=== PATIENT | female | born 1935 | race Caucasian/White ===

== ENCOUNTER 2018-05-08 16:12 | Inpatient (IN) | payer MEDICARE, MEDICAID ==
[2018-05-08 20:18] LABS: ABS Basophils 0 10^3/ul (0-0.2); ABS Eosinophils 0 10^3/ul (0-0.6); ABS Monocytes 0.4 10^3/ul (0-0.8); ABS Neutrophils 7.3 10^3/ul (1.5-7.7); ABS Nucleated RBC 0 10^3/ul; Eosinophil % 0 % (0-6); Hematocrit 38 % (35-47); Hemoglobin 12.6 g/dl (12.0-16.0); Lymphocyte % 11.4 % (25-47); Mean Corpuscular HGB Conc 33 g/dl (31-36); Mean Corpuscular Hemoglobin 28 pg (27-31); Mean Corpuscular Volume 84 fL (80-97); Mean Platelet Volume 10.8 um3 (7.4-10.4); Nucleated Red Blood Cells % 0.1; Platelet Count 207 10^3/ul (150-450); Red Blood Count 4.54 10^6/ul (4.00-5.40); Red Cell Distribution Width 16 % (10.5-15); White Blood Count 8.8 10^3/ul (3.5-10.8)
[2018-05-08 20:31] LABS: INR 0.99 (0.77-1.02)
[2018-05-08 20:34] LABS: EGFR Non-African American 27.6 (>60)
[2018-05-08] MEDS ORDERED: Dexamethasone IV* 4 MG/ML 5 ML VIAL (20 MG) IVPB ONE (20:35)
[2018-05-08] MEDS ORDERED: levETIRAcetam IV* 500 MG in NS 0.9% 100 ML* 100 ML IVPB ONE (20:35)
[2018-05-08] MEDS ORDERED: NS 0.9% 1000 ML* 1,000 ML IV ONE (21:32)
[2018-05-08] MEDS ORDERED: levETIRAcetam 500 MG IVPREMIX* 500 MG/100 ML BAG IV ONE (23:00)
[2018-05-08] MEDS ORDERED: Dexamethasone IV* 4 MG/ML 1 ML (4 MG) IV SLOW PU ONE (23:00)
[2018-05-08] MEDS ORDERED: Melatonin 3 MG TAB PO PRN (23:26)
[2018-05-08] MEDS ORDERED: Acetaminophen TAB* 325 MG PO PRN (23:26)
--- NOTE | 2018-05-08 23:30 | HP ---
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 She saw Dr Maynard, neurosurgery & her PCP yesterday and reports her PCP advised her to come to the ED for evaluation. Per her brother's report to the ED physician, they are dissatisfied with the progress of her evaluation and he would like her work up performed in the hospital setting. She denies any change in her status compared to a week ago, specifically no chest pain, SOB, N/V, focal W/N/T, change in bowel/bladder, or other issues. Her and her family were informed that as she has no acute complaints, her insurance may not cover an inpatient admission to expedite evaluation. She opted to sign the pre-authorization denial and be admitted custodially. PMedHx DM2 HTN HLD CKD anemia RLS SBO diverticulitis Ambulatory Orders Simvastatin (NF) [Zocor (NF)] 40 mg PO DAILY 11/29/15 Acetaminophen [Acetaminophen Extra Strength] 500 mg PO DAILY PRN 05/08/18 Hydrochlorothiazide TAB* [Hydrodiuril TAB*] 25 mg PO DAILY 05/08/18 Losartan TAB* [Cozaar TAB*] 100 mg PO QPM 05/08/18 levETIRAcetam [Levetiracetam ER] 500 mg PO DAILY 05/08/18 predniSONE TAB* [Deltasone 10 MG TAB*] 10 mg PO DAILY 05/08/18 Allergies No Known Allergies Allergy (Verified 05/08/18 16:22) PSurgHx colon resection w/ colostomy s/p reversal hernia repair B TKA SocHx: no tobacco, alcohol, or recreational drug HX; lives alone in senior apartments in [place]; full codes status FamHx: Mother: kidney disease; Father: CAD/OH ROS: as above, otherwise reviewed and all were negative vitals: Vital Signs Temp 36.2 C 05/08/18 16:14 Pulse 68 05/08/18 16:14 Resp 16 05/08/18 16:14 BP 162/76 05/08/18 16:14 Pulse Ox 96 05/08/18 16:14 Intake & Output 05/07/18 05/08/18 05/08/18 23:59 11:59 23:59 Weight 90.718 kg Constitutional: NAD, normally developed, obese elderly white female HEENM: atraumatic; sclera/conjunctiva: anicteric/clear; hearing: clinically intact; oropharynx: clear, mucosa moist Neck: soft tissue: no nuchal rigidity; thyroid: normal Pulmonary: clear to auscultation bilaterally, good aeration, no accessory muscle use CV: RR/RR, normal S1S2, no carotid bruit, no jugular venous distention, 2+ B DP/ PT, 1+BLE edema Abdominal: soft, non-distended, non-tender, no rebound/guarding/rigidity, normoactive bowel sounds, no hepatosplenomegaly or masses, no costovertebral angle tenderness Musculoskeletal: general: grossly intact, moves all extremities x4 Integumental: normal appearance and texture of skin, cephal-allopecia Psychiatric orientation: AA&O to PP, loosely to situation affect: calm mood: cooperative eye contact: fair content: seemingly reliable responses: timely insight: fair Testing: Lab Results 05/08/18 05/08/18 05/08/18 Range/Units 20:10 20:10 20:10 WBC 8.8 (3.5-10.8) 10^3/ul RBC 4.54 (4.00-5.40) 10^6/ul Hgb 12.6 (12.0-16.0) g/dl Hct 38 (35-47) % MCV 84 (80-97) fL MCH 28 (27-31) pg MCHC 33 (31-36) g/dl RDW 16 H (10.5-15) % Plt Count 207 (150-450) 10^3/ul MPV 10.8 H (7.4-10.4) um3 Neut % (Auto) 83.6 H (38-83) % Lymph % (Auto) 11.4 L (25-47) % [place] % (Auto) 4.8 (0-7) % Eos % (Auto) 0 (0-6) % Baso % (Auto) 0.2 (0-2) % Absolute Neuts (auto) 7.3 (1.5-7.7) 10^3/ul Absolute Lymphs (auto) 1.0 (1.0-4.8) 10^3/ul Absolute Monos (auto) 0.4 (0-0.8) 10^3/ul Absolute Eos (auto) 0 (0-0.6) 10^3/ul Absolute Basos (auto) 0 (0-0.2) 10^3/ul Absolute Nucleated RBC 0 10^3/ul Nucleated RBC % 0.1 INR (Anticoag Therapy) 0.99 (0.77-1.02) APTT 26.7 (26.0-36.3) seconds Sodium 140 (135-145) mmol/L Potassium 4.5 (3.5-5.0) mmol/L Chloride 104 (101-111) mmol/L Carbon Dioxide 28 (22-32) mmol/L Anion Gap 8 (2-11) mmol/L BUN 50 H (6-24) mg/dL Creatinine 1.76 H (0.51-0.95) mg/dL Est GFR ( Amer) 35.5 (>60) Est GFR (Non-Af Amer) 27.6 (>60) BUN/Creatinine Ratio 28.4 H (8-20) Glucose 139 H (70-100) mg/dL Calcium 10.2 (8.6-10.3) mg/dL Total Bilirubin 0.40 (0.2-1.0) mg/dL AST 16 (13-39) U/L ALT 14 (7-52) U/L Alkaline Phosphatase 42 (34-104) U/L Total Protein 7.5 (6.4-8.9) g/dL Albumin 4.1 (3.2-5.2) g/dL Globulin 3.4 (2-4) g/dL Albumin/Globulin Ratio 1.2 (1-3) CT brain WO (05/02/2018): IMPRESSION: 1. 4.2 CM MASS OF THE RIGHT TEMPORAL LOBE WITH ASSOCIATED VASOGENIC EDEMA AND 0.7 CM OF SUBFALCINE SHIFT TO THE LEFT. THERE IS PARTIAL EFFACEMENT OF THE RIGHT AMBIENT CISTERN. 2. PRELIMINARY FINDINGS WERE DISCUSSED WITH THE REFERRING PHYSICIAN'S OFFICE AT APPROXIMATELY 10:30 AM ON MAY 02, 2013. 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
[2018-05-09] MEDS: Heparin VIAL(*) 5000 UNITS/ML VIAL (FIVE THOUSAND) SUBCUT SCH ×3 (05:12→22:25)
[2018-05-09] MEDS: Omeprazole CAP* 20 MG PO SCH (05:12)
--- NOTE | 2018-05-09 06:27 | ED ---
Fransico Thorpe Elizabeth, scribed for Garrett Harley MD on 05/08/18 at 1939 . Complex/Multi-Sys Presentation - HPI Summary HPI Summary: This patient is an 82 year old F presenting to [facility] with a chief complaint of increased weakness since a few days ago. Symptoms aggravated by nothing. Symptoms alleviated by nothing. Patient reports increased confusion, change in vision, and unsteadiness on her feet over the last several days. Patient denies N/V. The patient notes that she was diagnosed with a 4 cm intracranial tumor on 05/02/18.. The patient notes that she was seen by a neurosurgeon today and was advised to come to the ED for further evaluation and treatment. - History Of Current Complaint Chief Complaint: EDWeakness Time Seen by Provider: 05/08/18 19:06 Hx Obtained From: Patient, Family/Shot Tube Machine Tender Onset/Duration: Gradual Onset, Lasting Days, Still Present Timing: Constant, Days Severity Currently: Mild Severity Initially: Mild Aggravating Factor(s): nothing Alleviating Factor(s): nothing Associated Signs And Symptoms: Positive: Confusion, Weakness, Other - unsteady gait. Negative: Nausea, Vomiting - Allergies/Home Medications Allergies/Adverse Reactions: Allergies Allergy/AdvReac Type Severity Reaction Status Date / Time No Known Allergies Allergy Verified 05/08/18 16:22 Home Medications: Home Medications Acetaminophen [Acetaminophen Extra Strength] 500 mg PO DAILY PRN 05/08/18 [ History Confirmed 05/08/18] Hydrochlorothiazide TAB* [Hydrodiuril TAB*] 25 mg PO DAILY 05/08/18 [History Confirmed 05/08/18] Losartan TAB* [Cozaar TAB*] 100 mg PO QPM 05/08/18 [History Confirmed 05/08/18] levETIRAcetam [Levetiracetam ER] 500 mg PO DAILY 05/08/18 [History Confirmed ] predniSONE TAB* [Deltasone 10 MG TAB*] 10 mg PO DAILY 05/08/18 [History Confirmed 05/08/18] PMH/Surg Hx/FS Hx/Imm Hx Endocrine/Hematology History: Reports: Hx Anticoagulant Therapy, Hx Anemia Denies: Hx Diabetes, Hx Thyroid Disease, Hx Unexplained Bleeding Cardiovascular History: Reports: Hx Angina, Hx Hypercholesterolemia, Hx Hypertension Denies: Hx Aneurysm, Hx Angioplasty, Hx Auto Implanted Cardiovert Defib, Hx Cardiac Arrest, Hx Cardiomegaly, Hx Congenital Heart Disease, Hx Congestive Heart Failure, Hx Coronary Artery Disease, Hx Deep Vein Thrombosis, Hx Hypotension, Hx Pacemaker/ICD, Hx Peripheral Vascular Disease, Hx Rheumatic Fever, Hx Syncope, Hx Valvular Heart Disease, Other Cardiovascular Problems/ Disorders Respiratory History: Denies: Hx Asthma, Hx Chronic Bronchitis, Hx Chronic Obstructive Pulmonary Disease (COPD), Hx Cystic Fibrosis GI History: Reports: Hx Diverticulosis, Other GI Disorders - ventral hernia, bowel ostruction History: Reports: Hx Kidney Stones - LEFT Denies: Hx Renal Disease Musculoskeletal History: Reports: Hx Arthritis - L hand, Other Musculoskeletal History - right knee replacement Sensory History: Reports: Hx Contacts or Glasses, Hx Hearing Aid Denies: Hx Cataracts, Hx Eye Injury, Hx Eye Prosthesis, Hx Glaucoma, Hx Macular Degeneration, Hx Vision Problem, Hx Deafness, Hx Hearing Problem, Other Sensory Impairments Opthamlomology History: Reports: Hx Contacts or Glasses Denies: Hx Cataracts, Hx Eye Injury, Hx Eye Prosthesis, Hx Glaucoma, Hx Macular Degeneration, Hx Vision Problem, Other Sensory Impairments Neurological History: Reports: Hx Developmental Delay, Hx Headaches, Other Neuro Impairments/Disorders - brain tumor 2018 Denies: Hx Dementia, Hx Migraine, Hx Seizures, Hx Spinal Cord Injury, Hx Transient Ischemic Attacks (TIA) Psychiatric History: Denies: Hx Anxiety, Hx Attention Deficit Hyperactivity Disorder, Hx Panic Disorder, Hx Bipolar Disorder, Hx Substance Abuse - Cancer History Cancer Type, Location and Year: brain tumor, 2018 Hx Chemotherapy: No Hx Radiation Therapy: No - Surgical History Surgery Procedure, Year, and Place: ABD HERNIA REPAIR. right knee replacement, 2013, [facility] Hx Anesthesia Reactions: No - Immunization History Date of Tetanus Vaccine: unknown Infectious Disease History: No Infectious Disease History: Denies: Hx Clostridium Difficile, Hx Hepatitis, Hx Human Immunodeficiency Virus (HIV), Hx Shingles, Hx Tuberculosis, Traveled Outside the [place] in Last 30 Days - Family History Known Family History: Positive: Cardiac Disease - father Hx MT, Renal Disease - mother - Social History Lives: Alone Alcohol Use: None Substance Use Type: Reports: None Hx Tobacco Use: No Smoking Status (MU): Never Smoked Tobacco Review of Systems Negative: Fever Negative: Epistaxis Negative: Vomiting, Nausea Neurological: Other - POSITIVE CONFUSION, POSITIVE UNSTEADY GAIT Positive: Weakness All Other Systems Reviewed And Are Negative: Yes Physical Exam - Summary Physical Exam Summary: Appearance: Well-appearing, no distress, Well-nourished Skin: Warm, color reflects adequate perfusion Head: Normal Head/Face inspection Eyes: Conjunctiva clear; PERRLA, EOMI ENT: Normal inspection Neck: Supple, no nodes, no JVD. Respiratory: Lungs clear, Normal breath sounds, no respiratory distress Cardio: RRR, No murmur, pulses normal, brisk capillary refill Abdomen: soft, nontender, no guarding, no rebound Bowel sounds: present Musculoskeletal: Strength Intact/ ROM intact. No calf tenderness. No edema. Neuro: Alert, muscle tone normal, facial symmetry, speech normal, sensory/motor intact, CN intact II-XII Psychological: Normal Triage Information Reviewed: Yes Vital Signs On Initial Exam: Initial Vitals Temp Pulse Resp BP Pulse Ox 97.1 F 68 16 162/76 96 05/08/18 16:14 05/08/18 16:14 05/08/18 16:14 05/08/18 16:14 05/08/18 16:14 Vital Signs Reviewed: Yes Diagnostics - Vital Signs Vital Signs Temp Pulse Resp BP Pulse Ox 05/08/18 16:14 97.1 F 68 16 162/76 96 - Laboratory Lab Results: Lab Results 05/08/18 05/08/18 05/08/18 Range/Units 20:10 20:10 20:10 WBC 8.8 (3.5-10.8) 10^3/ul RBC 4.54 (4.00-5.40) 10^6/ul Hgb 12.6 (12.0-16.0) g/dl Hct 38 (35-47) % MCV 84 (80-97) fL MCH 28 (27-31) pg MCHC 33 (31-36) g/dl RDW 16 H (10.5-15) % Plt Count 207 (150-450) 10^3/ul MPV 10.8 H (7.4-10.4) um3 Neut % (Auto) 83.6 H (38-83) % Lymph % (Auto) 11.4 L (25-47) % [place] % (Auto) 4.8 (0-7) % Eos % (Auto) 0 (0-6) % Baso % (Auto) 0.2 (0-2) % Absolute Neuts (auto) 7.3 (1.5-7.7) 10^3/ul Absolute Lymphs (auto) 1.0 (1.0-4.8) 10^3/ul Absolute Monos (auto) 0.4 (0-0.8) 10^3/ul Absolute Eos (auto) 0 (0-0.6) 10^3/ul Absolute Basos (auto) 0 (0-0.2) 10^3/ul Absolute Nucleated RBC 0 10^3/ul Nucleated RBC % 0.1 INR (Anticoag Therapy) 0.99 (0.77-1.02) APTT 26.7 (26.0-36.3) seconds Sodium 140 (135-145) mmol/L Potassium 4.5 (3.5-5.0) mmol/L Chloride 104 (101-111) mmol/L Carbon Dioxide 28 (22-32) mmol/L Anion Gap 8 (2-11) mmol/L BUN 50 H (6-24) mg/dL Creatinine 1.76 H (0.51-0.95) mg/dL Est GFR ( Amer) 35.5 (>60) Est GFR (Non-Af Amer) 27.6 (>60) BUN/Creatinine Ratio 28.4 H (8-20) Glucose 139 H (70-100) mg/dL Calcium 10.2 (8.6-10.3) mg/dL Total Bilirubin 0.40 (0.2-1.0) mg/dL AST 16 (13-39) U/L ALT 14 (7-52) U/L Alkaline Phosphatase 42 (34-104) U/L Total Protein 7.5 (6.4-8.9) g/dL Albumin 4.1 (3.2-5.2) g/dL Globulin 3.4 (2-4) g/dL Albumin/Globulin Ratio 1.2 (1-3) Result Diagrams: 05/08/18 20:10 05/08/18 20:10 Lab Statement: Any lab studies that have been ordered have been reviewed, and results considered in the medical decision making process. Complex Multi-Symp Course/Dx Course Of Treatment: Spoke with Radiology regarding CT with contrast. Given pt' s GFR, plan for hydration with study in the am. Spoke with Dr. Lopez ( Neurosurgery) who evaluated ot in the clinic today and advised for ED visit. Given pt's recent diagnosis and some evidence of worsening left sided wekaness and gait abnormalities, plan for initiation of IV steroids, IV Keppra and admission for MRI and plan for surgical intervention. - Diagnoses Differential Diagnoses/HQI/PQRI: Closed Cranial Trauma, CVA, Metabolic Abnormality, Urinary Tract Infection Provider Diagnoses: Intracranial mass - Physician Notifications Discussed Care Of Patient With: Nadine Maynard Time Discussed With Above Provider: 20:00 Instructed by Provider To: Other - Dr. Maynard, neurosurgeon, requests patient be admitted for imaging, IV steroids, and anti-seizure medication. At 20 :30 Dr. Thapa, hospitalist, agrees to admit the patient to [facility]. Discharge - Sign-Out/Discharge Documenting (check all that apply): Discharge/Admit/Transfer - Discharge Plan Condition: Stable Disposition: ADMITTED TO [facility] Discharge Disposition Comment: admit to [facility] - Billing Disposition and Condition Condition: STABLE Disposition: Admitted to [facility] The documentation as recorded by the Fransico corona Elizabeth accurately reflects the service I personally performed and the decisions made by , Garrett Harley MD.
[2018-05-09 08:27] LABS: Urine Appearance Clear; Urine Blood Negative (Negative); Urine Color Straw; Urine Ketones Negative (Negative); Urine Protein 1+(30 mg/dL) (Negative); Urine Specific Gravity 1.012 (1.010-1.030); Urine Urobilinogen Negative (Negative)
[2018-05-09] MEDS ORDERED: predniSONE TAB* 10 MG PO SCH (09:00)
--- NOTE | 2018-05-09 10:08 | PN ---
Subjective Date of Service: 05/09/18 Interval History: Ms. Mayer denies any particular complaint other than being frustrated because of being bothered by needing further testing. She denies chest pain, SOB, nausea, or abdominal pain. Objective Active Medications: Acetaminophen (Tylenol Tab*) 650 mg PO Q6H PRN Atorvastatin Calcium (Lipitor*) 20 mg PO DAILY LING Docusate Sodium (Colace Cap*) 200 mg PO BID LING Heparin Sodium (Porcine) (Heparin Vial(*)) 5,000 units SUBCUT Q8HR LING Dexamethasone Sodium Phosphate (4 mg/ Sodium Chloride) 51 mls @ 204 mls/hr IVPB Q6H LING Insulin Human Lispro (Humalog*) 0 units SUBCUT ACHS LING Levetiracetam (Keppra Xr Tab(Nf)) 500 mg PO DAILY LING Losartan Potassium (Cozaar Tab*) 100 mg PO QPM LING Melatonin (Melatonin) 3 mg PO BEDTIME PRN; Protocol Omeprazole (Prilosec Cap*) 20 mg PO DAILY@0600 LING Ondansetron HCl (Zofran Odt Tab*) 4 mg PO Q6H PRN Vital Signs: Temp Pulse Resp BP Pulse Ox 98.1 F 59 18 165/44 95 05/09/18 07:34 05/09/18 07:34 05/09/18 07:34 05/09/18 07:34 05/09/18 07:34 Oxygen Devices in Use Now: None Appearance: Female lying in bed in NAD Eyes: No Scleral Icterus Ears/Nose/Mouth/Throat: Mucous Membranes Moist Neck: Trachea Midline Respiratory: Symmetrical Chest Expansion and Respiratory Effort, Clear to Auscultation Cardiovascular: NL Sounds; No Murmurs; No JVD, No Edema Abdominal: NL Sounds; No Tenderness; No Distention Extremities: No Edema Skin: No Rash or Ulcers Neurological: Alert and Oriented x 3, - - +4 strength to left deadener, slightly decreased strength in L LE, no pronator drift. Speech clear. No facial asymmetry. Result Diagrams: 05/08/18 20:10 05/08/18 20:10 Additional Lab and Data: . Assess/Plan/Problems-Billing Assessment: Ms. 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 - Patient Problems (1) Brain mass Comment: - Some minimal left sided weakness as well as confusion. - Appreciate consultation from Dr. Lopez. - Continue decadron and keppra. - MRI brain and CT C/A/P to eval for tumor burden - Surgery not arranged yet. In terms of pre-operative cardiac assessment, patient has no known cardiac history but does have risk factors of DM, HTN, and HLD. She does not regularly achieve 4 METS activity and describes HORNER. Echo ordered. (2) CKD (chronic kidney disease) Comment: - Stage 3-4, slightly up from baseline. - Plan for hydration, FeNa 1.6% suggesting primarily intrinsic disease. Hold Hctz and recheck labs in AM. (3) Diabetes Comment: - Not on any home meds. HgbA1c 6.9 - Continue lispro SSI coverage for meals prn. (4) HTN (hypertension) Comment: - SBP 160-170s. - Continue losartan and add amlodipine. - Hold hctz in setting of slight elevation in creatinine. (5) Hyperlipidemia Comment: - Continue atorvastatin. (6) DVT prophylaxis Comment: - Heparin SQ. (7) Full code status Comment: Status and Disposition: Inpatient. May have rehab needs at time of discharge. Previously lived alone independently.
[2018-05-09] MEDS: CMCS:Levetiracetam XR TAB(NF) 500 MG TAB.XR PO SCH (10:15)
[2018-05-09] MEDS: Atorvastatin* 20 MG TAB PO SCH (10:16)
[2018-05-09] MEDS: Docusate CAP* 100 MG PO SCH ×2 (10:16→22:24)
[2018-05-09] MEDS: Insulin LISPRO* 1 UNITS UNIT SUBCUT SCH ×5 (10:16→22:24)
--- NOTE | 2018-05-09 11:47 | RAD ---
HISTORY: brain mass COMPARISONS: Head CT dated May 02, 2018 TECHNIQUE: The following sequences were obtained of the head: Sagittal T1-weighted images, axial T2-weighted images, axial FLAIR images, axial gradient echo images, axial T1-weighted images. Additionally, axial diffusion-weighted images were obtained with calculated apparent diffusion coefficients. FINDINGS: Evaluation limited by positioning. HEMORRHAGE/INFARCT: There is no hemorrhage or acute infarct. MASSES/SHIFT: There is an approximately 5.9 x 4.3 x 3.4 cm cystic mass, centered within the right temporal lobe. There is approximately 0.4 cm of subfalcine shift to the left. There is partial effacement of the basal cisterns on the right. EXTRA-AXIAL SPACES/MENINGES: There is left anterior temporal pole arachnoid cyst. This measures 2 x 1.3 cm transversely. SULCI AND VENTRICLES: There is mass effect upon the lateral ventricle. CEREBRUM: As noted above, there is a 5.9 cm cystic mass centered within the right temporal lobe. There is vasogenic edema extending to the parietal, frontal, and occipital lobes. BRAINSTEM: There are no focal parenchymal abnormalities. CEREBELLUM: There are no focal parenchymal abnormalities. The cerebellar tonsils are normal in size and position. SELLA: The sella is normal. PINEAL: The pineal region is clear. CP ANGLE/TEMPORAL BONES: The labyrinthine structures are grossly normal. VESSELS: Normal flow-voids are noted within the visualized vertebral vasculature. DIFFUSION ABNORMALITIES: There are no diffusion abnormalities. PARANASAL SINUSES/MASTOIDS: The paranasal sinuses are clear. ORBITS: The orbits are unremarkable. BONES AND SOFT TISSUE: No bone or soft tissue abnormalities are noted. OTHER: None IMPRESSION: 5.9 CM CYSTIC MASS OF THE RIGHT TEMPORAL LOBE WITH ASSOCIATED VASOGENIC EDEMA AND 0.4 SUBFALCINE SHIFT TO THE LEFT. THERE IS PARTIAL EFFACEMENT OF THE BASAL CISTERNS. THIS CORRESPONDS TO THE MASS NOTED ON PREVIOUS CT.
[2018-05-09] MEDS: Dexamethasone IV* 4 MG in NS 0.9% 50 ML* 50 ML IVPB SCH ×2 (12:04→16:27)
[2018-05-09] MEDS: amLODIPine TAB* 5 MG PO SCH (12:09)
--- NOTE | 2018-05-09 12:34 | RAD ---
HISTORY: Brain tumor, rule out other tumors, metastasis COMPARISONS: July 01, 2016 TECHNIQUE: Multiple contiguous axial CT scans were obtained of the chest, abdomen, and pelvis, without intravenous contrast enhancement. Coronal and sagittal multiplanar reformations are submitted for review.. Oral contrast was not administered. FINDINGS: The study is limited by the lack of intravenous contrast. This limits evaluation of the solid organs and vasculature. CHEST NECK AND THYROID: There is a 1.6 cm right thyroid nodule. CHEST WALL: There is no lower cervical, axillary, or supraclavicular lymphadenopathy by size criteria. HEART AND PERICARDIUM: Coronary and valvular cardiac calcifications are noted. AORTA AND PULMONARY VASCULATURE: There is calcification of the thoracic aorta. The pulmonary vasculature is unremarkable. MEDIASTINUM: There is no mediastinal lymphadenopathy by size criteria. RAFFY: There is no hilar lymphadenopathy by size criteria. AIRWAY AND ESOPHAGUS: The airway is unremarkable, without endobronchial filling defect. The esophagus is grossly normal. LUNG PARENCHYMA: The lungs are clear. PLEURA: No pleural abnormalities are noted. BONES AND SOFT TISSUES: No bone or soft tissue abnormalities are noted. ABDOMEN/PELVIS: LIVER: There is a 1.6 cm partially calcific cystic lesion of the right lobe of liver. This is stable compared to July 01, 2016. BILE DUCTS: There is no intrahepatic or extrahepatic biliary dilatation. GALLBLADDER: The gallbladder is normal, without pericholecystic inflammatory change. PANCREAS: The pancreas is normal, without mass or ductal dilatation. SPLEEN: Normal in size and appearance. UPPER GI TRACT: Evaluation of the gastrointestinal tract is limited by incomplete gastric distention. The upper GI tract is unremarkable. SMALL BOWEL & MESENTERY: The small bowel is normal in contour, course, and caliber. There is no obstruction or dilatation. COLON: There are multiple diverticula of the distal colon. There is no pericolonic inflammatory change.. There is postsurgical change to the rectum ADRENALS: Normal bilaterally. KIDNEYS: There is stable simple cyst of the left kidney. BLADDER: The bladder is smooth in contour. PELVIC ORGANS: The uterus and adnexa are grossly normal for technique. AORTA: There is calcific atherosclerotic disease of the abdominal aorta and its branches, without aneurysmal dilatation IVC: Unremarkable LYMPH NODES: There are multiple large ventral hernias containing portions of the stomach, small bowel, and large bowel without obstruction. ABDOMINAL WALL: There is no evidence for abdominal wall hernia. BONES AND SOFT TISSUES: Degenerative changes are noted OTHER: None IMPRESSION: 1. ATHEROSCLEROSIS. 2. STABLE CYSTIC LESION OF THE RIGHT LOBE OF THE LIVER. 3. POST SURGICAL CHANGE TO THE RECTUM. 4. DIVERTICULOSIS. 5. MULTIPLE VENTRAL HERNIAS CONTAINING SMALL BOWEL, LARGE BOWEL, AND STOMACH WITHOUT OBSTRUCTION. 6. 1.6 CM RIGHT THYROID NODULE.
--- NOTE | 2018-05-09 14:09 | RAD ---
CLINICAL HISTORY: rule out malignancy brain mass COMPARISON: May 09, 2018 11:17 AM. TECHNIQUE: Multiple contiguous axial CT scans were obtained of the abdomen and pelvis, without intravenous contrast enhancement. Coronal and sagittal multiplanar reformations are submitted for review. Oral contrast was administered. FINDINGS: The study is limited by the lack of intravenous contrast. This limits evaluation of the solid organs and vasculature. This study is read in conjunction with the CT scan of May 09, 2018 at 11:17 AM. The addition of oral contrast is noncontributory to the current examination. IMPRESSION: NO SIGNIFICANT CHANGE FROM THE CT PERFORMED ON THE SAME DATE AT 11:17 AM, AFTER THE ADMINISTRATION OF ORAL CONTRAST.
[2018-05-09] MEDS: NS 0.9% 1000 ML* 1,000 ML IV SCH (14:37)
[2018-05-09] MEDS ORDERED: Dexamethasone IV* 4 MG/ML 1 ML (4 MG) ONE (16:19)
[2018-05-09] MEDS: Losartan TAB* 25 MG PO SCH (16:27)
--- NOTE | 2018-05-09 17:55 | ECHO ---
Patient: CANDIDO OCHOA [facility] Rec#: [id number] : 1935 Date: 05/09/2018 Age: 82y Height: 162.56 cm / 64.0 in Weight: 91.17 kg / 200.9 lbs Sex: F BSA: 1.96 Room#: 417 Admit Date#: 05/08/2018 Type: Inpatient Referring: Laverne Santana NP Reading: Ba Yanez MD Craft Recruiter: Diana Ordonez RDCS CC: Landon Shin MD Transthoracic Echocardiogram Indication: HORNER BP: 138/66 HR: 78 Rhythm: NSR Findings History: DM,HTN,HLD,CKD,anemia,ventral hernia,right tempopral lobe mass. Technical Comments: The study quality is good. Completed at 1700. Left Ventricle: The left ventricular chamber size is normal. Mild concentric left ventricular hypertrophy is observed. Global left ventricular wall motion and contractility are within normal limits. The estimated ejection fraction is 60-65%. Abnormal left ventricular diastolic function is observed. Abnormal left ventricular diastolic filling is observed, consistent with impaired relaxation. Left Atrium: The left atrial chamber size is normal. Right Ventricle: The right ventricular cavity size is normal. The right ventricular global systolic function is normal. Right Atrium: The right atrial cavity size is normal. Aortic Valve: The aortic valve is trileaflet. There is no evidence of aortic valve thickening. There is mild aortic regurgitation. There is no evidence of aortic stenosis. Mitral Valve: The mitral valve leaflets are mildly thickened. There is mild to moderate mitral regurgitation. There is no evidence of mitral stenosis. Tricuspid Valve: The tricuspid valve leaflets are normal. Unable to estimate the right ventricular systolic pressure. There is no tricuspid stenosis. Pulmonic Valve: The pulmonic valve appears normal. There is no evidence of pulmonic regurgitation. There is no pulmonic stenosis. Pericardium: A pericardial fat pad is visualized. Aorta: There is no dilatation of the ascending aorta. The aortic arch is not well visualized. There is no dilation of the aortic root. Pulmonary Artery: The main pulmonary artery appears normal. Venous: The venous system is not well visualized. Conclusions The estimated ejection fraction is 60-65%. Abnormal left ventricular diastolic function is observed. Mild concentric left ventricular hypertrophy is observed. There is mild aortic regurgitation. There is mild to moderate mitral regurgitation. Compared to , the MR has increased from trace to mild/moderate. Measurements Name Value Normal Range RVIDd (AP) 2D 2.8 cm (0.9 - 2.6) RVDdMajor (2D) 3.5 cm (2.2 - 4.4) RAd ISD 4CH 4.5 cm (3.4 - 4.9) RA (A4C)W 3.5 cm (2.9 - 4.6) IVSd (2D) 1.2 cm (0.6 - 1) LVPWd (2D) 1.1 cm (0.6 - 1) LVIDd (2D) 5 cm (3.6 - 5.4) LVIDs (2D) 3.8 cm - LV FS (2D) 24 % (25 - 45) Aortic Annulus 1.8 cm (1.4 - 2.6) Ao root diameter (2D) 2.7 cm (2.1 - 3.5) Ascending Ao 3.3 cm (2.1 - 3.4) LA dimension (AP) 2D 3.2 cm (2.3 - 3.8) LAd ISD 4CH 4.8 cm (2.9 - 5.3) LA ISD 4CH W 4 cm (2.5 - 4.5) Name Value Normal Range LA ESV SP 4CH (A/L) 60 ml - LA ESV SP 2CH (A/L) 46 ml - LA ESV BP (A/L) 58 ml - LA ESV BP (A/L) index 29.47 ml/m2 - LA ESV SP 4CH (MOD) 53 ml - LA ESV SP 2CH (MOD) 41 ml - Name Value Normal Range MV E-wave Vmax 0.8 m/sec - MV deceleration time 227 msec - MV A-wave Vmax 0.9 m/sec - MV E:A ratio 0.87 ratio - LV septal e' Vmax 0.06 m/sec - LV lateral e' Vmax 0.05 m/sec - LV E:e' septal ratio 13.33 ratio - LV E:e' lateral ratio 16 ratio - Name Value Normal Range AV Vmax 1.3 m/sec - AV VTI 29.8 cm - AV peak gradient 6.68 mmHg - AV mean gradient 3.73 mmHg - LVOT Vmax 0.8 m/sec - LVOT VTI 19.6 cm - LVOT peak gradient 2.82 mmHg - LVOT mean gradient 1.27 mmHg - AR PHT 589 msec - AR peak gradient 60.07 mmHg - Name Value Normal Range MR Vmax 5 m/sec - MR VTI 192.5 cm - Name Value Normal Range PV Vmax 0.9 m/sec - PV peak gradient 3.47 mmHg -
[2018-05-09] MEDS: Dexamethasone IV* 4 MG/ML 1 ML (4 MG) IV SLOW PU SCH (22:25)
--- NOTE | 2018-05-10 00:41 | CONS ---
AMENDED REPORT NOW INCLUDES DATE OF CONSULT - ESIGNED BEFORE ADJUSTMENT CONSULTATION NOTE: DATE OF CONSULT: 05/09/18 - ROOM #417 HISTORY OF PRESENT ILLNESS: Ms. Mayer is a very pleasant 82-year-old female with a history of diabetes, hypertension, hyperlipidemia, anemia, diverticulitis, small bowel obstruction, renal disease, who was seen yesterday in our office. The patient was noted to have altered mental status by her family and she was seen by Dr. Shin who apparently ordered CT scan of her brain which revealed right temporal lesion with surrounding edema and midline shift. The patient was scheduled for an MRI of the brain with and without contrast as well as x-ray of abdomen and pelvis, was placed on steroids and seizure prophylaxis because of the presence of the midline shift and the patient 's mental status and lack of support from her family. The patient was advised to come to the hospital for further management. The patient is confused but has no complaints of headaches. She reports that she had no nausea or vomiting. Denies any seizures. Denies any weakness, numbness,or tingling in her extremities. She denies any urinary or GI continence. The same was also witnessed by the patient's brother in the office. The patient is single, lives alone and her main caregivers are her 2 brothers. PAST MEDICAL HISTORY: Diabetes, hypertension, hyperlipidemia, kidney disease, anemia, small bowel obstruction, diverticulitis. PAST SURGICAL HISTORY: Colon resection with colostomy and reversal, hernia repair. ALLERGIES: No known drug allergies. MEDICATIONS: The patient is on simvastatin, Tylenol, hydrochlorothiazide, losartan, Keppra, and prednisone at home. FAMILY HISTORY: Kidney disease, coronary artery disease, and [place]. SOCIAL HISTORY: Tobacco: Negative. Alcohol: Negative. Recreational drug use : Negative. PHYSICAL EXAM: The patient is not in acute distress. She is pleasantly confused. She is oriented x1 to 2. Her pupils are equal and reactive. Cranial nerves II through XII are grossly intact. Motor 4-5/5 in her right side, 4/5 in the left side. The patient has mild pronator drift on the left side. Sensory is grossly intact to light touch, although exam is somewhat limited. Position intact. Deep tendon reflexes +1 bilaterally. No clonus, no Babinski. Victoria's negative. Straight leg raise test is negative in sitting position. Pedal pulses present bilaterally. DIAGNOSTIC STUDIES/LAB DATA: The patient had a CT scan of the brain revealing right temporal lesion, hypodense with surrounding edema, there is midline shift with compression of right ventricular system as well as evidence of mild compression of the basilar systems. The patient had MRI of the brain on admission that revealed 5.9 cm cystic lesion in the right temporal lobe with associated edema and right to left midline shift with possible compression of the basal system. Unfortunately, the patient had no contrast due to her renal disease. The patient had a CT scan of the chest, abdomen, and pelvis with an without oral contrast that did not reveal evidence of metastatic disease, did reveal though right thyroid nodule, atherosclerosis, cystic lesion in the right lobe of the liver, diverticulosis and ventral hernia. ASSESSMENT: The patient is a very pleasant 82-year-old female with multiple medical comorbidities with altered mental status and imaging finding suggestive of a right temporal lesion. PLAN: The patient is currently being admitted for observation. She will be placed some IV Decadron and placed on Keppra. We will review films with radiology and reevaluate the possibility of using contrast. Available imaging characteristics favor GBM. Prognosis may be extremely poor. The patient will be a candidate for biopsy or an open resection. We will discuss treatment options with the patient's family and finalize the plan. Appreciate Internal Medicine care. Thank you very much for allowing us to participate in the care of this patient. Please do not hesitate to contact our office in case you have any further questions or concerns regarding the care of this patient. Lory Maynard MD [id number]/[facility] #: [id number] [facility] HILLSIDE HOSPITALRadha
[2018-05-10] MEDS: NS 0.9% 1000 ML* 1,000 ML IV SCH ×2 (02:13→13:46)
[2018-05-10] MEDS: Dexamethasone IV* 4 MG/ML 1 ML (4 MG) IV SLOW PU SCH ×4 (05:33→20:40)
[2018-05-10] MEDS: Heparin VIAL(*) 5000 UNITS/ML VIAL (FIVE THOUSAND) SUBCUT SCH ×3 (05:33→21:44)
[2018-05-10] MEDS: Omeprazole CAP* 20 MG PO SCH (05:34)
[2018-05-10 07:25] LABS: EGFR Non-African American 37.1 (>60)
[2018-05-10] MEDS: Atorvastatin* 20 MG TAB PO SCH (08:59)
[2018-05-10] MEDS: amLODIPine TAB* 5 MG PO SCH (08:59)
[2018-05-10] MEDS: CMCS:Levetiracetam XR TAB(NF) 500 MG TAB.XR PO SCH (09:00)
[2018-05-10] MEDS: Insulin LISPRO* 1 UNITS UNIT SUBCUT SCH ×4 (09:00→20:38)
[2018-05-10] MEDS: Docusate CAP* 100 MG PO SCH ×2 (09:01→20:25)
--- NOTE | 2018-05-10 12:18 | PN ---
Subjective Date of Service: 05/10/18 Interval History: Patient reports her headache is still "mildly present but overall much improved ". She reports dizziness when she lays flat on her back and it resolves when she lays on her side. She denies vision changes. Pt reports she would like to move forward with surgery, chemo and radiation treatment - whatever the recommended course of treatment is. Objective Active Medications: Acetaminophen (Tylenol Tab*) 650 mg PO Q6H PRN PRN Reason: FEVER/PAIN Amlodipine Besylate (Norvasc Tab*) 5 mg PO DAILY [facility] Last Admin: 05/10/18 08:59 Dose: 5 mg Atorvastatin Calcium (Lipitor*) 20 mg PO DAILY [facility] Last Admin: 05/10/18 08:59 Dose: 20 mg Dexamethasone Sodium Phosphate (Decadron Iv*) 4 mg IV SLOW PU Q6H [facility] Last Admin: 05/10/18 09:09 Dose: 4 mg Docusate Sodium (Colace Cap*) 200 mg PO BID [facility] Last Admin: 05/10/18 09:01 Dose: Not Given Heparin Sodium (Porcine) (Heparin Vial(*)) 5,000 units SUBCUT Q8HR [facility] Last Admin: 05/10/18 05:33 Dose: 5,000 units Sodium Chloride (Ns 0.9% 1000 Ml*) 1,000 mls @ 100 mls/hr IV PER RATE [facility] Last Admin: 05/10/18 02:13 Dose: 100 mls/hr Insulin Human Lispro (Humalog*) 0 units SUBCUT ACHS [facility] PRN Reason: Protocol Last Admin: 05/10/18 09:00 Dose: 2 units Levetiracetam (Keppra Xr Tab(Nf)) 500 mg PO DAILY [facility] PRN Reason: Protocol Last Admin: 05/10/18 09:00 Dose: 500 mg Losartan Potassium (Cozaar Tab*) 100 mg PO QPM [facility] Last Admin: 05/09/18 16:27 Dose: 100 mg Melatonin (Melatonin) 3 mg PO BEDTIME PRN; Protocol PRN Reason: Sleep Omeprazole (Prilosec Cap*) 20 mg PO DAILY@0600 [facility] Last Admin: 05/10/18 05:34 Dose: 20 mg Ondansetron HCl (Zofran Odt Tab*) 4 mg PO Q6H PRN PRN Reason: n/v Vital Signs - 8 hr 05/10/18 05/10/18 07:55 07:56 Temperature 98.4 F Pulse Rate 62 Respiratory 22 16 Rate Blood Pressure 172/56 (mmHg) O2 Sat by Pulse 95 Oximetry Oxygen Devices in Use Now: None Appearance: 82 yo female A+Ox3 in NAD. Eyes: No Scleral Icterus, PERRLA Neck: NL Appearance and Movements; NL JVP Respiratory: Symmetrical Chest Expansion and Respiratory Effort, Clear to Auscultation Cardiovascular: NL Sounds; No Murmurs; No JVD, RRR, No Edema Abdominal: NL Sounds; No Tenderness; No Distention, - Extremities: No Edema, No Clubbing, Cyanosis Skin: No Rash or Ulcers, No Nodules or Sclerosis Neurological: Alert and Oriented x 3, NL Sensation, NL Gait, NL Muscle Strength and Tone Lines/Tubes/Other Access: Clean, Dry and Intact Peripheral IV Nutrition: Taking PO's Result Diagrams: 05/08/18 20:10 05/10/18 06:38 Additional Lab and Data: . Assess/Plan/Problems-Billing Assessment: Ms. 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 - Patient Problems (1) Brain mass Comment: - Some minimal left sided weakness as well as confusion, but both appear to be improving on steroids. - Appreciate consultation from Dr. Lopez. Suspects GBM. Recommends surgery with resection for debulking and biopsy. - Continue decadron and keppra. Plan to titrate Decadron starting tomorrow to 4 mg Q8hr. - Cant obtain MRI brain with contrast d/t renal function - Surgery not arranged yet. In terms of pre-operative cardiac assessment, patient has no known cardiac history but does have risk factors of DM, HTN, and HLD. She does not regularly achieve 4 METS activity and describes HORNER. Echo ordered. - Will consult Oncology to see the patient saturday. (2) CKD (chronic kidney disease) Comment: - Stage 3-4, appears to be aorund baseline. (3) Diabetes Comment: - Not on any home meds. HgbA1c 6.9 - Continue lispro SSI coverage for meals prn. (4) Hyperlipidemia Comment: - Continue atorvastatin. (5) DVT prophylaxis Comment: - Heparin SQ. (6) HTN (hypertension) Comment: - SBP improving - Continue losartan and continue added amlodipine. - Hold hctz (7) Full code status Comment: Status and Disposition: Inpatient. May have rehab needs at time of discharge. Previously lived alone independently.
[2018-05-10] MEDS: Losartan TAB* 25 MG PO SCH (17:01)
--- NOTE | 2018-05-10 23:49 | PN ---
Progress Note - Progress Note Date of Service: 05/10/18 SOAP: Subjective: []Patient seen earlier. No events ON. Tolerates PO. Objective: []VVS AAOx2, JAVI, CN III -XII grossly intact. Visual beck difficult to assess because of mental status, poor cooperation. Motor 4-5/5 right side, 4/5 left side. Left pronator drift. Sensory grossly intact to light touch. Assessment: []82 yof AMS Rt temporal lesion Plan: []Monitor VS, Neurochecks Continue steroids, Keppra Discussed with patient's brother Ed on the phone regarding patient's condition, imaging findings, possible very poor prognosis. Discussed different treatment options. Offered the option of surgical resection. Family would like to think all options. Will discuss with family again in am and finalize plan. Oncology consult on Saturday. Appreciate IM care. Lory Maynard MD
[2018-05-11] MEDS ORDERED: hydrALAZINE IV* 20 MG/ML VIAL ONE (04:01)
[2018-05-11] MEDS: Dexamethasone IV* 4 MG/ML 1 ML (4 MG) IV SLOW PU SCH ×3 (04:06→20:06)
[2018-05-11] MEDS: hydrALAZINE IV* 20 MG/ML VIAL IV PRN (04:06)
[2018-05-11] MEDS: Heparin VIAL(*) 5000 UNITS/ML VIAL (FIVE THOUSAND) SUBCUT SCH ×3 (05:53→22:09)
[2018-05-11] MEDS: Omeprazole CAP* 20 MG PO SCH (05:53)
[2018-05-11 06:09] LABS: ABS Basophils 0 10^3/ul (0-0.2); ABS Eosinophils 0 10^3/ul (0-0.6); ABS Lymphocytes 0.8 10^3/ul (1.0-4.8); ABS Monocytes 0.6 10^3/ul (0-0.8); ABS Neutrophils 7.7 10^3/ul (1.5-7.7); ABS Nucleated RBC 0 10^3/ul; Eosinophil % 0 % (0-6); Hematocrit 36 % (35-47); Hemoglobin 11.8 g/dl (12.0-16.0); Lymphocyte % 8.3 % (25-47); Mean Corpuscular HGB Conc 33 g/dl (31-36); Mean Corpuscular Hemoglobin 27 pg (27-31); Mean Corpuscular Volume 84 fL (80-97); Mean Platelet Volume 11.4 um3 (7.4-10.4); Nucleated Red Blood Cells % 0; Platelet Count 188 10^3/ul (150-450); Red Blood Count 4.33 10^6/ul (4.00-5.40); Red Cell Distribution Width 16 % (10.5-15); White Blood Count 9.1 10^3/ul (3.5-10.8)
[2018-05-11 06:28] LABS: EGFR Non-African American 32.7 (>60)
--- NOTE | 2018-05-11 08:19 | PN ---
Subjective Date of Service: 05/11/18 Interval History: Patient noted to have some intermittent confusion. She states "I am going to have the surgery for sure, thats what I want". She denies GRAY, vision changes. Reports dizziness when she lays on her back. She reports good appetite. No N/V. Reports she is steady on her feet. Objective Active Medications: Acetaminophen (Tylenol Tab*) 650 mg PO Q6H PRN PRN Reason: FEVER/PAIN Amlodipine Besylate (Norvasc Tab*) 5 mg PO DAILY [facility] Last Admin: 05/10/18 08:59 Dose: 5 mg Atorvastatin Calcium (Lipitor*) 20 mg PO DAILY [facility] Last Admin: 05/10/18 08:59 Dose: 20 mg Dexamethasone Sodium Phosphate (Decadron Iv*) 4 mg IV SLOW PU Q8H [facility] Docusate Sodium (Colace Cap*) 200 mg PO BID [facility] Last Admin: 05/10/18 20:25 Dose: Not Given Heparin Sodium (Porcine) (Heparin Vial(*)) 5,000 units SUBCUT Q8HR [facility] Last Admin: 05/11/18 05:53 Dose: 5,000 units Hydralazine HCl (Apresoline Iv*) 10 mg IV Q4H PRN PRN Reason: Systolic >170 Last Admin: 05/11/18 04:06 Dose: 10 mg Insulin Human Lispro (Humalog*) 0 units SUBCUT ACHS [facility] PRN Reason: Protocol Last Admin: 05/10/18 20:38 Dose: 6 units Levetiracetam (Keppra Xr Tab(Nf)) 500 mg PO DAILY [facility] PRN Reason: Protocol Last Admin: 05/10/18 09:00 Dose: 500 mg Losartan Potassium (Cozaar Tab*) 100 mg PO QPM [facility] Last Admin: 05/10/18 17:01 Dose: 100 mg Melatonin (Melatonin) 3 mg PO BEDTIME PRN; Protocol PRN Reason: Sleep Omeprazole (Prilosec Cap*) 20 mg PO DAILY@0600 [facility] Last Admin: 05/11/18 05:53 Dose: 20 mg Ondansetron HCl (Zofran Odt Tab*) 4 mg PO Q6H PRN PRN Reason: n/v Vital Signs - 8 hr 05/11/18 05/11/18 03:48 03:54 Temperature 98.1 F Pulse Rate 65 Respiratory 20 Rate Blood Pressure 180/80 (mmHg) O2 Sat by Pulse 97 Oximetry Oxygen Devices in Use Now: None Appearance: A+O in NAD, slightly anxious Eyes: No Scleral Icterus, PERRLA Ears/Nose/Mouth/Throat: Mucous Membranes Moist Respiratory: Symmetrical Chest Expansion and Respiratory Effort, Clear to Auscultation Cardiovascular: NL Sounds; No Murmurs; No JVD, RRR, No Edema Abdominal: NL Sounds; No Tenderness; No Distention Extremities: No Edema, No Clubbing, Cyanosis Skin: No Rash or Ulcers, No Nodules or Sclerosis Neurological: Alert and Oriented x 3, NL Sensation, NL Gait - mild confusion, NL Muscle Strength and Tone Lines/Tubes/Other Access: Clean, Dry and Intact Peripheral IV Nutrition: Taking PO's Result Diagrams: 05/11/18 05:47 05/11/18 05:47 Additional Lab and Data: . Assess/Plan/Problems-Billing Assessment: Ms. 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 - Patient Problems (1) Brain mass Comment: - Improving on steroids, continues to have intermittent confusion. - Appreciate consultation from Dr. Lopez. Suspects GBM. Recommends surgery with resection for debulking and biopsy. Most likely surgery planned ofr - Continue decadron and keppra. per NS Titrate Decadron starting today to 4 mg Q8hr. - Cant obtain MRI brain with contrast d/t renal function - In terms of pre-operative cardiac assessment, patient has no known cardiac history but does have risk factors of DM, HTN, and HLD. She does not regularly achieve 4 METS activity and describes HORNER. Echo showing E 60-^%%, with abnormal left ventricular diastolic dysfunction, mild LVH, mild aortic regurg, mild to moderate mitral regurg. No evidence of aortic stenosis. Obtain EKG. - Oncology to consult Saturday (2) CKD (chronic kidney disease) Comment: - Stage 3-4, appears to be aorund baseline. (3) Diabetes Comment: - Not on any home meds. HgbA1c 6.9 - Continue lispro SSI coverage for meals prn. (4) Hyperlipidemia Comment: - Continue atorvastatin. (5) DVT prophylaxis Comment: - Heparin SQ. (6) HTN (hypertension) Comment: - SBP improving - Continue losartan and continue added amlodipine. - Hold hctz (7) Full code status Comment: Status and Disposition: Inpatient. Possible surgery with Dr. Lopez. May have rehab needs at time of discharge. Previously lived alone independently.
[2018-05-11] MEDS: Atorvastatin* 20 MG TAB PO SCH (09:13)
[2018-05-11] MEDS: Docusate CAP* 100 MG PO SCH ×2 (09:13→20:02)
[2018-05-11] MEDS: CMCS:Levetiracetam XR TAB(NF) 500 MG TAB.XR PO SCH (09:13)
[2018-05-11] MEDS: amLODIPine TAB* 5 MG PO SCH (09:13)
[2018-05-11] MEDS: Insulin LISPRO* 1 UNITS UNIT SUBCUT SCH ×4 (09:14→20:27)
--- NOTE | 2018-05-11 13:24 | PN ---
Progress Note - Progress Note Date of Service: 05/11/18 SOAP: Subjective: []No events ON. Tolerates PO. On Decadron. Reported episodes of confusion/ delirium. Objective: []]VVS AAOx2, JAVI, CN III -XII grossly intact. Visual beck difficult to assess because of mental status, poor cooperation. Motor 4-5/5 right side, 4/5 left side. Left pronator drift. Sensory grossly intact to light touch. Assessment: []82 yof AMS Rt temporal lesion, RF Plan: []Monitor VS, Neurochecks Continue steroids, Keppra Discussed with patient's brother Timmy and Arsenio regarding patient's condition, imaging findings,different treatment options, possible very poor prognosis. Patient may benefit from surgical intervention for tumor debulking, biopsy and may need additional radiation/ chemotherapy. Discussed in extend [place] [facility] [place] other facility and possible need for intraoperative MRI. Have discussed case with Dr Kc in [facility] already who has accepted the patient. Family would prefer to have surgery here, understanding the possible need for additional resection in the future and additional treatment. Risks and benefits of procedure have been discussed in extend with patent's brothers as well as possible complications, including but not limited to bleeding, infection, risk of injury to adjacent structures, coma, paralysis, ,stroke, blindness, anesthesia risks, need for additional procedures. They understand that patient may need prolonged ICU stay, tracheostomy, gastrostomy. Additional resection may be necessary and that prognosis may be extremely poor. Also understand that operative plan may be modified according intraoperatie findings and conditions and that surgery may be done in more than one stages. Will plan for surgical intervention with stereotactic navigation if patient is going to be able to be medically cleared. Oncology consult on Saturday. Appreciate IM care. Lory Maynard MD
[2018-05-11] MEDS: Losartan TAB* 25 MG PO SCH (17:43)
[2018-05-12] MEDS: Dexamethasone IV* 4 MG/ML 1 ML (4 MG) IV SLOW PU SCH ×3 (03:20→21:37)
[2018-05-12] MEDS: Heparin VIAL(*) 5000 UNITS/ML VIAL (FIVE THOUSAND) SUBCUT SCH ×3 (05:30→21:21)
[2018-05-12] MEDS: Omeprazole CAP* 20 MG PO SCH (05:30)
[2018-05-12 05:59] LABS: ABS Basophils 0 10^3/ul (0-0.2); ABS Eosinophils 0 10^3/ul (0-0.6); ABS Lymphocytes 0.8 10^3/ul (1.0-4.8); ABS Monocytes 0.5 10^3/ul (0-0.8); ABS Neutrophils 7.1 10^3/ul (1.5-7.7); ABS Nucleated RBC 0 10^3/ul; Eosinophil % 0 % (0-6); Hematocrit 35 % (35-47); Hemoglobin 11.9 g/dl (12.0-16.0); Lymphocyte % 9.1 % (25-47); Mean Corpuscular HGB Conc 34 g/dl (31-36); Mean Corpuscular Hemoglobin 29 pg (27-31); Mean Corpuscular Volume 84 fL (80-97); Mean Platelet Volume 12.3 um3 (7.4-10.4); Nucleated Red Blood Cells % 0; Platelet Count 172 10^3/ul (150-450); Red Blood Count 4.17 10^6/ul (4.00-5.40); Red Cell Distribution Width 16 % (10.5-15); White Blood Count 8.5 10^3/ul (3.5-10.8)
[2018-05-12 06:15] LABS: EGFR Non-African American 32.9 (>60)
[2018-05-12] MEDS: Atorvastatin* 20 MG TAB PO SCH (08:45)
[2018-05-12] MEDS: amLODIPine TAB* 5 MG PO SCH (08:45)
[2018-05-12] MEDS: CMCS:Levetiracetam XR TAB(NF) 500 MG TAB.XR PO SCH (08:45)
[2018-05-12] MEDS: Insulin LISPRO* 1 UNITS UNIT SUBCUT SCH ×4 (08:46→21:19)
[2018-05-12] MEDS: Docusate CAP* 100 MG PO SCH ×2 (08:47→21:35)
--- NOTE | 2018-05-12 16:07 | PN ---
Progress Note - Progress Note Date of Service: 05/12/18 SOAP: Subjective: [] No events ON. Tolerates PO. On Decadron. Objective: []VVS AAOx2, JAVI, CN III -XII grossly intact. Visual beck difficult to assess because of mental status, poor cooperation. Motor 4-5/5 right side, 4/5 left side. Left pronator drift. Sensory grossly intact to light touch. Assessment: []82 yof AMS Rt temporal lesion, RF Plan: []Monitor VS, Neurochecks Continue steroids, Keppra Oncology consult today. Plan for OR on Saturday if medically cleared. Appreciate IM care. Lory Maynard MD
--- NOTE | 2018-05-12 16:13 | PN ---
Subjective Date of Service: 05/12/18 Interval History: no complaints, states that she is feeling better. reports that she is going to have surgery on Saturday or , denies headache or dizziness, denies chest pain or shortness of breath. denies abd pain n/v/d Family History: Unchanged from Admission Social History: Unchanged from Admission Past Medical History: Unchanged from Admission Objective Active Medications: Acetaminophen (Tylenol Tab*) 650 mg PO Q6H PRN PRN Reason: FEVER/PAIN Last Admin: 05/11/18 23:19 Dose: 650 mg Amlodipine Besylate (Norvasc Tab*) 5 mg PO DAILY [facility] Last Admin: 05/12/18 08:45 Dose: 5 mg Atorvastatin Calcium (Lipitor*) 20 mg PO DAILY [facility] Last Admin: 05/12/18 08:45 Dose: 20 mg Dexamethasone Sodium Phosphate (Decadron Iv*) 4 mg IV SLOW PU Q8H [facility] Last Admin: 05/12/18 12:47 Dose: 4 mg Docusate Sodium (Colace Cap*) 200 mg PO BID [facility] Last Admin: 05/12/18 08:47 Dose: Not Given Heparin Sodium (Porcine) (Heparin Vial(*)) 5,000 units SUBCUT Q8HR [facility] Last Admin: 05/12/18 12:44 Dose: 5,000 units Hydralazine HCl (Apresoline Iv*) 10 mg IV Q4H PRN PRN Reason: Systolic >170 Last Admin: 05/11/18 04:06 Dose: 10 mg Insulin Human Lispro (Humalog*) 0 units SUBCUT ACHS [facility] PRN Reason: Protocol Last Admin: 05/12/18 12:45 Dose: 6 units Levetiracetam (Keppra Xr Tab(Nf)) 500 mg PO DAILY [facility] PRN Reason: Protocol Last Admin: 05/12/18 08:45 Dose: 500 mg Losartan Potassium (Cozaar Tab*) 100 mg PO QPM [facility] Last Admin: 05/11/18 17:43 Dose: 100 mg Melatonin (Melatonin) 3 mg PO BEDTIME PRN; Protocol PRN Reason: Sleep Omeprazole (Prilosec Cap*) 20 mg PO DAILY@0600 [facility] Last Admin: 05/12/18 05:30 Dose: 20 mg Ondansetron HCl (Zofran Odt Tab*) 4 mg PO Q6H PRN PRN Reason: n/v Vital Signs - 8 hr 05/12/18 05/12/18 05/12/18 08:32 08:58 11:37 Temperature 98.1 F Pulse Rate 59 Respiratory 18 24 Rate Blood Pressure 166/58 150/84 (mmHg) O2 Sat by Pulse 96 Oximetry Oxygen Devices in Use Now: None Appearance: appears comfortable resting in bed, no acute distress Eyes: No Scleral Icterus Ears/Nose/Mouth/Throat: Mucous Membranes Moist Neck: NL Appearance and Movements; NL JVP, Trachea Midline Respiratory: Symmetrical Chest Expansion and Respiratory Effort, Clear to Auscultation Cardiovascular: NL Sounds; No Murmurs; No JVD, No Edema Abdominal: NL Sounds; No Tenderness; No Distention Extremities: No Edema, No Clubbing, Cyanosis Skin: No Rash or Ulcers Neurological: Alert and Oriented x 3 Nutrition: Taking PO's Result Diagrams: 05/12/18 05:22 05/12/18 05:22 Additional Lab and Data: . Assess/Plan/Problems-Billing Assessment: Ms. 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 - Patient Problems (1) Brain mass Current Visit: Yes Status: Acute Code(s): G93.9 - DISORDER OF BRAIN, UNSPECIFIED SNOMED Code(s): 957922851 Comment: - Improving on steroids, continues to have intermittent confusion. - Appreciate consultation from Dr. Lopez. Suspects GBM. Recommends surgery with resection for debulking and biopsy. Most likely surgery planned for saturday or - Continue decadron and keppra. per NS Titrate Decadron starting today to 4 mg Q8hr. - Cant obtain MRI brain with contrast d/t renal function - In terms of pre-operative cardiac assessment, patient has no known cardiac history but does have risk factors of DM, HTN, and HLD. She does not regularly achieve 4 METS activity and describes HORNER. Echo showing E 60-^%%, with abnormal left ventricular diastolic dysfunction, mild LVH, mild aortic regurg, mild to moderate mitral regurg. No evidence of aortic stenosis. Obtain EKG. - Oncology to consult Saturday- pending (2) Hyperlipidemia Current Visit: Yes Status: Acute Code(s): E78.5 - HYPERLIPIDEMIA, UNSPECIFIED SNOMED Code(s): 41481988 Comment: - Continue atorvastatin. (3) CKD (chronic kidney disease) Current Visit: Yes Status: Chronic Code(s): N18.9 - CHRONIC KIDNEY DISEASE, UNSPECIFIED SNOMED Code(s): 059509512 Comment: - Stage 3-4, appears to be around baseline. - will continue to monitor (4) Diabetes Current Visit: Yes Status: Chronic Code(s): E11.9 - TYPE 2 DIABETES MELLITUS WITHOUT COMPLICATIONS SNOMED Code(s): 05027445 Comment: - Not on any home meds. HgbA1c 6.9 - Continue lispro SSI coverage for meals prn. (5) HTN (hypertension) Current Visit: Yes Status: Chronic Code(s): I10 - ESSENTIAL (PRIMARY) HYPERTENSION SNOMED Code(s): 77111930 Comment: - SBP improving - Continue losartan and continue added amlodipine. - Hold hctz (6) DVT prophylaxis Current Visit: Yes Status: Acute Code(s): JAB2855 - SNOMED Code(s): 696615516 Comment: - Heparin SQ. (7) Full code status Current Visit: Yes Status: Acute Code(s): Z78.9 - OTHER SPECIFIED HEALTH STATUS SNOMED Code(s): 633842148 Comment: Status and Disposition: Inpatient. Possible surgery saturday or with Dr. Lopez. May have rehab needs at time of discharge. Previously lived alone independently.
[2018-05-12] MEDS: Losartan TAB* 25 MG PO SCH (17:49)
[2018-05-13] MEDS: Dexamethasone IV* 4 MG/ML 1 ML (4 MG) IV SLOW PU SCH ×3 (05:09→21:19)
[2018-05-13] MEDS: Omeprazole CAP* 20 MG PO SCH (05:09)
[2018-05-13] MEDS: Heparin VIAL(*) 5000 UNITS/ML VIAL (FIVE THOUSAND) SUBCUT SCH ×3 (05:10→21:22)
[2018-05-13 06:17] LABS: EGFR Non-African American 38.4 (>60)
[2018-05-13] MEDS: Insulin LISPRO* 1 UNITS UNIT SUBCUT SCH ×4 (08:03→21:22)
[2018-05-13] MEDS: CMCS:Levetiracetam XR TAB(NF) 500 MG TAB.XR PO SCH (08:04)
[2018-05-13] MEDS: Atorvastatin* 20 MG TAB PO SCH (08:04)
[2018-05-13] MEDS: amLODIPine TAB* 5 MG PO SCH (08:04)
[2018-05-13] MEDS: Docusate CAP* 100 MG PO SCH ×2 (08:04→21:36)
[2018-05-13] MEDS: Losartan TAB* 25 MG PO SCH (17:26)
--- NOTE | 2018-05-13 18:56 | PN ---
Subjective Date of Service: 05/13/18 Interval History: no complaints today, surgery scheduled for tomorrow. Denies chest pain or shortness of breath. denies abd pain n/v/d. denies dizziness or headache. denies vision changes Family History: Unchanged from Admission Social History: Unchanged from Admission Past Medical History: Unchanged from Admission Objective Active Medications: Acetaminophen (Tylenol Tab*) 650 mg PO Q6H PRN PRN Reason: FEVER/PAIN Last Admin: 05/11/18 23:19 Dose: 650 mg Amlodipine Besylate (Norvasc Tab*) 5 mg PO DAILY [facility] Last Admin: 05/13/18 08:04 Dose: 5 mg Atorvastatin Calcium (Lipitor*) 20 mg PO DAILY [facility] Last Admin: 05/13/18 08:04 Dose: 20 mg Dexamethasone Sodium Phosphate (Decadron Iv*) 4 mg IV SLOW PU Q8H [facility] Last Admin: 05/13/18 12:12 Dose: 4 mg Docusate Sodium (Colace Cap*) 200 mg PO BID [facility] Last Admin: 05/13/18 08:04 Dose: Not Given Heparin Sodium (Porcine) (Heparin Vial(*)) 5,000 units SUBCUT Q8HR [facility] Last Admin: 05/13/18 15:47 Dose: 5,000 units Hydralazine HCl (Apresoline Iv*) 10 mg IV Q4H PRN PRN Reason: Systolic >170 Last Admin: 05/11/18 04:06 Dose: 10 mg Insulin Human Lispro (Humalog*) 0 units SUBCUT ACHS [facility] PRN Reason: Protocol Last Admin: 05/13/18 17:26 Dose: 2 units Levetiracetam (Keppra Xr Tab(Nf)) 500 mg PO DAILY [facility] PRN Reason: Protocol Last Admin: 05/13/18 08:04 Dose: 500 mg Lorazepam (Ativan Inj*) 0.5 mg IV PUSH UC ONCE ONE Stop: 05/14/18 05:01 Losartan Potassium (Cozaar Tab*) 100 mg PO QPM [facility] Last Admin: 05/13/18 17:26 Dose: 100 mg Melatonin (Melatonin) 3 mg PO BEDTIME PRN; Protocol PRN Reason: Sleep Omeprazole (Prilosec Cap*) 20 mg PO DAILY@0600 [facility] Last Admin: 05/13/18 05:09 Dose: 20 mg Ondansetron HCl (Zofran Odt Tab*) 4 mg PO Q6H PRN PRN Reason: n/v Vital Signs - 8 hr 05/13/18 05/13/18 11:16 15:31 Temperature 98.0 F 98.2 F Pulse Rate 72 52 Respiratory 18 20 Rate Blood Pressure 173/62 146/47 (mmHg) O2 Sat by Pulse 98 98 Oximetry Oxygen Devices in Use Now: None Appearance: appears comfortable resting in bed. no acute distress Eyes: No Scleral Icterus Ears/Nose/Mouth/Throat: Clear Oropharnyx, Mucous Membranes Moist Neck: NL Appearance and Movements; NL JVP Respiratory: Symmetrical Chest Expansion and Respiratory Effort, Clear to Auscultation Cardiovascular: NL Sounds; No Murmurs; No JVD, RRR, No Edema Abdominal: NL Sounds; No Tenderness; No Distention Extremities: No Edema, No Clubbing, Cyanosis Skin: No Rash or Ulcers, No Nodules or Sclerosis Neurological: Alert and Oriented x 3 Nutrition: Taking PO's Result Diagrams: 05/12/18 05:22 05/13/18 05:32 Additional Lab and Data: . Assess/Plan/Problems-Billing Assessment: Ms. 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 - Patient Problems (1) Brain mass Current Visit: Yes Status: Acute Code(s): G93.9 - DISORDER OF BRAIN, UNSPECIFIED SNOMED Code(s): 970213383 Comment: - Improving on steroids, continues to have intermittent confusion. - Appreciate consultation from Dr. Lopez. Suspects GBM. Recommends surgery with resection for debulking and biopsy. surgery planned for saturday - will have MRI prior - Continue decadron and keppra. per NS Titrate Decadron starting today to 4 mg Q8hr. - Cant obtain MRI brain with contrast d/t renal function - In terms of pre-operative cardiac assessment, patient has no known cardiac history but does have risk factors of DM, HTN, and HLD. She does not regularly achieve 4 METS activity and describes HORNER. Echo showing E 60-^%%, with abnormal left ventricular diastolic dysfunction, mild LVH, mild aortic regurg, mild to moderate mitral regurg. No evidence of aortic stenosis. EKG- bradycardia HR 59 with PVC - Oncology to consult Saturday- pending (2) Hyperlipidemia Current Visit: Yes Status: Acute Code(s): E78.5 - HYPERLIPIDEMIA, UNSPECIFIED SNOMED Code(s): 92661585 Comment: - Continue atorvastatin. (3) CKD (chronic kidney disease) Current Visit: Yes Status: Chronic Code(s): N18.9 - CHRONIC KIDNEY DISEASE, UNSPECIFIED SNOMED Code(s): 087503571 Comment: - Stage 3-4, appears to be around baseline. - will continue to monitor (4) Diabetes Current Visit: Yes Status: Chronic Code(s): E11.9 - TYPE 2 DIABETES MELLITUS WITHOUT COMPLICATIONS SNOMED Code(s): 15256036 Comment: - Not on any home meds. HgbA1c 6.9 - Continue lispro SSI coverage for meals prn. (5) HTN (hypertension) Current Visit: Yes Status: Chronic Code(s): I10 - ESSENTIAL (PRIMARY) HYPERTENSION SNOMED Code(s): 36770267 Comment: - SBP improving - Continue losartan and continue added amlodipine. - Hold hctz (6) DVT prophylaxis Current Visit: Yes Status: Acute Code(s): JON0339 - SNOMED Code(s): 031431762 Comment: - Heparin SQ. (7) Full code status Current Visit: Yes Status: Acute Code(s): Z78.9 - OTHER SPECIFIED HEALTH STATUS SNOMED Code(s): 274323899 Comment: Status and Disposition: Inpatient. Possible surgery saturday or with Dr. Lopez. May have rehab needs at time of discharge. Previously lived alone independently.
[2018-05-14] MEDS ORDERED: NS 0.9% 1000 ML* 1,000 ML IV SCH (04:00)
[2018-05-14] MEDS: Heparin VIAL(*) 5000 UNITS/ML VIAL (FIVE THOUSAND) SUBCUT SCH ×3 (04:21→20:50)
[2018-05-14] MEDS ORDERED: LORazepam INJ* 2 MG/ML 1 ML VIAL IV PUSH ONE (05:00)
[2018-05-14] MEDS: Omeprazole CAP* 20 MG PO SCH (05:15)
[2018-05-14] MEDS: Dexamethasone IV* 4 MG/ML 1 ML (4 MG) IV SLOW PU SCH ×3 (05:17→20:50)
[2018-05-14 06:20] LABS: ABS Basophils 0 10^3/ul (0-0.2); ABS Eosinophils 0 10^3/ul (0-0.6); ABS Lymphocytes 1.2 10^3/ul (1.0-4.8); ABS Monocytes 0.8 10^3/ul (0-0.8); ABS Neutrophils 8.3 10^3/ul (1.5-7.7); ABS Nucleated RBC 0 10^3/ul; Eosinophil % 0 % (0-6); Hematocrit 37 % (35-47); Hemoglobin 12.2 g/dl (12.0-16.0); Lymphocyte % 11.1 % (25-47); Mean Corpuscular HGB Conc 33 g/dl (31-36); Mean Corpuscular Hemoglobin 28 pg (27-31); Mean Corpuscular Volume 84 fL (80-97); Mean Platelet Volume 12.5 um3 (7.4-10.4); Nucleated Red Blood Cells % 0; Platelet Count 169 10^3/ul (150-450); Red Blood Count 4.37 10^6/ul (4.00-5.40); Red Cell Distribution Width 16 % (10.5-15); White Blood Count 10.4 10^3/ul (3.5-10.8)
[2018-05-14 06:39] LABS: EGFR Non-African American 35.9 (>60)
[2018-05-14] MEDS ORDERED: Gadobenate* (CONTRAST) 529 MG/ML 10 ML SDV IV SCH (07:57)
[2018-05-14] MEDS ORDERED: Famotidine IV* 10 MG/ML 2 ML (20 mg) IV ONE (08:00)
[2018-05-14] MEDS: Docusate CAP* 100 MG PO SCH ×2 (08:03→22:06)
--- NOTE | 2018-05-14 08:41 | RAD ---
Indication: Brain tumor. Brain stealth neuronavigational protocol. Comparison: May 09, 2018 MRI Technique: Brain stealth axial series neuronavigational protocol MRI with 10 mL MultiHance IV contrast. Report: Solitary intra-axial mass centered at the RIGHT temporal lobe measures up to 5.7 cm AP by 3.8 cm transverse by 4 cm cephalocaudal. Irregular marginal enhancement with nodularity along the peripheral margin. No additional intra or extra-axial lesions evident. Partial effacement of the adjacent RIGHT cerebral sulci and compression of the RIGHT lateral ventricle and up to 0.7 cm RIGHT to LEFT midline shift at the level of the septum pellucidum. The basal cisterns remain patent without evidence for downward herniation. IMPRESSION: Neural navigation protocol MRI as described with unchanged large peripherally enhancing mass centered at the RIGHT temporal lobe. No significant change in magnitude of mass effect with subfalcine herniation.
[2018-05-14] MEDS: Insulin LISPRO* 1 UNITS UNIT SUBCUT SCH ×4 (09:11→22:16)
[2018-05-14] MEDS: Atorvastatin* 20 MG TAB PO SCH (09:12)
[2018-05-14] MEDS: amLODIPine TAB* 5 MG PO SCH (09:20)
[2018-05-14] MEDS: CMCS:Levetiracetam XR TAB(NF) 500 MG TAB.XR PO SCH (09:20)
[2018-05-14] MEDS ORDERED: Lidocain 1% EPI 1:100,000 * 30 ML MDV ONE (10:46)
[2018-05-14] MEDS ORDERED: Bacitracin IV* 50,000 UNITS INJ ONE ×2 (10:46→15:08)
[2018-05-14] MEDS ORDERED: Thrombin 5,000 UNITS* 1 APPLIC KIT - topical use - TOPICAL ONE ×2 (10:46→15:36)
[2018-05-14] MEDS ORDERED: Magnesium Sulfate 2 GM IV* 2 GM/50 ML BAG IVPB ONE ×2 (12:12→21:00)
[2018-05-14] MEDS ORDERED: fentaNYL* 50 MCG/ML 5 ML VIAL (250 MCG VIAL) ONE (12:14)
[2018-05-14] MEDS ORDERED: Atracurium* 10 MG/ML 10 ML VIAL ONE ×2 (12:14→15:19)
[2018-05-14] MEDS ORDERED: Midazolam* 1 MG/ML 5 ML VIAL (5 MG) ONE (12:14)
[2018-05-14] MEDS ORDERED: Bacitracin OINTMENT* 0.5% 0.5 oz TUBE ONE (13:51)
[2018-05-14] MEDS ORDERED: Mannitol 25% (12.5 GM) 50 ML* 12.5 GM/50 ML VIAL ONE (14:03)
[2018-05-14] MEDS ORDERED: Glycopyrrolate IV* 0.2 MG/ML 1 ML VIAL ONE ×2 (14:35→16:49)
[2018-05-14] MEDS ORDERED: Propofol* 10 MG/ML 20 ML BTL IV PUSH ONE ×3 (14:35→18:08)
[2018-05-14] MEDS ORDERED: Lidocaine 2% PF * 5 ML VIAL ONE (14:35)
[2018-05-14] MEDS ORDERED: EPHEDrine (Pressors)* 50 MG/ML VIAL ONE (14:35)
[2018-05-14] MEDS ORDERED: Phenylephrine INJ* 10 MG/ML 1 ML VIAL (10 MG) ONE (14:35)
[2018-05-14] MEDS ORDERED: ceFAZolin 1 GM VIAL(*) ONE (14:35)
[2018-05-14] MEDS ORDERED: Propofol* 1,000 MG/100 ML BTL ONE (14:35)
[2018-05-14] MEDS ORDERED: fentaNYL* 50 MCG/ML 2 ML VIAL (100 MCG VIAL) ONE ×2 (16:05→18:51)
[2018-05-14] MEDS ORDERED: Scopolamine 1.5 mg* PATCH TRANSDERM PRN (16:47)
[2018-05-14] MEDS ORDERED: Naloxone* 0.4 MG/ML 1 ML VIAL IV PRN (16:47)
[2018-05-14] MEDS ORDERED: PROCHLORPERAZINE INJ 5 MG/ML 2 ML VIAL IV PRN (16:47)
[2018-05-14] MEDS ORDERED: fentaNYL* 50 MCG/ML 2 ML VIAL (100 MCG VIAL) IV PRN (16:47)
[2018-05-14] MEDS ORDERED: Morphine INJ* 2 MG/ML 1 ML CARPUJECT IV PRN (16:47)
[2018-05-14] MEDS ORDERED: DiMENhydriNATE IV* 50 MG/ML VIAL IV PUSH PRN (16:47)
[2018-05-14] MEDS ORDERED: Neostigmine Methylsulfate* 1 MG/ML 10 ML VIAL (1 mg/ml) ONE (16:49)
[2018-05-14] MEDS ORDERED: hydrALAZINE IV* 20 MG/ML VIAL ONE (16:49)
[2018-05-14] MEDS ORDERED: Insulin REGULAR(*) 1 UNITS UNIT ONE (17:19)
[2018-05-14] MEDS ORDERED: PROCHLORPERAZINE INJ 5 MG/ML 2 ML VIAL ONE (17:52)
[2018-05-14] MEDS ORDERED: HYDROcodone/ACETAMIN 5-325 MG* 1 TAB PO PRN (19:01)
--- NOTE | 2018-05-14 19:32 | PN ---
Subjective Date of Service: 05/14/18 Interval History: C/o mild dizziness when lying on her right side. Denies Headache. Denies chest pain or shortness. Denies abd n/v/d. Family History: Unchanged from Admission Social History: Unchanged from Admission Past Medical History: Unchanged from Admission Objective Active Medications: Acetaminophen (Tylenol Tab*) 650 mg PO Q6H PRN PRN Reason: FEVER/PAIN Last Admin: 05/11/18 23:19 Dose: 650 mg Hydrocodone Bitart/Acetaminophen ([place] 5-325 Tab*) 1 tab PO Q4H PRN PRN Reason: moderate pain Amlodipine Besylate (Norvasc Tab*) 5 mg PO DAILY [facility] Last Admin: 05/14/18 09:20 Dose: 5 mg Atorvastatin Calcium (Lipitor*) 20 mg PO DAILY [facility] Last Admin: 05/14/18 09:12 Dose: Not Given Dexamethasone Sodium Phosphate (Decadron Iv*) 4 mg IV SLOW PU Q8H [facility] Last Admin: 05/14/18 14:13 Dose: Not Given Dimenhydrinate (Dramamine Iv*) 12.5 mg IV PUSH ONCE PRN PRN Reason: NAUSEA/VOMITING Stop: 05/14/18 20:30 Docusate Sodium (Colace Cap*) 200 mg PO BID [facility] Last Admin: 05/14/18 08:03 Dose: Not Given Fentanyl Citrate (Fentanyl*) 25 mcg IV Q5M PRN PRN Reason: PAIN - MODERATE Stop: 05/14/18 20:30 Last Admin: 05/14/18 18:51 Dose: 25 mcg Gadobenate Dimeglumine (Multihance* (Contrast)) 10 ml IV ONCE [facility] Stop: 05/16/18 07:56 Heparin Sodium (Porcine) (Heparin Vial(*)) 5,000 units SUBCUT Q8HR [facility] Last Admin: 05/14/18 14:12 Dose: Not Given Hydralazine HCl (Apresoline Iv*) 10 mg IV Q4H PRN PRN Reason: Systolic >170 Last Admin: 05/11/18 04:06 Dose: 10 mg Sodium Chloride (Ns 0.9% 1000 Ml*) 1,000 mls @ 100 mls/hr IV PER RATE [facility] Insulin Human Lispro (Humalog*) 0 units SUBCUT ACHS [facility] PRN Reason: Protocol Last Admin: 05/14/18 14:12 Dose: Not Given Levetiracetam (Keppra Xr Tab(Nf)) 500 mg PO DAILY [facility] PRN Reason: Protocol Last Admin: 05/14/18 09:20 Dose: 500 mg Losartan Potassium (Cozaar Tab*) 100 mg PO QPM [facility] Last Admin: 05/13/18 17:26 Dose: 100 mg Melatonin (Melatonin) 3 mg PO BEDTIME PRN; Protocol PRN Reason: Sleep Morphine Sulfate (Morphine Inj (Syringe)*) 1 mg IV Q5M PRN PRN Reason: PAIN - SEVERE Stop: 05/14/18 20:30 Morphine Sulfate (Morphine Vial*) 1 mg IV Q4H PRN PRN Reason: PAIN - MILD Naloxone HCl (Narcan*) 0.08 mg IV Q2M PRN PRN Reason: severe induced resp depression Stop: 05/15/18 16:46 Omeprazole (Prilosec Cap*) 20 mg PO DAILY@0600 [facility] Last Admin: 05/14/18 05:15 Dose: Not Given Ondansetron HCl (Zofran Odt Tab*) 4 mg PO Q6H PRN PRN Reason: n/v Ondansetron HCl (Zofran Inj*) 4 mg IV Q6H PRN PRN Reason: NAUSEA/VOMITING Pharmacy Profile Note (Scopolamine Patch Remove*) 1 note PATCH OFF Q72H ONE Stop: 05/17/18 16:49 Prochlorperazine Edisylate (Compazine Inj*) 2.5 mg IV ONCE PRN PRN Reason: NAUSEA/VOMITING Stop: 05/14/18 20:30 Scopolamine (Transderm-Scop 1.5 Mg Patch*) 1 patch TRANSDERM Q72H PRN PRN Reason: Nausea/Vomiting Vital Signs - 8 hr 05/14/18 05/14/18 05/14/18 11:57 18:37 18:39 Temperature 97.8 F Pulse Rate 58 64 65 Respiratory 18 23 Rate Blood Pressure 162/54 179/83 (mmHg) O2 Sat by Pulse 96 98 99 Oximetry 05/14/18 05/14/18 05/14/18 18:40 18:41 18:42 Temperature Pulse Rate 66 66 65 Respiratory 22 23 22 Rate Blood Pressure 186/86 185/89 (mmHg) O2 Sat by Pulse 99 98 97 Oximetry 05/14/18 05/14/18 05/14/18 18:45 18:50 18:51 Temperature Pulse Rate 66 59 Respiratory 22 23 20 Rate Blood Pressure (mmHg) O2 Sat by Pulse 99 97 Oximetry 05/14/18 05/14/18 05/14/18 18:57 19:01 19:05 Temperature Pulse Rate 49 55 55 Respiratory 17 20 19 Rate Blood Pressure 162/69 161/82 164/70 (mmHg) O2 Sat by Pulse 96 96 95 Oximetry 05/14/18 05/14/18 05/14/18 19:08 19:10 19:20 Temperature 97.0 F Pulse Rate 54 56 Respiratory 19 19 Rate Blood Pressure 177/75 (mmHg) O2 Sat by Pulse 96 96 Oximetry Oxygen Devices in Use Now: Nasal Cannula Appearance: appears comfortable resting in bed. Eyes: No Scleral Icterus Ears/Nose/Mouth/Throat: Clear Oropharnyx, Mucous Membranes Moist Neck: NL Appearance and Movements; NL JVP, Trachea Midline Respiratory: Symmetrical Chest Expansion and Respiratory Effort, Clear to Auscultation Cardiovascular: NL Sounds; No Murmurs; No JVD, No Edema Abdominal: NL Sounds; No Tenderness; No Distention Extremities: No Edema, No Clubbing, Cyanosis Skin: No Rash or Ulcers Neurological: Alert and Oriented x 3 Nutrition: Taking PO's Result Diagrams: 05/14/18 05:56 05/14/18 05:56 Additional Lab and Data: . Assess/Plan/Problems-Billing Assessment: Ms. 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 - Patient Problems (1) Brain mass Current Visit: Yes Status: Acute Code(s): G93.9 - DISORDER OF BRAIN, UNSPECIFIED SNOMED Code(s): 528925477 Comment: - Improving on steroids, continues to have intermittent confusion. - Appreciate consultation from Dr. Lopez. Suspects GBM. Recommends surgery with resection for debulking and biopsy. surgery at 1 pm today - Continue decadron and keppra. per NS Titrate Decadron starting today to 4 mg Q8hr. (2) Hyperlipidemia Current Visit: Yes Status: Acute Code(s): E78.5 - HYPERLIPIDEMIA, UNSPECIFIED SNOMED Code(s): 10146541 Comment: - Continue atorvastatin. (3) CKD (chronic kidney disease) Current Visit: Yes Status: Chronic Code(s): N18.9 - CHRONIC KIDNEY DISEASE, UNSPECIFIED SNOMED Code(s): 207179381 Comment: - Stage 3-4, appears to be around baseline. - will continue to monitor (4) Diabetes Current Visit: Yes Status: Chronic Code(s): E11.9 - TYPE 2 DIABETES MELLITUS WITHOUT COMPLICATIONS SNOMED Code(s): 49692611 Comment: - Not on any home meds. HgbA1c 6.9 - Continue lispro SSI coverage for meals prn. (5) HTN (hypertension) Current Visit: Yes Status: Chronic Code(s): I10 - ESSENTIAL (PRIMARY) HYPERTENSION SNOMED Code(s): 87891506 Comment: - SBP improving - Continue losartan and continue added amlodipine- will give prior to surgery - Hold hctz (6) DVT prophylaxis Current Visit: Yes Status: Acute Code(s): NVL2393 - SNOMED Code(s): 674291561 Comment: - Heparin SQ.- held for surgery today (7) Full code status Current Visit: Yes Status: Acute Code(s): Z78.9 - OTHER SPECIFIED HEALTH STATUS SNOMED Code(s): 439356786 Comment: Status and Disposition: Inpatient. surgery today with Dr. Lopez. ICU post op May have rehab needs at time of discharge. Previously lived alone independently.
[2018-05-14] MEDS: NS 0.9% 1000 ML* 1,000 ML IV SCH (20:06)
[2018-05-14] MEDS: Ondansetron INJ* 2 MG/ML VIAL IV PRN (20:50)
[2018-05-14] MEDS: hydrALAZINE IV* 20 MG/ML VIAL IV PRN (21:03)
[2018-05-14] MEDS: Morphine VIAL* 4 MG/ML VIAL (1 ml vial) IV PRN (21:10)
[2018-05-14] MEDS: Losartan TAB* 25 MG PO SCH (22:05)
--- NOTE | 2018-05-14 22:58 | RAD ---
INDICATION: Follow-up status post right hemisphere brain mass excision. COMPARISON: Preoperative CT the brain dated May 02, 2018 TECHNIQUE: Contiguous axial sections of the brain were obtained from the skull base to the vertex without contrast. FINDINGS: There is a slight degree of right to left midline shift measuring 3 mm. There is mild compression on the right lateral ventricles. There is there is heterogeneous attenuation at the right temporal lobe at the presumed site of mass resection. There is intracranial gas compatible with the patient's recent surgical history. There is gas adjacent to the inner table of the right frontal and temporal lobes. There is a small amount of hyperattenuating extra-axial fluid measuring approximately 4 mm in thickness. The patient is status post craniectomy involving the right temporal and frontal bones. Overlying surgical skin daljit are noted. IMPRESSION: Postsurgical changes as described above status post resection of right temporal lobe tumor. There is a small amount of hyperattenuating extra-axial fluid not measuring more than 4 mm in thickness and a small degree of right to left midline shift as well as compression on the right lateral ventricle.
--- NOTE | 2018-05-14 23:23 | CONS ---
MEDICAL ONCOLOGY CONSULTATION: DATE OF CONSULT: 05/13/18 REASON FOR CONSULT: Brain tumor, suspected GBM. HISTORY OF PRESENT ILLNESS: Lizbeth Mayer is an 82-year-old female who was seen at the request of the hospitalist and neurosurgical services. At the time of my consultation, she is in the room with her brother. She is a poor historian herself and he was able to provide significant amounts of information. They report that she has fallen 3 times over the past several weeks and she was unable to get herself back up on her own, needed to call for help or to crawl over an area to get further assistance. She has been more confused and also had decreased memory. She has also developed some visual changes especially on the left side. She has been using her walker for few months as she has felt that her balance is further off. She had a CT scan of the brain on 05/02/18, which revealed a 4.2 cm right temporal lobe mass. This has been ordered by Dr. Shin from [facility]. She was seen by Dr. Maynard from Neurosurgery. They were concerned about her progressive symptoms and the pace of the workup and decided to bring her to the emergency room on 05/08/18. Since that period of time, further workup has ensued, has included a CT scan of the chest, abdomen and pelvis. This was initially done without oral contrast and then a repeat was done with oral contrast of the abdomen and pelvis. All of her scans have been done without IV contrast due to her renal function. CT scan did not reveal any significant evidence for carcinoma or for metastatic disease. MRI scan of the brain on 05/09/18 revealed 5.9 cm cystic mass in the right temporal lobe with associated vasogenic edema and 0.4 cm of subfalcine shift to the left. There was partial effacement of the basal cisterns. Decision was made for her to proceed to Neurosurgery to have this at least biopsy to help with somewhat resected. She is scheduled to go to the OR with Dr. Maynard on 05/14/18. Workup otherwise in the hospital include transthoracic echocardiogram which revealed an ejection fraction of 60 to 65% with abnormal left ventricular diastolic function. No other significant abnormalities were known. There was slightly increased mitral regurgitation versus 6 years ago. PAST MEDICAL HISTORY: Otherwise significant for diabetes mellitus type 2, hypertension, hyperlipidemia, chronic kidney disease, history of small bowel obstruction, history of diverticulitis. MEDICATIONS: At the time of admission included, 1. Zocor 40 mg daily. 2. Hydrochlorothiazide 25 mg daily. 3. Losartan 100 mg daily. 4. Levocetirizine ER 500 mg daily. 5. Prednisone 10 mg daily. PAST SURGICAL HISTORY: Includes bilateral total knee replacements, status post herniorrhaphy, status post prior colon resection with colostomy, and then reversal with small bowel obstruction. ALLERGIES: None. FAMILY HISTORY: No known malignancies. SOCIAL HISTORY: The patient lives alone in the senior apartment in [place]. She has family in the area including her brother. She has never been . Her brother reports she only had a third grade education and spent much of her life helping to care for her parents. She has never worked outside of her home. No alcohol, tobacco, or illicit drugs. REVIEW OF SYSTEMS: Energy level has been decreased recently. Appetite has been good and weight stable. No shortness of breath, chest pain or palpitations. No significant nausea, vomiting, other GI complaints. No changes in her bowel or bladder habits. Emotionally doing okay. She is extremely anxious to have this surgery performed as quickly as possible. PHYSICAL EXAM: Vital Signs: Blood pressure 149/47, pulse 50s to 70s, afebrile. HEENT: PERRL. EOMI, but has reluctance to look up to the left and it is extremely difficult to get her to do so. No erythema or exudates. Lungs : Clear. Heart: Regular rate and rhythm with 1/6 systolic ejection murmur. No jugular venous distention. Abdomen: Soft, nontender without masses or organomegaly. Extremities: No clubbing, cyanosis, or edema. Back: No CVA or spinal tenderness. Neurologic Exam: The patient is alert and oriented to person and to place. Cranial nerves III to XII are intact. Strength is 4/5 on the left side in the arm and in the leg and 4+ to 5-/5 on the right side. There is mild pronator drift on the left. Sensation is intact to light touch. Further neurologic exam was performed by Dr. Maynard at the time of his consultation from Neurosurgery. DIAGNOSTIC STUDIES/LAB DATA: Laboratory studies have included CBC without significant abnormalities, normal hepatic function and electrolytes. BUN and creatinine have been normal throughout the hospitalization and terribly different than where she has been running in the past. On admission, BUN of 50 versus typical levels in the 40s and creatinine of 1.76 similar to previous values over the past several years. IMPRESSION: An 82-year-old female, who has somewhat of a limited mental capacity with multiple medical comorbidities. She has had recent change in mental status with increased confusion, decreased memory, left-sided visual changes, and episode of problems with balance. She also has some mild weakness especially on the left side. It appears that this most likely is a primary brain tumor given normal scan of the chest, abdomen and pelvis. 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 She has been placed on IV Decadron and also on Keppra for control of edema and control/prevention of seizures. PLAN/RECOMMENDATIONS: To go to the operating room on 05/14/18. It was discussed with the patient and with her brother that depending on her neurologic recovery from surgery and depending on the completeness of resection that further therapy may be in order. In a patient who is over the age of 70, there are certainly multiple different options as to how to follow surgery if this were to be a glioblastoma. This could range from observation and palliative care alone, all the way up to combination chemotherapy and radiation therapy with Temodar and full course of radiation therapy. Further recommendations will be made to the patient once we see if this is truly a glioblastoma and we have the results of the extent of resection and see what her neurologic status is. She and her brother are both very much willing and wanting to proceed with surgery as soon as possible. [id number]/[facility] #: [id number] MTDD
[2018-05-14] MEDS ORDERED: hydrALAZINE IV* 20 MG/ML VIAL IV SLOW PU ONE (23:36)
[2018-05-15] MEDS: hydrALAZINE IV* 20 MG/ML VIAL IV PRN ×3 (03:41→19:37)
[2018-05-15] MEDS: Morphine VIAL* 4 MG/ML VIAL (1 ml vial) IV PRN ×3 (03:41→22:00)
[2018-05-15] MEDS: Dexamethasone IV* 4 MG/ML 1 ML (4 MG) IV SLOW PU SCH ×3 (03:41→19:37)
[2018-05-15] MEDS: Heparin VIAL(*) 5000 UNITS/ML VIAL (FIVE THOUSAND) SUBCUT SCH ×3 (05:26→22:07)
[2018-05-15] MEDS: Omeprazole CAP* 20 MG PO SCH (05:27)
[2018-05-15] MEDS ORDERED: hydrALAZINE IV* 20 MG/ML VIAL IV SLOW PU ONE (05:53)
[2018-05-15 06:08] LABS: ABS Basophils 0 10^3/ul (0-0.2); ABS Eosinophils 0 10^3/ul (0-0.6); ABS Lymphocytes 0.6 10^3/ul (1.0-4.8); ABS Monocytes 1.4 10^3/ul (0-0.8); ABS Neutrophils 17.2 10^3/ul (1.5-7.7); ABS Nucleated RBC 0 10^3/ul; Eosinophil % 0 % (0-6); Hematocrit 37 % (35-47); Hemoglobin 11.9 g/dl (12.0-16.0); Mean Corpuscular HGB Conc 32 g/dl (31-36); Mean Corpuscular Hemoglobin 27 pg (27-31); Mean Corpuscular Volume 84 fL (80-97); Nucleated Red Blood Cells % 0; Platelet Count 191 10^3/ul (150-450); Red Blood Count 4.39 10^6/ul (4.00-5.40); Red Cell Distribution Width 16 % (10.5-15); White Blood Count 19.3 10^3/ul (3.5-10.8)
[2018-05-15 06:26] LABS: EGFR Non-African American 38.4 (>60)
[2018-05-15] MEDS: amLODIPine TAB* 5 MG PO SCH (08:27)
[2018-05-15] MEDS: Atorvastatin* 20 MG TAB PO SCH (08:28)
[2018-05-15] MEDS: Insulin LISPRO* 1 UNITS UNIT SUBCUT SCH ×4 (08:28→22:34)
[2018-05-15] MEDS: Docusate CAP* 100 MG PO SCH ×2 (08:28→22:34)
[2018-05-15] MEDS ORDERED: LORazepam INJ* 2 MG/ML 1 ML VIAL IV PUSH ONE (10:30)
[2018-05-15] MEDS: CMCS:Levetiracetam XR TAB(NF) 500 MG TAB.XR PO SCH (10:37)
[2018-05-15] MEDS: NS 0.9% 1000 ML* 1,000 ML IV SCH (11:57)
--- NOTE | 2018-05-15 12:10 | RAD ---
HISTORY: postop eval COMPARISONS: CT dated May 14, 2018, MRI dated May 14, 2015, MRI dated 2017 TECHNIQUE: The following sequences were obtained of the head: Sagittal T1-weighted images, axial T2-weighted images, axial FLAIR images, axial susceptibility weighted images, axial T1-weighted images. Additionally, axial diffusion-weighted images were obtained with calculated apparent diffusion coefficients. Additionally, sagittal, coronal, and axial T1-weighted images were obtained after contrast enhancement with a gadolinium-based intravenous contrast agent. FINDINGS: HEMORRHAGE/INFARCT: There is blood product within a surgical resection cavity of the right temporal lobe. Elsewhere, there is no hemorrhage or acute infarct. MASSES/SHIFT: There is no mass or shift. EXTRA-AXIAL SPACES/MENINGES: There is pneumocephalus. There is incomplete inversion of the CSF including of an arachnoid cyst of the left anterior temporal lobe. SULCI AND VENTRICLES: The sulci and ventricles are normal in size and position for the patient's stated age. CEREBRUM: There is vasogenic edema of the right cerebral hemisphere. There is enhancement along the margins of the surgical resection cavity of the right temporal lobe. As noted above, there is blood product within the surgical resection cavity. BRAINSTEM: There are no focal parenchymal abnormalities. CEREBELLUM: There are no focal parenchymal abnormalities. The cerebellar tonsils are normal in size and position. SELLA: The sella is normal. PINEAL: The pineal region is clear. CP ANGLE/TEMPORAL BONES: The labyrinthine structures are grossly normal. VESSELS: Normal flow-voids are noted within the visualized vertebral vasculature. DIFFUSION ABNORMALITIES: There is minimal restricted diffusion along the margins of the surgical resection cavity, likely treatment related. PARANASAL SINUSES/MASTOIDS: The paranasal sinuses are clear. ORBITS: There is prominence of the optic nerve sheaths bilaterally. BONES AND SOFT TISSUE: There is postsurgical change to the skull. OTHER: None IMPRESSION: 1. THERE IS BEEN INTERVAL RESECTION OF RIGHT TEMPORAL LOBE MASS. THERE IS ENHANCEMENT ALONG THE MARGINS OF THE SURGICAL RESECTION CAVITY, WITH BLOOD PRODUCT WITHIN THE SURGICAL RESECTION CAVITY. ENHANCEMENT MAY BE REACTIVE POSTSURGICAL OR MAY REPRESENT RESIDUAL TUMOR. RECOMMEND CONTINUED ATTENTION ON FOLLOW-UP IMAGING. 2. THERE IS PNEUMOCEPHALUS WITH INCOMPLETE INVERSION OF CSF ON FLAIR IMAGING, INCLUDING WITHIN AN ARACHNOID CYST OF THE LEFT MIDDLE CRANIAL FOSSA, WHICH SUGGESTS COMPLEX FLUID WITHIN THE SUBARACHNOID SPACE, INCLUDING BLOOD OR PROTEINACEOUS MATERIAL. 3. THERE IS ENLARGEMENT OF THE SUBARACHNOID SPACE ALONG THE OPTIC MEDIAL MAMMOGRAMS BILATERALLY WHICH CAN BE SEEN WITH INCREASED INTRACRANIAL PRESSURE. THIS CAN BE IDENTIFIED IN RETROSPECT ON THE PREOPERATIVE MRI IMAGING AND IS STABLE.
--- NOTE | 2018-05-15 15:23 | PN ---
Date of Service: 05/15/18 Critical Care Services: Has been comfortable today. No specific complaints. No seizures. Vital Signs: Temp Pulse Resp BP SpO2 FiO2 96.9 F 71 21 142/57 97 Physical Exam: Gen:Somnolent but arousable. Oriented to person and place, but not to time. HEENT:Surgical dressing in place. Surgical drain with minimal drainage. Lungs:Clear Extremities: Warm. No cyanosis or edema. Neuro:Moves all extremities equally Fluid Balance (Past 24 Hours): 05/15/18 06:59 Intake Total 3002 Output Total 1829 Balance +1173 Weight 204 lb Intake: IV Fluids 3002 LR 1900 Mag Sulfate 50 NS (0.9%) 692 NS 50ML, Cefazolin 2G 100 all fluids 260 Oral 0 Output: MATTHIEU #1 112 Urine 862 Patel 525 Residual 30 Patel 16 Fr 30 Estimated Blood Loss 300 Labs: 05/14/18 05/14/18 05/15/18 17:15 22:10 05:40 Sodium 141 Potassium 4.5 Chloride 112 H Carbon Dioxide 22 Anion Gap 7 BUN 49 Creatinine 1.32 Glucose 142 H POC Glucose (mg/dL) 192 H 196 H Calcium 8.7 Magnesium 2.4 05/15/18 05/15/18 05/15/18 05:40 08:00 12:02 WBC 19.3 Hgb 11.9 L Hct 37 Plt Count 191 POC Glucose (mg/dL) 161 H 115 H Studies: None today Nutrition: None today Impression: Satisfactory postop course. No signs of infection. Plan: 1. General supportive care. 2. Will start feeding tomorrow.
[2018-05-15] MEDS: Losartan TAB* 25 MG PO SCH (17:29)
--- NOTE | 2018-05-15 18:57 | PN ---
Progress Note - Progress Note Date of Service: 05/15/18 SOAP: Subjective: []Patient was seen earlier in ICU. No events ON. NPO. On Decadron. More awake this am Objective: []VVS MATTHIEU drain in place. Output noted. Wound soft,clean, dry. AAOx2, JAVI, CN III -XII grossly intact. Visual beck difficult to assess because of mental status, poor cooperation. Motor 4-5/5 . No pronator drift. Sensory grossly intact to light touch. Assessment: []82 yof AMS Rt temporal lesion, RF, POD#1 right temporal tumor resection. Plan: []Monitor VS, Neurochecks Taper steroids. Continue Keppra PO. Maintain SBP between [address] revealed no hematoma, good resection of tumor, no significant midline shift. MRI similar findings. Minimal enhancing in the periphery of tumor cavity, uncertain if residual tumor vs surgicel. Advance diet slowly as tolerated. OOB in a chair in am as tolerated Monitor drain output. Discussed with pathology, Preliminary results c/w GBM. Oncology consult for need for further treatment. Discussed with patient's brother regarding patient;s condition in am. Appreciate ICU, IM care. Lory Maynard MD
[2018-05-16] MEDS: NS 0.9% 1000 ML* 1,000 ML IV SCH (00:16)
[2018-05-16] MEDS: hydrALAZINE IV* 20 MG/ML VIAL IV PRN ×2 (01:06→05:23)
[2018-05-16] MEDS: Morphine VIAL* 4 MG/ML VIAL (1 ml vial) IV PRN (02:55)
[2018-05-16] MEDS ORDERED: amLODIPine TAB* 5 MG PO ONE (03:25)
[2018-05-16] MEDS: Dexamethasone IV* 4 MG/ML 1 ML (4 MG) IV SLOW PU SCH ×3 (03:50→20:21)
[2018-05-16] MEDS: Heparin VIAL(*) 5000 UNITS/ML VIAL (FIVE THOUSAND) SUBCUT SCH ×3 (05:24→22:15)
[2018-05-16] MEDS: Omeprazole CAP* 20 MG PO SCH (05:33)
[2018-05-16 05:56] LABS: Hematocrit 33 % (35-47); Mean Corpuscular HGB Conc 33 g/dl (31-36); Mean Corpuscular Hemoglobin 28 pg (27-31); Mean Corpuscular Volume 84 fL (80-97); Platelet Count 125 10^3/ul (150-450); Red Blood Count 3.93 10^6/ul (4.00-5.40); Red Cell Distribution Width 17 % (10.5-15); White Blood Count 16.5 10^3/ul (3.5-10.8)
[2018-05-16 06:10] LABS: EGFR Non-African American 42.5 (>60)
[2018-05-16] MEDS ORDERED: Enalaprilat IV* 1.25 MG/ML 1 ML VIAL (1.25 MG) ONE (09:02)
[2018-05-16] MEDS: Insulin LISPRO* 1 UNITS UNIT SUBCUT SCH ×4 (09:07→20:36)
[2018-05-16] MEDS: Docusate CAP* 100 MG PO SCH ×2 (10:04→20:21)
[2018-05-16] MEDS: CMCS:Levetiracetam XR TAB(NF) 500 MG TAB.XR PO SCH (10:04)
[2018-05-16] MEDS: Atorvastatin* 20 MG TAB PO SCH (10:05)
[2018-05-16] MEDS: amLODIPine TAB* 5 MG PO SCH (10:05)
[2018-05-16] MEDS ORDERED: NS 0.9% 1000 ML* 1,000 ML IV SCH (11:37)
--- NOTE | 2018-05-16 12:50 | PN ---
Date of Service: 05/16/18 Critical Care Services: Patient had an uneventful evening, and has no specific complaints this AM Vital Signs: Temp Pulse Resp BP SpO2 FiO2 97.1 F 87 9 172/64 95 Physical Exam: Gen:Somnolent but arousable HEENT: Surgical dressing in place. No facial asymmetry Lungs: Crackles on left side (lying on the left) Cardiac: No murmurs Extremities: No cyanosis or edema Neuro:Moves all extremities equally Fluid Balance (Past 24 Hours): 05/16/18 06:59 Intake Total 1658 Output Total 1527 Balance 131 Weight 206 lb Intake: IV Fluids 1047 LR Mag Sulfate NS (0.9%) 1047 NS 50ML, Cefazolin 2G all fluids IVPB 611 NS (0.9%) 611 Oral Output: MATTHIEU #1 175 Urine Patel 1352 Residual Patel 16 Fr Estimated Blood Loss Other: Estimated Void # Bowel Movements Estimated Stool Amount # Voids Labs: Laboratory Results - last 24 hr 05/16/18 05/16/18 05/16/18 05:15 05:15 06:18 WBC 16.5 H RBC 3.93 L Hgb 11.0 L Hct 33 L MCV 84 MCH 28 MCHC 33 RDW 17 H Plt Count 125 L MPV 12.0 H Sodium 141 Potassium TNP 4.5 Chloride 115 H Carbon Dioxide 21 L Anion Gap 5 BUN 47 Creatinine 1.21 Glucose 149 H POC Glucose (mg/dL) Calcium 8.8 Studies: Pathology on intracerebral mass: Glioblastoma multiforme Nutrition: Has been NPO since the surgery Impression: Satisfactory postop course. No signs of infection or bleeding. Crackles in the left hemithorax most likely from atelectasis Plan: 1. Start oral feeding today (consistent carb diet) 2. Up in a chair 3. Restart antihypertensive meds 4. Portable CXR 5. Consult oncology regarding future management.
--- NOTE | 2018-05-16 14:18 | OP ---
OPERATIVE REPORT: DATE OF OPERATION: 05/14/18 DATE OF : 33 SURGEON: Dr. Nadine Maynard. CO-SURGEON: Dr. Ramos Fuchs. ANESTHESIA: General. PRE-OP DIAGNOSIS: Right temporal lobe tumor. POST-OP DIAGNOSIS: Right temporal lobe tumor. OPERATIVE PROCEDURE: The patient underwent right temporal craniotomy for resection of temporal lobe tumor and partial anterior lobectomy with stereotactic navigation. ESTIMATED BLOOD LOSS: 300 cc. COMPLICATIONS: None. SUMMARY: The patient is a very pleasant 82-year-old female who has a history of renal disease, was found to have altered mental status. CT scan and MRI of the brain revealed a large solid and cystic right temporal lesion with significant mass effect and surrounding edema. The patient had a negative CT of the chest, abdomen, and pelvis and was offered the option of right temporal craniotomy for resection of tumor and biopsy. The possibility of transfer was offered to the patient and her brothers, and they elected to have her surgery locally . After explaining expectations, limitations, possible complications of the procedure to the patient and her brothers who have been her power of tax attorney with complications including but not limited to bleeding, infection, risk of injury to adjacent structures, coma, paralysis, , need for additional procedure, anesthesia risk, stroke, blindness, cancer, inability to obtain a diagnosis, inability to resect the whole tumor, recurrence of the tumor , and anesthesia risks. The patient and her family were agreeable to proceed with surgery and informed consent was obtained. The patient's family understood that her condition may not improve, in fact may get worse after the surgery and that she may need to have additional procedure in the further as well as additional therapy in the form of radiation and chemotherapy. Also understood that her condition may be modified or be done in stages according to the intraoperative findings and conditions and also she may require placement of ventricular drain. DESCRIPTION OF PROCEDURE: The patient was brought to the operating room, was placed under general anesthesia by the anesthesia team. She was carefully positioned supine with the right shoulder elevated with a shoulder roll. Her head was fixated in a 3-point Eaton fixation system and intraoperative registration with a stereotactic navigation system was performed with the use of preoperatively obtained MRI and fiducials. A reverse question blane incision was marked in the skin over the projection of the temporal lobe and the temporal lobe lesion. The skin was prepped and draped in a standard fashion. After appropriate surgical pause and patient identification, the skin incision site was infiltrated with local anesthetic and a #10 surgical blade was used to incise the skin. The incision was carried down to the periosteum with the use of Bovie cautery incising the temporalis fascia and muscles. The musculocutaneous flap was elevated with use of a Bovie cautery and periosteal elevator and it was gently retracted anteriorly over a folded sponge and was secured in place with [place] hooks. High-speed drill was used to fashion several saturnino holes and these were connected with high-speed craniotome in order to fashion a craniotomy over the right temporal lobe. The temporal bone was gently elevated and from the dura with [place] #3 instruments. The dura was found to be firmly attached to the bone flap as expected from the patient's age. Extension of the craniotomy to the floor of temporal fossa was performed with Leksell rongeurs and Kerrison punches. After placing holes for tenting sutures, 4-0 Nurolon was used to tent the dura in the periphery of the craniotomy and a #15 surgical blade and Metzenbaum scissors were used to perform a dura opening in a curvilinear fashion reflecting the dura flap anteriorly. Discoloration of the brain sulcus was apparent at the area of the tumor projection and a small corticectomy was performed in order to enter the tumor. The tumor was found to be quite necrotic with a cystic center with the presence of necrotic vessels. Specimen was sent for frozen biopsy as well as for permanent biopsy and pathology examination. The preliminary report favored a high-grade tumor, lymphoma versus GBM. It was elected to complete the resection of the tumor with a combination of Sonopet and suction and bipolar cautery and also the resection was carried anteriorly to the pole of the temporal lobe in order to adequately decompress the temporal fossa. After resection of the tumor to a visible normal brain margins, meticulous hemostasis was confirmed. After copious irrigation, the resected cavity was lined with Surgicel. The wound was then closed by layers after approximating the dura with 4-0 Nurolon sutures. A large piece of DuraGen was placed to cover the craniotomy site and both the dura and the DuraGen were tented with a simple suture to central holes performed on the bone flap. The bone flap was replaced and secured in place with several titanium saturnino holes and plates and screws. A subgaleal drain was done through a separate stab wound incision. The musculocutaneous flap was then repositioned and closed by layers with 2-0 interrupted Vicryl suture to approximate the temporalis fascia and the temporalis muscle, while the subcutaneous tissue was approximated with 2-0 interrupted Vicryl sutures and the skin was approximated with daljit. At the end of the procedure, all counts were reported to be correct. The patient remained hemodynamically stable throughout the case. The patient was then extubated and was transferred to Recovery and then to Intensive Care Unit for observation in excellent condition. The case was done with 2 attending physicians because of the complexity of the case. [id number]/[facility] #: [id number] NALINI
[2018-05-16] MEDS: Nystatin TOP POWDER* 15 GM BTL TOPICAL SCH ×2 (14:23→20:22)
[2018-05-16] MEDS: Losartan TAB* 25 MG PO SCH (16:40)
[2018-05-16] MEDS ORDERED: Enalaprilat IV* 1.25 MG/ML 2 ML VIAL (2.5 MG) IV ONE (17:00)
[2018-05-16] MEDS: Labetalol IV* 5 MG/ML 20 ML VIAL IV PUSH PRN (20:21)
--- NOTE | 2018-05-17 00:12 | PN ---
Progress Note - Progress Note Date of Service: 05/17/18 SOAP: Subjective: [] Patient was seen earlier in ICU. No events ON. On Decadron. Back to baseline Objective: []VVS MATTHIEU drain in place. Output noted. Wound soft,clean, dry. AAOx2, JAVI, CN III -XII grossly intact. Visual beck difficult to assess because of mental status, poor cooperation. Motor 4-5/5 . No pronator drift. Sensory grossly intact to light touch. Assessment: []82 yof AMS Rt temporal lesion, RF, POD#2 right temporal tumor resection. Plan: []Monitor VS, Neurochecks Taper steroids. Continue Keppra PO. Maintain SBP between 90 and 140. Advance diet slowly as tolerated. OOB in a chair in am as tolerated Monitor drain output. Pathology preliminary results c/w GBM. Oncology consult for need for further treatment. Discussed with patient's brothers regarding patient's condition in am. discussed pathology report, possible prognosis and need for oncology consuly for possible radiation/chemotherapy. Discussed possibility of residual tumor and option of reoperation, but at this point patient's brothers would prefer to continue with medical management. DC planning for placement. Appreciate ICU, IM care. Lory Maynard MD
[2018-05-17] MEDS: Morphine VIAL* 4 MG/ML VIAL (1 ml vial) IV PRN (03:04)
[2018-05-17] MEDS: hydrALAZINE IV* 20 MG/ML VIAL IV PRN (03:07)
[2018-05-17] MEDS: Omeprazole CAP* 20 MG PO SCH (05:54)
[2018-05-17] MEDS: Heparin VIAL(*) 5000 UNITS/ML VIAL (FIVE THOUSAND) SUBCUT SCH ×3 (05:54→21:36)
[2018-05-17] MEDS: Labetalol IV* 5 MG/ML 20 ML VIAL IV PUSH PRN (06:04)
[2018-05-17] MEDS: Nystatin TOP POWDER* 15 GM BTL TOPICAL SCH ×3 (07:56→21:36)
[2018-05-17] MEDS: Dexamethasone IV* 4 MG/ML 1 ML (4 MG) IV SLOW PU SCH ×2 (07:56→20:30)
[2018-05-17] MEDS: Atorvastatin* 20 MG TAB PO SCH (07:56)
[2018-05-17] MEDS: amLODIPine TAB* 5 MG PO SCH (07:56)
[2018-05-17] MEDS: Docusate CAP* 100 MG PO SCH ×2 (07:56→21:35)
[2018-05-17] MEDS: Insulin LISPRO* 1 UNITS UNIT SUBCUT SCH ×4 (07:57→21:36)
--- NOTE | 2018-05-17 10:37 | PN ---
Date of Service: 05/17/18 Critical Care Services: Patient had another uneventful evening, and has no specific complaints this AM. Dr. Marion (oncology) in to see patient yesterday. Vital Signs: Temp Pulse Resp BP SpO2 FiO2 99.5 F 68 24 171/94 96 Physical Exam: Gen:Alert and responds to verbal commands HEENT:Surgical dressing in place. J/P drain in place and functional Lungs:Clear Extremities: Warm. No cyanosis or edema. Neuro:Moves all extremities equally Fluid Balance (Past 24 Hours): 05/16/18 05/17/18 06:59 06:59 Intake Total 1658 1192.6 Output Total 1527 1703 Balance 131 -510.4 Weight 206 lb 207 lb Intake: IV Fluids 1047 1132.6 LR Mag Sulfate NS (0.9%) 1047 1132.6 NS 50ML, Cefazolin 2G all fluids IVPB 611 NS (0.9%) 611 Oral 60 Output: MATTHIEU #1 175 220 Urine 75 Patel 1352 1408 Residual Patel 16 Fr Estimated Blood Loss Other: # Bowel Movements 0 Labs: 05/16/18 05/16/18 12:17 17:00 POC Glucose (mg/dL) 162 H 168 H 05/16/18 05/17/18 20:30 07:47 POC Glucose (mg/dL) 152 H 135 H Studies: None today Nutrition: Oral diet Impression: Satisfactory postop course. Plan: 1. Leave J/P drain in for now (because of the drainage volume). 2. Transfer out of ICU for general supportive care. 3. Physical therapy consult 4. Oncology service to determine further management of the glioblastoma multiforme.
[2018-05-17] MEDS: CMCS:Levetiracetam XR TAB(NF) 500 MG TAB.XR PO SCH (10:50)
--- NOTE | 2018-05-17 14:28 | PN ---
Progress Note - Progress Note Date of Service: 05/17/18 SOAP: Subjective: []Patient was seen earlier in ICU. No events ON. On Decadron. Back to baseline mental status. Objective: []VVS MATTIHEU drain in place. Output noted. Wound soft,clean, dry. AAOx2, JAVI, CN III -XII grossly intact. Visual beck difficult to assess because of mental status, poor cooperation. Motor 4-5/5 . No pronator drift. Sensory grossly intact to light touch. Assessment: []]82 yof AMS Rt temporal lesion, RF, POD#3 right temporal tumor resection. Plan: []Monitor VS, Neurochecks Continue tapering steroids. Continue Keppra PO. Maintain SBP between 90 and 140. Advance diet as tolerated. OOB in a chair as tolerated Monitor drain output. Pathology preliminary results c/w GBM. Oncology consult for need for further treatment. Discussed with patient's brothers regarding patient's condition. Transfer to regular floor. DC planning for placement. Appreciate ICU, IM care. Lory Maynard MD
[2018-05-17] MEDS ORDERED: Scopolamine PATCH Remove* 1 NOTE MISC PATCH OFF ONE (16:48)
[2018-05-17] MEDS: Losartan TAB* 25 MG PO SCH (18:09)
[2018-05-18] MEDS: Omeprazole CAP* 20 MG PO SCH (05:39)
[2018-05-18] MEDS: Heparin VIAL(*) 5000 UNITS/ML VIAL (FIVE THOUSAND) SUBCUT SCH ×2 (05:42→14:33)
[2018-05-18 06:12] LABS: Hematocrit 31 % (35-47); Hemoglobin 10.4 g/dl (12.0-16.0); Mean Corpuscular HGB Conc 33 g/dl (31-36); Mean Corpuscular Hemoglobin 28 pg (27-31); Mean Corpuscular Volume 84 fL (80-97); Mean Platelet Volume 12.5 um3 (7.4-10.4); Platelet Count 130 10^3/ul (150-450); Red Blood Count 3.72 10^6/ul (4.00-5.40); Red Cell Distribution Width 16 % (10.5-15); White Blood Count 9.4 10^3/ul (3.5-10.8)
[2018-05-18 06:26] LABS: EGFR Non-African American 39.1 (>60)
[2018-05-18] MEDS: amLODIPine TAB* 5 MG PO SCH (08:54)
[2018-05-18] MEDS: Insulin LISPRO* 1 UNITS UNIT SUBCUT SCH ×4 (08:54→22:07)
[2018-05-18] MEDS: CMCS:Levetiracetam XR TAB(NF) 500 MG TAB.XR PO SCH (08:54)
[2018-05-18] MEDS: Docusate CAP* 100 MG PO SCH ×2 (08:54→22:20)
[2018-05-18] MEDS: Atorvastatin* 20 MG TAB PO SCH (08:54)
[2018-05-18] MEDS: Dexamethasone IV* 4 MG/ML 1 ML (4 MG) IV SLOW PU SCH ×2 (09:01→23:10)
--- NOTE | 2018-05-18 12:12 | PN ---
Progress Note - Progress Note Date of Service: 05/18/18 SOAP: Subjective: [] On regular floor. No events ON. On Decadron. Ambulated. Objective: []VVS MATTHIEU drain was removed. Catheter appeared to be intact. Patient tolerated procedure well. Wound soft,clean, dry. AAOx2, JAVI, CN III -XII grossly intact. Visual beck difficult to assess because of mental status, poor cooperation. Motor 4-5/5 . No pronator drift. Sensory grossly intact to light touch. Assessment: []82 yof AMS Rt temporal lesion, RF, POD#4 right temporal tumor resection. Plan: []Monitor VS, Neurochecks Continue tapering steroids. Continue Keppra PO. Maintain SBP between 90 and 140. Diet as tolerated. OOB in a chair as tolerated, OOB with assistance. Pathology preliminary results c/w GBM. Oncology consult for need for further treatment. Discussed again with patient's brother regarding patient's condition. DC planning for placement. Appreciate IM care. Lory Maynard MD
[2018-05-18] MEDS ORDERED: Morphine VIAL* 4 MG/ML VIAL (1 ml vial) IV ONE ×2 (13:32→13:57)
[2018-05-18] MEDS ORDERED: hydrALAZINE IV* 20 MG/ML VIAL IV SLOW PU PRN ×4 (13:40→21:17)
--- NOTE | 2018-05-18 13:40 | PN ---
Subjective Date of Service: 05/18/18 Interval History: Patient seen and examined at bedside. Denies fever, chills, shortness of breath , chest discomfort, N/V/D. Pt states that she has had a headache since drain was removed earlier today by Dr. Maynard. Pt is very restless in bed and states that all over her head feels like a sharp stabbing pain. Family is at bedside. Pt reports no relief in pain with [place] previously administered. Family History: Unchanged from Admission Social History: Unchanged from Admission Past Medical History: Unchanged from Admission Objective Active Medications: Hydrocodone Bitart/Acetaminophen ([place] 5-325 Tab*) 1 tab PO Q4H PRN Reason: moderate pain Amlodipine Besylate (Norvasc Tab*) 5 mg PO DAILY [facility] Atorvastatin Calcium (Lipitor*) 20 mg PO DAILY [facility] Dexamethasone Sodium Phosphate (Decadron Iv*) 2 mg IV SLOW PU Q12H [facility] Docusate Sodium (Colace Cap*) 200 mg PO BID [facility] Heparin Sodium (Porcine) (Heparin Vial(*)) 5,000 units SUBCUT Q8HR [facility] Insulin Human Lispro (Humalog*) 0 units SUBCUT ACHS LING; Protocol Labetalol HCl (Trandate Iv*) 10 mg IV PUSH Q6H PRN Reason: BLOOD PRESSURE Levetiracetam (Keppra Xr Tab(Nf)) 500 mg PO DAILY [facility]; Protocol Losartan Potassium (Cozaar Tab*) 100 mg PO QPM [facility] Nystatin (Nystatin Top Powder*) 1 applic TOPICAL TID LING Omeprazole (Prilosec Cap*) 20 mg PO DAILY@0600 [facility] Ondansetron HCl (Zofran Odt Tab*) 4 mg PO Q6H PRN Reason: n/v Ondansetron HCl (Zofran Inj*) 4 mg IV Q6H PRN Reason: NAUSEA/VOMITING Vital Signs - 8 hr 05/18/18 05/18/18 05/18/18 07:24 07:37 11:49 Temperature 97.6 F 97.5 F Pulse Rate 56 67 Respiratory 16 16 16 Rate Blood Pressure 155/48 172/63 (mmHg) O2 Sat by Pulse 98 98 99 Oximetry 05/18/18 12:03 Temperature Pulse Rate Respiratory 18 Rate Blood Pressure (mmHg) O2 Sat by Pulse Oximetry Oxygen Devices in Use Now: None Appearance: Pt is restless laying in bed Ears/Nose/Mouth/Throat: Mucous Membranes Moist Respiratory: Symmetrical Chest Expansion and Respiratory Effort, Clear to Auscultation Cardiovascular: NL Sounds; No Murmurs; No JVD, RRR Abdominal: NL Sounds; No Tenderness; No Distention Extremities: No Edema Skin: No Rash or Ulcers Neurological: - - Alert and Oriented to Person and Place. Unable to state the year Lines/Tubes/Other Access: Clean, Dry and Intact Peripheral IV - site benign Nutrition: Taking PO's Result Diagrams: 05/18/18 05:30 05/18/18 05:30 Additional Lab and Data: . Assess/Plan/Problems-Billing Assessment: Ms. 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 - Patient Problems (1) Glioblastoma multiforme Code(s): C71.9 - MALIGNANT NEOPLASM OF BRAIN, UNSPECIFIED SNOMED Code(s): 835682435 Comment: - Right temporal tumor, WHO Grade IV - S/P right temporal craniotomy, POD # 3 - Management per neurosurgery - Pt with headache today since drain removed and HTN - Goal SBP 90-140 - Oncology consult, input appreciated - Continue steroid taper and Keppra (2) HTN (hypertension) Code(s): I10 - ESSENTIAL (PRIMARY) HYPERTENSION SNOMED Code(s): 47434616 Comment: - Hypertensive today, SBP 100-170's - Goal SBP 90-140 per neurosurgery - Continue losartan, amlodipine, and PRN Hydralazine - Hold hctz, consider restarting in AM if BP continues to be elevated after pain is improved (3) Diabetes Code(s): E11.9 - TYPE 2 DIABETES MELLITUS WITHOUT COMPLICATIONS SNOMED Code(s) : 87231739 Comment: - Not on any home meds. HgbA1c 6.9 - Continue lispro SSI coverage for meals prn. (4) Hyperlipidemia Code(s): E78.5 - HYPERLIPIDEMIA, UNSPECIFIED SNOMED Code(s): 39725056 Comment: - Continue atorvastatin. (5) CKD (chronic kidney disease) Code(s): N18.9 - CHRONIC KIDNEY DISEASE, UNSPECIFIED SNOMED Code(s): 720786809 Comment: - Stage 3-4, appears to be around baseline (6) Anemia Code(s): D64.9 - ANEMIA, UNSPECIFIED SNOMED Code(s): 597172321 Comment: - Appears to be at baseline (7) DVT prophylaxis Code(s): URP7813 - SNOMED Code(s): 992780792 Comment: - Heparin SQ and SCDs (8) Full code status Code(s): Z78.9 - OTHER SPECIFIED HEALTH STATUS SNOMED Code(s): 105184609 Status and Disposition: Inpatient. Discharge when medically stable, may require rehab at discharge. Previously lived alone independently.
[2018-05-18] MEDS: Nystatin TOP POWDER* 15 GM BTL TOPICAL SCH ×2 (13:53→14:38)
--- NOTE | 2018-05-18 15:45 | RAD ---
INDICATION: [id number] COMPARISON: May 14, 2018 TECHNIQUE: Noncontrast axial source images were acquired from the skull base to the vertex. FINDINGS: Ventricles/sulci: There is interval partial effacement of the right lateral ventricle related to increased mass effect in the right temporal fossa. There is no trapping of the contralateral ventricle, however. There is 6 mm of subfalcine herniation to the left. Brain parenchyma: There is edema and there is now increased hemorrhage at the right temporal operative site. Intracranial hemorrhage:As above there is new hemorrhage at the temporal operative site. Extra-axial spaces: There is a small amount of extra-axial hemorrhage at the craniotomy site appearing unchanged. Calvarium: Right temporal craniotomy, unchanged. Scalp: Scalp changes with sutures compatible with recent craniotomy. There is increased hemorrhage/swelling at the level of the skull flap Paranasal sinuses/mastoid: The paranasal sinuses and mastoid air cells are clear. Other: None. IMPRESSION: New hemorrhage with mild increased mass effect in the right temporal lobe at the site of recent resection. Findings discussed with neurosurgery.
[2018-05-18] MEDS ORDERED: Midazolam* 1 MG/ML 5 ML VIAL (5 MG) ONE (16:36)
[2018-05-18] MEDS ORDERED: Atracurium* 10 MG/ML 10 ML VIAL ONE (16:36)
[2018-05-18] MEDS ORDERED: fentaNYL* 50 MCG/ML 5 ML VIAL (250 MCG VIAL) ONE ×2 (16:36→18:25)
[2018-05-18] MEDS ORDERED: Lidocaine 2% PF * 5 ML VIAL ONE (16:39)
[2018-05-18] MEDS ORDERED: EPHEDrine (Pressors)* 50 MG/ML VIAL ONE ×2 (16:39→18:36)
[2018-05-18] MEDS ORDERED: Thrombin 5,000 UNITS* 1 APPLIC KIT - topical use - TOPICAL ONE (16:42)
[2018-05-18] MEDS ORDERED: Lidocain 1% EPI 1:100,000 * 30 ML MDV ONE (16:42)
[2018-05-18] MEDS ORDERED: Bacitracin IV* 50,000 UNITS INJ ONE ×2 (16:43→19:49)
[2018-05-18] MEDS ORDERED: Mannitol 25% (12.5 GM) 50 ML* 12.5 GM/50 ML VIAL ONE (16:43)
[2018-05-18] MEDS ORDERED: Norepinephrine VIAL* 1 MG/ML 4 ML VIAL ONE (16:47)
[2018-05-18] MEDS ORDERED: Phenylephrine INJ* 10 MG/ML 1 ML VIAL (10 MG) ONE (16:47)
[2018-05-18] MEDS ORDERED: Mannitol 25% (12.5 GM) 50 ML* 12.5 GM/50 ML VIAL IV ONE (17:22)
[2018-05-18] MEDS ORDERED: hydrALAZINE IV* 20 MG/ML VIAL IV SLOW PU ONE (17:26)
[2018-05-18] MEDS: Losartan TAB* 25 MG PO SCH (18:13)
[2018-05-18] MEDS ORDERED: Propofol* 10 MG/ML 20 ML BTL IV PUSH ONE (18:24)
[2018-05-18] MEDS ORDERED: Propofol* 500 MG/50 ML BTL ONE (18:27)
[2018-05-18] MEDS ORDERED: Glycopyrrolate IV* 0.2 MG/ML 1 ML VIAL ONE (18:35)
[2018-05-18] MEDS ORDERED: Dexamethasone IV* 4 MG/ML 1 ML (4 MG) ONE (18:36)
[2018-05-18] MEDS ORDERED: PROCHLORPERAZINE INJ 5 MG/ML 2 ML VIAL ONE (18:36)
[2018-05-18] MEDS ORDERED: ceFAZolin 1 GM VIAL(*) ONE (18:45)
[2018-05-18 19:52] LABS: Hematocrit 29 % (35-47); Hemoglobin 9.7 g/dl (12.0-16.0); Mean Corpuscular HGB Conc 33 g/dl (31-36); Mean Corpuscular Hemoglobin 28 pg (27-31); Mean Corpuscular Volume 84 fL (80-97); Mean Platelet Volume 11.9 um3 (7.4-10.4); Platelet Count 153 10^3/ul (150-450); Red Blood Count 3.51 10^6/ul (4.00-5.40); Red Cell Distribution Width 17 % (10.5-15); White Blood Count 14.8 10^3/ul (3.5-10.8)
[2018-05-18 19:58] LABS: INR 0.98 (0.77-1.02)
[2018-05-18] MEDS ORDERED: fentaNYL* 50 MCG/ML 2 ML VIAL (100 MCG VIAL) ONE (20:19)
[2018-05-18] MEDS ORDERED: hydrALAZINE IV* 20 MG/ML VIAL ONE (20:42)
[2018-05-18 20:56] LABS: ABS Neutrophils 12.4 10^3/ul (1.5-7.7)
[2018-05-18 20:58] LABS: ABS Basophils 0 10^3/ul (0-0.2); ABS Eosinophils 0.1 10^3/ul (0-0.6); ABS Monocytes 1.3 10^3/ul (0-0.8); ABS Nucleated RBC 0 10^3/ul; Lymphocyte % 6.8 % (25-47)
[2018-05-18 20:59] LABS: Eosinophil % 0.5 % (0-6)
[2018-05-18 21:00] LABS: Nucleated Red Blood Cells % 0.1
[2018-05-18] MEDS ORDERED: Propofol* 100 ML ONE (21:18)
[2018-05-18] MEDS ORDERED: Labetalol IV* 5 MG/ML 20 ML VIAL IV PUSH PRN (21:22)
--- NOTE | 2018-05-18 21:42 | RAD ---
INDICATION: Check ET tube placement COMPARISON: November 29, 2015 TECHNIQUE: An AP portable view obtained at 2125 hours is submitted. FINDINGS: Bones/Soft Tissues: There are no acute bony findings. The endotracheal tube is at the gaudencio and directed toward the right mainstem bronchus. Cardiomediastinal: The cardiomediastinal silhouette is normal in size. Lungs: The right lung is clear. There is volume loss on the left. Pleura: There is a small to moderate left-sided effusion. Other: None IMPRESSION: THE ENDOTRACHEAL TUBE IS DIRECTED TOWARDS THE RIGHT MAINSTEM BRONCHUS AND SHOULD BE PULLED BACK. MILD HYPOVENTILATION IN THE LEFT CHEST WITH A LEFT-SIDED EFFUSION. Findings called to ICU
--- NOTE | 2018-05-18 21:47 | PN ---
Progress Note - Progress Note Date of Service: 05/18/18 SOAP: Subjective: []Patient had episode of GRAY earlier today. CT head was performed. Revealed ICH, EDH. Discussed with patient's brother in extend regarding CT findings , prognosis, and possible treatment including revision craniotomy for evacuation of ICH. After discussing risks and benefits, expectations, limitations and possible complications, with complications including, but not limited to bleeding, infection, risk of injury to adjacent structures, coma, paralysis, , need for additional procedures, anesthesia risks, patient's brother was agreeable to proceed with surgery and IC was obtained. Patient was taken to OR for emergency revision craniotomy and evacuation of ICH. Patient tolerated procedure well. Returned to ICU intubated, on vent. Objective: [] VSS. Maykel drain in place. Opens eyes to verbal, (I), JAVI , face symmetric. Follows commands. Sona well. Sensory: grimaces to pain at all extremities. Assessment: []82 yof AMS Rt temporal lesion, GBM, RF, POD#4 right temporal tumor resection, POD#0 revision craniotomy for evacuation of ICH. Plan: [] Monitor VS, Neurochecks Monitor drain output. Continue tapering steroids. Continue Keppra PO/IV. Maintain SBP between 90 and 140. NPO for now HOB 30 ' Pathology preliminary results c/w GBM. Oncology consult for need for further treatment. Discussed again with patient's brothers regarding patient's condition, prognosis. Appreciate IM/ICU care. Lory Maynard MD
[2018-05-18] MEDS ORDERED: Propofol* 100 ML IV SCH (22:00)
[2018-05-18] MEDS: Pantoprazole IV* 40 MG IV SCH (23:11)
[2018-05-18] MEDS: Chlorhexidine MOUTHWASH 0.12%* 15 ML UDC TOPICAL SCH (23:11)
[2018-05-18] MEDS: niCARdipine 0.1MG/ML IVPREMIX* 20 MG/200 ML BAG IV SCH (23:34)
--- NOTE | 2018-05-18 23:58 | PN ---
Progress Note - Progress Note Date of Service: 05/18/18 Note: Seen immediately upon arrival to ICU post-op drainage of cerebral hematoma s/p glioblastoma resection. Mrs Mayer is intubated and appears comfortable. Vitals are stable, but hypertensive. Lungs: decreased aeration L. Abdomen: soft , non-distended, non-tender. Extremities: W&D. Neuro: sedated Assessment: plan immediately post-op of cerebral hematoma complicating recent glioblastoma resection : ICU care standards : nicardipine GTT to maintain systolic 90-[address] Maynard in setting of bradycardia w/o pacer : maintain on vent overnight to rest : trend labs : neurosurgery managing : supportive care
[2018-05-19] MEDS: Chlorhexidine MOUTHWASH 0.12%* 15 ML UDC TOPICAL SCH ×3 (02:15→13:06)
--- NOTE | 2018-05-19 03:53 | OP ---
DATE OF OPERATION: 05/18/18 - ROOM #ICU-03 DATE OF : 33 SURGEON: Nadine Maynard MD DIRECTOR CHEMISTRY: Franny Tinoco. ANESTHESIA: General. PRE-OP DIAGNOSIS: Right temporal intracranial hemorrhage with epidural hematoma. POST-OP DIAGNOSIS: Right temporal intracranial hemorrhage with epidural hematoma. OPERATIVE PROCEDURE: Revision of Right temporal craniotomy for evacuation of intracranial, epidural hematoma and additional tumor resection. ESTIMATED BLOOD LOSS: 100 cc. COMPLICATIONS: None. SUMMARY: The patient is a very pleasant 82-year-old female who is status post right temporal craniotomy for resection of right temporal GBM a few days ago. The patient developed early today an episode of headache after removing of the subgaleal drain because of the worsening of the headache. The patient had a CT scan of the brain that revealed significant intracranial hemorrhage with epidural and subgaleal component. After discussing the patient's condition with the patient's brother and after explaining treatment options including revision craniotomy, and after explaining expectation limitations, and possible complications of the procedure with complications included, but not limited to bleeding, infection, risk of injury to adjacent structures, coma, paralysis, , need for additional procedures, anesthesia risks, stroke, blindness, cancer, inability to resect tumor, reaccumulation of hemorrhage. The patient's brother was agreeable to proceed with surgery and informed consent was obtained. The patient's brother understood that her condition may not improve and, in fact, may get worse after the surgery and that she may need to have additional procedures in the future, that hemorrhage may be recurrent and she may need prolong ICU stay with the need for tracheostomy and gastrostomy. He also understood that operative plan may be modified according to intraoperative findings and conditions. DESCRIPTION OF PROCEDURE: The patient was brought to the operating room and was placed under general anesthesia by the anesthesia team. She was carefully positioned supine with the right shoulder elevated with a large shoulder roll. Her head was turned towards the left and was placed on a Gel Donut head of music. The previous daljit from the previous incision were removed. Of note, skin was found to be pale at the flap site with significant tension in the subgaleal space. After removing of the daljit and previous suture as well as after prepping and draping the skin in a standard fashion, surgical pause and patient identification were performed. The skin was draped and prepped in a standard fashion and the previous incision was opened with the use of #10 surgical blade and Metzenbaum scissors. The skin flap was gently retracted anteriorly and was secured in place with Kanona hooks. A small amount of hemorrhage was found on the surface of the temporalis muscle and it was carefully removed. After copious irrigation, the titanium screws were removed and the bone flap was gently elevated. The tenting suture was cut prior to elevation of the scalp flap. A large epidural acute hematoma was identified and this was carefully removed. The dura was then reopened with use of Metzenbaum scissors and dural flap was then rotated anteriorly. Of note, a small amount of acute bleeding was identified coming from the subdural space after copious irrigation , a large hematoma was found intraparenchymally at the tumor resection bed. After careful evacuation and copious irrigation meticulous hemostasis was obtained, while additional resection of remaining tumor was performed with the bipolar cautery and gentle suction, at the area of remaining tumor site as depicted from the preoperative MRI. The previously placed Surgicel was also identified and was gently removed. After evacuation of the intracranial hematoma, meticulous hemostasis was confirmed and the tumor cavity was again lined with thin layer of Surgicel. After copious irrigation, meticulous hemostasis was confirmed. After meticulous inspection of the wound, the dura was approximated with 4-0 Nurolon and a large piece of DuraGen was placed on the top. The tenting suture was then placed again into the dura and through the small piece of DuraGen and the bone flap was replaced and the tenting suture was again tied. Titanium screws were then placed and secured to the bone flap. Another Maykel drain was then tunneled through separate stab incision and was left in the subgaleal space. The musculocutaneous flap was then repositioned and closed by layers with 2-0 interrupted Vicryl sutures approximated the temporalis muscles and fascia and inverting 2-0 Vicryl sutures to approximate the subcutaneous tissue. The skin was then approximated with 3-0 nylon suture and the drain was secured in place as well as the previous drain site was also approximated with 3-0 nylon sutures. The wound was covered with Xeroform and sterile sponges. At the end of the procedure, all counts were reported to be correct. The patient remained hemodynamically stable throughout the case. She was then turned supine and was transferred to intensive care unit for observation in excellent condition where she was moving all extremities and she was following commands. [id number]/CPS #: [id number] NALINI
[2018-05-19] MEDS: Nystatin TOP POWDER* 15 GM BTL TOPICAL SCH ×4 (06:32→23:49)
--- NOTE | 2018-05-19 07:37 | RAD ---
INDICATION: ET tube reposition COMPARISON: May 18, 2018 TECHNIQUE: An AP portable view obtained at 2210 hours is submitted. FINDINGS: Bones/Soft Tissues: There are no acute bony findings. The ETT tube has been repositioned such that it is 4 cm above the gaudencio Cardiomediastinal: The cardiomediastinal silhouette is normal. Lungs: Improved aeration in the left hemothorax. Minimal airspace disease left base. Pleura: Small left-sided effusion. Other: None IMPRESSION: ENDOTRACHEAL TUBE IN SATISFACTORY POSITION. IMPROVED AERATION LEFT HEMITHORAX.
--- NOTE | 2018-05-19 08:53 | RAD ---
Indication: Follow-up craniotomy and new hemorrhage. Brain tumor resection May 14, 2018. Comparison: May 18, 2018 CT. Technique: Noncontrast CT vertex of skull through foramen magnum. Report: Postsurgical change of recent RIGHT temporal parietal craniotomy. Small volume of RIGHT hemispheric subdural hematoma measuring up to 3 mm in thickness significantly decreased from the prior exam. Small volume of intra-axial hyperdense hematoma at the RIGHT temporal lobe tumor resection site with significant interval decrease in volume. Mild interval decrease in magnitude of vasogenic edema at the RIGHT frontal, parietal, and temporal lobes. Persistent sulcal effacement of the RIGHT cerebral hemisphere. Interval decrease in RIGHT to LEFT midline shift at the level of the septum pellucidum measuring 3.5 mm the current exam and 6 mm on the previous exam. Decreased magnitude of compression of the RIGHT lateral ventricle. The third and fourth ventricles and the basal cisterns remain patent. Decrease in magnitude of RIGHT scalp soft tissue swelling. IMPRESSION: Interval decrease in RIGHT supratentorial intra and extra-axial hemorrhage and mass effect compared with the May 18, 2018 exam. No new intracranial hemorrhage evident
[2018-05-19] MEDS: Insulin LISPRO* 1 UNITS UNIT SUBCUT SCH ×4 (09:03→23:37)
[2018-05-19] MEDS: levETIRAcetam IV* 250 MG in NS 0.9% 100 ML* 100 ML IVPB SCH (09:43)
--- NOTE | 2018-05-19 10:05 | PN ---
Progress Note - Progress Note Date of Service: 05/19/18 Note: Progress Note Critical Care 24 hour events/significant events: -s/p MATTHIEU removal 05/18, developed headache, restless since drain removed yesterday. CT head yesterday demonstrated ICH -s/p return to OR for evacuation of right temporal hematoma -remains intubated; on mild sedation, off cardene; wakes, does follow commands. Moving all ext spontaneously otherwise. Tele: sinus virgilio Vitals: Vital Signs Temp 97.5 F 05/19/18 08:00 Pulse 49 05/19/18 09:00 Resp 24 05/18/18 18:13 BP 144/57 05/19/18 08:47 Pulse Ox 99 05/19/18 09:00 Intake & Output 05/18/18 05/19/18 05/19/18 18:59 06:59 18:59 Intake Total 530 1023 Output Total 10 545 123 Balance 520 478 -123 Weight 208 lb 5.389 oz Intake: IV Fluids 625 LR 625 Medicated IV 98 CC - Propofol/Diprivan 98 Oral 530 Platelets 300 Output: MATTHIEU #1 10 110 10 Archer 435 113 Other: Estimated Void Large # Voids 2 O2/Vent: AC 14/400/+5/30% Infusions: LR 75, keppra, propofol 20, nicardipine on hold Medications: Hydrocodone Bitart/Acetaminophen ([place] 5-325 Tab*) 1 tab PO Q4H PRN PRN Reason: moderate pain Last Admin: 05/18/18 12:03 Dose: 1 tab Amlodipine Besylate (Norvasc Tab*) 5 mg PO DAILY [facility] Last Admin: 05/18/18 08:54 Dose: 5 mg Atorvastatin Calcium (Lipitor*) 20 mg PO DAILY [facility] Last Admin: 05/18/18 08:54 Dose: 20 mg Chlorhexidine Gluconate (Peridex Mouth Wash 0.12%*) 15 ml TOPICAL Q4H [facility] Last Admin: 05/19/18 06:23 Dose: 15 ml Dexamethasone Sodium Phosphate (Decadron Iv*) 2 mg IV SLOW PU Q12H [facility] Last Admin: 05/18/18 23:10 Dose: 2 mg Docusate Sodium (Colace Cap*) 200 mg PO BID [facility] Last Admin: 05/18/18 22:20 Dose: Not Given Propofol (Diprivan*) 100 mls @ 2.826 mls/hr IV .(Initial Rate) [facility]; Protocol Last Admin: 05/18/18 23:41 Dose: 2.826 mls/hr Nicardipine/Sodium Chloride (Cardene 0.1mg/Ml Ivpremix*) 20 mg in 200 mls @ 50 mls/hr IV .(as Initial Rate) [facility] Last Admin: 05/18/18 23:34 Dose: 50 mls/hr Lactated Ringer's (Lactated Ringers 1000 Ml Bag*) 1,000 mls @ 75 mls/hr IV .per rate [facility] Last Admin: 05/18/18 23:41 Dose: 75 mls/hr Levetiracetam 250 mg/ Sodium (Chloride) 102.5 mls @ 410 mls/hr IVPB Q12HR [facility] Last Admin: 05/19/18 09:43 Dose: 410 mls/hr Insulin Human Lispro (Humalog*) 0 units SUBCUT ACHS [facility]; Protocol Last Admin: 05/19/18 09:03 Dose: Not Given Losartan Potassium (Cozaar Tab*) 100 mg PO QPM [facility] Last Admin: 05/18/18 18:13 Dose: Not Given Nystatin (Nystatin Top Powder*) 1 applic TOPICAL TID [facility] Last Admin: 05/19/18 06:32 Dose: 1 applic Ondansetron HCl (Zofran Odt Tab*) 4 mg PO Q6H PRN PRN Reason: n/v Ondansetron HCl (Zofran Inj*) 4 mg IV Q6H PRN PRN Reason: NAUSEA/VOMITING Last Admin: 05/14/18 20:50 Dose: 4 mg Pantoprazole Sodium (Protonix Iv*) 40 mg IV DAILY [facility] Last Admin: 05/18/18 23:11 Dose: 40 mg Physical Exam: General: intubated, on sedation but awakens, follows commands, moves all ext Head: normocephalic, atraumatic HEENT: no pallor, no icterus, moist mucous membranes Neck: soft, supple, no jvd CVS: sinus virgilio/normal rate, regular, no murmur Resp: bilateral air entry, no rhales, no wheeze, no rhonchi, no acc muscle use Abdomen: soft, nontender, nondistended, bowel sounds present Ext: pulses+, warm, no edema Skin: intact, no breakdown, no dryness Neuro: awake, alert, orientedx3, moving all extremities, no gross focal deficit Labs: Laboratory Results - last 24 hr 05/18/18 05/18/18 05/18/18 05:30 12:25 19:45 WBC 14.8 H RBC 3.51 L Hgb 9.7 L Hct 29 L MCV 84 MCH 28 MCHC 33 RDW 17 H Plt Count 153 MPV 11.9 H Neut % (Auto) 83.9 H Lymph % (Auto) 6.8 L [place] % (Auto) 8.6 H Eos % (Auto) 0.5 Baso % (Auto) 0.2 Absolute Neuts (auto) 12.4 H Absolute Lymphs (auto) 1.0 Absolute Monos (auto) 1.3 H Absolute Eos (auto) 0.1 Absolute Basos (auto) 0 Absolute Nucleated RBC 0 Nucleated RBC % 0.1 INR (Anticoag Therapy) Patient Temperature ABG pH ABG pH (Temp Correct) ABG pCO2 ABG pCO2 (Temp Corrct ABG pO2 ABG pO2 (Temp Correct ABG HCO3 ABG O2 Saturation ABG Base Excess Respiration Rate O2 Delivery Device Ventilator Type Vent Mode FiO2 Inspiratory Time PEEP Pressure Support Pressure Control EPAP IPAP BiPAP Sodium Potassium Chloride Carbon Dioxide Anion Gap BUN Creatinine Est GFR ( Amer) Est GFR (Non-Af Amer) BUN/Creatinine Ratio Glucose POC Glucose (mg/dL) 204 H Calcium Blood Type B Positive Antibody Screen Negative Crossmatch See Detail 05/18/18 05/18/18 05/18/18 19:45 19:45 21:51 WBC RBC Hgb Hct MCV MCH MCHC RDW Plt Count MPV Neut % (Auto) Lymph % (Auto) [place] % (Auto) Eos % (Auto) Baso % (Auto) Absolute Neuts (auto) Absolute Lymphs (auto) Absolute Monos (auto) Absolute Eos (auto) Absolute Basos (auto) Absolute Nucleated RBC Nucleated RBC % INR (Anticoag Therapy) 0.98 Patient Temperature ABG pH ABG pH (Temp Correct) ABG pCO2 ABG pCO2 (Temp Corrct ABG pO2 ABG pO2 (Temp Correct ABG HCO3 ABG O2 Saturation ABG Base Excess Respiration Rate O2 Delivery Device Ventilator Type Vent Mode FiO2 Inspiratory Time PEEP Pressure Support Pressure Control EPAP IPAP BiPAP Sodium 141 Potassium 4.3 Chloride 112 H Carbon Dioxide 20 L Anion Gap 9 BUN 51 H Creatinine 1.13 H Est GFR ( Amer) 55.6 Est GFR (Non-Af Amer) 46.0 BUN/Creatinine Ratio 45.1 H Glucose 128 H POC Glucose (mg/dL) 201 H Calcium 8.5 L Blood Type Antibody Screen Crossmatch 05/18/18 05/19/18 22:25 09:00 WBC RBC Hgb Hct MCV MCH MCHC RDW Plt Count MPV Neut % (Auto) Lymph % (Auto) [place] % (Auto) Eos % (Auto) Baso % (Auto) Absolute Neuts (auto) Absolute Lymphs (auto) Absolute Monos (auto) Absolute Eos (auto) Absolute Basos (auto) Absolute Nucleated RBC Nucleated RBC % INR (Anticoag Therapy) Patient Temperature Not Reportable ABG pH 7.31 L ABG pH (Temp Correct) Not Reportable ABG pCO2 41 ABG pCO2 (Temp Corrct Not Reportable ABG pO2 395 H ABG pO2 (Temp Correct Not Reportable ABG HCO3 20.8 ABG O2 Saturation 99.7 H ABG Base Excess -5.3 L Respiration Rate Not Reportable O2 Delivery Device Vent Ventilator Type Not Reportable Vent Mode Not Reportable FiO2 Not Reportable Inspiratory Time Not Reportable PEEP Not Reportable Pressure Support Not Reportable Pressure Control Not Reportable EPAP Not Reportable IPAP Not Reportable BiPAP Not Reportable Sodium Potassium Chloride Carbon Dioxide Anion Gap BUN Creatinine Est GFR ( Amer) Est GFR (Non-Af Amer) BUN/Creatinine Ratio Glucose POC Glucose (mg/dL) 104 H Calcium Blood Type Antibody Screen Crossmatch Imaging: ct brain 05/18 right parietal hemorrhage in bed ofprevious resection with mass effect ct brain 05/19 improved hemorrhage and mass effect Assessment: 82y F pmhx DM, HTN, HLD, CKD, anemia; diagnosed 05/02/18 with 4.2cm Right temporal mass. -Right temporal tumour, Glioblastoma+; s/p resection 05/14 -Revision Craniotomy for evacuation of ICH 05/18 Plan: Neuro- awakens, follows commands. on propofol, weaned off. MATTHIEU in place, wound care to right surgical site. minimal output noted from MATTHIEU. Repeat CT brain 05/19 findings noted. CVS- sinus virgilio when resting. BP stable but was 160s. start back on cardene to maintain 110-140s systolic. Resp- intubated. doing well. last CXR reviewed eysterday, ett was pulled back. minimal secretions. on CPAP, did well. extubated now to [place]. VAP bundle. bronchodilators prn. ID- afebrile. wbc 14 post op. reactive? periop abx given. no abx indicated otherwise. GI- NPO. obtain swallow eval later today. PPI Renal- Cr improved. Mild metabolic acidosis, hyperchloremic. cont LR 75cc/hr. archer+ Heme- hg 9.7, drop post op. hemodyn stable. no bleeding noted. Endo- fingersticks as needed Musculsk- oob to chair later today if okay with neurosurg. Wounds- wound care to craniotomy site; MATTHIEU drain management. Nutrition- NPO for now DVT prophylaxis: SCDs GI prophylaxis: PPI Central Line: no Arterial Line: yes Archer Cathetor: yes Disposition: ICU Code Status: full code discussed current status with family at bedside, questions answered. Total Critical Care time is 40 minutes, excluding procedures/teaching Ricci Antonio MD Business Analytics Director (Electronically Signed)
[2018-05-19] MEDS: niCARdipine 0.1MG/ML IVPREMIX* 20 MG/200 ML BAG IV SCH ×2 (10:23→13:04)
[2018-05-19] MEDS: Dexamethasone IV* 4 MG/ML 1 ML (4 MG) IV SLOW PU SCH ×2 (10:46→23:44)
[2018-05-19] MEDS: Pantoprazole IV* 40 MG IV SCH (10:46)
[2018-05-19] MEDS: Atorvastatin* 20 MG TAB PO SCH (14:11)
[2018-05-19] MEDS: Docusate CAP* 100 MG PO SCH ×2 (14:12→23:49)
[2018-05-19] MEDS: amLODIPine TAB* 5 MG PO SCH ×2 (14:12→23:47)
[2018-05-19 17:37] LABS: Hematocrit 30 % (35-47); Mean Corpuscular HGB Conc 33 g/dl (31-36); Mean Corpuscular Hemoglobin 28 pg (27-31); Mean Corpuscular Volume 84 fL (80-97); Platelet Count 161 10^3/ul (150-450); Red Blood Count 3.56 10^6/ul (4.00-5.40); Red Cell Distribution Width 17 % (10.5-15); White Blood Count 15.9 10^3/ul (3.5-10.8)
[2018-05-19 17:56] LABS: EGFR Non-African American 43.3 (>60)
--- NOTE | 2018-05-19 18:31 | PN ---
Progress Note - Progress Note Date of Service: 05/19/18 SOAP: Subjective: []No events ON. Tolerated procedure well yesterday. Extubated this am. Objective: []VSS. Maykel drain in place. Opens eyes to verbal, Ox2, JAVI , face symmetric, CN II-XII grossly intact, exam somewhat limited because of poor cooperation. Follows commands. Sona well.4-5/5 No pronator drift. Sensory: grossly intact to light touch Assessment: []82 yof AMS Rt temporal lesion, GBM, RF, POD#4 right temporal tumor resection, POD#1 revision craniotomy for evacuation of ICH. Plan: []Monitor VS, Neurochecks Monitor drain output. Consider PLT transfusion prior to removal. Postop CT reveals good evacuation of hematoma. Minimal midline shift. Continue tapering steroids. Continue Keppra PO/IV. Maintain SBP between 90 and 140. Advance diet as tolerated. HOB 30 ' Pathology preliminary results c/w GBM. Oncology consult for need for further treatment. Repeat MRI. Appreciate IM/ICU care. Lory Maynard MD
[2018-05-19] MEDS: Losartan TAB* 25 MG PO SCH (18:49)
[2018-05-19] MEDS ORDERED: Losartan TAB* 25 MG PO SCH ×2 (23:30→23:31)
[2018-05-19] MEDS ORDERED: NS 0.45% 1000 ML BAG* 1,000 ML IV SCH (23:45)
[2018-05-19] MEDS: levETIRAcetam TAB* 500 MG PO SCH (23:49)
[2018-05-20 04:46] LABS: Hematocrit 28 % (35-47); Hemoglobin 9.4 g/dl (12.0-16.0); Mean Corpuscular HGB Conc 33 g/dl (31-36); Mean Corpuscular Hemoglobin 28 pg (27-31); Mean Corpuscular Volume 84 fL (80-97); Mean Platelet Volume 11.3 um3 (7.4-10.4); Platelet Count 155 10^3/ul (150-450); Red Blood Count 3.36 10^6/ul (4.00-5.40); Red Cell Distribution Width 17 % (10.5-15)
[2018-05-20 04:52] LABS: INR 0.95 (0.77-1.02)
[2018-05-20 05:02] LABS: EGFR Non-African American 43.7 (>60)
[2018-05-20] MEDS: niCARdipine 0.1MG/ML IVPREMIX* 20 MG/200 ML BAG IV SCH (05:34)
[2018-05-20] MEDS: levETIRAcetam IV* 250 MG in NS 0.9% 100 ML* 100 ML IVPB SCH (07:09)
[2018-05-20] MEDS: levETIRAcetam TAB* 500 MG PO SCH ×2 (08:06→20:56)
[2018-05-20] MEDS: Docusate CAP* 100 MG PO SCH ×2 (08:06→20:44)
[2018-05-20] MEDS: Dexamethasone IV* 4 MG/ML 1 ML (4 MG) IV SLOW PU SCH ×2 (08:07→20:45)
[2018-05-20] MEDS: Atorvastatin* 20 MG TAB PO SCH (08:07)
[2018-05-20] MEDS: amLODIPine TAB* 5 MG PO SCH (08:07)
[2018-05-20] MEDS: Nystatin TOP POWDER* 15 GM BTL TOPICAL SCH ×3 (08:07→20:45)
[2018-05-20] MEDS: Insulin LISPRO* 1 UNITS UNIT SUBCUT SCH ×4 (09:11→21:27)
[2018-05-20] MEDS ORDERED: amLODIPine TAB* 5 MG PO ONE (09:46)
[2018-05-20] MEDS ORDERED: hydrALAZINE IV* 20 MG/ML VIAL IV SLOW PU PRN (09:47)
--- NOTE | 2018-05-20 10:02 | PN ---
Progress Note - Progress Note Date of Service: 05/20/18 Note: Progress Note Critical Care 24 hour events/significant events: -no events overnight; awake/alert. no headache/n/v/dizziness -moving all ext -for MRA today -off cardene Tele: NSR Vitals: Vital Signs Temp 98.6 F 05/20/18 09:16 Pulse 67 05/20/18 09:16 Resp 21 05/20/18 09:16 BP 160/59 05/20/18 09:16 Pulse Ox 95 05/20/18 09:16 Intake & Output 05/19/18 05/20/18 05/20/18 18:59 06:59 18:59 Intake Total 987 1188 240 Output Total 941 695 190 Balance 46 493 50 Weight 212 lb 1.355 oz Intake: IV Fluids 520 869 LR 520 525 NS (0.45%) 344 IVPB 107 Levetiracetam 107 Medicated IV 240 319 CC - Nicarpidine/Cardene 186 319 CC - Propofol/Diprivan 54 Oral 120 240 Output: STAR #1 38 25 0 Archer 903 670 190 O2/Vent: RA Infusions: 1/2 NS, cardene off Medications: Hydrocodone Bitart/Acetaminophen ([place] 5-325 Tab*) 1 tab PO Q4H PRN PRN Reason: moderate pain Last Admin: 05/18/18 12:03 Dose: 1 tab Amlodipine Besylate (Norvasc Tab*) 10 mg PO DAILY [facility] Atorvastatin Calcium (Lipitor*) 20 mg PO DAILY [facility] Last Admin: 05/20/18 08:07 Dose: 20 mg Dexamethasone Sodium Phosphate (Decadron Iv*) 2 mg IV SLOW PU Q12H [facility] Last Admin: 05/20/18 08:07 Dose: 2 mg Docusate Sodium (Colace Cap*) 200 mg PO BID [facility] Last Admin: 05/20/18 08:06 Dose: 200 mg Hydralazine HCl (Apresoline Iv*) 5 mg IV SLOW PU Q4H PRN PRN Reason: Blood Pressure >150 Hydralazine HCl (Apresoline Tab*) 25 mg PO TID [facility] Nicardipine/Sodium Chloride (Cardene 0.1mg/Ml Ivpremix*) 20 mg in 200 mls @ 50 mls/hr IV .(as Initial Rate) [facility] Last Admin: 05/20/18 05:34 Dose: 30 mls/hr Sodium Chloride (Ns 0.45% 1000 Ml Bag*) 1,000 mls @ 75 mls/hr IV PER RATE [facility] Last Admin: 05/20/18 00:35 Dose: 75 mls/hr Insulin Human Lispro (Humalog*) 0 units SUBCUT ACHS [facility]; Protocol Last Admin: 05/20/18 09:11 Dose: 2 units Levetiracetam (Keppra Tab*) 500 mg PO BID [facility] Last Admin: 05/20/18 08:06 Dose: 500 mg Losartan Potassium (Cozaar Tab*) 100 mg PO QPM [facility] Nystatin (Nystatin Top Powder*) 1 applic TOPICAL TID [facility] Last Admin: 05/20/18 08:07 Dose: 1 applic Ondansetron HCl (Zofran Odt Tab*) 4 mg PO Q6H PRN PRN Reason: n/v Ondansetron HCl (Zofran Inj*) 4 mg IV Q6H PRN PRN Reason: NAUSEA/VOMITING Last Admin: 05/14/18 20:50 Dose: 4 mg Physical Exam: General: awake, alert, no distress Head: lila/star drain in place+, dressings intact HEENT: no pallor, no icterus, moist mucous membranes Neck: soft, supple, no jvd CVS: normal rate, regular, no murmur Resp: bilateral air entry, no rhales, no wheeze, no rhonchi, no acc muscle use Abdomen: soft, nontender, nondistended, bowel sounds present Ext: pulses+, warm, no edema Skin: intact, no breakdown, no dryness Neuro: awake, alert, orientedx3, moving all extremities, no gross focal deficit Labs: Laboratory Results - last 24 hr 05/19/18 05/19/18 05/19/18 11:58 17:23 17:31 WBC 15.9 H RBC 3.56 L Hgb 10.0 L Hct 30 L MCV 84 MCH 28 MCHC 33 RDW 17 H Plt Count 161 MPV 11.0 H INR (Anticoag Therapy) Sodium Potassium Chloride Carbon Dioxide Anion Gap BUN Creatinine Est GFR ( Amer) Est GFR (Non-Af Amer) BUN/Creatinine Ratio Glucose POC Glucose (mg/dL) 124 H 135 H Calcium 05/19/18 05/19/18 05/20/18 17:31 23:32 04:35 WBC RBC Hgb Hct MCV MCH MCHC RDW Plt Count MPV INR (Anticoag Therapy) Sodium 140 139 Potassium 4.7 TNP Chloride 112 H 112 H Carbon Dioxide 22 22 Anion Gap 6 5 BUN 44 H 42 H Creatinine 1.19 H 1.18 H Est GFR ( Amer) 52.4 52.9 Est GFR (Non-Af Amer) 43.3 43.7 BUN/Creatinine Ratio 37.0 H 35.6 H Glucose 132 H 148 H POC Glucose (mg/dL) 151 H Calcium 8.9 8.5 L 05/20/18 05/20/18 05/20/18 04:35 04:35 07:55 WBC 11.0 H RBC 3.36 L Hgb 9.4 L Hct 28 L MCV 84 MCH 28 MCHC 33 RDW 17 H Plt Count 155 MPV 11.3 H INR (Anticoag Therapy) 0.95 Sodium Potassium Chloride Carbon Dioxide Anion Gap BUN Creatinine Est GFR ( Amer) Est GFR (Non-Af Amer) BUN/Creatinine Ratio Glucose POC Glucose (mg/dL) 137 H Calcium Imaging: ct brain 05/18 right parietal hemorrhage in bed ofprevious resection with mass effect ct brain 05/19 improved hemorrhage and mass effect Assessment: 82y F pmhx DM, HTN, HLD, CKD, anemia; diagnosed 05/02/18 with 4.2cm Right temporal mass. -Right temporal tumour, Glioblastoma+; s/p resection 05/14 -Revision Craniotomy for evacuation of ICH 05/18 Plan: Neuro- awke, alert, no complaints. moving all ext. plan for d/c of STAR today after plt transfusion. plan for MRA brain today. wound care to surgical site. keppra 500mg po bid. tapering steroids. CVS- NSR. holding cardene. restarted amlodipine 10, losartan 100mg daily. hydralazine 25mg po tid for now, prn iv hydralazine. goal SBP <150s Resp- on RA, no distress. bronchodilators prn. ID- afebrile. wbc 11, decreasing. no abx indicated otherwise. GI- tolerating po intake, advance diet Renal- Cr improved. d/c IVF later today if tolering po intake. noted mild peripheral edema. d/c archer today Heme- hg 9-10. no bleeding noted. Endo- fingersticks as needed Musculsk- oob to chair later today if okay with neurosurg. Wounds- wound care to craniotomy site; STAR drain management. Nutrition- po diet DVT prophylaxis: SCDs GI prophylaxis: PPI Central Line: no Arterial Line: no Archer Cathetor: yes Disposition: ICU Code Status: full code Ricci Antonio MD Crisis Intervention Counselor (Electronically Signed)
[2018-05-20] MEDS: hydrALAZINE TAB* 25 MG PO SCH ×2 (13:21→20:44)
--- NOTE | 2018-05-20 15:07 | RAD ---
Indication: Follow-up right craniotomy. Image Sequences: Sagittal and axial T1, axial T2, FLAIR, diffusion and susceptibility weighted images of the brain were obtained. Postoperative changes are noted in the right temporal lobe. Large area of susceptibility artifact is noted consistent with hemorrhage similar to the area seen on CT. Vasogenic edema is noted throughout the right temporal lobe extending to the occipital lobe. No midline shift is noted. No significant extra-axial fluid collections are noted. The basilar cisterns are otherwise unremarkable. IMPRESSION: Postoperative changes in the right temporal lobe with extensive vasogenic edema and likely gliosis. Large area of susceptibility artifact from hemorrhage similar to the CT performed on May 19, 2018.
[2018-05-20] MEDS: Losartan TAB* 25 MG PO SCH (18:09)
[2018-05-21] MEDS: Dexamethasone IV* 4 MG/ML 1 ML (4 MG) IV SLOW PU SCH ×2 (08:31→21:07)
[2018-05-21] MEDS: Atorvastatin* 20 MG TAB PO SCH (08:35)
[2018-05-21] MEDS: amLODIPine TAB* 5 MG PO SCH (08:35)
[2018-05-21] MEDS: levETIRAcetam TAB* 500 MG PO SCH ×2 (08:35→22:40)
[2018-05-21 08:43] LABS: EGFR Non-African American 43.7 (>60)
[2018-05-21] MEDS: Insulin LISPRO* 1 UNITS UNIT SUBCUT SCH ×4 (09:05→21:07)
[2018-05-21] MEDS: Nystatin TOP POWDER* 15 GM BTL TOPICAL SCH ×3 (09:08→21:08)
[2018-05-21] MEDS: hydrALAZINE TAB* 25 MG PO SCH ×3 (09:08→21:06)
[2018-05-21] MEDS: Docusate CAP* 100 MG PO SCH ×2 (09:08→21:07)
[2018-05-21] MEDS ORDERED: hydrALAZINE IV* 20 MG/ML VIAL IV SLOW PU ONE (09:24)
[2018-05-21] MEDS ORDERED: hydrALAZINE TAB* 25 MG PO ONE (09:24)
--- NOTE | 2018-05-21 09:37 | PN ---
Progress Note - Progress Note Date of Service: 05/21/18 Note: Progress Note Critical Care 24 hour events/significant events: -no events overnight; awake/alert. no headache/n/v/dizziness -recieving plt now -for possible drain removal today -BP elevated this morning Tele: NSR Vitals: Vital Signs Temp 97 F 05/21/18 08:00 Pulse 57 05/21/18 09:15 Resp 21 05/21/18 09:15 BP 178/59 05/21/18 09:00 Pulse Ox 97 05/21/18 09:15 Intake & Output 05/20/18 05/21/18 05/21/18 18:59 06:59 18:59 Intake Total 1229 444 Output Total 546 506 Balance 683 -62 Weight 212 lb 1.355 oz 210 lb 5.136 oz Intake: IV Fluids 344 224 NS (0.45%) 344 204 NS (0.9%) 20 Medicated IV 45 CC - Nicarpidine/Cardene 45 Oral 840 220 Output: STAR #1 13 6 Urine 0 500 Patel 533 Other: Estimated Void Small # Voids 3 O2/Vent: RA Infusions: heplock Medications: Hydrocodone Bitart/Acetaminophen ([place] 5-325 Tab*) 1 tab PO Q4H PRN PRN Reason: moderate pain Last Admin: 05/18/18 12:03 Dose: 1 tab Amlodipine Besylate (Norvasc Tab*) 10 mg PO DAILY [facility] Last Admin: 05/21/18 08:35 Dose: 10 mg Atorvastatin Calcium (Lipitor*) 20 mg PO DAILY [facility] Last Admin: 05/21/18 08:35 Dose: 20 mg Dexamethasone Sodium Phosphate (Decadron Iv*) 2 mg IV SLOW PU Q12H [facility] Last Admin: 05/21/18 08:31 Dose: 2 mg Docusate Sodium (Colace Cap*) 200 mg PO BID [facility] Last Admin: 05/21/18 09:08 Dose: Not Given Hydralazine HCl (Apresoline Iv*) 5 mg IV SLOW PU Q4H PRN PRN Reason: Blood Pressure >150 Last Admin: 05/21/18 08:24 Dose: 5 mg Hydralazine HCl (Apresoline Tab*) 50 mg PO TID [facility] Nicardipine/Sodium Chloride (Cardene 0.1mg/Ml Ivpremix*) 20 mg in 200 mls @ 50 mls/hr IV .(as Initial Rate) [facility] Last Admin: 05/20/18 05:34 Dose: 30 mls/hr Insulin Human Lispro (Humalog*) 0 units SUBCUT ACHS [facility]; Protocol Last Admin: 05/21/18 09:05 Dose: Not Given Levetiracetam (Keppra Tab*) 500 mg PO BID [facility] Last Admin: 05/21/18 08:35 Dose: 500 mg Losartan Potassium (Cozaar Tab*) 100 mg PO QPM [facility] Last Admin: 05/20/18 18:09 Dose: 100 mg Nystatin (Nystatin Top Powder*) 1 applic TOPICAL TID [facility] Last Admin: 05/21/18 09:08 Dose: 1 applic Ondansetron HCl (Zofran Odt Tab*) 4 mg PO Q6H PRN PRN Reason: n/v Ondansetron HCl (Zofran Inj*) 4 mg IV Q6H PRN PRN Reason: NAUSEA/VOMITING Last Admin: 05/14/18 20:50 Dose: 4 mg Physical Exam: General: awake, alert, no distress Head: lila/star drain in place+, dressings intact HEENT: no pallor, no icterus, moist mucous membranes Neck: soft, supple, no jvd CVS: normal rate, regular, no murmur Resp: bilateral air entry, no rhales, no wheeze, no rhonchi, no acc muscle use Abdomen: soft, nontender, nondistended, bowel sounds present Ext: pulses+, warm, no edema Skin: intact, no breakdown, no dryness Neuro: awake, alert, orientedx3, moving all extremities, no gross focal deficit Labs: Laboratory Results - last 24 hr 05/20/18 05/20/18 05/20/18 12:22 17:03 21:19 Sodium Potassium Chloride Carbon Dioxide Anion Gap BUN Creatinine Est GFR ( Amer) Est GFR (Non-Af Amer) BUN/Creatinine Ratio Glucose POC Glucose (mg/dL) 128 H 173 H 143 H Calcium 05/21/18 08:12 Sodium 138 Potassium 4.5 Chloride 109 Carbon Dioxide 23 Anion Gap 6 BUN 42 H Creatinine 1.18 H Est GFR ( Amer) 52.9 Est GFR (Non-Af Amer) 43.7 BUN/Creatinine Ratio 35.6 H Glucose 116 H POC Glucose (mg/dL) Calcium 9.0 Imaging: ct brain 05/18 right parietal hemorrhage in bed ofprevious resection with mass effect ct brain 05/19 improved hemorrhage and mass effect MRA brain 05/20 - reviewed, noted persistent edema+ Assessment: 82y F pmhx DM, HTN, HLD, CKD, anemia; diagnosed 05/02/18 with 4.2cm Right temporal mass. -Right temporal tumour, Glioblastoma+; s/p resection 05/14 -Revision Craniotomy for evacuation of ICH 05/18 Plan: Neuro- awke, alert, no complaints. moving all ext. plan for d/c of STAR today after plt transfusion this morning. was held for removal yesterday. wound care to surgical site. keppra 500mg po bid. tapering steroids. CVS- NSR. amlodipine 10, losartan 100mg daily. increase hydralazine 50mg po tid , prn iv hydralazine. goal SBP <140s Resp- on RA, no distress. bronchodilators prn. ID- afebrile. cbc pending. no abx indicated otherwise. GI- tolerating po intake, advance diet Renal- Cr improved.off ivf. Heme- no bleeding noted. plt transfusion now prior to pulling STAR drain. Endo- fingersticks as needed Musculsk- oob to chair today, pt/ot. Wounds- wound care to craniotomy site; STAR drain management. Nutrition- po diet DVT prophylaxis: SCDs GI prophylaxis: PPI Central Line: no Arterial Line: no Patel Cathetor: yes Disposition: ICU discharge planning, pt/ot today after removal of drain. Code Status: full code Ricci Antonio MD Band Straightener (Electronically Signed)
--- NOTE | 2018-05-21 10:14 | PN ---
Progress Note - Progress Note Date of Service: 05/21/18 SOAP: Subjective: [Patient s/p right temporal tumor resection on 05/14 and revision of craniotomy for ICH on 05/18. Feeling tired this morning. Denies headache, nausea, dizziness. ] Objective: [ Vital Signs: Temp Pulse Resp BP Pulse Ox 97 F 57 21 178/59 97 05/21/18 08:00 05/21/18 09:15 05/21/18 09:15 05/21/18 09:00 05/21/18 09:15 General: Recumbent in bed. No distress or acute pain. Neuro: Answers questions appropriately. Speech is clear. CN II-XII intact. No pronator drift. Incision: Intact with daljit. Drain discontinued today after platelet transfusion. New dressing placed. ] Assessment: [Stable post-op. Drain discontinued.] Plan: [1. Continue neuro checks. 2. Continue pain management. ]
[2018-05-21] MEDS: hydrALAZINE IV* 20 MG/ML VIAL IV SLOW PU PRN ×3 (11:35→16:29)
[2018-05-21] MEDS: Isosorbide Mononitrate ER TAB* 30 MG PO SCH (11:37)
[2018-05-21 15:21] LABS: Hematocrit 29 % (35-47); Hemoglobin 9.5 g/dl (12.0-16.0); Mean Corpuscular HGB Conc 33 g/dl (31-36); Mean Corpuscular Hemoglobin 28 pg (27-31); Mean Corpuscular Volume 84 fL (80-97); Mean Platelet Volume 9.7 um3 (7.4-10.4); Platelet Count 193 10^3/ul (150-450); Red Blood Count 3.44 10^6/ul (4.00-5.40); Red Cell Distribution Width 17 % (10.5-15); White Blood Count 11.3 10^3/ul (3.5-10.8)
[2018-05-21] MEDS: Losartan TAB* 25 MG PO SCH (18:37)
[2018-05-21] MEDS: Ondansetron INJ* 2 MG/ML VIAL IV PRN (18:40)
[2018-05-22] MEDS: hydrALAZINE IV* 20 MG/ML VIAL IV SLOW PU PRN (05:30)
[2018-05-22] MEDS: Ondansetron INJ* 2 MG/ML VIAL IV PRN ×2 (05:56→11:55)
[2018-05-22 06:41] LABS: Hematocrit 26 % (35-47); Hemoglobin 8.7 g/dl (12.0-16.0); Mean Corpuscular HGB Conc 33 g/dl (31-36); Mean Corpuscular Hemoglobin 28 pg (27-31); Mean Corpuscular Volume 84 fL (80-97); Mean Platelet Volume 11.1 um3 (7.4-10.4); Platelet Count 173 10^3/ul (150-450); Red Blood Count 3.13 10^6/ul (4.00-5.40); Red Cell Distribution Width 17 % (10.5-15); White Blood Count 12.4 10^3/ul (3.5-10.8)
[2018-05-22 07:00] LABS: EGFR Non-African American 42.1 (>60)
--- NOTE | 2018-05-22 09:22 | PN ---
Progress Note - Progress Note Date of Service: 05/22/18 SOAP: Subjective: [S/p right temporal craniotomy for tumor resection and revision of craniotomy for ICH evacuation. Drain removed yesterday. Nausea and small amount emesis this AM. Denies headache, nausea today. Poor appetite, tired this morning. ] Objective: [ Vital Signs: Temp Pulse Resp BP Pulse Ox 99.5 F 81 20 128/66 94 05/22/18 07:24 05/22/18 09:01 05/22/18 09:01 05/22/18 09:01 05/22/18 09:01 General: Awakes to voice, was resting comfortably. Neuro: Speech is clear. Answers questions approrpiately. CN II-XII intact. Motor and sensory intact. No pronator drift. Incision: Intact and dressing clean. No swelling. ] Assessment: [Stable post-op.] Plan: [1. Patient up to chair today. 2. PT to re-evaluate 3. ]
--- NOTE | 2018-05-22 09:57 | PN ---
Progress Note - Progress Note Date of Service: 05/22/18 Note: Progress Note Critical Care 24 hour events/significant events: -no events overnight; awake/alert. nausea+, vomitting this morning; denies headache/blurry vision -sleepy, tired, no distress, no abd pain/diarrhea/cp/sob. -tmax 100.4 overnight -MATTHIEU drain removed yesterday Tele: NSR Vitals: Vital Signs Temp 99.5 F 05/22/18 07:24 Pulse 81 05/22/18 09:01 Resp 20 05/22/18 09:01 BP 128/66 05/22/18 09:01 Pulse Ox 94 05/22/18 09:01 Intake & Output 05/21/18 05/22/18 05/22/18 18:59 06:59 18:59 Intake Total 50 Output Total 20 100 Balance -20 50 -100 Weight 212 lb 15.465 oz Intake: Oral 50 Output: MATTHIEU #1 20 Emesis 100 Other: Estimated Void Large Date of Last Bowel 05/22/18 Movement # Bowel Movements 1 Estimated Stool Amount Medium # Voids 1 O2/Vent: RA Infusions: heplock Medications: Amlodipine Besylate (Norvasc Tab*) 10 mg PO DAILY [facility] Last Admin: 05/21/18 08:35 Dose: 10 mg Atorvastatin Calcium (Lipitor*) 20 mg PO DAILY [facility] Last Admin: 05/21/18 08:35 Dose: 20 mg Dexamethasone Sodium Phosphate (Decadron Iv*) 2 mg IV SLOW PU Q12H [facility] Last Admin: 05/21/18 21:07 Dose: 2 mg Docusate Sodium (Colace Cap*) 200 mg PO BID [facility] Last Admin: 05/21/18 21:07 Dose: 200 mg Hydralazine HCl (Apresoline Tab*) 25 mg PO TID [facility] Hydralazine HCl (Apresoline Iv*) 5 mg IV SLOW PU Q4H PRN PRN Reason: Blood Pressure >150 Last Admin: 05/22/18 05:30 Dose: 5 mg Nicardipine/Sodium Chloride (Cardene 0.1mg/Ml Ivpremix*) 20 mg in 200 mls @ 50 mls/hr IV .(as Initial Rate) [facility] Last Admin: 05/20/18 05:34 Dose: 30 mls/hr Insulin Human Lispro (Humalog*) 0 units SUBCUT ACHS [facility]; Protocol Last Admin: 05/21/18 21:07 Dose: 6 units Isosorbide Mononitrate (Imdur Er Tab*) 30 mg PO 1400 LING Levetiracetam (Keppra Tab*) 500 mg PO BID [facility] Last Admin: 05/21/18 22:40 Dose: 500 mg Losartan Potassium (Cozaar Tab*) 100 mg PO QPM [facility] Last Admin: 05/21/18 18:37 Dose: 100 mg Nystatin (Nystatin Top Powder*) 1 applic TOPICAL TID [facility] Last Admin: 05/21/18 21:08 Dose: 1 applic Ondansetron HCl (Zofran Odt Tab*) 4 mg PO Q6H PRN PRN Reason: n/v Ondansetron HCl (Zofran Inj*) 4 mg IV Q6H PRN PRN Reason: NAUSEA/VOMITING Last Admin: 05/22/18 05:56 Dose: 4 mg Physical Exam: General: awake, alert, no distress, tired+ Head: dressings intact HEENT: no pallor, no icterus, moist mucous membranes Neck: soft, supple, no jvd CVS: normal rate, regular, no murmur Resp: bilateral air entry, no rhales, no wheeze, no rhonchi, no acc muscle use Abdomen: soft, nontender, nondistended, bowel sounds present Ext: pulses+, warm, mild edema in hands Skin: intact, no breakdown, no dryness Neuro: awake, alert, orientedx3, moving all extremities, no gross focal deficit Labs: Laboratory Results - last 24 hr 05/21/18 05/21/18 05/21/18 12:10 15:14 18:44 WBC 11.3 H RBC 3.44 L Hgb 9.5 L Hct 29 L MCV 84 MCH 28 MCHC 33 RDW 17 H Plt Count 193 MPV 9.7 Sodium Potassium Chloride Carbon Dioxide Anion Gap BUN Creatinine Est GFR ( Amer) Est GFR (Non-Af Amer) BUN/Creatinine Ratio Glucose POC Glucose (mg/dL) 171 H 114 H Calcium 05/21/18 05/22/18 05/22/18 21:00 05:50 05:50 WBC 12.4 H RBC 3.13 L Hgb 8.7 L Hct 26 L MCV 84 MCH 28 MCHC 33 RDW 17 H Plt Count 173 MPV 11.1 H Sodium 140 Potassium 4.9 Chloride 108 Carbon Dioxide 27 Anion Gap 5 BUN 46 H Creatinine 1.22 H Est GFR ( Amer) 50.9 Est GFR (Non-Af Amer) 42.1 BUN/Creatinine Ratio 37.7 H Glucose 127 H POC Glucose (mg/dL) 204 H Calcium 9.0 Imaging: ct brain 05/18 right parietal hemorrhage in bed ofprevious resection with mass effect ct brain 05/19 improved hemorrhage and mass effect MRA brain 05/20 - reviewed, noted persistent edema+ Assessment: 82y F pmhx DM, HTN, HLD, CKD, anemia; diagnosed 05/02/18 with 4.2cm Right temporal mass. -Right temporal tumour, Glioblastoma+; s/p resection 05/14 -Revision Craniotomy for evacuation of ICH 05/18 Plan: Neuro- awake, alert, tired appearing. noted nausea/vom x1 this morning. cont zofran. will monitor, no urgent need for CT brain yet. moving all ext. have to mobilize today, pt/ot. wound care to surgical site. keppra 500mg po bid. tapering steroids to decadrone 1mg q12. CVS- NSR. amlodipine 10, losartan 100mg daily. dec hydralazine 25mg po tid, prn iv hydralazine. on imdur 30mg daily. BP better now. does rise up between doses. goal SBP <140s Resp- on RA, no distress. bronchodilators prn. ID- tmax 100.5. wbc 14. monitoring. GI- tolerating po intake, advance diet Renal- off ivf. no archer. making urine. encourage po intake. Heme- no bleeding noted. Endo- fingersticks as needed Musculsk- oob to chair today, pt/ot. Wounds- wound care to craniotomy site; MATTHIEU drain management. Nutrition- po diet DVT prophylaxis: SCDs GI prophylaxis: PPI Central Line: no Arterial Line: no Archer Cathetor: no Disposition: ICU today, can consider monitored bed later today, to discuss with neurosurg discharge planning, pt/ot today Code Status: full code Ricci Antonio MD Rrts (Electronically Signed)
[2018-05-22] MEDS: Dexamethasone IV* 4 MG/ML 1 ML (4 MG) IV SLOW PU SCH ×3 (11:29→20:47)
[2018-05-22] MEDS: Docusate CAP* 100 MG PO SCH ×3 (11:30→20:46)
[2018-05-22] MEDS: hydrALAZINE TAB* 25 MG PO SCH ×3 (11:30→20:47)
[2018-05-22] MEDS: Atorvastatin* 20 MG TAB PO SCH (11:31)
[2018-05-22] MEDS: Insulin LISPRO* 1 UNITS UNIT SUBCUT SCH ×4 (11:31→20:47)
[2018-05-22] MEDS: amLODIPine TAB* 5 MG PO SCH (11:31)
[2018-05-22] MEDS ORDERED: Isosorbide Mononitrate ER TAB* 30 MG PO SCH (14:00)
[2018-05-22] MEDS: levETIRAcetam TAB* 500 MG PO SCH ×2 (14:40→20:46)
[2018-05-22] MEDS: Nystatin TOP POWDER* 15 GM BTL TOPICAL SCH ×3 (14:43→20:46)
[2018-05-22] MEDS: Losartan TAB* 25 MG PO SCH (17:34)
[2018-05-22] MEDS: Isosorbide Mononitrate ER TAB* 30 MG PO SCH (20:31)
[2018-05-22] MEDS: Acetaminophen ADULT LIQ* 650 MG/20.3 ML UDC PO PRN (20:45)
--- NOTE | 2018-05-22 21:54 | RAD ---
Indication: Fever. Single frontal view of the chest performed at 2130 hours was reviewed. Comparison is made with previous exam dated May 18, 2018. No mediastinal shift is noted. Heart is of normal size and configuration. Lung beck appear clear. IMPRESSION: NO ACTIVE CARDIOPULMONARY DISEASE IS NOTED.
[2018-05-23 00:50] LABS: Urine Appearance Clear; Urine Blood Negative (Negative); Urine Color Yellow; Urine Ketones Negative (Negative); Urine Protein Negative (Negative); Urine Specific Gravity 1.014 (1.010-1.030); Urine Urobilinogen Negative (Negative)
[2018-05-23 05:43] LABS: Hematocrit 27 % (35-47); Mean Corpuscular HGB Conc 33 g/dl (31-36); Mean Corpuscular Hemoglobin 28 pg (27-31); Mean Corpuscular Volume 85 fL (80-97); Mean Platelet Volume 10.3 um3 (7.4-10.4); Platelet Count 156 10^3/ul (150-450); Red Blood Count 3.18 10^6/ul (4.00-5.40); Red Cell Distribution Width 17 % (10.5-15); White Blood Count 9.8 10^3/ul (3.5-10.8)
[2018-05-23 05:59] LABS: EGFR Non-African American 38.4 (>60)
[2018-05-23] MEDS: Insulin LISPRO* 1 UNITS UNIT SUBCUT SCH ×4 (07:41→21:06)
--- NOTE | 2018-05-23 07:48 | PN ---
Progress Note - Progress Note Date of Service: 05/23/18 SOAP: Subjective: []Easily arousable Some nausea during night but no further vomiting Objective: []Neuro intact Wound OK Assessment: []Satis post op course Plan: [Recheck CT this AM If CT OK would be ready for floor from NS standpoint
[2018-05-23] MEDS: hydrALAZINE TAB* 25 MG PO SCH ×3 (08:39→22:38)
[2018-05-23] MEDS: Atorvastatin* 20 MG TAB PO SCH (08:39)
[2018-05-23] MEDS: Docusate CAP* 100 MG PO SCH ×2 (08:39→22:38)
[2018-05-23] MEDS: levETIRAcetam TAB* 500 MG PO SCH ×2 (08:40→22:38)
[2018-05-23] MEDS: amLODIPine TAB* 5 MG PO SCH (08:40)
[2018-05-23] MEDS: Dexamethasone IV* 4 MG/ML 1 ML (4 MG) IV SLOW PU SCH ×2 (08:40→22:38)
[2018-05-23] MEDS: Nystatin TOP POWDER* 15 GM BTL TOPICAL SCH ×3 (08:59→22:57)
--- NOTE | 2018-05-23 09:09 | RAD ---
INDICATION: Follow-up craniotomy. COMPARISON: CT brain May 19, 2018 TECHNIQUE: Noncontrast axial source images were acquired from the skull base to the vertex. FINDINGS: Ventricles/sulci: The ventricles and cisterns are unchanged in size and configuration for age. Brain parenchyma: The vasogenic edema and hemorrhage in the right temporal lobe appears slightly less conspicuous.. Intracranial hemorrhage:Small amount of interval decrease in the amount of intracranial hemorrhage. Extra-axial spaces: Tiny right-sided frontotemporal subdural collection appears unchanged. Calvarium: There is no calvarial fracture or other calvarial abnormality. Scalp: Right temporal craniotomy defect and flap appear essentially unchanged. Paranasal sinuses/mastoid: The paranasal sinuses and mastoid air cells are clear. Other: None. IMPRESSION: Right temporal craniotomy. Vasogenic edema and hemorrhage in the right temporal region appear slightly less conspicuous and there is slightly decreased mass effect.
--- NOTE | 2018-05-23 09:59 | PN ---
Progress Note - Progress Note Date of Service: 05/23/18 Note: Progress Note Critical Care 24 hour events/significant events: -overnight no events noted; no further nausea/headache -this morning she had some headache before, no nause/dizziness now -in chair, sleepy but awakens and answers quyestions; not hungry; did not eat much yesterday -tmax 101 yesterday; cxr obtained, clear; urinalysis done, blood culture. -CT brain this morning by NS -son at bedside Tele: NSR Vitals: Vital Signs Temp 99.1 F 05/23/18 07:45 Pulse 82 05/23/18 09:00 Resp 21 05/23/18 09:00 BP 109/66 05/23/18 09:00 Pulse Ox 95 05/23/18 09:00 Intake & Output 05/22/18 05/23/18 05/23/18 18:59 06:59 18:59 Intake Total 150 Output Total 250 Balance -100 Weight 205 lb 7.533 oz Intake: Oral 150 Output: Emesis 250 Other: Estimated Void Large Estimated Stool Amount Large # Voids 1 O2/Vent: RA Infusions: heplock Medications: Acetaminophen (Tylenol Adult Liq*) 650 mg PO Q4H PRN PRN Reason: HEADACHE/PAIN Last Admin: 05/22/18 20:45 Dose: 650 mg Amlodipine Besylate (Norvasc Tab*) 10 mg PO DAILY [facility] Last Admin: 05/23/18 08:40 Dose: 10 mg Atorvastatin Calcium (Lipitor*) 20 mg PO DAILY [facility] Last Admin: 05/23/18 08:39 Dose: 20 mg Dexamethasone Sodium Phosphate (Decadron Iv*) 1 mg IV SLOW PU Q12H [facility] Last Admin: 05/23/18 08:40 Dose: 1 mg Docusate Sodium (Colace Cap*) 200 mg PO BID [facility] Last Admin: 05/23/18 08:39 Dose: 200 mg Hydralazine HCl (Apresoline Tab*) 25 mg PO TID [facility] Last Admin: 05/23/18 08:39 Dose: 25 mg Hydralazine HCl (Apresoline Iv*) 5 mg IV SLOW PU Q4H PRN PRN Reason: Blood Pressure >150 Last Admin: 05/22/18 05:30 Dose: 5 mg Lactated Ringer's (Lactated Ringers 1000 Ml Bag*) 1,000 mls @ 75 mls/hr IV PER RATE [facility] Last Admin: 05/23/18 09:48 Dose: 75 mls/hr Insulin Human Lispro (Humalog*) 0 units SUBCUT ACHS [facility]; Protocol Last Admin: 05/23/18 07:41 Dose: Not Given Isosorbide Mononitrate (Imdur Er Tab*) 30 mg PO 1400 [facility] Last Admin: 05/22/18 14:39 Dose: 30 mg Levetiracetam (Keppra Tab*) 500 mg PO BID [facility] Last Admin: 05/23/18 08:40 Dose: 500 mg Losartan Potassium (Cozaar Tab*) 100 mg PO QPM [facility] Last Admin: 05/22/18 17:34 Dose: 100 mg Nystatin (Nystatin Top Powder*) 1 applic TOPICAL TID [facility] Last Admin: 05/23/18 08:59 Dose: Not Given Ondansetron HCl (Zofran Odt Tab*) 4 mg PO Q6H PRN PRN Reason: n/v Ondansetron HCl (Zofran Inj*) 4 mg IV Q6H PRN PRN Reason: NAUSEA/VOMITING Last Admin: 05/22/18 11:55 Dose: 4 mg Physical Exam: General: awake, alert, no distress, tired+ Head: dressings intact HEENT: no pallor, no icterus, moist mucous membranes Neck: soft, supple, no jvd CVS: normal rate, regular, no murmur Resp: bilateral air entry, no rhales, no wheeze, no rhonchi, no acc muscle use Abdomen: soft, nontender, nondistended, bowel sounds present Ext: pulses+, warm, mild edema in hands Skin: intact, no breakdown, no dryness Neuro: awake, alert, orientedx3, moving all extremities, no gross focal deficit Labs: Laboratory Results - last 24 hr 05/22/18 05/22/18 05/22/18 11:46 17:08 20:21 WBC RBC Hgb Hct MCV MCH MCHC RDW Plt Count MPV Sodium Potassium Chloride Carbon Dioxide Anion Gap BUN Creatinine Est GFR ( Amer) Est GFR (Non-Af Amer) BUN/Creatinine Ratio Glucose POC Glucose (mg/dL) 119 H 128 H 148 H Calcium Urine Color Urine Appearance Urine pH Ur Specific Pablo Urine Protein Urine Ketones Urine Blood Urine Nitrate Urine Bilirubin Urine Urobilinogen Ur Leukocyte Esterase Urine Glucose 05/23/18 05/23/18 05/23/18 00:12 05:30 05:30 WBC 9.8 RBC 3.18 L Hgb 9.0 L Hct 27 L MCV 85 MCH 28 MCHC 33 RDW 17 H Plt Count 156 MPV 10.3 Sodium 139 Potassium 4.3 Chloride 105 Carbon Dioxide 30 Anion Gap 4 BUN 36 H Creatinine 1.32 H Est GFR ( Amer) 46.5 Est GFR (Non-Af Amer) 38.4 BUN/Creatinine Ratio 27.3 H Glucose 116 H POC Glucose (mg/dL) Calcium 9.1 Urine Color Yellow Urine Appearance Clear Urine pH 5.0 Ur Specific Pablo 1.014 Urine Protein Negative Urine Ketones Negative Urine Blood Negative Urine Nitrate Negative Urine Bilirubin Negative Urine Urobilinogen Negative Ur Leukocyte Esterase Negative Urine Glucose Negative 05/23/18 07:37 WBC RBC Hgb Hct MCV MCH MCHC RDW Plt Count MPV Sodium Potassium Chloride Carbon Dioxide Anion Gap BUN Creatinine Est GFR ( Amer) Est GFR (Non-Af Amer) BUN/Creatinine Ratio Glucose POC Glucose (mg/dL) 124 H Calcium Urine Color Urine Appearance Urine pH Ur Specific Pablo Urine Protein Urine Ketones Urine Blood Urine Nitrate Urine Bilirubin Urine Urobilinogen Ur Leukocyte Esterase Urine Glucose Imaging: ct brain 05/18 right parietal hemorrhage in bed ofprevious resection with mass effect ct brain 05/19 improved hemorrhage and mass effect MRA brain 05/20 - reviewed, noted persistent edema+ CT brain 05/23 - right parietal edema and midline shift but improved from prior Assessment: 82y F pmhx DM, HTN, HLD, CKD, anemia; diagnosed 05/02/18 with 4.2cm Right temporal mass. 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 cont zofran prn, tylenol prn. CT brain repeat with some improved edema/shift. moving all ext. oob to chair, pt/ot. wound care to surgical site. keppra 500mg po bid. tapering steroids, decadrone 1mg q12. CVS- NSR. amlodipine 10, dec losartan to 50mg daily. hydralazine 25mg po tid, prn iv hydralazine. imdur 30mg daily. BP better now. does rise up between doses. goal SBP <140s Resp- on RA, no distress. bronchodilators prn. ID- tmax 101. wbc 9.8. monitoring. GI- tolerating po intake, advance diet. encourage more po intake. Renal- EMMANUEL, Cr 1.3. poor po intake. start LR 75cc/hour. no archer. making urine. encourage po intake. Heme- no bleeding noted. Endo- fingersticks as needed Musculsk- oob to chair today, pt/ot. Wounds- wound care to craniotomy site; MATTHIEU drain management. Nutrition- po diet DVT prophylaxis: SCDs GI prophylaxis: PPI Central Line: no Arterial Line: no Archer Cathetor: no Disposition: can transfer to surgical floor with tele Code Status: full code Ricci Antonio MD Rn Mental Health (Electronically Signed)
[2018-05-23] MEDS ORDERED: Losartan TAB* 25 MG PO SCH (18:00)
[2018-05-24] MEDS: hydrALAZINE IV* 20 MG/ML VIAL IV SLOW PU PRN ×2 (00:17→08:18)
[2018-05-24] MEDS: Ondansetron ODT TAB* 4 MG PO PRN (01:01)
[2018-05-24] MEDS ORDERED: Meclizine TAB* 12.5 MG PO ONE (06:00)
[2018-05-24] MEDS: Insulin LISPRO* 1 UNITS UNIT SUBCUT SCH ×4 (07:49→20:50)
[2018-05-24] MEDS: hydrALAZINE TAB* 25 MG PO SCH ×2 (08:10→09:59)
[2018-05-24] MEDS: Atorvastatin* 20 MG TAB PO SCH (08:10)
[2018-05-24] MEDS: Dexamethasone IV* 4 MG/ML 1 ML (4 MG) IV SLOW PU SCH ×2 (08:10→20:54)
[2018-05-24] MEDS: Docusate CAP* 100 MG PO SCH ×2 (08:10→20:54)
[2018-05-24] MEDS: amLODIPine TAB* 5 MG PO SCH ×2 (08:10→09:59)
[2018-05-24] MEDS: levETIRAcetam TAB* 500 MG PO SCH ×2 (08:10→20:54)
[2018-05-24] MEDS: Ondansetron INJ* 2 MG/ML VIAL IV PRN (08:16)
[2018-05-24] MEDS: Nystatin TOP POWDER* 15 GM BTL TOPICAL SCH ×3 (08:52→20:50)
--- NOTE | 2018-05-24 09:44 | PN ---
Progress Note - Progress Note Date of Service: 05/24/18 Note: Progress Note Critical Care 24 hour events/significant events: -non further hypotensive episodes noted overnight -in bed, awakens easiily, still tired appearing, no sob/cp. headache+ intermittently, nausea+ at times, vomitted yesterday -abd pain+. no bowel movements in 2 days. -tmax 100 -on LR solution; poor po intake past 2 days, doesnt feel like eating. Tele: NSR Vitals: Vital Signs Temp 99.0 F 05/24/18 08:00 Pulse 67 05/24/18 08:00 Resp 19 05/24/18 08:00 BP 160/64 05/24/18 08:00 Pulse Ox 92 05/24/18 08:00 Intake & Output 05/23/18 05/24/18 05/24/18 18:59 06:59 18:59 Intake Total 979 490 Balance 979 490 Weight 204 lb 12.951 oz Intake: IV Fluids 979 440 LR 979 440 Oral 50 Other: Estimated Void Medium Large # Voids 2 2 O2/Vent: RA Infusions: LR 75 Medications: Acetaminophen (Tylenol Adult Liq*) 650 mg PO Q4H PRN PRN Reason: HEADACHE/PAIN Last Admin: 05/22/18 20:45 Dose: 650 mg Atorvastatin Calcium (Lipitor*) 20 mg PO DAILY [facility] Last Admin: 05/24/18 08:10 Dose: 20 mg Dexamethasone Sodium Phosphate (Decadron Iv*) 1 mg IV SLOW PU Q12H [facility] Last Admin: 05/24/18 08:10 Dose: 1 mg Docusate Sodium (Colace Cap*) 200 mg PO BID [facility] Last Admin: 05/24/18 08:10 Dose: 200 mg Hydralazine HCl (Apresoline Iv*) 5 mg IV SLOW PU Q4H PRN PRN Reason: Blood Pressure >150 Last Admin: 05/24/18 08:18 Dose: 5 mg Lactated Ringer's (Lactated Ringers 1000 Ml Bag*) 1,000 mls @ 75 mls/hr IV PER RATE [facility] Last Admin: 05/24/18 05:26 Dose: 75 mls/hr Insulin Human Lispro (Humalog*) 0 units SUBCUT ACHS [facility]; Protocol Last Admin: 05/24/18 07:49 Dose: Not Given Levetiracetam (Keppra Tab*) 500 mg PO BID [facility] Last Admin: 05/24/18 08:10 Dose: 500 mg Nifedipine (Procardia Xl Tab*) 60 mg PO DAILY [facility] Nystatin (Nystatin Top Powder*) 1 applic TOPICAL TID [facility] Last Admin: 05/24/18 08:52 Dose: Not Given Ondansetron HCl (Zofran Odt Tab*) 4 mg PO Q6H PRN PRN Reason: n/v Last Admin: 05/24/18 01:01 Dose: 4 mg Ondansetron HCl (Zofran Inj*) 4 mg IV Q6H PRN PRN Reason: NAUSEA/VOMITING Last Admin: 05/24/18 08:16 Dose: 4 mg Physical Exam: General: awake, alert, no distress, tired+ Head: dressings intact HEENT: no pallor, no icterus, moist mucous membranes Neck: soft, supple, no jvd CVS: normal rate, regular, no murmur Resp: bilateral air entry, no rhales, no wheeze, no rhonchi, no acc muscle use Abdomen: soft, midline hernia+ as prior; tender but nondistended all over, bowel sounds+ Ext: pulses+, warm,no sig edema Skin: intact, no breakdown, no dryness Neuro: awake, alert, orientedx3, moving all extremities, no gross focal deficit Labs: Laboratory Results - last 24 hr 05/23/18 05/23/18 05/23/18 11:57 16:37 21:03 POC Glucose (mg/dL) 142 H 127 H 113 H 05/24/18 07:48 POC Glucose (mg/dL) 127 H pending labs today Imaging: ct brain 05/18 right parietal hemorrhage in bed ofprevious resection with mass effect ct brain 05/19 improved hemorrhage and mass effect MRA brain 05/20 - reviewed, noted persistent edema+ CT brain 05/23 - right parietal edema and midline shift but improved from prior Assessment: 82y F pmhx DM, HTN, HLD, CKD, anemia; diagnosed 05/02/18 with 4.2cm Right temporal mass. 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 cont zofran prn, tylenol prn. CT brain 05/23 repeat with some improved edema/shift. moving all ext. oob to chair if able,likely no pt/ot today. wound care to surgical site. keppra 500mg po bid. decadrone 1mg q12h, taper furhter tomorrow CVS- NSR. could lethargy/nausea/dizziness be from hydralazine which i started 2 days back? will d/c hydralazine, change to nifedipine ER 60mg daily, , d/c norvasc, d/c losartan yesterday due to EMMANUEL. prn iv hydralazine. off imdur yesterday due to hypotension. BP has been 130-150s. cont LR infusion, pending labwork today. goal SBP <140s Resp- on RA, no distress. bronchodilators prn. ID- tmax 100.7. unclear source of fevers, central? monitorin off Abx, hemodyn stable. GI- poor po intake. abd slightly tender. no bowel movements. cont colace, start lactulose to help with movement. KUB today. may consider CT abd if worsening symptoms. encourage more po intake. zofran IV prn. Renal- EMMANUEL, pending labs today. cont LR infusion. incontinent otherwise. Heme- no bleeding noted. Endo- fingersticks as needed Musculsk- oob to chair today if possible, pt/ot. Wounds- wound care to craniotomy site; MATTHIEU drain management. Nutrition- po diet DVT prophylaxis: SCDs GI prophylaxis: PPI Central Line: no Arterial Line: no Patel Cathetor: no Disposition: maintain ICU level, labile status currently Code Status: full code Ricci Antonio MD Profile Stitching Machine Operator (Electronically Signed)
[2018-05-24] MEDS ORDERED: Bisacodyl SUPP* 10 MG SUPP PR ONE (10:00)
[2018-05-24 10:50] LABS: Hematocrit 28 % (35-47); Hemoglobin 9.3 g/dl (12.0-16.0); Mean Corpuscular HGB Conc 33 g/dl (31-36); Mean Corpuscular Hemoglobin 28 pg (27-31); Mean Corpuscular Volume 85 fL (80-97); Mean Platelet Volume 11.2 um3 (7.4-10.4); Platelet Count 138 10^3/ul (150-450); Red Blood Count 3.35 10^6/ul (4.00-5.40); Red Cell Distribution Width 16 % (10.5-15); White Blood Count 10.1 10^3/ul (3.5-10.8)
[2018-05-24] MEDS: NIFEdipine ER TAB* 60 MG PO SCH (11:04)
--- NOTE | 2018-05-24 11:15 | RAD ---
Indication: Abdominal pain, nausea. Flat plate of the abdomen demonstrates no free air. No dilated loops of bowel are noted. The colon is filled with stool. IMPRESSION: No free air or obstruction is noted.
[2018-05-24 11:18] LABS: EGFR Non-African American 46.9 (>60)
[2018-05-24] MEDS: Acetaminophen ADULT LIQ* 650 MG/20.3 ML UDC PO PRN (11:27)
[2018-05-24] MEDS ORDERED: PROCHLORPERAZINE INJ 5 MG/ML 2 ML VIAL IV PRN (13:00)
[2018-05-24] MEDS ORDERED: Sodium Phosphate ADULT ENEMA* 118 ml bottle PR ONE (14:30)
[2018-05-25 05:09] LABS: Hematocrit 27 % (35-47); Hemoglobin 9.2 g/dl (12.0-16.0); Mean Corpuscular HGB Conc 34 g/dl (31-36); Mean Corpuscular Hemoglobin 28 pg (27-31); Mean Corpuscular Volume 84 fL (80-97); Mean Platelet Volume 10.5 um3 (7.4-10.4); Platelet Count 124 10^3/ul (150-450); Red Blood Count 3.24 10^6/ul (4.00-5.40); Red Cell Distribution Width 16 % (10.5-15)
[2018-05-25 05:34] LABS: EGFR Non-African American 45.5 (>60)
[2018-05-25] MEDS: Bisacodyl SUPP* 10 MG SUPP PR SCH ×2 (08:20→08:32)
[2018-05-25] MEDS: Insulin LISPRO* 1 UNITS UNIT SUBCUT SCH ×4 (08:32→20:34)
[2018-05-25] MEDS: Docusate CAP* 100 MG PO SCH ×2 (08:32→20:34)
[2018-05-25] MEDS: Atorvastatin* 20 MG TAB PO SCH (08:33)
[2018-05-25] MEDS: Nystatin TOP POWDER* 15 GM BTL TOPICAL SCH ×3 (08:33→21:24)
[2018-05-25] MEDS: levETIRAcetam TAB* 500 MG PO SCH ×2 (08:33→20:32)
[2018-05-25] MEDS: NIFEdipine ER TAB* 60 MG PO SCH (08:33)
[2018-05-25] MEDS: Ondansetron INJ* 2 MG/ML VIAL IV PRN (08:34)
[2018-05-25] MEDS: Acetaminophen ADULT LIQ* 650 MG/20.3 ML UDC PO PRN (09:28)
--- NOTE | 2018-05-25 09:36 | PN ---
Progress Note - Progress Note Date of Service: 05/25/18 Note: Progress Note Critical Care 24 hour events/significant events: -in bed, doesnt want to get out of bed. just tired overall. tmax 101 this morning. no nausea, dizzy only when she moves. no vomitting. no cp/sob/cough. abd pain less now. small bowel movement yesterday only -has not been eating much, this morning did eat only after being fed -BP stable, remains 130-160s, HR 70s. -incontinent of urine, doesnt ask for waite Tele: NSR Vitals: Vital Signs Temp 101.0 F 05/25/18 08:00 Pulse 74 05/25/18 09:00 Resp 22 05/25/18 09:00 BP 160/81 05/25/18 09:00 Pulse Ox 92 05/25/18 09:00 Intake & Output 05/24/18 05/25/18 05/25/18 18:59 06:59 18:59 Intake Total 742 1354 200 Balance 742 1354 200 Weight 207 lb 3.752 oz Intake: IV Fluids 622 1254 LR 622 1254 Oral 120 100 200 Other: Estimated Void Medium Large # Voids 2 2 O2/Vent: RA Infusions: LR 60 Medications: Acetaminophen (Tylenol Adult Liq*) 650 mg PO Q4H PRN PRN Reason: HEADACHE/PAIN Last Admin: 05/25/18 09:28 Dose: 650 mg Atorvastatin Calcium (Lipitor*) 20 mg PO DAILY [facility] Last Admin: 05/25/18 08:33 Dose: 20 mg Bisacodyl (Dulcolax Supp*) 10 mg NV DAILY [facility] Stop: 05/28/18 09:01 Last Admin: 05/25/18 08:32 Dose: Not Given Dexamethasone Sodium Phosphate (Decadron Iv*) 1 mg IV SLOW PU Q12H [facility] Last Admin: 05/24/18 20:54 Dose: 1 mg Docusate Sodium (Colace Cap*) 200 mg PO BID [facility] Last Admin: 05/25/18 08:32 Dose: Not Given Hydralazine HCl (Apresoline Iv*) 5 mg IV SLOW PU Q4H PRN PRN Reason: Blood Pressure >150 Last Admin: 05/24/18 08:18 Dose: 5 mg Lactated Ringer's (Lactated Ringers 1000 Ml Bag*) 1,000 mls @ 75 mls/hr IV PER RATE [facility] Last Admin: 05/25/18 08:13 Dose: 75 mls/hr Insulin Human Lispro (Humalog*) 0 units SUBCUT ACHS [facility]; Protocol Last Admin: 05/25/18 08:32 Dose: Not Given Levetiracetam (Keppra Tab*) 500 mg PO BID [facility] Last Admin: 05/25/18 08:33 Dose: 500 mg Nifedipine (Procardia Xl Tab*) 60 mg PO DAILY [facility] Last Admin: 05/25/18 08:33 Dose: 60 mg Nystatin (Nystatin Top Powder*) 1 applic TOPICAL TID [facility] Last Admin: 05/25/18 08:33 Dose: Not Given Ondansetron HCl (Zofran Odt Tab*) 4 mg PO Q6H PRN PRN Reason: n/v Last Admin: 05/24/18 01:01 Dose: 4 mg Ondansetron HCl (Zofran Inj*) 4 mg IV Q6H PRN PRN Reason: NAUSEA/VOMITING Last Admin: 05/25/18 08:34 Dose: 4 mg Prochlorperazine Edisylate (Compazine Inj*) 5 mg IV Q8H PRN PRN Reason: NAUSEA/VOMITING Last Admin: 05/24/18 13:15 Dose: 5 mg Physical Exam: General: sleepy, awakens, alert, no distress, tired+ Head: right craniotomy site intact, no drainage/erythema/tenderness HEENT: no pallor, no icterus, moist mucous membranes Neck: soft, supple, no jvd CVS: normal rate, regular, no murmur Resp: bilateral air entry, no rhales, no wheeze, no rhonchi, no acc muscle use Abdomen: soft, midline hernia+ as prior; tender but nondistended all over, bowel sounds+ Ext: pulses+, warm,no sig edema Skin: intact, no breakdown, no dryness Neuro: awakena, alert at times, orientedx3, moving all extremities, no gross focal deficit Labs: Laboratory Results - last 24 hr 05/24/18 05/24/18 05/24/18 10:24 10:24 12:40 WBC 10.1 RBC 3.35 L Hgb 9.3 L Hct 28 L MCV 85 MCH 28 MCHC 33 RDW 16 H Plt Count 138 L MPV 11.2 H Sodium 138 Potassium TNP Chloride 106 Carbon Dioxide 23 Anion Gap 9 BUN 30 H Creatinine 1.11 H Est GFR ( Amer) 56.8 Est GFR (Non-Af Amer) 46.9 BUN/Creatinine Ratio 27.0 H Glucose 100 POC Glucose (mg/dL) 129 H Calcium 9.0 05/24/18 05/24/18 05/25/18 17:16 20:49 04:45 WBC RBC Hgb Hct MCV MCH MCHC RDW Plt Count MPV Sodium 136 Potassium 4.3 Chloride 102 Carbon Dioxide 28 Anion Gap 6 BUN 25 H Creatinine 1.14 H Est GFR ( Amer) 55.1 Est GFR (Non-Af Amer) 45.5 BUN/Creatinine Ratio 21.9 H Glucose 98 POC Glucose (mg/dL) 115 H 130 H Calcium 8.9 05/25/18 04:45 WBC 10.0 RBC 3.24 L Hgb 9.2 L Hct 27 L MCV 84 MCH 28 MCHC 34 RDW 16 H Plt Count 124 L MPV 10.5 H Sodium Potassium Chloride Carbon Dioxide Anion Gap BUN Creatinine Est GFR ( Amer) Est GFR (Non-Af Amer) BUN/Creatinine Ratio Glucose POC Glucose (mg/dL) Calcium Imaging: ct brain 05/18 right parietal hemorrhage in bed ofprevious resection with mass effect ct brain 05/19 improved hemorrhage and mass effect MRA brain 05/20 - reviewed, noted persistent edema+ CT brain 05/23 - right parietal edema and midline shift but improved from prior Assessment: 82y F pmhx DM, HTN, HLD, CKD, anemia; diagnosed 05/02/18 with 4.2cm Right temporal mass. 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 dizziness when moving. trial meclizine. last CT brain without new findings. nothign from surgical standpoint at this time. fever 101, no clear source, central?? cont zofran prn, tylenol prn. oob to chair today. wound care to surgical site. keppra 500mg po bid. decadrone taper. -post op depression? may have to consider that given her age and proceudre done. may need psychiatry to eval if all other medical issues ruled out. CVS- NSR. BP 130-160, no further hypotensive episodes. cont nifedipine ER 60mg daily, holding losartan. prn iv hydralazine. cont LR 60cc/hr. Resp- on RA, no distress. bronchodilators prn. incentive spirometry. ID- tmax 101. unclear source of fevers, central? monitoring off Abx, hemodyn stable. culture negative so far. GI- poor po intake. just tired all the time. small bowel movement, abd pain less. cont dulcolax NV daily. try fleet enema. encourage PO intake, will have to be fed. cont colace. KUB without dilated loops, seems to be stool filled. zofran IV prn. Renal- EMMANUEL improving. will cont LR 60cc/hour for now till PO intake improved. Heme- no bleeding noted. Endo- fingersticks as needed Musculsk- oob to chair today, pt/ot. Wounds- wound care to craniotomy site Nutrition- po diet DVT prophylaxis: SCDs GI prophylaxis: PPI Central Line: no Arterial Line: no Patel Cathetor: no Disposition: no clear ICU requirement now, may do better with more mobilization on surgical floor. if stable later today, can transfer to surgical floor. Code Status: full code Ricci Antonio MD [employer] (Electronically Signed)
[2018-05-26] MEDS: hydrALAZINE IV* 20 MG/ML VIAL IV SLOW PU PRN ×4 (03:57→20:33)
[2018-05-26 06:23] LABS: Hematocrit 29 % (35-47); Hemoglobin 9.3 g/dl (12.0-16.0); Mean Corpuscular HGB Conc 32 g/dl (31-36); Mean Corpuscular Hemoglobin 28 pg (27-31); Mean Corpuscular Volume 86 fL (80-97); Red Blood Count 3.35 10^6/ul (4.00-5.40); Red Cell Distribution Width 16 % (10.5-15); White Blood Count 9.2 10^3/ul (3.5-10.8)
[2018-05-26 06:55] LABS: EGFR Non-African American 44.6 (>60)
[2018-05-26] MEDS: Insulin LISPRO* 1 UNITS UNIT SUBCUT SCH ×4 (07:59→20:45)
[2018-05-26] MEDS: Docusate CAP* 100 MG PO SCH ×2 (08:06→20:39)
[2018-05-26] MEDS: Ondansetron INJ* 2 MG/ML VIAL IV PRN (08:08)
[2018-05-26] MEDS: Dexamethasone IV* 4 MG/ML 1 ML (4 MG) IV SLOW PU SCH (08:08)
[2018-05-26] MEDS: NIFEdipine ER TAB* 60 MG PO SCH (09:17)
[2018-05-26] MEDS: Atorvastatin* 20 MG TAB PO SCH (09:18)
[2018-05-26] MEDS: levETIRAcetam TAB* 500 MG PO SCH ×2 (09:18→20:39)
[2018-05-26] MEDS: Nystatin TOP POWDER* 15 GM BTL TOPICAL SCH ×3 (09:24→21:29)
--- NOTE | 2018-05-26 09:48 | PN ---
Progress Note - Progress Note Date of Service: 05/26/18 SOAP: Subjective: [Patient s/p right temporal tumor resection 05/14 and ICH evacuation 05/18. Tired this morning. Per brother, she was up to chair yesterday but just fell asleep. He states that she has had a poor appetite recently. Patient denies headache, vision changes, nausea. ] Objective: [ Vital Signs: Temp Pulse Resp BP Pulse Ox 98.8 F 73 18 152/42 95 05/26/18 07:35 05/26/18 07:35 05/26/18 09:25 05/26/18 07:35 05/26/18 07:35 General: Awakes to voice. Cooperative with exam although sleepy. Neuro: Speech is clear and answers questions appropriately. Pupils equal and reactive. Oriented to person, place and time. Incision: Intact and without swelling, erythema or drainage. No dressing. ] Assessment: [Stable post-op. Unmotivated and tired. ] Plan: [1. Encourage up out of bed. 2. Encourage good nutrition. ]
--- NOTE | 2018-05-26 13:55 | PN ---
Subjective Date of Service: 05/26/18 Interval History: Patient laying in bed visiting with brothers who are at bedside. She reports she feels a little better today but is sleepy. She denies GRAY, vision changes. Denies pain. Reports little appetite. Offers no complaints. Per brothers she seems a little better today. Family History: Unchanged from Admission Social History: Unchanged from Admission Past Medical History: Unchanged from Admission Objective Active Medications: Acetaminophen (Tylenol Adult Liq*) 650 mg PO Q4H PRN PRN Reason: HEADACHE/PAIN Last Admin: 05/25/18 09:28 Dose: 650 mg Atorvastatin Calcium (Lipitor*) 20 mg PO DAILY [facility] Last Admin: 05/26/18 09:18 Dose: 20 mg Dexamethasone Sodium Phosphate (Decadron Iv*) 1 mg IV SLOW PU DAILY [facility] Last Admin: 05/26/18 08:08 Dose: 1 mg Docusate Sodium (Colace Cap*) 200 mg PO BID [facility] Last Admin: 05/26/18 08:06 Dose: Not Given Hydralazine HCl (Apresoline Iv*) 5 mg IV SLOW PU Q4H PRN PRN Reason: Blood Pressure >150 Last Admin: 05/26/18 12:12 Dose: 5 mg Insulin Human Lispro (Humalog*) 0 units SUBCUT [facility]; Protocol Last Admin: 05/26/18 13:29 Dose: 3 units Levetiracetam (Keppra Tab*) 500 mg PO BID [facility] Last Admin: 05/26/18 09:18 Dose: 500 mg Meclizine HCl (Antivert Tab*) 12.5 mg PO Q12HR PRN PRN Reason: DIZZINESS Nifedipine (Procardia Xl Tab*) 60 mg PO DAILY [facility] Last Admin: 05/26/18 09:17 Dose: 60 mg Nystatin (Nystatin Top Powder*) 1 applic TOPICAL TID [facility] Last Admin: 05/26/18 13:31 Dose: Not Given Ondansetron HCl (Zofran Odt Tab*) 4 mg PO Q6H PRN PRN Reason: n/v Last Admin: 05/24/18 01:01 Dose: 4 mg Ondansetron HCl (Zofran Inj*) 4 mg IV Q6H PRN PRN Reason: NAUSEA/VOMITING Last Admin: 05/26/18 08:08 Dose: 4 mg Prochlorperazine Edisylate (Compazine Inj*) 5 mg IV Q8H PRN PRN Reason: NAUSEA/VOMITING Last Admin: 05/24/18 13:15 Dose: 5 mg Vital Signs - 8 hr 05/26/18 05/26/18 05/26/18 07:35 09:25 11:36 Temperature 98.8 F 98.8 F Pulse Rate 73 72 Respiratory 18 18 17 Rate Blood Pressure 152/42 158/52 (mmHg) O2 Sat by Pulse 95 95 Oximetry Oxygen Devices in Use Now: None Appearance: 82 yo female laying in bed in NAD. A+O x3. Eyes: No Scleral Icterus, PERRLA Ears/Nose/Mouth/Throat: NL Teeth, Lips, Gums, Clear Oropharnyx, Mucous Membranes Moist Neck: NL Appearance and Movements; NL JVP Respiratory: Symmetrical Chest Expansion and Respiratory Effort, Clear to Auscultation Cardiovascular: NL Sounds; No Murmurs; No JVD, RRR, No Edema Skin: - Lines/Tubes/Other Access: Clean, Dry and Intact Peripheral IV Nutrition: Taking PO's - Large right scalp surgical incision - healing, no noted drainage, edema, or erythema Result Diagrams: 05/26/18 05:41 05/26/18 05:41 Additional Lab and Data: . Microbiology and Other Data: Microbiology 05/22/18 21:50 Aerobic Blood Culture - Preliminary Blood Venous No Growth Day 3 Anaerobic Blood Culture - Preliminary No Growth Day 3 05/22/18 21:50 Aerobic Blood Culture - Preliminary Blood Venous No Growth Day 3 Anaerobic Blood Culture - Preliminary No Growth Day 3 05/23/18 00:12 Urine Culture - Final Urine No Growth (<1,000 CFU/mL) Assess/Plan/Problems-Billing Assessment: Ms. 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 - Patient Problems (1) Brain mass Comment: - s/p crani (05/14) and revision d/t ICH (05/18) - Dispo per NS - Continue decadron taper and keppra 500 mg po BID - meclizine trial for dizziness. - SBP goals <150 (2) Fever Comment: - improving - unclear source. Monitoring off antibiotics. Blood and urine cx NTD. (3) CKD (chronic kidney disease) Comment: - Stage 3-4, appears to be around baseline (4) Diabetes Comment: - Not on any home meds. HgbA1c 6.9 - Continue lispro SSI coverage for meals prn. (5) Hyperlipidemia Comment: - Continue atorvastatin. (6) HTN (hypertension) Comment: - SBP 120-150's. - Recent Procardia initiated, PRN Hydralazine - holding losartan (7) Full code status Comment: (8) DVT prophylaxis Comment: - SCDs Status and Disposition: Inpatient. Discharge when medically stable, may require rehab at discharge. Previously lived alone independently.
[2018-05-26] MEDS ORDERED: hydrALAZINE IV* 20 MG/ML VIAL IV SLOW PU PRN (15:54)
[2018-05-26] MEDS: Ondansetron ODT TAB* 4 MG PO PRN (18:37)
[2018-05-27] MEDS: Meclizine TAB* 12.5 MG PO PRN ×2 (01:34→12:05)
[2018-05-27] MEDS: Ondansetron ODT TAB* 4 MG PO PRN (01:35)
[2018-05-27] MEDS: hydrALAZINE IV* 20 MG/ML VIAL IV SLOW PU PRN ×2 (02:56→13:16)
[2018-05-27 07:10] LABS: Hematocrit 27 % (35-47); Hemoglobin 9.1 g/dl (12.0-16.0); Mean Corpuscular HGB Conc 34 g/dl (31-36); Mean Corpuscular Hemoglobin 28 pg (27-31); Mean Corpuscular Volume 84 fL (80-97); Mean Platelet Volume 10.6 um3 (7.4-10.4); Platelet Count 100 10^3/ul (150-450); Red Blood Count 3.22 10^6/ul (4.00-5.40); Red Cell Distribution Width 17 % (10.5-15); White Blood Count 7.3 10^3/ul (3.5-10.8)
[2018-05-27 07:31] LABS: EGFR Non-African American 43.7 (>60)
[2018-05-27] MEDS: Insulin LISPRO* 1 UNITS UNIT SUBCUT SCH ×4 (08:20→21:05)
--- NOTE | 2018-05-27 08:58 | PN ---
Subjective Date of Service: 05/27/18 Interval History: Patient reports she "feels better today' referring to her abdominal discomfort stating he had a large soft BM today. She reports no appetite and refused meals today stating she is not hungry. She refused PT this am. She says she just wants to "nap". Denies GRAY, vision changes. speech is clear and is answering most questions appropriately. Family History: Unchanged from Admission Social History: Unchanged from Admission Past Medical History: Unchanged from Admission Objective Active Medications: Acetaminophen (Tylenol Adult Liq*) 650 mg PO Q4H PRN PRN Reason: HEADACHE/PAIN Last Admin: 05/25/18 09:28 Dose: 650 mg Atorvastatin Calcium (Lipitor*) 20 mg PO DAILY [facility] Last Admin: 05/26/18 09:18 Dose: 20 mg Dexamethasone Sodium Phosphate (Decadron Iv*) 1 mg IV SLOW PU DAILY [facility] Last Admin: 05/26/18 08:08 Dose: 1 mg Docusate Sodium (Colace Cap*) 200 mg PO BID [facility] Last Admin: 05/26/18 20:39 Dose: 200 mg Hydralazine HCl (Apresoline Iv*) 5 mg IV SLOW PU Q4H PRN PRN Reason: BLOOD PRESSURE Last Admin: 05/27/18 02:56 Dose: 5 mg Insulin Human Lispro (Humalog*) 0 units SUBCUT [facility]; Protocol Last Admin: 05/27/18 08:20 Dose: Not Given Levetiracetam (Keppra Tab*) 500 mg PO BID [facility] Last Admin: 05/26/18 20:39 Dose: 500 mg Meclizine HCl (Antivert Tab*) 12.5 mg PO Q12HR PRN PRN Reason: DIZZINESS Last Admin: 05/27/18 01:34 Dose: 12.5 mg Nifedipine (Procardia Xl Tab*) 60 mg PO DAILY [facility] Last Admin: 05/26/18 09:17 Dose: 60 mg Nystatin (Nystatin Top Powder*) 1 applic TOPICAL TID [facility] Last Admin: 05/26/18 21:29 Dose: Not Given Ondansetron HCl (Zofran Odt Tab*) 4 mg PO Q6H PRN PRN Reason: n/v Last Admin: 05/27/18 01:35 Dose: 4 mg Ondansetron HCl (Zofran Inj*) 4 mg IV Q6H PRN PRN Reason: NAUSEA/VOMITING Last Admin: 05/26/18 08:08 Dose: 4 mg Prochlorperazine Edisylate (Compazine Inj*) 5 mg IV Q8H PRN PRN Reason: NAUSEA/VOMITING Last Admin: 05/24/18 13:15 Dose: 5 mg Vital Signs - 8 hr 05/27/18 05/27/18 05/27/18 01:21 02:49 07:27 Temperature 98.8 F 99.2 F 99.0 F Pulse Rate 75 74 72 Respiratory 16 16 16 Rate Blood Pressure 137/49 150/40 134/46 (mmHg) O2 Sat by Pulse 96 95 94 Oximetry Oxygen Devices in Use Now: None Appearance: 82 yo female laying in bed alert and oriented Eyes: No Scleral Icterus, PERRLA Ears/Nose/Mouth/Throat: Mucous Membranes Moist Neck: NL Appearance and Movements; NL JVP Respiratory: Symmetrical Chest Expansion and Respiratory Effort, Clear to Auscultation Cardiovascular: NL Sounds; No Murmurs; No JVD, RRR, No Edema Abdominal: NL Sounds; No Tenderness; No Distention, - - distended soft Extremities: No Edema, No Clubbing, Cyanosis Skin: - - large right scalp surgical incision, intact, clean dry, no erythema Neurological: Alert and Oriented x 3, NL Sensation - , NL Muscle Strength and Tone Lines/Tubes/Other Access: Clean, Dry and Intact Peripheral IV Nutrition: Taking PO's Result Diagrams: 05/27/18 06:52 05/27/18 06:52 Additional Lab and Data: . Microbiology and Other Data: Microbiology 05/22/18 21:50 Aerobic Blood Culture - Preliminary Blood Venous No Growth Day 3 Anaerobic Blood Culture - Preliminary No Growth Day 3 05/22/18 21:50 Aerobic Blood Culture - Preliminary Blood Venous No Growth Day 3 Anaerobic Blood Culture - Preliminary No Growth Day 3 05/23/18 00:12 Urine Culture - Final Urine No Growth (<1,000 CFU/mL) Assess/Plan/Problems-Billing Assessment: Ms. 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 - Patient Problems (1) Brain mass Comment: - s/p crani (05/14) and revision d/t ICH (05/18) - Dispo per NS - Poor prognosis, not engaged in care, refusing PT. Start Calorie count. - Continue decadron taper and keppra 500 mg po BID - meclizine trial for dizziness. - SBP goals <150 (2) Fever Comment: - improving, low grade temp last night - unclear source. Monitoring off antibiotics. Blood and urine cx NTD. (3) CKD (chronic kidney disease) Comment: - Stage 3-4, appears to be around baseline (4) Diabetes Comment: - Not on any home meds. HgbA1c 6.9 - Continue lispro SSI coverage for meals prn. (5) Hyperlipidemia Comment: - Continue atorvastatin. (6) HTN (hypertension) Comment: - SBP 120-150's. - Recent Procardia initiated, PRN Hydralazine - holding losartan - Goal SBP < 150 (7) Full code status Comment: (8) DVT prophylaxis Comment: - SCDs Status and Disposition: Inpatient. Discharge when medically stable, will require rehab and possibly jail placement Previously lived alone independently.
[2018-05-27] MEDS: NIFEdipine ER TAB* 60 MG PO SCH (09:44)
[2018-05-27] MEDS: Atorvastatin* 20 MG TAB PO SCH (09:44)
[2018-05-27] MEDS: Docusate CAP* 100 MG PO SCH ×2 (09:46→21:09)
[2018-05-27] MEDS: Ondansetron INJ* 2 MG/ML VIAL IV PRN (09:46)
[2018-05-27] MEDS: Dexamethasone IV* 4 MG/ML 1 ML (4 MG) IV SLOW PU SCH (09:46)
[2018-05-27] MEDS: levETIRAcetam TAB* 500 MG PO SCH ×2 (09:46→21:09)
[2018-05-27] MEDS: Nystatin TOP POWDER* 15 GM BTL TOPICAL SCH ×3 (10:22→21:22)
[2018-05-28 07:23] LABS: Hematocrit 27 % (35-47); Hemoglobin 8.8 g/dl (12.0-16.0); Mean Corpuscular HGB Conc 33 g/dl (31-36); Mean Corpuscular Hemoglobin 28 pg (27-31); Mean Corpuscular Volume 85 fL (80-97); Platelet Count 95 10^3/ul (150-450); Red Blood Count 3.13 10^6/ul (4.00-5.40); Red Cell Distribution Width 16 % (10.5-15); White Blood Count 5.8 10^3/ul (3.5-10.8)
[2018-05-28 07:39] LABS: EGFR Non-African American 45.1 (>60)
[2018-05-28] MEDS: Insulin LISPRO* 1 UNITS UNIT SUBCUT SCH ×4 (07:49→20:56)
[2018-05-28] MEDS: levETIRAcetam TAB* 500 MG PO SCH ×2 (07:53→20:59)
[2018-05-28] MEDS: Atorvastatin* 20 MG TAB PO SCH (07:53)
[2018-05-28] MEDS: Nystatin TOP POWDER* 15 GM BTL TOPICAL SCH ×3 (07:53→20:59)
[2018-05-28] MEDS: Docusate CAP* 100 MG PO SCH ×2 (07:53→21:03)
[2018-05-28] MEDS: NIFEdipine ER TAB* 60 MG PO SCH (07:53)
[2018-05-28] MEDS: Dexamethasone IV* 4 MG/ML 1 ML (4 MG) IV SLOW PU SCH (07:53)
--- NOTE | 2018-05-28 13:07 | PN ---
Progress Note - Progress Note Date of Service: 05/28/18 SOAP: Subjective: []No events ON. Tolerates PO well. Poor appetite. Objective: [] VSS. Wound soft, clean, dry. Opens eyes to verbal, Ox2, JAVI , face symmetric, CN II-XII grossly intact, exam somewhat limited because of poor cooperation. Follows commands. Sona well.4-5/5 No pronator drift. Sensory: grossly intact to light touch Assessment: []82 yof AMS Rt temporal lesion, GBM, RF, POD#14 right temporal tumor resection , POD#10 revision craniotomy for evacuation of ICH. Plan: [] Monitor VS, Neurochecks May attempt to dc steroids. Continue Keppra PO/IV. Maintain SBP between 90 and 140. Diet as tolerated. Consider nutrition supplements/ nutrition consult. HOB 30 ' Pathology preliminary results c/w GBM. Oncology consult for need for further treatment. Repeat MRI for prognosis. DC planning. Appreciate IM/ICU care. Lory Maynard MD
--- NOTE | 2018-05-28 15:19 | PN ---
Subjective Date of Service: 05/28/18 Interval History: Patient sleeping most of day. Did eat a little today but reports no appetite. Refusing to get OOB and non-cooperative in treatment and therapy Family History: Unchanged from Admission Social History: Unchanged from Admission Past Medical History: Unchanged from Admission Objective Active Medications: Acetaminophen (Tylenol Adult Liq*) 650 mg PO Q4H PRN PRN Reason: HEADACHE/PAIN Last Admin: 05/25/18 09:28 Dose: 650 mg Atorvastatin Calcium (Lipitor*) 20 mg PO DAILY [facility] Last Admin: 05/28/18 07:53 Dose: 20 mg Dexamethasone Sodium Phosphate (Decadron Iv*) 1 mg IV SLOW PU DAILY [facility] Last Admin: 05/28/18 07:53 Dose: 1 mg Docusate Sodium (Colace Cap*) 200 mg PO BID [facility] Last Admin: 05/28/18 07:53 Dose: 200 mg Heparin Sodium (Porcine) (Heparin Flush Picc/Ml/Cvc(*)) 1 - 3 ml FLUSH 0600, 1800 [facility]; Protocol Last Admin: 05/28/18 05:42 Dose: 1 ml Hydralazine HCl (Apresoline Iv*) 5 mg IV SLOW PU Q4H PRN PRN Reason: BLOOD PRESSURE Last Admin: 05/27/18 13:16 Dose: 5 mg Insulin Human Lispro (Humalog*) 0 units SUBCUT ACHS [facility]; Protocol Last Admin: 05/28/18 13:37 Dose: 2 units Levetiracetam (Keppra Tab*) 500 mg PO BID [facility] Last Admin: 05/28/18 07:53 Dose: 500 mg Meclizine HCl (Antivert Tab*) 12.5 mg PO Q12HR PRN PRN Reason: DIZZINESS Last Admin: 05/27/18 12:05 Dose: 12.5 mg Nifedipine (Procardia Xl Tab*) 60 mg PO DAILY [facility] Last Admin: 05/28/18 07:53 Dose: 60 mg Nystatin (Nystatin Top Powder*) 1 applic TOPICAL TID [facility] Last Admin: 05/28/18 13:37 Dose: 1 applic Ondansetron HCl (Zofran Odt Tab*) 4 mg PO Q6H PRN PRN Reason: n/v Last Admin: 05/27/18 01:35 Dose: 4 mg Ondansetron HCl (Zofran Inj*) 4 mg IV Q6H PRN PRN Reason: NAUSEA/VOMITING Last Admin: 05/27/18 09:46 Dose: 4 mg Prochlorperazine Edisylate (Compazine Inj*) 5 mg IV Q8H PRN PRN Reason: NAUSEA/VOMITING Last Admin: 05/24/18 13:15 Dose: 5 mg Vital Signs - 8 hr 05/28/18 05/28/18 05/28/18 07:32 07:49 11:41 Temperature 98.2 F 99.2 F Pulse Rate 59 63 Respiratory 18 16 16 Rate Blood Pressure 162/48 141/55 (mmHg) O2 Sat by Pulse 95 95 96 Oximetry Oxygen Devices in Use Now: None Appearance: 82 yo female laying in bed sleeping, awakes to voice but closes eyes again, clear speech Eyes: No Scleral Icterus, PERRLA Ears/Nose/Mouth/Throat: NL Teeth, Lips, Gums, Mucous Membranes Moist Respiratory: Symmetrical Chest Expansion and Respiratory Effort, Clear to Auscultation Cardiovascular: NL Sounds; No Murmurs; No JVD, RRR, No Edema Abdominal: NL Sounds; No Tenderness; No Distention Skin: - - right crani incision with sutures, intact, no drainage or erythema Neurological: Alert and Oriented x 3, NL Sensation, NL Muscle Strength and Tone Lines/Tubes/Other Access: Clean, Dry and Intact Peripheral IV Nutrition: Taking PO's Result Diagrams: 05/28/18 07:00 05/28/18 07:00 Additional Lab and Data: . Microbiology and Other Data: Microbiology 05/22/18 21:50 Aerobic Blood Culture - Preliminary Blood Venous No Growth Day 3 Anaerobic Blood Culture - Preliminary No Growth Day 3 05/22/18 21:50 Aerobic Blood Culture - Preliminary Blood Venous No Growth Day 3 Anaerobic Blood Culture - Preliminary No Growth Day 3 05/23/18 00:12 Urine Culture - Final Urine No Growth (<1,000 CFU/mL) Assess/Plan/Problems-Billing Assessment: Ms. 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 - Patient Problems (1) Brain mass Comment: - s/p crani (05/14) and revision d/t ICH (05/18) - Dispo per NS - pathology results cw GBM - Poor prognosis, not engaged in care, refusing PT. Start Calorie count. - DC decadron and keppra 500 mg po BID - meclizine trial for dizziness. - SBP goals 90-140 - Discussed with Dr. Garcia today - plan to discuss with Onc and Rad. Onc to determine when they would like MRI brain. - HOB 30 - Nutrition Consult (2) Fever Comment: - improving, low grade temp last night - unclear source. Monitoring off antibiotics. Blood and urine cx NTD. (3) CKD (chronic kidney disease) Comment: - Stage 3-4, appears to be around baseline (4) Diabetes Comment: - Not on any home meds. HgbA1c 6.9 - Continue lispro SSI coverage for meals prn. (5) Hyperlipidemia Comment: - Continue atorvastatin. (6) HTN (hypertension) Comment: - Recent Procardia initiated, PRN Hydralazine - holding losartan - Goal SBP < 140 (7) Full code status Comment: (8) DVT prophylaxis Comment: - SCDs Status and Disposition: Inpatient. Discharge when medically stable, will require rehab and possibly alf placement Previously lived alone independently.
[2018-05-29] MEDS: Acetaminophen ADULT LIQ* 650 MG/20.3 ML UDC PO PRN (01:19)
[2018-05-29 05:57] LABS: Hematocrit 27 % (35-47); Hemoglobin 8.9 g/dl (12.0-16.0); Mean Corpuscular HGB Conc 33 g/dl (31-36); Mean Corpuscular Hemoglobin 28 pg (27-31); Mean Corpuscular Volume 85 fL (80-97); Mean Platelet Volume 10.6 um3 (7.4-10.4); Platelet Count 100 10^3/ul (150-450); Red Blood Count 3.17 10^6/ul (4.00-5.40); Red Cell Distribution Width 16 % (10.5-15); White Blood Count 6.1 10^3/ul (3.5-10.8)
[2018-05-29 06:13] LABS: EGFR Non-African American 44.6 (>60)
[2018-05-29] MEDS: Insulin LISPRO* 1 UNITS UNIT SUBCUT SCH ×2 (07:49→12:08)
[2018-05-29] MEDS: Nystatin TOP POWDER* 15 GM BTL TOPICAL SCH (09:00)
[2018-05-29] MEDS ORDERED: NIFEdipine ER TAB* 30 MG PO SCH (09:00)
[2018-05-29] MEDS: Docusate CAP* 100 MG PO SCH (09:23)
[2018-05-29] MEDS: Atorvastatin* 20 MG TAB PO SCH (09:25)
[2018-05-29] MEDS: levETIRAcetam TAB* 500 MG PO SCH (09:25)
[2018-05-29] MEDS: hydrALAZINE IV* 20 MG/ML VIAL IV SLOW PU PRN (09:35)
--- NOTE | 2018-05-29 09:55 | PN ---
Progress Note - Progress Note Date of Service: 05/29/18 SOAP: Subjective: []Sleepy but responding to questions. Denies pain. Eating some by family report. Still feeling weak. She is cold, no fevers. Acetaminophen (Tylenol Adult Liq*) 650 mg PO Q4H PRN PRN Reason: HEADACHE/PAIN Last Admin: 05/29/18 01:19 Dose: 650 mg Atorvastatin Calcium (Lipitor*) 20 mg PO DAILY [facility] Last Admin: 05/29/18 09:25 Dose: 20 mg Docusate Sodium (Colace Cap*) 200 mg PO BID [facility] Last Admin: 05/29/18 09:23 Dose: 200 mg Heparin Sodium (Porcine) (Heparin Flush Picc/Ml/Cvc(*)) 1 - 3 ml FLUSH 0600, 1800 [facility]; Protocol Last Admin: 05/29/18 05:53 Dose: 1 ml Hydralazine HCl (Apresoline Iv*) 5 mg IV SLOW PU Q4H PRN PRN Reason: BLOOD PRESSURE Last Admin: 05/29/18 09:35 Dose: 5 mg Insulin Human Lispro (Humalog*) 0 units SUBCUT [facility]; Protocol Last Admin: 05/29/18 07:49 Dose: Not Given Levetiracetam (Keppra Tab*) 500 mg PO BID [facility] Last Admin: 05/29/18 09:25 Dose: 500 mg Meclizine HCl (Antivert Tab*) 12.5 mg PO Q12HR PRN PRN Reason: DIZZINESS Last Admin: 05/27/18 12:05 Dose: 12.5 mg Nifedipine (Procardia Xl Tab*) 90 mg PO DAILY [facility] Last Admin: 05/29/18 09:24 Dose: 90 mg Nystatin (Nystatin Top Powder*) 1 applic TOPICAL TID [facility] Last Admin: 05/29/18 09:00 Dose: 1 applic Ondansetron HCl (Zofran Odt Tab*) 4 mg PO Q6H PRN PRN Reason: n/v Last Admin: 05/27/18 01:35 Dose: 4 mg Ondansetron HCl (Zofran Inj*) 4 mg IV Q6H PRN PRN Reason: NAUSEA/VOMITING Last Admin: 05/27/18 09:46 Dose: 4 mg Prochlorperazine Edisylate (Compazine Inj*) 5 mg IV Q8H PRN PRN Reason: NAUSEA/VOMITING Last Admin: 05/24/18 13:15 Dose: 5 mg Steroids stopped 05/26/18 Objective: Vital Signs Temp Pulse Resp BP Pulse Ox 98.7 F 71 16 183/73 97 05/29/18 07:57 05/29/18 07:57 05/29/18 07:57 05/29/18 07:57 05/29/18 07:57 HEENT - Pale, no thrush Neuro- Responding, she kept eyes closed through exam except when prompted. Oriented to place and situation, not to date. pupils contracted, moving ext x 4 and has symmetric strength. CTA RRR S1S2 on exam toady +BS obese No TUNDE Labs and MRI reviewed. Assessment: []82 year old with new diagnosis GBM, partial resection over 2 surgeries and course complicated by epidural bleed. Stable after surgery, remains lethargic and has not been participating with PT. Plan: []1. Mental status changes. ddx: Fatigue after stopping steroids, MANAGER [employer] effect of surgery and/or tumor, keppra. - No history of seizure, consider stopping Keppra - Follow over next several weeks 2. Anemia. Ddx: inflammatory state, iron or B12, dysplasia, component of CRI but lower then would expect. Wll need to evaluate prior to adjuvant therapy. Will check Iron and B12 before discharge 3. Therapy for cancer will be once she improved and is recovered from surgery. Can see Dr. Orantes and follow up Dr. Marion after discharge, 2-3 weeks.
--- NOTE | 2018-05-29 10:48 | DCNOTE ---
Subjective Date of Service: 05/29/18 Interval History: patient laying in bed with eyes closed, she does respond clearly to questions. She did get OOB and sat in chair for a short while for breakfast, per brother she did not eat very much. Pt denies GRAY, vision changes. Reports she "just wants to sleep". Denies SOB, CP. Spoke with brother who agrees to transfer to [facility] today. Family History: Unchanged from Admission Social History: Unchanged from Admission Past Medical History: Unchanged from Admission Objective Active Medications: Acetaminophen (Tylenol Adult Liq*) 650 mg PO Q4H PRN PRN Reason: HEADACHE/PAIN Last Admin: 05/29/18 01:19 Dose: 650 mg Atorvastatin Calcium (Lipitor*) 20 mg PO DAILY [facility] Last Admin: 05/29/18 09:25 Dose: 20 mg Docusate Sodium (Colace Cap*) 200 mg PO BID [facility] Last Admin: 05/29/18 09:23 Dose: 200 mg Heparin Sodium (Porcine) (Heparin Flush Picc/Ml/Cvc(*)) 1 - 3 ml FLUSH 0600, 1800 [facility]; Protocol Last Admin: 05/29/18 05:53 Dose: 1 ml Hydralazine HCl (Apresoline Iv*) 5 mg IV SLOW PU Q4H PRN PRN Reason: BLOOD PRESSURE Last Admin: 05/29/18 09:35 Dose: 5 mg Insulin Human Lispro (Humalog*) 0 units SUBCUT ACHS [facility]; Protocol Last Admin: 05/29/18 07:49 Dose: Not Given Meclizine HCl (Antivert Tab*) 12.5 mg PO Q12HR PRN PRN Reason: DIZZINESS Last Admin: 05/27/18 12:05 Dose: 12.5 mg Nifedipine (Procardia Xl Tab*) 90 mg PO DAILY [facility] Last Admin: 05/29/18 09:24 Dose: 90 mg Nystatin (Nystatin Top Powder*) 1 applic TOPICAL TID [facility] Last Admin: 05/29/18 09:00 Dose: 1 applic Ondansetron HCl (Zofran Odt Tab*) 4 mg PO Q6H PRN PRN Reason: n/v Last Admin: 05/27/18 01:35 Dose: 4 mg Ondansetron HCl (Zofran Inj*) 4 mg IV Q6H PRN PRN Reason: NAUSEA/VOMITING Last Admin: 05/27/18 09:46 Dose: 4 mg Prochlorperazine Edisylate (Compazine Inj*) 5 mg IV Q8H PRN PRN Reason: NAUSEA/VOMITING Last Admin: 05/24/18 13:15 Dose: 5 mg Vital Signs - 8 hr 05/29/18 05/29/18 05/29/18 03:32 03:53 07:57 Temperature 98.6 F 98.7 F Pulse Rate 64 65 71 Respiratory 16 16 Rate Blood Pressure 148/38 183/73 (mmHg) O2 Sat by Pulse 96 97 Oximetry Oxygen Devices in Use Now: None Appearance: elderly female laying in bed in NAD, Alert, lethargic Eyes: No Scleral Icterus, PERRLA Ears/Nose/Mouth/Throat: NL Teeth, Lips, Gums, Mucous Membranes Moist Neck: NL Appearance and Movements; NL JVP Respiratory: Symmetrical Chest Expansion and Respiratory Effort, Clear to Auscultation Cardiovascular: NL Sounds; No Murmurs; No JVD, No Edema Abdominal: NL Sounds; No Tenderness; No Distention Extremities: No Edema, No Clubbing, Cyanosis Skin: - - right surgical incision intact and appear to be healing Neurological: Alert and Oriented x 3, NL Sensation, NL Muscle Strength and Tone Lines/Tubes/Other Access: Clean, Dry and Intact Peripheral IV Result Diagrams: 05/29/18 05:49 05/29/18 05:49 Additional Lab and Data: . Microbiology and Other Data: Microbiology 05/22/18 21:50 Aerobic Blood Culture - Preliminary Blood Venous No Growth Day 3 Anaerobic Blood Culture - Preliminary No Growth Day 3 05/22/18 21:50 Aerobic Blood Culture - Preliminary Blood Venous No Growth Day 3 Anaerobic Blood Culture - Preliminary No Growth Day 3 05/23/18 00:12 Urine Culture - Final Urine No Growth (<1,000 CFU/mL) Assess/Plan/Problems-Billing Assessment: Ms. 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 - Patient Problems (1) Brain mass Comment: - s/p crani (05/14) and revision d/t ICH (05/18) - Dispo per NS - pathology results cw GBM - Poor prognosis, not engaged in care, refusing PT frequently. Calorie count. - DC decadron DC'd - Oncology recommended to stop keppra - maybe this will improve lethargy - SBP goals 90-140 - Discussed with neurosurgeon yesterday - sutures to come out in 2 weeks. - Appreciate oncology consult - ok to DC to subacute rehab today, Yahir Viera said he added on anemia panel and will follow up. She is to follow up with Dr. Marion oncology and Dr. Orantes radiation oncology in 2 -3 weeks. - Nutrition Consult (2) Fever Comment: - improving, low grade temp last night - unclear source. Monitoring off antibiotics. Blood and urine cx NTD. (3) CKD (chronic kidney disease) Comment: - Stage 3-4, appears to be around baseline (4) Diabetes Comment: - Not on any home meds. HgbA1c 6.9 - Continue lispro SSI coverage for meals prn. (5) Hyperlipidemia Comment: - Continue atorvastatin. (6) HTN (hypertension) Comment: - Recent Procardia initiated, restart losartan - Goal SBP < 140 (7) Full code status Comment: (8) DVT prophylaxis Comment: - SCDs Status and Disposition: Inpatient. Plan to DC to [facility] today
[2018-05-29 10:53] VITALS: BP 153/51
--- NOTE | 2018-05-29 13:10 | DS ---
CC: Dr. Shin* DISCHARGE SUMMARY: DATE OF ADMISSION: 05/08/18 DATE OF DISCHARGE: 05/29/18. PROVIDER: Jaz Fry NP. ATTENDING PHYSICIAN: Dr. Al* (report dictated by Jaz Fry NP). PRIMARY CARE PROVIDER: Dr. Shin. NEUROSURGEON: Dr. Maynard. ONCOLOGIST: Dr. Marion. RADIATION ONCOLOGIST: Dr. Orantes. DISCHARGE DIAGNOSES: 1. Glioblastoma, brain tumor, status post craniotomy with debulking complicated by a postoperative intracranial hemorrhage requiring revision. 2. Weakness. 3. Anemia. SECONDARY DIAGNOSES: 1. Chronic kidney disease. 2. Hypertension. 3. Hyperlipidemia. 4. Diverticulitis. 5. Restless leg syndrome. 6. History of small bowel obstruction. 7. Hernia. 8. History of diverticulitis. 9. History of colon resection with colostomy, status post reversal. DISCHARGE MEDICATIONS: 1. Acetaminophen 650 mg p.o. q.6 hours p.r.n. 2. Simvastatin 40 mg p.o. daily. 3. Zofran 4 mg p.o. q.6 hours p.r.n. 4. Procardia XL 90 mg p.o. daily (new medication). 5. Meclizine 12.5 mg p.o. q.12 hours p.r.n. (new medication). 6. Colace 200 mg p.o. b.i.d. (new medication). 7. Prednisone 5 mg p.o. daily. Medications on hold: 1. Losartan 100 mg p.o. daily. 2. Hydrochlorothiazide 25 mg p.o. daily. 3. Lispro insulin sliding scale with fingersticks a.c. and h.s. HISTORY OF PRESENT ILLNESS AND HOSPITAL COURSE: Please see history and physical by Dr. Li for full admission details but in summary, this is an 82-year-old female who presented on 04/28/18 after she was diagnosed on 05/02 with a 4.2 cm right temporal lobe mass via outpatient CT ordered by her PCP , in which she saw Dr. Maynard, Neurosurgery and her PCP yesterday and she was advised by her PCP to come to the emergency room for further evaluation. At that time, she denied any change in her status compared to a week prior. She was admitted to the hospitalist service and was seen by neurosurgeon, Dr. Maynard as a consult as an inpatient. On admission at that time, she was placed on Decadron, Keppra. It was suspected that the patient had glioblastoma. Different treatment options were discussed with the family with neurosurgeon and the family as well as the patient decided for surgical resection. The patient was very clear prior to surgery that she wanted aggressive treatment. The patient underwent surgery on 05/14/18 in which she had a right temporal tumor resection. Initially, she had a MATTHIEU drain placed. On 05/18, the patient's MATTHIEU drain was removed and several hours later, she was noted to be hypertensive in which she was found to have cerebral hematoma and underwent evacuation and resection. The patient was in the intensive care unit for approximately a week in which she was then transferred to the surgical floor. She has remained stable. However, she continues to be very lethargic. However, she does wake up and is alert and answers questions appropriately. She has been refusing physical therapy, however, the last 2 days she has gotten out of bed for just a short while with physical therapy. She also had been refusing foods stating she does not have an appetite, however, again over the past couple of days, we have seen some improvement with her eating. She continued on Decadron taper up until approximately 2 days ago or this was tapered off. She takes prednisone 10 mg p.o. daily as an outpatient and on discharge this will decrease to 5 mg p.o. daily. She was also started on Keppra on admission for seizure prophylaxis. Today oncologist, Dr. Copeland, said this could be discontinued as maybe this is causing some of her lethargy. She has had no seizure activity prior to hospitalization or throughout her hospitalization. Blood pressure goals are systolically between 100 and 150. She was on nicardipine drip in the ICU. She was quite hypertensive and then started on oral nifedipine, which was just recently increased 2 days ago to 90 mg p.o. daily. She has been receiving hydralazine IV p.r.n. intermittently to control blood pressures. Today, her blood pressure is stable and would give her a day or two on the increased dose of nifedipine prior to increasing blood pressure medications. However, if she consistently has blood pressures systolically over 150, I would consider resuming her losartan in which she takes at home of 100 mg p.o. daily but would start at a smaller dose. Her hydrochlorothiazide is being held. I do not think this is the best medication for her due to it can cause hyponatremia. I have ordered for the patient to have daily vital signs for the next 2 weeks and report any blood pressures below systolically 100 or above systolically 150. The patient has 3 brothers who are all involved in her care. They agreed with the plan to transfer to [facility] for subacute rehab. Hopefully, the patient will improve in the next 2 to 3 weeks and if the patient continues to not be active in her care, hospice should be considered. The plan will be to follow up with neurosurgeon, Dr. Maynard in 2 to 3 weeks for suture removal. Please monitor surgical incision site and report any erythema, drainage, or any concerns with the wound. Patient will also follow up with oncologist, Dr. Marion in 2 to 3 weeks as well as radiation oncologist, Dr. Orantes in [address] Copeland, oncologist, saw the patient prior to discharge today and sent an anemia panel in which he states he will follow up on. He is okay with discharge to subacute rehab at this time. Patient has had a low-grade temperature intermittently with negative blood cultures and negative urine culture. No obvious signs of infection. In regards to her type 2 diabetes, her blood sugars have been well controlled between 90 and 170. Continue FSBG a.c. and h.s. with lispro sliding scale. DIET: Consistent carb, diabetic diet. ACTIVITY: Out of bed to chair. Try to maintain head of bed around 30 degrees. RECOMMENDATION: For nutrition consult. DISCHARGE PLAN: 1. Discharge to [facility] today for subacute rehab. 2. Follow up with Dr. Maynard in 2 to 3 weeks for incision check and suture removal. 3. Follow up with Dr. Marion, oncologist, in 2 to 3 weeks. 4. Follow up with Dr. Orantes, radiation oncologist, in 2 to 3 weeks. 5. Daily vital signs reporting of blood pressure systolically less than 100 or greater than 150 to provider, patient may need blood pressure medications titrated as stated above. 6. Fingerstick blood glucose a.c. and h.s. with lispro sliding scale. 7. The patient will require an MRI with and without contrast in 2 weeks. TIME SPENT: Approximately 75 minutes was spent on this discharge. JAZ FRY, MASSAGE THERAPY INSTRUCTOR [id number]/[facility] #: [id number] NALINI
--- NOTE | 2018-05-29 13:30 | PN ---
Progress Note - Progress Note Date of Service: 05/29/18 SOAP: Subjective: []No events ON. Tolerates PO well. Poor appetite. Voids. Reported to be OOB in a chair. Objective: []VSS. Wound soft, clean, dry. Opens eyes spontaneously, Ox2, JAVI , face symmetric, CN II-XII grossly intact, exam somewhat limited because of poor cooperation. Follows commands. Sona well.4-5/5 No pronator drift. Sensory: grossly intact to light touch Assessment: [] 82 yof AMS Rt temporal lesion, GBM, RF, POD#15 right temporal tumor resection, POD#11 revision craniotomy for evacuation of ICH. Plan: [] Monitor VS, Neurochecks Continue Keppra PO/IV. Maintain SBP between 90 and 140. Diet as tolerated. Consider nutrition supplements/ nutrition consult. HOB 30 ' Pathology results c/w GBM. Appreciate Oncology consult for further treatment. Repeat MRI for prognosis. DC planning. Follow up in office in two weeks with new CT of head. Appreciate IM/ICU care. Lory Maynard MD
== END 2018-05-29 14:05 | DRG 25 ==
LOC: ED 16:12 → MED 23:24 → ICU 05-14 16:49 → SSU 05-17 10:28 → ICU 05-18 17:42 → SSU 05-25 19:39
PROVIDERS: ADMIT Hospitalist; ATTEND Internal Medicine
PROC: 00B70ZZ Excision of Cerebral Hemisphere, Open Approach (ICD-10-PCS; 2018-05-14)
PROC: 8E09XBH Computer Assisted Procedure of Head and Neck Region, With Magnetic Resonance Imaging (ICD-10-PCS; 2018-05-14)
PROC: 00C10ZZ Extirpation of Matter from Cerebral Meninges, Open Approach (ICD-10-PCS; 2018-05-18)
PROC: 00B70ZZ Excision of Cerebral Hemisphere, Open Approach (ICD-10-PCS; 2018-05-18)
PROC: 00C40ZZ Extirpation of Matter from Intracranial Subdural Space, Open Approach (ICD-10-PCS; 2018-05-18)
PROC: 00C30ZZ Extirpation of Matter from Intracranial Epidural Space, Open Approach (ICD-10-PCS; 2018-05-18)
PROC: 30233R1 Transfusion of Nonautologous Platelets into Peripheral Vein, Percutaneous Approach (ICD-10-PCS; principal; 2018-05-18 18:42)
DX: C71.9 Malignant neoplasm of brain, unspecified (principal); G93.6 Cerebral edema; G93.5 Compression of brain; N18.4 Chronic kidney disease, stage 4 (severe); I62.9 Nontraumatic intracranial hemorrhage, unspecified; N17.9 Acute kidney failure, unspecified; K57.90 Diverticulosis of intestine, part unspecified, without perforation or abscess without bleeding; M19.042 Primary osteoarthritis, left hand; R62.50 Unspecified lack of expected normal physiological development in childhood; E78.5 Hyperlipidemia, unspecified; G25.81 Restless legs syndrome; E66.9 Obesity, unspecified; E11.21 Type 2 diabetes mellitus with diabetic nephropathy; D63.1 Anemia in chronic kidney disease; Z96.653 Presence of artificial knee joint, bilateral; I12.9 Hypertensive chronic kidney disease with stage 1 through stage 4 chronic kidney disease, or unspecified chronic kidney disease; R53.1 Weakness; R00.1 Bradycardia, unspecified; I08.0 Rheumatic disorders of both mitral and aortic valves; Z87.442 Personal history of urinary calculi; Z82.49 Family history of ischemic heart disease and other diseases of the circulatory system; Z84.1 Family history of disorders of kidney and ureter; Z93.3 Colostomy status; Z90.49 Acquired absence of other specified parts of digestive tract; Z97.4 Presence of external hearing-aid; Z68.35 Body mass index [BMI] 35.0-35.9, adult; Z79.52 Long term (current) use of systemic steroids; R42 Dizziness and giddiness; R50.9 Fever, unspecified; R51 Headache; I95.9 Hypotension, unspecified; R11.2 Nausea with vomiting, unspecified; R32 Unspecified urinary incontinence
CPT/HCPCS: 36415; 36600; 36620; 70450; 70551; 70552; 70553; 71045; 71250; 74018; 74176; 80048; 80053; 81003; 81015; 82570; 82607; 82668; 82728; 82803; 83036; 83540; 83550; 83735; 84300; 84484; 85025; 85027; 85610; 85730; 86850; 86900; 86901; 86922; 87040; 87086; 88184; 88187; 88188; 88189; 88300; 88307; 88333; 88341; 88342; 93005; 93306; 94002; 94003; 99232; 99284; A9270-GY; A9577; C1713; C1776; G8978-GP-CK; G8978-GP-CL; G8979-GP-CI; G8979-GP-CJ; G8987-GO-CL; G8988-GO-CI; J0360; J0690; J0780; J1100; J1644; J2060; J2150; J2250; J2270; J2405; J2704; J2710; J3010; J3475; P9035

== ENCOUNTER 2018-06-18 08:30 | Inpatient (IN) | payer MEDICARE, MEDICAID ==
--- NOTE | 2018-06-18 08:41 | ED ---
Syncope/Near Syncope - HPI Summary HPI Summary: This is Poonam corona, documenting for attending, Pasquale Eagle MD. 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 EMS reports that staff called because she was unresponsive with mild arm flopping for roughly four minutes after going to the bathroom. EMS reports complaints of nausea and dizziness. EMS reports blood pressure of 81/53; a line as placed and IV fluids were given. SaO2 in the mid 90s with 6L of NC O2. Unable to obtain blood glucose. PMHx of CVA and brain tumors. Patient had recent craniotomy and was scheduled to have sutures removed today. Surgery performed by Dr. Maynard Patient has poor memory of the event. Only complains of mild headache in ED. Patient is DNR and DNI. - History Of Current Complaint Hx Obtained From: Patient Onset/Duration: Sudden Onset, Lasting Minutes Timing: Minutes Context: Loss Of Consciousness Activity At Onset: Other - post BM Alleviating Factor(s): Spontaneous Resolution Associated Signs And Symptoms: Lightheadedness, Other - nausea Related History: Similar Episode/Dx as - CVA, brain tumors - Allergies/Home Medications Allergies/Adverse Reactions: Allergies Allergy/AdvReac Type Severity Reaction Status Date / Time No Known Allergies Allergy Verified 05/08/18 16:22 PMH/Surg Hx/FS Hx/Imm Hx Endocrine/Hematology History: Reports: Hx Anticoagulant Therapy, Hx Diabetes, Hx Anemia Denies: Hx Thyroid Disease, Hx Unexplained Bleeding Cardiovascular History: Reports: Hx Angina, Hx Hypercholesterolemia, Hx Hypertension Denies: Hx Aneurysm, Hx Angioplasty, Hx Auto Implanted Cardiovert Defib, Hx Cardiac Arrest, Hx Cardiomegaly, Hx Congenital Heart Disease, Hx Congestive Heart Failure, Hx Coronary Artery Disease, Hx Deep Vein Thrombosis, Hx Hypotension, Hx Pacemaker/ICD, Hx Peripheral Vascular Disease, Hx Rheumatic Fever, Hx Syncope, Hx Valvular Heart Disease, Other Cardiovascular Problems/ Disorders Respiratory History: Denies: Hx Asthma, Hx Chronic Bronchitis, Hx Chronic Obstructive Pulmonary Disease (COPD), Hx Cystic Fibrosis GI History: Reports: Hx Diverticulosis, Other GI Disorders - ventral hernia, bowel ostruction History: Reports: Hx Kidney Stones - LEFT Denies: Hx Renal Disease Musculoskeletal History: Reports: Hx Arthritis - L hand, Other Musculoskeletal History - right knee replacement Sensory History: Reports: Hx Contacts or Glasses Denies: Hx Cataracts, Hx Eye Injury, Hx Eye Prosthesis, Hx Glaucoma, Hx Macular Degeneration, Hx Vision Problem, Hx Deafness, Hx Hearing Aid, Hx Hearing Problem, Other Sensory Impairments Opthamlomology History: Reports: Hx Contacts or Glasses Denies: Hx Cataracts, Hx Eye Injury, Hx Eye Prosthesis, Hx Glaucoma, Hx Macular Degeneration, Hx Vision Problem, Other Sensory Impairments Neurological History: Reports: Hx CVA, Hx Developmental Delay, Hx Headaches, Other Neuro Impairments/Disorders - brain tumor 2017 Denies: Hx Dementia, Hx Migraine, Hx Seizures, Hx Spinal Cord Injury, Hx Transient Ischemic Attacks (TIA) Psychiatric History: Denies: Hx Anxiety, Hx Attention Deficit Hyperactivity Disorder, Hx Panic Disorder, Hx Bipolar Disorder, Hx Substance Abuse - Cancer History Cancer Type, Location and Year: brain tumor, 2017 Hx Chemotherapy: No Hx Radiation Therapy: No - Surgical History Surgery Procedure, Year, and Place: ABD HERNIA REPAIR. RIGHT KNEE REPLACEMENT, 2013, [facility]. BRAIN TUMOR REMOVED 05/14/2018 WITH REVISIONS (EXTERNAL HUMA ARE REMOVED) Hx Anesthesia Reactions: No - Immunization History Date of Tetanus Vaccine: unknown Infectious Disease History: No Infectious Disease History: Denies: Hx Clostridium Difficile, Hx Hepatitis, Hx Human Immunodeficiency Virus (HIV), Hx Shingles, Hx Tuberculosis, Traveled Outside the [place] in Last 30 Days - Family History Known Family History: Positive: Cardiac Disease - father Hx [place], Renal Disease - mother - Social History Alcohol Use: None Substance Use Type: Reports: None Hx Tobacco Use: No Smoking Status (MU): Never Smoked Tobacco Review of Systems Negative: Fever, Chills Negative: Erythema Negative: Sore Throat Negative: Chest Pain Negative: Shortness Of Breath, Cough Positive: Nausea. Negative: Abdominal Pain, Vomiting Neurological: Other Positive: Headache All Other Systems Reviewed And Are Negative: Yes Physical Exam - Summary Physical Exam Summary: Constitutional: Well-developed, Well-nourished, Alert. (-) Distressed Skin: Warm, Dry, Craniotomy sutures are intact. Dry Mucous Membranes. HENT: Normocephalic; Atraumatic Eyes: Conjunctiva normal Neck: Musculoskeletal ROM normal neck. (-) JVD, (-) Stridor, (-) Tracheal deviation Cardio: Rhythm regular, rate normal, Heart sounds normal; Intact distal pulses; The pedal pulses are 2+ and symmetric. Radial pulses are 2+ and symmetric. (-) Murmur Pulmonary/Chest wall: Effort normal. (-) Respiratory distress, (-) Wheezes, (-) Rales Abd: Soft. (-) Tenderness, (-) Distension, (-) Guarding, (-) Rebound Musculoskeletal: (-) Edema Lymph: (-) Cervical adenopathy Neuro: Alert, Oriented x3, Strength normal, Cranial nerves II-XII are grossly intact. (-) Dysmetria, (-) Nystagmus, (-) Ataxia by finger to nose testing, (-) Sensory deficit. GCS: 15 Psych: Mood and affect Normal Triage Information Reviewed: Yes Vital Signs On Initial Exam: Initial Vitals Temp Pulse Resp BP Pulse Ox 97.6 F 100 20 141/57 98 06/18/18 08:33 06/18/18 08:33 06/18/18 08:33 06/18/18 08:33 06/18/18 08:33 Vital Signs Reviewed: Yes Diagnostics - Vital Signs Vital Signs Temp Pulse Resp BP Pulse Ox 06/18/18 08:33 97.6 F 100 20 141/57 98 - Laboratory Result Diagrams: 06/18/18 09:04 06/18/18 09:04 Lab Statement: Any lab studies that have been ordered have been reviewed, and results considered in the medical decision making process. - Radiology CXR Radiology Interpretation Completed By: Radiologist - NO EVIDENCE FOR ACUTE DISEASE. ED Physician has reviewed this report. - CT Brain CT CT Interpretation Completed By: Radiologist - 1. NO EVIDENCE FOR ACUTE FINDING. 2. RIGHT POSTERIOR TEMPORAL LOBE LESION WITH RESOLVING HEMORRHAGE AND EDEMA AND LESS MASS EFFECT THAN PRESENT ON THE PRIOR STUDY. 2. TINY RIGHT SUBDURAL HEMATOMA, UNCHANGED. ED Physician has reviewed this report. 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 EMS reports that staff called because she was unresponsive with mild arm flopping for roughly four minutes after going to the bathroom. EMS reports complaints of nausea and dizziness. EMS reports blood pressure of 81/53; a line as placed and IV fluids were given. SaO2 in the mid 90s with 6L of NC O2. Unable to obtain blood glucose. PMHx of CVA and brain tumors. Patient had recent craniotomy and was scheduled to have sutures removed today. Surgery performed by Dr. Maynard. Patient has poor memory of the event, and only complains of headache upon initial exam. Blood work is remarkable for a lactic acid of 2.3 and a Troponin of 0.19 and a second troponin of 0.18. CXR is negative for acute findings. Brain CT reveals: 1. NO EVIDENCE FOR ACUTE FINDING. 2. RIGHT POSTERIOR TEMPORAL LOBE LESION WITH RESOLVING HEMORRHAGE AND EDEMA AND LESS MASS EFFECT THAN PRESENT ON THE PRIOR STUDY. 2. TINY RIGHT SUBDURAL HEMATOMA, UNCHANGED, as per radiologist. Upon re-eval patient mentions intermittent chest pain for the past two weeks. Denies current chest pain. Patient is given IV fluids, Zofran, Morphine, and ASA. Results discussed with patient. Neurosurgery was informed of the patient, and agrees to see patient in ED. Dr. Whitlock agrees to admit this patient. - Diagnoses Provider Diagnoses: Syncope, Dehydration, Non-STEMI (non-ST elevated myocardial infarction) - Physician Notifications Discussed Care of Patient With: Lolly Whitlock - hospitalist Time Discussed With Above Provider: 11:30 Instructed by Provider To: Admit As Inpatient - Critical Care Time Critical Care Time: 30-74 min - 35 minutes Discharge - Sign-Out/Discharge Documenting (check all that apply): Patient Departure - Discharge Plan Condition: Stable Disposition: ADMITTED TO [facility] Consult Consult: At 11:20 Tracey GARCIA, agrees to come see patient in the ED.
[2018-06-18 09:18] LABS: ABS Basophils 0.1 10^3/ul (0-0.2); ABS Eosinophils 0.1 10^3/ul (0-0.6); ABS Lymphocytes 1.5 10^3/ul (1.0-4.8); ABS Monocytes 0.8 10^3/ul (0-0.8); ABS Neutrophils 9.5 10^3/ul (1.5-7.7); ABS Nucleated RBC 0 10^3/ul; Eosinophil % 0.7 % (0-6); Hematocrit 30 % (35-47); Hemoglobin 9.7 g/dl (12.0-16.0); Lymphocyte % 12.4 % (25-47); Mean Corpuscular HGB Conc 32 g/dl (31-36); Mean Corpuscular Hemoglobin 27 pg (27-31); Mean Corpuscular Volume 85 fL (80-97); Nucleated Red Blood Cells % 0; Platelet Count 191 10^3/ul (150-450); Red Blood Count 3.56 10^6/ul (4.00-5.40); Red Cell Distribution Width 17 % (10.5-15)
--- OUTSIDE RECORDS SUMMARY | 2018-06-18 09:29 | XMS REPORT ---
:1935 External Reference #:[id number] Author Organization [facility] Address [address] [place] [address] Phone [phone] Care Team Providers Name Role Phone Landon Shin MD Primary Care Physician Unavailable Payers Type Date Identification Numbers Payment Provider Subscriber Medicare Primary Policy Number: [id number] Medicare Candido Mayer PayID: [id number] [address] [place] [address] [facility] Part B Policy Number: [id number] Medicaid Candido Mayer PayID: [id number] [address] [place] [address] Problems Date Description Provider Status Onset: 05/08/2018 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 Active Onset: 05/08/2018 Chronic kidney disease Chito Li II, M.D. Active Onset: 05/08/2018 Anemia Chito Li II, M.D. Active Onset: 05/09/2018 Chronic kidney disease stage 3 Laverne Santana N.P. Active Onset: 05/11/2018 Benign neoplasm of brain Brina Mcdaniel NP Active Onset: 05/18/2018 Tachycardia Chito Li II, M.D. Active Onset: 05/18/2018 Postoperative hematoma formation Chito Li II, M.D. Active Onset: 05/27/2018 Essential hypertension Brina Mcdaniel NP Active Onset: 05/28/2018 Fever Brina Mcdaniel NP Active Onset: 05/28/2018 Malignant neoplasm of brain Brina Mcdaniel NP Active Onset: 05/29/2018 Malignant tumor of small intestine Brina Mcdaniel NP Active Family History Date Family Member(s) Problem(s) Comments Father due to [place] () Mother due to [place] () Siblings 10 brother had a heart attack Social History Type Date Description Comments Marital Status Single Lives With Alone Occupation Retired Cigarette Use Never Smoked Cigarettes ETOH Use Denies alcohol use Smoking Patient has never smoked Recreational Drug Use Denies Drug Use Daily Caffeine Does Not Consume Caffeine Allergies, Adverse Reactions, Alerts Date Description Reaction Status Severity Comments 12/21/2014 NKDA active Medications Medication Date Status Form Strength Qnty SIG Indications Ordering Provider Simvastatin 00/00/ Active Tablets 40mg 90tab 1 by Unknown 0000 s mouth every night at bedtime Losartan Potassium 00/ Active Tablets 100mg 90tab 1 by Unknown 0000 s mouth every day Hydrochlorothiazide 0000/ Active Tablets 25mg 90tab 1 by Unknown 0000 s mouth every day Levetiracetam ER 00// Active Tablets 500mg take 1 Unknown 0000 ER 24HR tablet by mouth once daily Prednisone 0000/ Active Tablets 10mg take 1 Unknown 0000 tablet by mouth once daily Tylenol Extra 00/ Hx Tablets 500mg 100ta 2 by Unknown Strength 0000 - bs mouth as 2017 Potassium Chloride 00/00/ Hx Unknown 0000 - 2014 Vital Signs Date Vital Result Comment 06/10/2018 Height 66 inches 5'6" Weight 216.00 lb BP Systolic Sitting 122 mmHg BP Diastolic Sitting 78 mmHg Pain Level 8 BMI (Body Mass Index) 34.9 kg/m2 05/08/2018 Height 66 inches 5'6" Weight 216.00 lb BP Systolic Sitting 164 mmHg BP Diastolic Sitting 90 mmHg Pain Level 0 BMI (Body Mass Index) 34.9 kg/m2 02/04/2018 Height 66 inches 5'6" Weight 216.12 lb Heart Rate 84 /min BP Systolic 150 mmHg L/Arm Reg Cuff BP Diastolic 90 mmHg L/Arm Reg Cuff BMI (Body Mass Index) 34.9 kg/m2 Ejection Fraction 50-55% Echocardiogram 01/06/2015 02/12/2017 Height 66 inches 5'6" Weight 214.75 lb w/shoes Heart Rate 90 /min BP Systolic Sitting 170 mmHg Ra lg cuff BP Diastolic Sitting 102 mmHg Ra lg cuff BMI (Body Mass Index) 34.7 kg/m2 Ejection Fraction 50-55% Echo 01/06/15 01/27/2016 Height 66 inches 5'6" Weight 221.00 lb Heart Rate 84 /min BP Systolic Sitting 120 mmHg Ra, large BP Diastolic Sitting 78 mmHg Ra, large BMI (Body Mass Index) 35.7 kg/m2 Ejection Fraction 50%-55% 01/06/15 01/31/2015 Height 66 inches 5'6" Weight 206.75 lb Heart Rate 80 /min BP Systolic Sitting 132 mmHg Ra, reg BP Diastolic Sitting 84 mmHg Ra, reg BMI (Body Mass Index) 33.4 kg/m2 12/21/2014 Height 66 inches 5'6" Weight 211.00 lb Heart Rate 70 /min BP Systolic 144 mmHg LA large BP Diastolic 60 mmHg LA large BMI (Body Mass Index) 34.1 kg/m2 Results Test Date Test Result H/L Range Note Urine Culture Sensitivi 08/23/2010 Urine Culture Sensitivi NF1 1 1 SPECIMEN CONTAINS NORMAL URETHRAL OR PERINEAL CANDIDO AND DOES NOT SUGGEST URINARY TRACT INFECTION Procedures Date CPT Code Description Status 05/09/2018 01943 ECHO Transthorasic Realtime 2D W Doppler & Color Flow Completed Hosp 02/04/2018 06599 EKG Tracing & Interpretation Completed 02/12/2017 04462 EKG Tracing & Interpretation Completed 01/27/2016 37573 EKG Tracing & Interpretation Completed 11/29/2015 67560 EKG, Interpretation Only Completed 01/20/2015 73250 Treadmill Interp/Report Only Completed 01/20/2015 73329 Stress Test Supervsn W/Out I/R Completed 01/06/2015 43018 ECHO Transthoracic, Real-Time 2D With Doppler And Color Completed Flow 12/21/2014 82242 EKG Tracing & Interpretation Completed 09/28/2012 95363 ECHO Transthorasic Realtime 2D W Doppler & Color Flow Completed Hosp Encounters Type Date Location Provider CPT E/M Dx Office Visit 05/28/2018 [place] [address] C71.9 9:14a Hospitalists R50.9 E11.22 N18.3 Office Visit 05/27/2018 9:14a cyndee Elliott, MANPOWER DEVELOPMENT ADVISOR 12803 D33.0 Hospitalists N18.3 E11.22 I10 Office Visit 05/26/2018 9:13a [facility] Brina Mcdaniel, [employer]POWER DEVELOPMENT ADVISOR 59176 D33.0 Hospitalists N18.3 E11.22 R41.0 Office Visit 05/18/2018 9:09a [facility] [place], [address] G97.61 Assoc,pc Hospitalists Jesus R00.0 D33.0 Office Visit 05/14/2018 9:07a [facility] Eliana Moreno, 15206 D33.0 Hospitalists MANPOWER DEVELOPMENT ADVISOR E11.22 N18.3 D64.9 R41.0 Office Visit 05/13/2018 9:07a [facility] Eliana Moreno, 86713 D33.0 Hospitalists MANPOWER DEVELOPMENT ADVISOR E11.22 N18.3 D64.9 Office Visit 05/12/2018 9:06a [facility], Ren Tilley 57257 G93.9 Hospitalists MD Michael E11.22 N18.3 D64.9 Office Visit 05/11/2018 9:06a [facility], Brina Mcdaniel, MANPOWER DEVELOPMENT ADVISOR 91134 D33.0 Hospitalists E11.22 N18.3 D64.9 Office Visit 05/10/2018 9:05a [facility] Brina Mcdaniel, MANPOWER DEVELOPMENT ADVISOR 98342 D43.0 Hospitalists E11.22 N18.3 D64.9 Office Visit 05/09/2018 9:05a [facility] Laverne Santana N.P. 84517 D43.0 Hospitalists E11.22 D64.9 N18.3 Office Visit 05/08/2018 8:44[place] [address] D43.0 Assoc, Hospitalists Jesus E11.22 N18.9 D64.9 Office Visit 02/04/2018 3:40p [facility] Virgiltaybguillaume Da Silva, 70300 E78.5 M.DYahir I10 E66.9 R94.31 Office Visit 02/12/2017 4:00p [facility] Virgiltaybeh S. Rekha, 07279 E78.5 M.D. I10 E66.9 Office Visit 01/27/2016 9:40a [facility] Qutaybguillaume S. Rekha, 38765 E78.5 M.D. I10 E66.9 R94.31 Office Visit 11/30/2015 8:42a [facility], Brina Mcdaniel, MANPOWER DEVELOPMENT ADVISOR 29394 N20.0 Hospitalists E78.5 E11.9 I10 Office Visit 11/29/2015 8:41a [facility], Chito Wan, 61914 N20.0 Hospitalists N.P. E78.5 E11.9 I10 Office Visit 01/31/2015 4:00p [facility] Qutaybguillaume S. Rekha, 88263 786.05 M.D. 401.9 272.2 424.0 Office Visit 01/20/2015 9:30a [facility] Virgiltaybguillaume S. Rekha, 27831 786.50 M.D. 786.05 401.9 Office Visit 12/21/2014 2:40p [facility] Virgiltaybguillaume S. Rekha, 57855 401.9 M.D. 272.2 278.01 786.05 786.50 794.31 Office Visit 04/27/2014 4:31p [facility], Ephraim Johnson, 19021 595.0 Hospitalists N.P. 560.9 401.9 272.2 Office Visit 04/26/2014 10:46a [facility], RADHA Argueta 48144 786.09 Hospitalists Office Visit 04/26/2014 4:30p [facility], Ephraim Johnson, 15380 595.0 Hospitalists N.P. 401.9 560.9 272.2 Office Visit 04/25/2014 4:30p [facility], Laverne Santana N.PYahir 84432 560.9 Hospitalists 595.0 401.9 272.2 Office Visit 04/24/2014 4:27p [facility], Laverne Santana N.P. 11466 560.9 Hospitalists 595.0 401.9 272.2 Office Visit 09/27/2012 12:12p [facility] Laverne Santana, N.P. 40793 560.9 Hospitalists 401.9 493.00 278.01 Plan of Care Future Appointment(s):07/01/2018 2:00 pm - Nadine Maynard MD at [facility]06/10/2018 - Nadine Maynard, MDC71.9 Malignant neoplasm of brain, unspecifiedFollow up:RV in two weeks
--- OUTSIDE RECORDS SUMMARY | 2018-06-18 09:29 | XMS REPORT ---
:1935 External Reference #:[id number] Author Organization [facility] Address [address] [place] [address] Phone [phone] Care Team Providers Name Role Phone Landon Shin MD Primary Care Physician Unavailable Payers Type Date Identification Numbers Payment Provider Subscriber Medicare Primary Policy Number: [id number] Medicare Candido Mayer PayID: [id number] [address] [place] [address] 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 Family History Date Family Member(s) Problem(s) Comments Father due to [place] () Mother due to [place] () Siblings 10 brother had a heart [...] mouth every night at bedtime Losartan Potassium 0000/ Active Tablets 100mg 90tab 1 by Unknown 0000 s mouth every day Hydrochlorothiazide 0000/ Active Tablets 25mg 90tab 1 by Unknown 0000 s mouth every day Levetiracetam ER 0000/ Active Tablets 500mg take 1 Unknown 0000 ER 24HR tablet by mouth once daily Prednisone 0000/ Active Tablets 10mg take 1 Unknown 0000 tablet by mouth once daily Tylenol Extra / Hx Tablets 500mg 100ta 2 by Unknown Strength 0000 - bs mouth as 2017 Potassium Chloride / Hx Unknown 0000 - 2014 Vital Signs Date Vital Result Comment 05/08/2018 Height 66 inches 5'6" Weight 216.00 [...] Procedures Date CPT Code Description Status 05/09/2018 95944 ECHO Transthorasic Realtime 2D W Doppler & Color Flow Completed Hosp 02/04/2018 07366 EKG Tracing & Interpretation Completed 02/12/2017 25246 EKG Tracing & Interpretation Completed 01/27/2016 24506 EKG Tracing & Interpretation Completed 11/29/2015 87240 EKG, Interpretation Only Completed 01/20/2015 78736 Treadmill Interp/Report Only Completed 01/20/2015 20715 Stress Test Supervsn W/Out I/R Completed 01/06/2015 38630 ECHO Transthoracic, Real-Time 2D With Doppler And Color Completed Flow 12/21/2014 32375 EKG Tracing & Interpretation Completed 09/28/2012 52764 ECHO Transthorasic Realtime 2D W Doppler & Color Flow Completed Hosp Encounters Type Date Location Provider CPT E/M Dx Office Visit 02/04/2018 3:40p [facility] Virgiltaybguillaume S. Rekha, 16093 E78.5 M.D. I10 E66.9 R94.31 Office Visit 02/12/2017 4:00p [facility] Qutaybeh S. Rekha, 32077 E78.5 M.D. I10 E66.9 Office Visit 01/27/2016 9:40a [facility] Qutaybeh S. Rekha, 18519 E78.5 M.D. I10 E66.9 R94.31 Office Visit 11/30/2015 8:42a [facility], [place] [address] N20.0 Hospitalists E78.5 E11.9 I10 Office Visit 11/29/2015 8:41a [facility], Chito Blas, 09158 N20.0 Hospitalists N.P. E78.5 E11.9 I10 Office Visit 01/31/2015 4:00p [facility] Qutaybeh S. Rekha, 20031 786.05 M.D. 401.9 272.2 424.0 Office Visit 01/20/2015 9:30a [facility] Qutaybeh S. Rekha, 42470 786.50 M.D. 786.05 401.9 Office Visit 12/21/2014 2:40p [facility] Qupatricia Da Silva, 39569 401.9 M.D. 272.2 278.01 786.05 786.50 794.31 Office Visit 04/27/2014 4:31p [facility], Ephraim Johnson, 78912 595.0 Hospitalists N.P. 560.9 401.9 272.2 Office Visit 04/26/2014 10:46a [facility], RADHA Argueta 43404 786.09 Hospitalists Office Visit 04/26/2014 4:30p [facility], Ephraim Johnson, 10180 595.0 Hospitalists N.P. 401.9 560.9 272.2 Office Visit 04/25/2014 4:30p [facility], Laverne Santana N.P. 63809 560.9 Hospitalists 595.0 401.9 272.2 Office Visit 04/24/2014 4:27p [facility], Laverne Santana N.P. 67339 560.9 Hospitalists 595.0 401.9 272.2 Office Visit 09/27/2012 12:12p [facility], Laverne Santana N.P. 48603 560.9 Hospitalists 401.9 493.00 278.01 Plan of Care 05/08/2018 - Nadine Maynard, MDD43.0 Neoplasm of uncertain behavior of brain, supratentorialFollow up:RV in 1 week
[2018-06-18] MEDS ORDERED: Ondansetron ODT TAB* 4 MG PO ONE (09:30)
[2018-06-18] MEDS ORDERED: Morphine VIAL* 4 MG/ML VIAL (1 ml vial) IV ONE (09:31)
--- NOTE | 2018-06-18 09:38 | RAD ---
INDICATION: Syncope. COMPARISON: Comparison is made with a prior study from May 22, 2018. TECHNIQUE: A portable view of the chest was obtained. The patient is rotated toward the left side. FINDINGS: The heart appears mildly enlarged and unchanged. The lungs appear grossly clear. No pleural effusion is seen. IMPRESSION: NO EVIDENCE FOR ACUTE DISEASE.
[2018-06-18] MEDS ORDERED: Ondansetron INJ* 2 MG/ML VIAL ONE (09:39)
[2018-06-18] MEDS ORDERED: Morphine INJ* 2 MG/ML 1 ML SYRINGE (TWO MG - NEW SYRINGE VERSION) ONE (09:39)
[2018-06-18] MEDS ORDERED: Ondansetron INJ* 2 MG/ML VIAL IV ONE (09:42)
[2018-06-18 09:48] LABS: EGFR Non-African American 29.5 (>60)
--- NOTE | 2018-06-18 10:32 | RAD ---
INDICATION: Syncope, history of brain tumor, status post craniotomy. COMPARISON: Comparison is made with a prior CT of the brain from May 23, 2018 and a prior MRI of the brain from June 04, 2018. TECHNIQUE: Contiguous axial sections of the brain were obtained from the skull base to the vertex without contrast. FINDINGS: The ventricles and cisterns appear to be within normal limits. Again note is made of a hypodense lesion in the posterior right temporal lobe. The previously noted hemorrhage along the superior portion of this lesion has resolved. There is residual curvilinear increased density along the inferior anterior aspect of the lesion which was present on the prior study and may represent calcification or possibly a small amount of residual hemorrhage. There is mild local mass which is less prominent. There is suggestion of a tiny subdural hematoma measuring 2 to 3 mm on the right side which appears unchanged. No other focal abnormalities are seen. The patient is status post right craniectomy in the temporal and parietal regions. The visualized portion of the paranasal sinuses and mastoid air cells appear clear. IMPRESSION: 1. NO EVIDENCE FOR ACUTE FINDING. 2. RIGHT POSTERIOR TEMPORAL LOBE LESION WITH RESOLVING HEMORRHAGE AND EDEMA AND LESS MASS EFFECT THAN PRESENT ON THE PRIOR STUDY. 2. TINY RIGHT SUBDURAL HEMATOMA, UNCHANGED.
[2018-06-18] MEDS ORDERED: Aspirin 81 mg CHEW TAB* 81 MG TAB.CHEW PO ONE (10:59)
[2018-06-18] MEDS ORDERED: NS 0.9% 1000 ML* 1,000 ML IV ONE (11:42)
[2018-06-18] MEDS ORDERED: Magnesium Hydroxide LIQ* 30 ML UDC PO PRN (12:20)
[2018-06-18] MEDS ORDERED: Al Hydrox/Mg Hydrox/Simet LIQ* 30 ML UDC PO PRN (12:20)
[2018-06-18] MEDS ORDERED: Albuterol 2.5 MG/3 ML NEB.SOL* (0.083%) INH PRN (12:20)
[2018-06-18] MEDS ORDERED: Ondansetron INJ* 2 MG/ML VIAL IV PRN (12:20)
[2018-06-18] MEDS ORDERED: oxyCODONE/Acetamin 5/325 MG* TAB PO PRN (12:20)
[2018-06-18] MEDS ORDERED: Meclizine TAB* 12.5 MG PO PRN (12:27)
[2018-06-18] MEDS ORDERED: Dextrose 50% Syringe 50 ML* 25 GM/50 ML SYRINGE IV PUSH PRN (12:29)
[2018-06-18] MEDS ORDERED: LORazepam INJ* 2 MG/ML 1 ML VIAL IV PUSH PRN (12:30)
--- NOTE | 2018-06-18 16:37 | HP ---
CC: Dr. Shin; Dr. Maynard; Dr. Marion * ADMISSION HISTORY AND PHYSICAL: DATE OF ADMISSION: 06/18/18 PATIENT OF/ATTENDING HOSPITALIST: Lolly Whitlock DO * (DICTATED BY RADHA CARRENO) PRIMARY CARE PROVIDER: Dr. Shin. PRIMARY NEUROSURGEON: Dr. Maynard. ONCOLOGIST: Dr. Marion. CHIEF COMPLAINT: Possible seizure activity. HISTORY OF PRESENT ILLNESS: Ms. Mayer is an 82-year-old female, who has past medical history significant for recent diagnosis of a glioblastoma, for which she had a craniotomy with debulking back in mid April of this year that was unfortunately complicated by postoperative intracranial hemorrhage that required revision. The patient was hospitalized throughout almost the entire month of April of this year due to her recent diagnosis and in addition, she carries past medical history significant for hypertension, hyperlipidemia, chronic kidney disease. She was discharged from the hospital on 05/29/18 after she stayed approximately 3 weeks. She has been a resident of [facility] since then for subacute rehab. She has been seen by Dr. Marion about a week ago in consideration for radiation therapy and chemotherapy given her diagnosis of glioblastoma. She denies any significant symptoms until this morning when she got up and sat on the edge of her bed and felt the urge to go to the bathroom. She informed me that she rang the robert asking for help several times. However, it was not available immediately. Eventually, one of nurse's aides came and got her to the bathroom when the patient started to feel shaky on both hands. She denies any fall, headache, dizziness, chest pain this morning or shortness of breath. She did report some occasional chest pain on and off for the past few days usually at night that last a minute or two and then goes away. She continued to have some hand shaking this morning for a minute or two that eventually resolved. Given her recent brain surgery and her history, there was some concern of possible seizure activity for which she was brought to the emergency room for further evaluation. The patient had a laboratory workup that showed minimal leukocytosis likely due to the chronic use of prednisone. Her hemoglobin and hematocrit appear to be stable based on prior visits. She was also noted to have elevated troponin with a value of 0.19 and a new Q-wave finding on her EKG that warrants further evaluation. We were asked to see the patient to consider admission and workup of her chest pain and possible seizure activity. Dr. Fuchs was consulted by the emergency room provider and I did not personally speak to him; however, we will await the recommendation from Neurosurgery as well. PAST MEDICAL HISTORY: As mentioned above, significant for type 2 diabetes mellitus; hypertension; hyperlipidemia; chronic kidney disease; anemia; restless legs syndrome; small bowel obstruction; history of diverticulitis that required surgery in the past; the patient also with recent diagnosis of glioblastoma of the right parietal lobe, for which she had a craniotomy with tumor resection and debulking followed by evacuation of postoperative hematoma. PAST SURGICAL HISTORY: Significant for: 1. Colon resection with colostomy secondary to diverticulitis, followed by a colostomy reversal. 2. She also had ventral hernia repair. 3. Bilateral total knee arthroplasty. 4. Most recently right parietal craniotomy with tumor debulking and evacuation of postoperative hematoma in mid April of this year. CURRENT MEDICATIONS: According to her [facility] record, her medications include : 1. Zocor 40 mg p.o. daily. 2. Acetaminophen 650 mg q.4 hours as needed for pain or fever. 3. Colace 200 mg p.o. b.i.d. 4. Insulin Humalog based on a sliding scale with fingersticks q.a.c. 5. Meclizine 12.5 mg p.o. q.12 hours as needed for dizziness. 6. Procardia 90 mg p.o. daily. 7. Zofran 4 mg p.o. q.6 hours as needed for nausea. 8. Prednisone 5 mg p.o. daily. ALLERGIES: She has no known drug allergies. FAMILY HISTORY: Significant for coronary artery disease with ME in her father, as well as kidney disease in her mother. SOCIAL HISTORY: The patient is a nonsmoker, who denies alcohol or illicit drug use. She has been living alone in a senior apartment in [place] prior to her hospitalization last month with a brain surgery and currently resides at [facility]. Her brother, Timmy, is her healthcare proxy carrier. She wishes to be DNR and DNI and her MOLST form is updated and attached to the chart. REVIEW OF SYSTEMS: See HPI. Otherwise, 14-point review of systems was evaluated and was essentially negative. PHYSICAL EXAMINATION GENERAL: She is an elderly obese female, appears comfortable and in no acute distress or discomfort at the time of admission. VITAL SIGNS: Revealed blood pressure of 115/62, heart rate of 94, temperature of 97.6, respirations of 20 with O2 sat of 98% on 2 L oxygen. HEENT: Head is atraumatic. There is a large semicircular incision at the right parietal area extending from the posterior auricular to the forehead with intact nylon sutures in place. There is no bleeding, discharge, or swelling noted. EOMs intact. PERRLA. Oropharynx is pink and moist. NECK: Supple. Trachea midline. No cervical adenopathy, thyromegaly, or JVD. LUNGS: Clear to auscultation bilaterally. HEART: Regular rate and rhythm. Normal S1 and S2 without rubs, murmurs, or gallops. BACK: With normal curvature. No CVA tenderness. BREASTS: Exam deferred at this time. ABDOMEN: Soft, round, and obese. There are prior surgical scars from her colectomy with colostomy reversal. There are no hernias, masses, or hepatosplenomegaly. EXTREMITIES: Without cyanosis, clubbing, or edema. NEUROLOGIC: She is awake, alert, and oriented. Sensation is intact throughout. Tongue is midline and gross motor function is normal. RECTAL: Exam deferred at this time. LABORATORY WORKUP: CBC with white count of 12,000, hemoglobin 9.7, hematocrit of 30, and platelets of . Chemistry panel with sodium of 144, potassium 4.1, chloride 109, CO2 of 27, BUN of 34, creatinine of 1.6, her glucose is 136, lactic acid 2.3, magnesium 1.8. LFTs within normal limits. Troponin is 0.19 for the first draw. ACCESSORY DIAGNOSTIC DATA: CT of the brain performed today revealed postoperative changes with right posterior temporal lobe resolving hemorrhage and edema and less mass effect compared to MRI study done on 06/04/18. There is also a tiny small right subdural hematoma unchanged from prior exam. Her EKG showed sinus tachycardia with questionable Q waves that appear to be new. The patient currently has no symptoms of chest pain. However, she described intermittent nighttime chest discomfort lasting few minutes at times. IMPRESSION: An 82-year-old female with multiple complicated medical issues most recently diagnosed with a glioblastoma, status post a right craniotomy with tumor debulking of the right parietal lobe, as well as evacuation of postoperative hematoma, who is currently being seen by Oncology to consider radiotherapy and chemotherapy options, who has been residing at [facility] for subacute rehab and was brought to the emergency room earlier today after she had an episode of bilateral hand shaking lasting a minute or two. ASSESSMENT AND PLAN: 1. Possible seizure activity. Given her history of a recent brain surgery and complicated postoperative course, the patient will be admitted to telemetry floor for close observation, seizure precautions, and we will obtain Neurosurgical consultation to see if any recommendations are needed at this time. She still has her external skin sutures to the right parietal area that she tells me need to be taken out and was scheduled to be taken out today. I will defer that to the neurosurgical team to make that determination. We will continue her low dose of prednisone; however, her CT showed no evidence of cerebral edema or any mass effect compared to her recent study from 2 weeks ago. 2. Chest pain. This has been a new occurrence for the patient, which has been intermittent for the past couple of weeks. Since she had some EKG changes today with elevated troponin, we will proceed with trending troponins with repeat EKG and echocardiogram later today. She will receive supplemental oxygen as well. She does have a family history and other risk factors and need to rule out any possibility of acute coronary syndrome. 3. History of glioblastoma. The patient is currently stable. She is status post right-sided craniotomy with tumor debulking and hematoma evacuation and has been relatively stable since her discharge from the hospital. We will await recommendation by neurosurgical team. 4. Hypertension. We will continue her losartan. 5. Type 2 diabetes mellitus. We will continue her fingersticks and we will provide coverage with lispro for sliding scale. 6. Chronic kidney disease. It appears to be at her baseline, we will continue to monitor. 7. Hyperlipidemia. We will continue her home statin. 8. DVT prophylaxis. The patient is at highest risk given her morbid obesity, history of cancer, and the fact she has been bedridden for most times, we will provide both subcu heparin and SCDs. 9. Code status. She is a DNR and MOLST form is updated. TIME SPENT: Approximately 60 minutes was spent admitting this patient with greater than 50% on taking history and performing physical exam. I have discussed the case with my attending, Dr. Whitlock, who agreed to plan of care. RADHA CARRENO [id number]/[facility] #: [id number] [facility] THROAT HOSPITALRadha
[2018-06-18] MEDS: Insulin LISPRO* 1 UNITS UNIT SUBCUT SCH ×2 (17:25→20:20)
--- NOTE | 2018-06-18 20:39 | ECHO ---
Patient: CANDIDO OCHOA [facility] Rec#: [id number] : 1935 Date: 06/18/2018 Age: 82y Weight: kg / NaN lbs Sex: F Room#: 437 Admit Date#: 06/18/2018 Type: Inpatient Referring: Agatha Kim Reading: Sanna Cueto MD Senior Production Planner: Diana Ordonez RDCS CC: Landon Shin MD Transthoracic Echocardiogram Indication: Chest Pain BP: 115/62 HR: 86 Rhythm: NSR Findings History: DM,HTN,HLD,CKD,anemia,ventral hernia,s/p resection of temporal lobe mass. Technical Comments: The study is technically difficult. Limited patient cooperation with positioning. Completed at 1539. Left Ventricle: The left ventricular chamber size is decreased. Mild concentric left ventricular hypertrophy is observed. There is normal left ventricular systolic function. The estimated ejection fraction is 55-60%. Abnormal left ventricular diastolic function is observed. Left Atrium: The left atrial chamber size is normal. Right Ventricle: The right ventricular cavity size is normal. The right ventricular global systolic function is mildly to moderately reduced. Right Atrium: The right atrial cavity size is normal. Aortic Valve: The aortic valve is trileaflet. There is no evidence of aortic regurgitation. There is no evidence of aortic stenosis. Mitral Valve: The mitral valve leaflets are mildly thickened. There is mild mitral regurgitation. There is no evidence of mitral stenosis. Tricuspid Valve: The tricuspid valve leaflets are normal. There is moderate tricuspid regurgitation. The right ventricular systolic pressure is estimated at 60 mmHg. There is evidence of moderate pulmonary hypertension. There is no tricuspid stenosis. Pulmonic Valve: The pulmonic valve appears normal. There is no evidence of pulmonic regurgitation. There is no pulmonic stenosis. Pericardium: A pericardial fat pad is visualized. Aorta: There is no dilatation of the ascending aorta. The aortic arch is not well visualized. There is no dilation of the aortic root. Pulmonary Artery: The main pulmonary artery appears normal. Venous: The venous system is not well visualized. Conclusions Mild concentric left ventricular hypertrophy is observed. There is normal left ventricular systolic function. The estimated ejection fraction is 55-60%. Abnormal left ventricular diastolic function is observed. The right ventricular global systolic function is mildly to moderately reduced. There is mild mitral regurgitation. There is moderate tricuspid regurgitation. There is evidence of moderate pulmonary hypertension estimated at 60 mmHg. Compared with prior echo of 05/09/18, LVEF not significantly changed, RV hypokinesis new, AI no longer noted, MR not significantly changed, TR is new and elevated PA pressure newly appreciated. Measurements Name Value Normal Range RVIDd (AP) 2D 3.5 cm (0.9 - 2.6) RVDdMajor (2D) 3.8 cm (2.2 - 4.4) RAd ISD 4CH 5.1 cm (3.4 - 4.9) RA (A4C)W 4.2 cm (2.9 - 4.6) IVSd (2D) 1.3 cm (0.6 - 1) LVPWd (2D) 1.3 cm (0.6 - 1) LVIDd (2D) 3.3 cm (3.6 - 5.4) LVIDs (2D) 2.6 cm - LV FS (2D) 21 % (25 - 45) Aortic Annulus 2 cm (1.4 - 2.6) Ao root diameter (2D) 3.1 cm (2.1 - 3.5) Ascending Ao 3.4 cm (2.1 - 3.4) LA dimension (AP) 2D 3 cm (2.3 - 3.8) LAd ISD 4CH 3.9 cm (2.9 - 5.3) LA ISD 4CH W 3.7 cm (2.5 - 4.5) Name Value Normal Range MV E-wave Vmax 0.6 m/sec - MV deceleration time 185 msec - MV A-wave Vmax 0.5 m/sec - MV E:A ratio 0.8 ratio - LV septal e' Vmax 0.8 m/sec - LV lateral e' Vmax 0.6 m/sec - LV E:e' septal ratio 7.5 ratio - LV E:e' lateral ratio 10 ratio - Name Value Normal Range AV Vmax 1.4 m/sec - AV VTI 22.1 cm - AV peak gradient 8 mmHg - AV mean gradient 3 mmHg - LVOT Vmax 0.8 m/sec - LVOT VTI 14.1 cm - LVOT peak gradient 3 mmHg - LVOT mean gradient 1 mmHg - Name Value Normal Range TR Vmax 3.6 m/sec - TR peak gradient 52 mmHg - RAP 8 mmHg - RVSP 60 mmHg - Name Value Normal Range PV Vmax 0.5 m/sec - PV peak gradient 1 mmHg -
[2018-06-18] MEDS: Docusate CAP* 100 MG PO SCH (20:51)
[2018-06-18] MEDS: Heparin VIAL(*) 5000 UNITS/ML VIAL (FIVE THOUSAND) SUBCUT SCH (20:52)
[2018-06-18 21:39] LABS: Urine Appearance Cloudy; Urine Blood Negative (Negative); Urine Color Yellow; Urine Ketones Negative (Negative); Urine Protein 1+(30 mg/dL) (Negative); Urine Red Blood Cell 1+(3-5/hpf) (Absent); Urine Specific Gravity 1.014 (1.010-1.030); Urine Urobilinogen Negative (Negative); Urine White Blood Cell 3+(>20/hpf) (Absent)
[2018-06-19 05:37] LABS: ABS Basophils 0.1 10^3/ul (0-0.2); ABS Eosinophils 0.1 10^3/ul (0-0.6); ABS Monocytes 0.8 10^3/ul (0-0.8); ABS Neutrophils 5.1 10^3/ul (1.5-7.7); ABS Nucleated RBC 0 10^3/ul; Eosinophil % 0.8 % (0-6); Hematocrit 26 % (35-47); Hemoglobin 8.6 g/dl (12.0-16.0); Lymphocyte % 25.1 % (25-47); Mean Corpuscular HGB Conc 33 g/dl (31-36); Mean Corpuscular Hemoglobin 28 pg (27-31); Mean Corpuscular Volume 85 fL (80-97); Mean Platelet Volume 9.9 um3 (7.4-10.4); Nucleated Red Blood Cells % 0; Platelet Count 166 10^3/ul (150-450); Red Blood Count 3.09 10^6/ul (4.00-5.40); Red Cell Distribution Width 17 % (10.5-15); White Blood Count 8.1 10^3/ul (3.5-10.8)
[2018-06-19 05:54] LABS: EGFR Non-African American 33.7 (>60)
[2018-06-19] MEDS: Heparin VIAL(*) 5000 UNITS/ML VIAL (FIVE THOUSAND) SUBCUT SCH ×3 (05:58→21:05)
[2018-06-19] MEDS: Insulin LISPRO* 1 UNITS UNIT SUBCUT SCH ×4 (08:19→21:06)
[2018-06-19] MEDS: Atorvastatin* 20 MG TAB PO SCH (09:52)
[2018-06-19] MEDS: NIFEdipine ER TAB* 30 MG PO SCH (09:52)
[2018-06-19] MEDS: Docusate CAP* 100 MG PO SCH ×2 (09:52→21:05)
[2018-06-19] MEDS: predniSONE TAB* 5 MG PO SCH (09:54)
--- NOTE | 2018-06-19 17:04 | PN ---
Subjective Date of Service: 06/19/18 Interval History: Pt seen and examined. Meds and labs reviewed ROS: Denied GRAY/dizziness, F/C, N/V, CP, SOB, increased cough, sputum production , abd pain, diarrhea, constipation, dysuria, myalgias, arthralgias, throat pain , and new skin lesions. The rest of the 14 point ROS are unremarkable. PHYSICAL EXAM: GEN APPEARANCE: Awake, not in acute distress HEENT: NC/AT, PERRLA, moist oral mucosa, (-) throat erythema NECK: Soft, supple, (-) cervical LAD, (-)JVD HEART: S1S2 WNL, RRR, No MRG CHEST: CTA, BL, GAE, No W/R/R ABD: Soft, ND/NT, NABS 4x Q EXT: No C/C/E SKIN: Warm to touch PSYCH: No active psychosis, hallucinations, depression, SI/HI Objective Active Medications: Al Hydrox/Mg Hydrox/Simethicone (Maalox Plus*) 30 ml PO Q6H PRN PRN Reason: INDIGESTION Albuterol (Ventolin 2.5 Mg/3 Ml Neb.Norma*) 2.5 mg INH [id number] AWAKE PRN PRN Reason: sob/wheezing Atorvastatin Calcium (Lipitor*) 20 mg PO DAILY [facility] Last Admin: 06/19/18 09:52 Dose: 20 mg Dextrose (D50w Syringe 50 Ml*) 12.5 gm IV PUSH .FOR FS < 60 - SS PRN PRN Reason: FS < 60 Docusate Sodium (Colace Cap*) 200 mg PO BID [facility] Last Admin: 06/19/18 09:52 Dose: 200 mg Heparin Sodium (Porcine) (Heparin Vial(*)) 5,000 units SUBCUT Q12HR [facility] Insulin Human Lispro (Humalog*) 0 units SUBCUT ACHS [facility]; Protocol Last Admin: 06/19/18 12:44 Dose: 2 units Lorazepam (Ativan Inj*) 1 mg IV PUSH Q6H PRN PRN Reason: ANXIETY Magnesium Hydroxide (Milk Of Magnesia Liq*) 30 ml PO Q4H PRN PRN Reason: CONSTIPATION Meclizine HCl (Antivert Tab*) 12.5 mg PO Q12HR PRN PRN Reason: DIZZINESS Nifedipine (Procardia Xl Tab*) 90 mg PO DAILY [facility] Last Admin: 06/19/18 09:52 Dose: 90 mg Ondansetron HCl (Zofran Inj*) 4 mg IV Q4H PRN PRN Reason: NAUSEA/VOMITING Oxycodone/Acetaminophen (Percocet 5/325 Tab*) 1 tab PO Q4H PRN PRN Reason: Pain Prednisone (Deltasone Tab*) 5 mg PO DAILY [facility] Last Admin: 06/19/18 09:54 Dose: 5 mg Oxygen Devices in Use Now: Nasal Cannula Result Diagrams: 06/19/18 05:28 06/19/18 05:28 Microbiology and Other Data: Microbiology 06/18/18 21:10 Urine Culture - Final Urine 06/18/18 15:05 Nasal Screen MRSA (PCR) - Final Nasal Mrsa Not Detected Assess/Plan/Problems-Billing Assessment: - Patient Problems (1) Shaking Current Visit: Yes Status: Acute Code(s): R25.1 - TREMOR, UNSPECIFIED SNOMED Code(s): 21888405 Comment: -Radiological W/U does not suggest increased ICP in comparison to previous -Will await any further NeuroSx input -Consider Neurology consult in AM (2) Chest pain Current Visit: Yes Status: Acute Code(s): R07.9 - CHEST PAIN, UNSPECIFIED SNOMED Code(s): 63064803 Comment: -Resolved -Likely due to demand ischemia -Pt no longer complains of CP -Consider V/Q scan in AM to R/O PE given echo reveals new RV akinesis (3) HTN (hypertension) Current Visit: No Status: Chronic Code(s): I10 - ESSENTIAL (PRIMARY) HYPERTENSION SNOMED Code(s): 64558312 Comment: -Continue Losartan (4) Diabetes Current Visit: No Status: Chronic Code(s): E11.9 - TYPE 2 DIABETES MELLITUS WITHOUT COMPLICATIONS SNOMED Code(s): 05207024 Comment: -Continue FS and Insulin SS (5) DVT prophylaxis Current Visit: No Status: Acute Code(s): CUJ2960 - SNOMED Code(s): 807830406 Comment: -Will decrease frequency of SQ Heparin to q12H given advanced age Status and Disposition: -For JJ placement
[2018-06-20 06:26] LABS: ABS Basophils 0.2 10^3/ul (0-0.2); ABS Eosinophils 0.1 10^3/ul (0-0.6); ABS Lymphocytes 3.4 10^3/ul (1.0-4.8); ABS Monocytes 0.9 10^3/ul (0-0.8); ABS Neutrophils 6.9 10^3/ul (1.5-7.7); ABS Nucleated RBC 0 10^3/ul; Eosinophil % 0.5 % (0-6); Hematocrit 28 % (35-47); Hemoglobin 8.9 g/dl (12.0-16.0); Lymphocyte % 29.8 % (25-47); Mean Corpuscular HGB Conc 32 g/dl (31-36); Mean Corpuscular Hemoglobin 27 pg (27-31); Mean Corpuscular Volume 86 fL (80-97); Mean Platelet Volume 10.7 um3 (7.4-10.4); Nucleated Red Blood Cells % 0; Platelet Count 184 10^3/ul (150-450); Red Blood Count 3.27 10^6/ul (4.00-5.40); Red Cell Distribution Width 17 % (10.5-15); White Blood Count 11.4 10^3/ul (3.5-10.8)
[2018-06-20 06:47] LABS: EGFR Non-African American 34.8 (>60)
--- NOTE | 2018-06-20 08:17 | RAD ---
Indication: Seizure. Chest pain. Comparison: June 18, 2018 Technique: Sitting AP chest 0805 hours Report: Mild prominence of the interstitial markings without significant change. Negative for pleural effusion or pneumothorax. Mild cardiomegaly. Unremarkable central pulmonary vasculature and mediastinal contours. IMPRESSION: #. Stigmata of potential chronic obstructive pulmonary disease. #. Cardiomegaly without evidence for pulmonary edema.
--- NOTE | 2018-06-20 08:56 | RAD ---
INDICATION: 82-year-old with mildly elevated troponins. Evaluate for pulmonary embolus COMPARISON: Chest x-ray June 20, 2018 TECHNIQUE: Following the administration of 12.95 millicuries of xenon gas, anterior and posterior deep breath, equilibrium, and washout phase imaging was performed. Following the intravenous administration of 6.1 millicuries of technetium 99m, MAA, anterior, posterior, lateral, and oblique imaging of the chest was performed. FINDINGS: Ventilation images show normal ventilation. The perfusion images show a dominant right basilar area of ventilation/perfusion mismatch in addition to smaller subsegmental areas of ventilation/perfusion mismatch. The probability of acute pulmonary embolus is high. IMPRESSION: HIGH PROBABILITY FOR ACUTE PULMONARY EMBOLUS. Findings called to floor following the examination.
[2018-06-20] MEDS: Insulin LISPRO* 1 UNITS UNIT SUBCUT SCH ×4 (09:11→20:43)
[2018-06-20] MEDS: Docusate CAP* 100 MG PO SCH ×2 (09:50→20:44)
[2018-06-20] MEDS: NIFEdipine ER TAB* 30 MG PO SCH (09:50)
[2018-06-20] MEDS: predniSONE TAB* 5 MG PO SCH (09:50)
[2018-06-20] MEDS: Atorvastatin* 20 MG TAB PO SCH (09:50)
[2018-06-20] MEDS: Heparin VIAL(*) 5000 UNITS/ML VIAL (FIVE THOUSAND) SUBCUT SCH (09:53)
[2018-06-20] MEDS ORDERED: Magnesium Sulfate IV* 2 GM in NS 0.9% 100 ML* 100 ML IV ONE (10:17)
[2018-06-20] MEDS ORDERED: Enoxaparin(*) 80 MG/0.8 ML SYR SUBCUT STA (11:34)
[2018-06-20] MEDS ORDERED: NS 0.9% 100 ML* 100 ML ONE (12:32)
[2018-06-20] MEDS ORDERED: Magnesium Sulfate 2 GM IV (Premix) IVPB ONE (12:35)
[2018-06-20] MEDS: levETIRAcetam TAB* 500 MG PO SCH ×2 (12:47→20:44)
--- NOTE | 2018-06-20 13:42 | CONS ---
NEUROLOGY CONSULTATION REPORT: DATE OF CONSULT: 06/20/18 CONSULTING PHYSICIAN: Dr. Rodriguez. REASON FOR CONSULT: Possible seizure-like activity. CHIEF COMPLAINT: Shaking of the hands. HISTORY OF PRESENT ILLNESS: Ms. 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 The patient also has history of hypertension, dyslipidemia, chronic kidney disease. She was discharged from [facility] on 05/29/18 and was transferred to [facility] for the last 2-3 weeks. The patient yesterday woke up in normal state of health. She was being moved around by a nurse, who I personally spoke to today. Apparently, at 8 a.m., before breakfast, the patient had a sudden-onset staring into distance look. She became unresponsive , but her eyes were open. After a few seconds, her eyes began rolling the back of her head. She then started having tremoring-like moments of bilateral upper extremities that lasted for 2 minutes. The patient then came to and began complaining of nausea and feeling dizzy. This whole episode lasted for 4 minutes. There was associated loss of awareness. The patient stated that she recalled the incident and recalls being nauseated after the incident. She also stated that she was told her hands were shaking and she may have recalled her extremities shaking. Her blood sugar was checked and it was 111. She was then immediately rushed to [facility]. Interestingly, over the last 2 weeks, the patient has reported visual hallucination to family members. Her brother informed me today that the patient has been seeing people on [place] that people that are not there. The patient denied any focal weakness or paresthesias. The patient denied any recent falls. She is nearly bedbound and immobile since her surgery. Her surgeon is Dr. Maynard. She has had a brain CT scan that showed no evidence for acute finding and right posterior temporal lobe lesion with resolving hemorrhage and edema and less mass effect than present on prior study. There is a tiny right subdural hematoma that is unchanged. 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 CURRENT HOME MEDICATIONS: 1. Zocor 40 mg p.o. daily. 2. Acetaminophen 650 mg q.4 hours as needed for pain or fever. 3. Colace 200 mg by mouth twice daily. 4. Insulin. 5. Meclizine 12.5 mg by mouth every 12 hours. 6. Procardia 90 mg by mouth daily. 7. Zofran 4 mg by mouth every 6 hours. 8. Prednisone 5 mg daily. ALLERGIES: She has no known allergies. FAMILY HISTORY: Father had coronary artery disease and an AK after the of his . Mother of cancer. SOCIAL HISTORY: The patient is a nonsmoker. She denied any alcohol use. 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 REVIEW OF SYSTEMS: A 14-point review of systems was obtained and is negative except for what was mentioned in the HPI. PHYSICAL EXAM: Vitals: Temperature 98.1, pulse rate of 73, respiratory rate of 18, oxygen saturation of 100%, and blood pressure of 124/43. General: Ill- appearing, obese female, in no acute distress. She is cooperative and very pleasant. Head: Midline sutures mostly on the right side, clean. Area has some dressing. There is no erythema. Eyes: Conjunctivae/corneas are clear without any scleral icterus. Neck is supple and symmetrical with no carotid bruit. Lungs are clear to auscultation bilaterally. Cardiovascular: Regular rate and rhythm with normal S1, S2. Extremities: Normal range of motion with no cyanosis. Skin: No skin lesions or laceration. Psych: Affect is broad and normal mood. Easy to establish rapport. Neurological Examination: Awake, alert, and oriented to person, place, time, and general circumstances. She is able to tell me it is May, but not specifically the date. She is able to tell me it is 2017. She has no dysarthria or dysphasia. Cranial Nerves: Normal confrontation bilaterally. Pupils are mid range and reactive to light with normal consensual response. Extraocular muscles are intact. Sensation is intact on the forehead, cheeks, and jaw region bilaterally. No facial droop. She is able to hear throughout the history process. Symmetrical palatal elevation. There is normal strength against shoulder shrug. Tongue is symmetrical and midline with no atrophy or fasciculation. Motor: Right/left, there are no abnormal movements. No pronator drift. Normal bulk and tone throughout. She has 5/5 in the upper and lower extremities except for 4/5 to hip flexion due to deconditioning. Reflexes are trace throughout except absent at the ankles bilaterally. Flexor plantar response bilaterally. Sensation is intact to light throughout. She has mild [id number] sensory gradient demarcated to the maldonado region bilaterally. Vibration is intact at the great toes , but reduced overall. Normal proprioception at the great toes. Coordination, normal [id number], but reduced rapid alternating movement on the left side. Gait was not assessed as the patient is nearly bedbound since her surgery. LABORATORY DATA: WBC of 11,000, hemoglobin of 8.9, hematocrit of 28. Creatinine of 1.44, glucose of 112. ASSESSMENT AND PLAN: Ms. Lizbeth Mayer is an 82-year-old female with history of right hemispheric glioblastoma multiforme, status post debulking and resection with evacuation of postprocedural hematoma, who presented with sudden onset of loss of awareness with shaking-like movement in the upper extremities. I personally talked to Serena, patient's caregiver at the nursing facility, who described the incident in detail. I suspect the patient did have complex partial seizure with secondary generalization. This is presumed her first seizure. However, given her structure abnormality and the risk of tumor recurrence, I agreed to proceed with treating with antiseizure medications. We will order an EEG to evaluate for epileptiform abnormalities. I will start her on levetiracetam 500 mg twice daily without a loading dose. The side effects of levetiracetam were discussed with the patient and her brother at bedside, which include, but are not restricted to, dizziness, agitation, and behavioral disturbance. The patient was encouraged to discuss any of these side effects with her primary providers if she may experience any. We discussed the seizure precautions including good sleep hygiene. The patient does not operate any heavy machinery or drive vehicle. The patient has no evidence of increased intracranial pressure. She denied any headaches or visual disturbance, hence there is no evidence of any intracranial pressure. She was evaluated by our neurosurgery staff/team. In regards to her visual hallucination, it is unclear if these are related to the temporal lobe injury, partial seizures, or delirium since being transferred from the hospital early this month to a new environment. We will continue to monitor. She denied any hallucinations today. I discussed these recommendations with Dr. Rodriguez. I do not have any further neurological workup or recommendations. I will follow up with EEG results. She should follow up with Dr. Dong Roman in 4-6 weeks. We will arrange for a followup. She should follow up with Dr. Dong Roman in 4-6 weeks. We will arrange for a followup. TIME SPENT: I spent a total of 70 minutes and greater than 50% of that was spent directly reviewing the medical chart, obtaining history, examining the patient, education, counseling, and discussing the treatment plan and prognosis with the family. [id number]/[facility] #: [id number] NALINI
[2018-06-20 14:47] LABS: INR 1.1 (0.77-1.02)
--- NOTE | 2018-06-20 17:11 | PN ---
Subjective Date of Service: 06/20/18 Interval History: Pt seen and examined. Meds and labs reviewed ROS: Denied GRAY/dizziness, F/C, N/V, CP, SOB, increased cough, sputum production , abd pain, diarrhea, constipation, dysuria, myalgias, arthralgias, throat pain , and new skin lesions. The rest of the 14 point ROS are unremarkable. PHYSICAL EXAM: GEN APPEARANCE: Awake, not in acute distress HEENT: NC/AT, PERRLA, moist oral mucosa, (-) throat erythema NECK: Soft, supple, (-) cervical LAD, (-)JVD HEART: S1S2 WNL, RRR, No MRG CHEST: CTA, BL, GAE, No W/R/R ABD: Soft, ND/NT, NABS 4x Q EXT: No C/C/LLE 2+ edema SKIN: Warm to touch PSYCH: No active psychosis, hallucinations, depression, SI/HI Objective Active Medications: Al Hydrox/Mg Hydrox/Simethicone (Maalox Plus*) 30 ml PO Q6H PRN PRN Reason: INDIGESTION Albuterol (Ventolin 2.5 Mg/3 Ml Neb.Norma*) 2.5 mg INH [id number] AWAKE PRN PRN Reason: sob/wheezing Atorvastatin Calcium (Lipitor*) 20 mg PO DAILY [facility] Last Admin: 06/20/18 09:50 Dose: 20 mg Dextrose (D50w Syringe 50 Ml*) 12.5 gm IV PUSH .FOR FS < 60 - SS PRN PRN Reason: FS < 60 Docusate Sodium (Colace Cap*) 200 mg PO BID [facility] Last Admin: 06/20/18 09:50 Dose: 200 mg Enoxaparin Sodium (Lovenox(*)) 80 mg SUBCUT BID [facility] Insulin Human Lispro (Humalog*) 0 units SUBCUT ACHS [facility]; Protocol Last Admin: 06/20/18 12:46 Dose: 3 units Levetiracetam (Keppra Tab*) 500 mg PO BID [facility] Last Admin: 06/20/18 12:47 Dose: 500 mg Lorazepam (Ativan Inj*) 1 mg IV PUSH Q6H PRN PRN Reason: ANXIETY Magnesium Hydroxide (Milk Of Magnesia Liq*) 30 ml PO Q4H PRN PRN Reason: CONSTIPATION Meclizine HCl (Antivert Tab*) 12.5 mg PO Q12HR PRN PRN Reason: DIZZINESS Nifedipine (Procardia Xl Tab*) 90 mg PO DAILY [facility] Last Admin: 06/20/18 09:50 Dose: 90 mg Ondansetron HCl (Zofran Inj*) 4 mg IV Q4H PRN PRN Reason: NAUSEA/VOMITING Oxycodone/Acetaminophen (Percocet 5/325 Tab*) 1 tab PO Q4H PRN PRN Reason: Pain Prednisone (Deltasone Tab*) 5 mg PO DAILY [facility] Last Admin: 06/20/18 09:50 Dose: 5 mg Warfarin Sodium (Coumadin Tab(*)) 5 mg PO DAILY@1700 [facility]; Protocol Vital Signs - 8 hr 06/20/18 06/20/18 11:15 15:22 Temperature 98.6 F 98.1 F Pulse Rate 81 76 Respiratory 16 18 Rate Blood Pressure 134/60 110/45 (mmHg) O2 Sat by Pulse 100 100 Oximetry Oxygen Devices in Use Now: Nasal Cannula Result Diagrams: 06/20/18 06:03 06/20/18 06:03 Microbiology and Other Data: Microbiology 06/18/18 21:10 Urine Culture - Final Urine 06/18/18 15:05 Nasal Screen MRSA (PCR) - Final Nasal Mrsa Not Detected Assess/Plan/Problems-Billing Assessment: - Patient Problems (1) Shaking Current Visit: Yes Status: Acute Code(s): R25.1 - TREMOR, UNSPECIFIED SNOMED Code(s): 29295889 Comment: -Radiological W/U does not suggest increased ICP in comparison to previous -Will await any further NeuroSx input -D/W Dr. Olson this AM: EEG ordered and Keppra orderedF/U with Dr. Roman in 4- 6 weeks in outpt (2) Pulmonary embolism Current Visit: Yes Status: Acute Code(s): I26.99 - OTHER PULMONARY EMBOLISM WITHOUT ACUTE COR PULMONALE SNOMED Code(s): 30163395 Comment: -V/Q scan shows high probability PE -Discussed risks and benefits with Dr. Olson and Shila and pt -Spoke with Dr. Fuchs regarding concern for resolving hematoma in right temporal lobe, per risks and benefits analysis, Dr. Fuchs prefers full dose anticoagulation -Will start pt on Lovenox SQ 1mg/kg BID and start Coumadin in AM -Pt deferred evaluation with LLE Doppler ordered in AM to confirm suspected DVT given PE---will defer (3) Chest pain Current Visit: Yes Status: Acute Code(s): R07.9 - CHEST PAIN, UNSPECIFIED SNOMED Code(s): 44119232 Comment: -Resolved -Likely due to demand ischemia -Pt no longer complains of CP (4) HTN (hypertension) Current Visit: No Status: Chronic Code(s): I10 - ESSENTIAL (PRIMARY) HYPERTENSION SNOMED Code(s): 94149679 Comment: -Continue Losartan (5) Diabetes Current Visit: No Status: Chronic Code(s): E11.9 - TYPE 2 DIABETES MELLITUS WITHOUT COMPLICATIONS SNOMED Code(s): 60567857 Comment: -Continue FS and Insulin SS (6) DVT prophylaxis Current Visit: No Status: Acute Code(s): VKT3253 - SNOMED Code(s): 714821220 Comment: -Will decrease frequency of SQ Heparin to q12H given advanced age Status and Disposition: -For D/C back to [facility] when ready
[2018-06-20] MEDS: Enoxaparin(*) 80 MG/0.8 ML SYR SUBCUT SCH (20:43)
--- NOTE | 2018-06-20 21:27 | CONS ---
CONSULTATION REPORT: DATE OF CONSULT: 06/20/18 DATE OF ADMISSION: 06/18/18 ADDENDUM: In addition, the patient was diagnosed with a high probability for pulmonary embolism. She will need anticoagulation therapy. I spoke to Dr. 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 I encouraged him to contact Neurosurgery and discuss the need of anticoagulation therapy. I would recommend starting warfarin to hopefully monitor the INR and keep it within therapeutic level of 2 to 3, then starting one of the palacio agents. Dr. Rodriguez agreed. [id number]/[facility] #: [id number] [facility]
--- NOTE | 2018-06-21 04:07 | EEG ---
ELECTROENCEPHALOGRAPHY: DATE OF STUDY: 06/20/18 DATE READ: 06/20/18 ORDERED BY: Dr. Ren Rodriguez. MEDICATIONS: 1. Heparin. 2. Magnesium. 3. Humalog. 4. Colace. 5. Lipitor. 6. Procardia. 7. Maalox. 8. Ventolin. 9. Ativan. 10. Milk of magnesia. 11. Antivert. 12. Zofran. 13. Percocet. CLINICAL PROBLEM: Ms. Lizbeth Mayer is an 82-year-old female with history of recently diagnosed GBM on the right hemisphere, status post resection and debulking and evacuation of hematoma that was part of a postop complication. The patient presented yesterday with episodes of staring spells and shaking of the distal extremities. CLINICAL STATUS: Awake state. REPORT: The waking background showed appropriate organization with clearly defined anterior-posterior voltage and frequency gradients. There was a well- defined posterior dominant rhythm of 9 Hz, which was symmetrical and showed normal reactivity. Anteriorly, there was an expected pattern of lower voltage, irregular mixed faster frequencies. There were occasional, intermittent, paroxysms of higher amplitude, polymorphic , 3- 5 Hz theta and delta frequency slowing in the right frontal region maximal at Fp2 and F8. In addition, there were rare, higher amplitude, diffuse polymorphic slowing lasting for 1-2 seconds with a frequency of 3-6 Hz. There were no epileptiform discharges and electrographic seizures. Photic stimulation and hyperventilation were not performed. CLINICAL IMPRESSION: This is an abnormal awake EEG due to the presence of occasional, intermittent paroxysms of right frontal slowing and rare diffuse slowing of the background. These findings are suggestive of underlying mild, nonspecific, diffuse encephalopathy with superimposed focal neuronal dysfunction in the right frontal region, which can correlate with the patient's structural abnormality from recent tumor resection. There were no epileptiform discharges or electrographic seizures. DICTATION ENDS ABRUPTLY.. [id number]/[facility] #: [id number] [facility] HOSPITALRadha
[2018-06-21 05:21] LABS: ABS Basophils 0.1 10^3/ul (0-0.2); ABS Eosinophils 0.1 10^3/ul (0-0.6); ABS Lymphocytes 1.8 10^3/ul (1.0-4.8); ABS Monocytes 0.7 10^3/ul (0-0.8); ABS Neutrophils 4.7 10^3/ul (1.5-7.7); ABS Nucleated RBC 0 10^3/ul; Eosinophil % 0.9 % (0-6); Hematocrit 26 % (35-47); Hemoglobin 8.3 g/dl (12.0-16.0); Lymphocyte % 24.6 % (25-47); Mean Corpuscular HGB Conc 33 g/dl (31-36); Mean Corpuscular Hemoglobin 27 pg (27-31); Mean Corpuscular Volume 84 fL (80-97); Mean Platelet Volume 10.7 um3 (7.4-10.4); Nucleated Red Blood Cells % 0; Platelet Count 173 10^3/ul (150-450); Red Blood Count 3.05 10^6/ul (4.00-5.40); Red Cell Distribution Width 17 % (10.5-15); White Blood Count 7.4 10^3/ul (3.5-10.8)
[2018-06-21 05:39] LABS: EGFR Non-African American 38.8 (>60)
[2018-06-21] MEDS: Insulin LISPRO* 1 UNITS UNIT SUBCUT SCH ×4 (08:12→21:40)
[2018-06-21] MEDS: Warfarin TAB(*) 5 MG PO SCH ×2 (08:17→18:01)
[2018-06-21] MEDS: Atorvastatin* 20 MG TAB PO SCH (08:17)
[2018-06-21] MEDS: NIFEdipine ER TAB* 30 MG PO SCH (08:18)
[2018-06-21] MEDS: Enoxaparin(*) 80 MG/0.8 ML SYR SUBCUT SCH ×2 (08:18→21:33)
[2018-06-21] MEDS: predniSONE TAB* 5 MG PO SCH (08:18)
[2018-06-21] MEDS: levETIRAcetam TAB* 500 MG PO SCH ×2 (08:18→21:33)
[2018-06-21] MEDS: Docusate CAP* 100 MG PO SCH ×2 (08:18→21:33)
[2018-06-21 11:50] LABS: INR 1.11 (0.77-1.02)
--- NOTE | 2018-06-21 15:45 | PN ---
Subjective Date of Service: 06/21/18 Interval History: Pt seen and examined. Meds and labs reviewed ROS: Complained of left precordial CP for a few seconds. Denied GRAY/dizziness, F/C, N/V, SOB, increased cough, sputum production, abd pain, diarrhea, constipation, dysuria, myalgias, arthralgias, throat pain, and new skin lesions. The rest of the 14 point ROS are unremarkable. PHYSICAL EXAM: GEN APPEARANCE: Awake, not in acute distress HEENT: NC/AT, PERRLA, moist oral mucosa, (-) throat erythema NECK: Soft, supple, (-) cervical LAD, (-)JVD HEART: S1S2 WNL, RRR, No MRG CHEST: CTA, BL, GAE, No W/R/R ABD: Soft, ND/NT, NABS 4x Q EXT: No C/C/LLE 2+ edema SKIN: Warm to touch PSYCH: No active psychosis, hallucinations, depression, SI/HI Objective Active Medications: Al Hydrox/Mg Hydrox/Simethicone (Maalox Plus*) 30 ml PO Q6H PRN PRN Reason: INDIGESTION Albuterol (Ventolin 2.5 Mg/3 Ml Neb.Norma*) 2.5 mg INH [id number] AWAKE PRN PRN Reason: sob/wheezing Atorvastatin Calcium (Lipitor*) 20 mg PO DAILY [facility] Last Admin: 06/21/18 08:17 Dose: 20 mg Dextrose (D50w Syringe 50 Ml*) 12.5 gm IV PUSH .FOR FS < 60 - SS PRN PRN Reason: FS < 60 Docusate Sodium (Colace Cap*) 200 mg PO BID [facility] Last Admin: 06/21/18 08:18 Dose: 200 mg Enoxaparin Sodium (Lovenox(*)) 80 mg SUBCUT BID [facility] Last Admin: 06/21/18 08:18 Dose: 80 mg Insulin Human Lispro (Humalog*) 0 units SUBCUT ACHS [facility]; Protocol Last Admin: 06/21/18 12:07 Dose: 2 units Levetiracetam (Keppra Tab*) 500 mg PO BID [facility] Last Admin: 06/21/18 08:18 Dose: 500 mg Lorazepam (Ativan Inj*) 1 mg IV PUSH Q6H PRN PRN Reason: ANXIETY Magnesium Hydroxide (Milk Of Magnesia Liq*) 30 ml PO Q4H PRN PRN Reason: CONSTIPATION Meclizine HCl (Antivert Tab*) 12.5 mg PO Q12HR PRN PRN Reason: DIZZINESS Nifedipine (Procardia Xl Tab*) 90 mg PO DAILY [facility] Last Admin: 06/21/18 08:18 Dose: 90 mg Ondansetron HCl (Zofran Inj*) 4 mg IV Q4H PRN PRN Reason: NAUSEA/VOMITING Oxycodone/Acetaminophen (Percocet 5/325 Tab*) 1 tab PO Q4H PRN PRN Reason: Pain Prednisone (Deltasone Tab*) 5 mg PO DAILY [facility] Last Admin: 06/21/18 08:18 Dose: 5 mg Warfarin Sodium (Coumadin Tab(*)) 5 mg PO DAILY@1700 [facility]; Protocol Last Admin: 06/21/18 08:17 Dose: 5 mg Vital Signs - 8 hr 06/21/18 06/21/18 06/21/18 07:49 08:51 11:50 Temperature 97.1 F 97.2 F Pulse Rate 65 72 Respiratory 16 18 20 Rate Blood Pressure 125/47 110/56 (mmHg) O2 Sat by Pulse 100 98 Oximetry Oxygen Devices in Use Now: Nasal Cannula Result Diagrams: 06/21/18 05:02 06/21/18 05:02 Microbiology and Other Data: Microbiology 06/18/18 21:10 Urine Culture - Final Urine 06/18/18 15:05 Nasal Screen MRSA (PCR) - Final Nasal Mrsa Not Detected Assess/Plan/Problems-Billing Assessment: - Patient Problems (1) Shaking Current Visit: Yes Status: Acute Code(s): R25.1 - TREMOR, UNSPECIFIED SNOMED Code(s): 47844860 Comment: -Likely due to complex partial seizure with secondary generalization due to recent debulking-resection, with evacuation of post-procedural hematoma -Radiological W/U does not suggest increased ICP in comparison to previous -Will await any further NeuroSx input -D/W Dr. Olson this AM: EEG ordered and Keppra orderedF/U with Dr. Roman in 4- 6 weeks in outpt -EEG: No epileptiform changes, however, is abnormal due to presence of ocassional, intermittent paroxysms of right frontal slowing and rare diffuse slowing of background (2) Pulmonary embolism Current Visit: Yes Status: Acute Code(s): I26.99 - OTHER PULMONARY EMBOLISM WITHOUT ACUTE COR PULMONALE SNOMED Code(s): 68914367 Comment: -V/Q scan shows high probability PE -Discussed risks and benefits with Dr. Olson and Shila and pt -Spoke with Dr. Fuchs regarding concern for resolving hematoma in right temporal lobe, per risks and benefits analysis, Dr. Fuchs prefers full dose anticoagulation -Continue Lovenox SQ 1mg/kg BID and Coumadin -Pt deferred evaluation with LLE Doppler ordered in AM to confirm suspected DVT given PE---will defer -INR: 1.11 (from 1.10) (3) Chest pain Current Visit: Yes Status: Acute Code(s): R07.9 - CHEST PAIN, UNSPECIFIED SNOMED Code(s): 49752831 Comment: -Likely due to PE, hence, with mildly elevated troponins (4) HTN (hypertension) Current Visit: No Status: Chronic Code(s): I10 - ESSENTIAL (PRIMARY) HYPERTENSION SNOMED Code(s): 63914228 Comment: -Continue Losartan (5) Diabetes Current Visit: No Status: Chronic Code(s): E11.9 - TYPE 2 DIABETES MELLITUS WITHOUT COMPLICATIONS SNOMED Code(s): 03823420 Comment: -Continue FS and Insulin SS (6) DVT prophylaxis Current Visit: No Status: Acute Code(s): OQE7344 - SNOMED Code(s): 718266273 Comment: -Pt on Full dose anticoagulation, as discussed above Status and Disposition: -For D/C back to [facility] on Saturday with appropriate INR checks and with or without Lovenox depending on INR
[2018-06-22 06:50] LABS: ABS Basophils 0.1 10^3/ul (0-0.2); ABS Eosinophils 0.1 10^3/ul (0-0.6); ABS Lymphocytes 2.1 10^3/ul (1.0-4.8); ABS Monocytes 0.7 10^3/ul (0-0.8); ABS Neutrophils 4.5 10^3/ul (1.5-7.7); ABS Nucleated RBC 0 10^3/ul; Hematocrit 27 % (35-47); Hemoglobin 8.6 g/dl (12.0-16.0); Lymphocyte % 28.6 % (25-47); Mean Corpuscular HGB Conc 32 g/dl (31-36); Mean Corpuscular Hemoglobin 27 pg (27-31); Mean Corpuscular Volume 84 fL (80-97); Mean Platelet Volume 11.5 um3 (7.4-10.4); Nucleated Red Blood Cells % 0.1; Platelet Count 198 10^3/ul (150-450); Red Blood Count 3.17 10^6/ul (4.00-5.40); Red Cell Distribution Width 17 % (10.5-15); White Blood Count 7.5 10^3/ul (3.5-10.8)
[2018-06-22 07:07] LABS: EGFR Non-African American 44.2 (>60)
[2018-06-22] MEDS: Insulin LISPRO* 1 UNITS UNIT SUBCUT SCH ×4 (08:40→21:34)
[2018-06-22] MEDS: Atorvastatin* 20 MG TAB PO SCH (08:52)
[2018-06-22] MEDS: predniSONE TAB* 5 MG PO SCH (08:52)
[2018-06-22] MEDS: NIFEdipine ER TAB* 30 MG PO SCH (08:52)
[2018-06-22] MEDS: levETIRAcetam TAB* 500 MG PO SCH ×2 (08:52→21:33)
[2018-06-22] MEDS: Docusate CAP* 100 MG PO SCH ×2 (08:52→21:33)
[2018-06-22] MEDS: Enoxaparin(*) 80 MG/0.8 ML SYR SUBCUT SCH ×2 (08:53→21:33)
[2018-06-22 11:50] LABS: INR 1.4 (0.77-1.02)
--- NOTE | 2018-06-22 15:06 | PN ---
Subjective Date of Service: 06/22/18 Interval History: Pt seen and examined. Meds and labs reviewed ROS: Complained of left precordial CP for a few seconds. Denied GRAY/dizziness, F/C, N/V, SOB, increased cough, sputum production, abd pain, diarrhea, constipation, dysuria, myalgias, arthralgias, throat pain, and new skin lesions. The rest of the 14 point ROS are unremarkable. PHYSICAL EXAM: GEN APPEARANCE: Awake, not in acute distress HEENT: NC/AT, PERRLA, moist oral mucosa, (-) throat erythema NECK: Soft, supple, (-) cervical LAD, (-)JVD HEART: S1S2 WNL, RRR, No MRG CHEST: CTA, BL, GAE, No W/R/R ABD: Soft, ND/NT, NABS 4x Q EXT: No C/C/LLE 2+ edema SKIN: Warm to touch PSYCH: No active psychosis, hallucinations, depression, SI/HI Objective Active Medications: Al Hydrox/Mg Hydrox/Simethicone (Maalox Plus*) 30 ml PO Q6H PRN PRN Reason: INDIGESTION Albuterol (Ventolin 2.5 Mg/3 Ml Neb.Norma*) 2.5 mg INH [id number] AWAKE PRN PRN Reason: sob/wheezing Atorvastatin Calcium (Lipitor*) 20 mg PO DAILY [facility] Last Admin: 06/22/18 08:52 Dose: 20 mg Dextrose (D50w Syringe 50 Ml*) 12.5 gm IV PUSH .FOR FS < 60 - SS PRN PRN Reason: FS < 60 Docusate Sodium (Colace Cap*) 200 mg PO BID [facility] Last Admin: 06/22/18 08:52 Dose: 200 mg Enoxaparin Sodium (Lovenox(*)) 80 mg SUBCUT BID [facility] Last Admin: 06/22/18 08:53 Dose: 80 mg Insulin Human Lispro (Humalog*) 0 units SUBCUT ACHS [facility]; Protocol Last Admin: 06/22/18 11:39 Dose: Not Given Levetiracetam (Keppra Tab*) 500 mg PO BID [facility] Last Admin: 06/22/18 08:52 Dose: 500 mg Lorazepam (Ativan Inj*) 1 mg IV PUSH Q6H PRN PRN Reason: ANXIETY Magnesium Hydroxide (Milk Of Magnesia Liq*) 30 ml PO Q4H PRN PRN Reason: CONSTIPATION Meclizine HCl (Antivert Tab*) 12.5 mg PO Q12HR PRN PRN Reason: DIZZINESS Nifedipine (Procardia Xl Tab*) 90 mg PO DAILY [facility] Last Admin: 06/22/18 08:52 Dose: 90 mg Ondansetron HCl (Zofran Inj*) 4 mg IV Q4H PRN PRN Reason: NAUSEA/VOMITING Oxycodone/Acetaminophen (Percocet 5/325 Tab*) 1 tab PO Q4H PRN PRN Reason: Pain Prednisone (Deltasone Tab*) 5 mg PO DAILY [facility] Last Admin: 06/22/18 08:52 Dose: 5 mg Warfarin Sodium (Coumadin Tab(*)) 5 mg PO DAILY@1700 [facility]; Protocol Last Admin: 06/21/18 18:01 Dose: 5 mg Vital Signs - 8 hr 06/22/18 06/22/18 06/22/18 07:40 10:32 11:51 Temperature 97.4 F 98.2 F Pulse Rate 65 65 Respiratory 18 18 20 Rate Blood Pressure 132/46 123/51 (mmHg) O2 Sat by Pulse 100 100 Oximetry Oxygen Devices in Use Now: Nasal Cannula Result Diagrams: 06/22/18 06:12 06/22/18 06:12 Microbiology and Other Data: Microbiology 06/18/18 21:10 Urine Culture - Final Urine 06/18/18 15:05 Nasal Screen MRSA (PCR) - Final Nasal Mrsa Not Detected Assess/Plan/Problems-Billing Assessment: - Patient Problems (1) Shaking Current Visit: Yes Status: Acute Code(s): R25.1 - TREMOR, UNSPECIFIED SNOMED Code(s): 13045005 Comment: -Likely due to complex partial seizure with secondary generalization due to recent debulking-resection, with evacuation of post-procedural hematoma -Radiological W/U does not suggest increased ICP in comparison to previous -D/W Dr. Olson: EEG ordered and Keppra orderedF/U with Dr. Roman in 4-6 weeks in outpt -EEG: No epileptiform changes, however, is abnormal due to presence of ocassional, intermittent paroxysms of right frontal slowing and rare diffuse slowing of background (2) Pulmonary embolism Current Visit: Yes Status: Acute Code(s): I26.99 - OTHER PULMONARY EMBOLISM WITHOUT ACUTE COR PULMONALE SNOMED Code(s): 24351631 Comment: -V/Q scan shows high probability PE -Discussed risks and benefits with Dr. Olson and Shila and pt -Spoke with Dr. Fuchs regarding concern for resolving hematoma in right temporal lobe, per risks and benefits analysis, Dr. Fuchs prefers full dose anticoagulation -Continue Lovenox SQ 1mg/kg BID and Coumadin -Pt deferred evaluation with LLE Doppler ordered in AM to confirm suspected DVT given PE---will defer -INR: 1.40 (from 1.11, 1.10) (3) Chest pain Current Visit: Yes Status: Acute Code(s): R07.9 - CHEST PAIN, UNSPECIFIED SNOMED Code(s): 39694941 Comment: -Resolved -Likely due to PE, hence, with mildly elevated troponins (4) HTN (hypertension) Current Visit: No Status: Chronic Code(s): I10 - ESSENTIAL (PRIMARY) HYPERTENSION SNOMED Code(s): 05967287 Comment: -Continue Losartan (5) Diabetes Current Visit: No Status: Chronic Code(s): E11.9 - TYPE 2 DIABETES MELLITUS WITHOUT COMPLICATIONS SNOMED Code(s): 11923379 Comment: -Continue FS and Insulin SS (6) DVT prophylaxis Current Visit: No Status: Acute Code(s): BRN0013 - SNOMED Code(s): 804128527 Comment: -Pt on Full dose anticoagulation, as discussed above Status and Disposition: -For D/C back to [facility] on Saturday with appropriate INR checks and with or without Lovenox depending on INRwill discuss with staff if [facility] able to perform daily INRs until therapeutic; otherwise may have to keep pt until therapeutic
[2018-06-22] MEDS: Warfarin TAB(*) 5 MG PO SCH (17:12)
--- NOTE | 2018-06-23 03:57 | DS ---
HOSPITAL SUMMARY: DATE OF ADMISSION: 06/20/18 DATE OF DISCHARGE: Pt was not discharged as expected given recent GIB; please see my subsequent notes and F/U evaluation The narrative being dictated in advance. An addendum will be written prior to discharge to this note. DISCHARGE DIAGNOSES: 1. Complex partial seizure with secondary generalization due to recent debulking resection with evacuation of postprocedural hematoma. 2. Pulmonary embolism with possible left lower extremity deep venous thrombosis , the patient refused to have a Doppler ultrasound done. 3. Chest pain, likely secondary to #2. 4. Hypertension. 5. Diabetes. HISTORY OF PRESENT ILLNESS/HOSPITAL COURSE: The patient is an 82-year-old lady with history of glioblastoma, status post craniotomy with debulking back in mid April this year and was unfortunately complicated by postoperative intracranial hemorrhage that required revision. The patient was then hospitalized throughout most of the entire month of April of this year. Subsequent imaging of her brain by brain CT did not suggest an increased intracranial pressure along with her subsequent clinical evaluation. She had a lung V/Q scan on 06/20/18, which suggested high probability PE and hence discussion with Dr. Fcuhs regarding the risks and benefits given her recent postsurgical intracranial bleed whether anticoagulation would be the best course at this time. Dr. Fuchs upon balancing risks and benefits agreed that anticoagulation would be best. The patient was therefore started on Lovenox and the following day was started on Coumadin. The patient currently has an INR of 1.40 and hence subtherapeutic, which we will defer with Jarrod in further titrating her Coumadin dose to therapeutic INR. In addition, she was seen in consultation by Dr. Olson and an EEG was done, which showed no epileptiform changes; however, the EEG is abnormal due to presence of occasional and intermittent paroxysms of the right frontal slowing and rare diffuse slowing of the background suggesting that she likely did have a complex partial seizure with secondary generalization due debulking resection with evacuation of postprocedural hematoma. She was subsequently placed on Keppra 500 mg p.o. b.i.d. [id number]/[facility] #: [id number] MTDD
[2018-06-23 06:48] LABS: ABS Basophils 0.1 10^3/ul (0-0.2); ABS Eosinophils 0.1 10^3/ul (0-0.6); ABS Lymphocytes 2.2 10^3/ul (1.0-4.8); ABS Monocytes 0.6 10^3/ul (0-0.8); ABS Neutrophils 3.8 10^3/ul (1.5-7.7); ABS Nucleated RBC 0 10^3/ul; Eosinophil % 1.3 % (0-6); Hematocrit 26 % (35-47); Hemoglobin 8.5 g/dl (12.0-16.0); Lymphocyte % 31.8 % (25-47); Mean Corpuscular HGB Conc 32 g/dl (31-36); Mean Corpuscular Hemoglobin 27 pg (27-31); Mean Corpuscular Volume 84 fL (80-97); Mean Platelet Volume 11.4 um3 (7.4-10.4); Nucleated Red Blood Cells % 0.1; Platelet Count 195 10^3/ul (150-450); Red Blood Count 3.14 10^6/ul (4.00-5.40); Red Cell Distribution Width 17 % (10.5-15); White Blood Count 6.8 10^3/ul (3.5-10.8)
[2018-06-23 07:00] LABS: EGFR Non-African American 45.1 (>60)
[2018-06-23] MEDS: Insulin LISPRO* 1 UNITS UNIT SUBCUT SCH ×4 (08:25→20:56)
[2018-06-23] MEDS: levETIRAcetam TAB* 500 MG PO SCH ×2 (08:27→20:56)
[2018-06-23] MEDS: Atorvastatin* 20 MG TAB PO SCH (08:28)
[2018-06-23] MEDS: predniSONE TAB* 5 MG PO SCH (08:29)
[2018-06-23] MEDS: NIFEdipine ER TAB* 30 MG PO SCH (08:30)
[2018-06-23] MEDS: Enoxaparin(*) 80 MG/0.8 ML SYR SUBCUT SCH (08:53)
[2018-06-23] MEDS: Docusate CAP* 100 MG PO SCH ×2 (08:57→20:56)
--- NOTE | 2018-06-23 11:18 | RAD ---
INDICATION: Left lower extremity swelling. COMPARISON: There are no prior studies available for comparison. TECHNIQUE: Multiple real-time, color flow and Doppler tracings of the left lower extremity were obtained. FINDINGS: There is extensive deep venous thrombosis which begins in the distal common femoral vein near the bifurcation of the proximal and profunda femoral veins with thrombus extending into both of those veins. There appears to be mainly occlusion of the majority of the femoral vein with minimal patency of the distal portion of the femoral vein. The popliteal vein appears occluded the peroneal and posterior tibial veins appear occluded. The results of this exam were called to the referring clinician. IMPRESSION: EXTENSIVE DEEP VENOUS THROMBOSIS THROUGHOUT THE LEFT LOWER EXTREMITY BEGINNING IN THE COMMON FEMORAL VEIN WITH INVOLVEMENT OF THE FEMORAL, PROFUNDA FEMORAL, POPLITEAL, POSTERIOR TIBIAL AND PERONEAL VEINS.
[2018-06-23 12:22] LABS: ABS Basophils 0.1 10^3/ul (0-0.2); ABS Eosinophils 0 10^3/ul (0-0.6); ABS Lymphocytes 1.1 10^3/ul (1.0-4.8); ABS Monocytes 0.4 10^3/ul (0-0.8); ABS Neutrophils 5.2 10^3/ul (1.5-7.7); ABS Nucleated RBC 0 10^3/ul; Eosinophil % 0.4 % (0-6); Hematocrit 24 % (35-47); Hemoglobin 8.1 g/dl (12.0-16.0); Lymphocyte % 16.6 % (25-47); Mean Corpuscular HGB Conc 33 g/dl (31-36); Mean Corpuscular Hemoglobin 27 pg (27-31); Mean Corpuscular Volume 83 fL (80-97); Mean Platelet Volume 10.6 um3 (7.4-10.4); Nucleated Red Blood Cells % 0; Platelet Count 206 10^3/ul (150-450); Red Blood Count 2.95 10^6/ul (4.00-5.40); Red Cell Distribution Width 17 % (10.5-15); White Blood Count 6.9 10^3/ul (3.5-10.8)
[2018-06-23 12:27] LABS: INR 1.89 (0.77-1.02)
[2018-06-23] MEDS ORDERED: Buffered Lidocaine 0.9% SYRIN* 5 ML/SYR SYRINGE INTRADERM ONE (12:36)
[2018-06-23] MEDS ORDERED: Phytonadione Oral Solution* 5 MG/25 ML UDC PO ONE (17:20)
--- NOTE | 2018-06-23 17:54 | PN ---
Subjective Date of Service: 06/23/18 Interval History: Pt seen and examined. Meds and labs reviewed. RN reported 2 black pasty stools of adequate volume today. Lovenox and Warfarin D/Cd please see discussion below. ROS: Denied GRAY/dizziness, F/C, N/V, CP, SOB, increased cough, sputum production , abd pain, diarrhea, constipation, dysuria, myalgias, arthralgias, throat pain , and new skin lesions. The rest of the 14 point ROS are unremarkable. PHYSICAL EXAM: GEN APPEARANCE: Awake, not in acute distress HEENT: NC/AT, PERRLA, moist oral mucosa, (-) throat erythema NECK: Soft, supple, (-) cervical LAD, (-)JVD HEART: S1S2 WNL, RRR, No MRG CHEST: CTA, BL, GAE, No W/R/R ABD: Soft, ND/NT, NABS 4x Q EXT: No C/C/LLE 2+ edema SKIN: Warm to touch PSYCH: No active psychosis, hallucinations, depression, SI/HI RECTAL: Melenic stools observed on gloved finger, (+)guaiac Objective Active Medications: Al Hydrox/Mg Hydrox/Simethicone (Maalox Plus*) 30 ml PO Q6H PRN PRN Reason: INDIGESTION Albuterol (Ventolin 2.5 Mg/3 Ml Neb.Norma*) 2.5 mg INH [id number] AWAKE PRN PRN Reason: sob/wheezing Atorvastatin Calcium (Lipitor*) 20 mg PO DAILY [facility] Last Admin: 06/23/18 08:28 Dose: 20 mg Dextrose (D50w Syringe 50 Ml*) 12.5 gm IV PUSH .FOR FS < 60 - SS PRN PRN Reason: FS < 60 Docusate Sodium (Colace Cap*) 200 mg PO BID [facility] Last Admin: 06/23/18 08:57 Dose: Not Given Lactated Ringer's (Lactated Ringers 1000 Ml Bag*) 1,000 mls @ 125 mls/hr IV PER RATE [facility] Insulin Human Lispro (Humalog*) 0 units SUBCUT ACHS [facility]; Protocol Last Admin: 06/23/18 17:18 Dose: 2 units Levetiracetam (Keppra Tab*) 500 mg PO BID [facility] Last Admin: 06/23/18 08:27 Dose: 500 mg Lorazepam (Ativan Inj*) 1 mg IV PUSH Q6H PRN PRN Reason: ANXIETY Magnesium Hydroxide (Milk Of Magnesia Liq*) 30 ml PO Q4H PRN PRN Reason: CONSTIPATION Meclizine HCl (Antivert Tab*) 12.5 mg PO Q12HR PRN PRN Reason: DIZZINESS Nifedipine (Procardia Xl Tab*) 90 mg PO DAILY [facility] Last Admin: 06/23/18 08:30 Dose: 90 mg Omeprazole (Prilosec Cap*) 40 mg PO DAILY [facility] Ondansetron HCl (Zofran Inj*) 4 mg IV Q4H PRN PRN Reason: NAUSEA/VOMITING Oxycodone/Acetaminophen (Percocet 5/325 Tab*) 1 tab PO Q4H PRN PRN Reason: Pain Prednisone (Deltasone Tab*) 5 mg PO DAILY [facility] Last Admin: 06/23/18 08:29 Dose: 5 mg Vital Signs - 8 hr 06/23/18 06/23/18 06/23/18 09:52 12:01 15:23 Temperature 99.3 F 98.2 F Pulse Rate 71 83 Respiratory 17 18 24 Rate Blood Pressure 140/50 145/45 (mmHg) O2 Sat by Pulse 100 100 Oximetry Oxygen Devices in Use Now: OxyMask Result Diagrams: 06/23/18 12:06 06/23/18 05:35 Microbiology and Other Data: Microbiology 06/18/18 21:10 Urine Culture - Final Urine 06/18/18 15:05 Nasal Screen MRSA (PCR) - Final Nasal Mrsa Not Detected Assess/Plan/Problems-Billing Assessment: - Patient Problems (1) GI bleed Current Visit: Yes Status: Acute Code(s): K92.2 - GASTROINTESTINAL HEMORRHAGE, UNSPECIFIED SNOMED Code(s): 38166122 Comment: -No significant elevation of BUN for the last 3 days and has history of CKD; elevation initially was thought to be due to acute on chronic renal failure thought to be exacerbated by her recent seizures and diagnosis of PE -Possibly LGIB---discussed case with Dr. Schaffer and given multiple comorbidities, unlikely to be recommended either/both EGD and/or Colonoscopy; appreciate help and advise -Repeat H&H at 1PM showed slight decrease from AM labs but could also mean pt has not sufficiently equilibrated yet -Discussed case with Dr. Be for possibility of Lillie/IVC filter placementpt scheduled for procedure tomorrow; appreciate help and advise -Discussed above with 3 family members---her 2 brothers Arsenio and Timmy who both in the end declined to be her health power of intervention specialist due to some complicated family dynamics; however, her niece Juliana Naylor, now stepped up to be the patient voice and advocate and updated her of above. Informed that she will likely to get another call from Dr. Be prior to planned procedure for official consent. Juliana Naylor can be contacted at: [phone]. Pts family aware that PE might get worse without anticoagulation, however, Lillie filter is recommended to prevent re-thrombus of known LLE DVT which is expensive -Despite INR being subtherapeutic today at 1.89, will give 2.5 mg PO of Vitamin K x1 in preparation for tomorrows procedure. Will D/C daily INRs and will re- check INR at 6 AM in preparation for filter placement and to transfuse with FFPs if supratherapeutic prior to planned procedure if in therapeutic range -D/C Lovenox and Warfarin---last dose of Lovenox was this AMd/w family and Dr. Be -Recheck H&H at 9 PM; Type and screen ordered (2) Pulmonary embolism Current Visit: Yes Status: Acute Code(s): I26.99 - OTHER PULMONARY EMBOLISM WITHOUT ACUTE COR PULMONALE SNOMED Code(s): 00419524 Comment: #with extensive LLE DVT: -V/Q scan shows high probability PE -Discussed risks and benefits with Dr. Olson and Shila and pt -Spoke with Dr. Fuchs regarding concern for resolving hematoma in right temporal lobe, per risks and benefits analysis, Dr. Fuchs prefers full dose anticoagulation -Continue Lovenox SQ 1mg/kg BID and Coumadin -INR: 1.89 (from 1.40, 1.11, 1.10) (3) Shaking Current Visit: Yes Status: Acute Code(s): R25.1 - TREMOR, UNSPECIFIED SNOMED Code(s): 72937429 Comment: -Likely due to complex partial seizure with secondary generalization due to recent debulking-resection, with evacuation of post-procedural hematoma -Radiological W/U does not suggest increased ICP in comparison to previous -D/W Dr. Olson: EEG ordered and Keppra orderedF/U with Dr. Roman in 4-6 weeks in outpt -EEG: No epileptiform changes, however, is abnormal due to presence of ocassional, intermittent paroxysms of right frontal slowing and rare diffuse slowing of background (4) Chest pain Current Visit: Yes Status: Acute Code(s): R07.9 - CHEST PAIN, UNSPECIFIED SNOMED Code(s): 57876616 Comment: -Resolved -Likely due to PE, hence, with mildly elevated troponins (5) HTN (hypertension) Current Visit: No Status: Chronic Code(s): I10 - ESSENTIAL (PRIMARY) HYPERTENSION SNOMED Code(s): 78406532 Comment: -Continue Losartan (6) Diabetes Current Visit: No Status: Chronic Code(s): E11.9 - TYPE 2 DIABETES MELLITUS WITHOUT COMPLICATIONS SNOMED Code(s): 68307202 Comment: -Continue FS and Insulin SS (7) DVT prophylaxis Current Visit: No Status: Acute Code(s): QAI6767 - SNOMED Code(s): 032033454 Comment: -Please see above discussion Status and Disposition: -Please see above discussion
--- NOTE | 2018-06-23 19:02 | CONS ---
CC: Dr. Shin * CONSULTATION REPORT: DATE OF CONSULT: 06/23/18 REQUESTING PHYSICIAN: Dr. Rodriguez. INDICATION: Melena. NARRATIVE: Mrs. Mayer is a pleasant 82-year-old female, who recently underwent brain surgery for glioblastoma multiforme, developed postoperative bleeding, had to go back to the OR and then was brought into the emergency room a day or 2 ago with presumed seizures. She denies any GI symptoms at all until this morning when her nurse noted 2 black stools. Yesterday, she was having brown stools. She denies any history of GI bleeding. No nonsteroidals. She is on prednisone. She was started on anticoagulation for PE and is currently going to get a [place] filter given her risk for anticoagulation. She feels fine at this point. She denies any nausea, vomiting. No abdominal pain. She has not had any further bowel movements since this morning. PAST MEDICAL HISTORY: Significant for type 2 diabetes, hypertension, hyperlipidemia, chronic kidney disease, anemia, restless legs, small bowel obstruction, diverticulosis. PAST SURGICAL HISTORY: Includes partial colectomy due to diverticulitis, ventral hernia repair, knee replacements, right parietal craniotomy with tumor debulking. CURRENT MEDICATIONS: Upon admission include: 1. Zocor. 2. Acetaminophen. 3. Colace. 4. Insulin. 5. Meclizine. 6. Procardia. 7. Zofran. ALLERGIES: None. FAMILY HISTORY: Coronary artery disease and kidney disease. SOCIAL HISTORY: Denies any tobacco or alcohol. PHYSICAL EXAM: Vital signs are stable. Temperature is 99.3, blood pressure is 140/50, pulse is 71, O2 sat is 100%, respiratory rate of 18. General: Chronically ill-appearing female, in no apparent distress. Alert, oriented, pleasant, and fluent. HEENT: Mucous membranes are moist without lesions, ulcers, or exudate. Neck is supple. Trachea is midline. Head is normocephalic , atraumatic. She does have sutures in place from her previous surgery. Skin is warm and dry. Abdomen: Positive bowel sounds. Soft, nontender, nondistended. No hepatosplenomegaly, masses, rebound, or guarding. Heart: Regular rate and rhythm. Lungs: Clear to auscultation. LABORATORY DATA: Labs of note, her hemoglobin is 8.1, it was 8.5, 8.6, 8.3, 8.9 , 8.6; platelets of 206. Her INR is 1.9 and climbing. Creatinine is 1.5, BUN of 24. ASSESSMENT AND PLAN: This is a pleasant 82-year-old female with glioblastoma multiforme surgery with resulting bleed, who has a pulmonary embolism, who cannot be started on anticoagulation because of her brain surgery and melena now. I do not want to clark right into endoscopy right now. She is not having any further stools. Her BUN has not gone up. This may be all secondary to her anticoagulation. I discussed with her and her brother watchful waiting at this point versus doing a procedure such as an EGD immediately. They are understanding and agreeable with holding off and getting some more data, namely more CBCs. Given the fact that she is completely asymptomatic, her vital signs are stable, they would rather pursue watchful waiting than aggressive treatment at this point. I think that that is very reasonable. We will get some more blood work and follow along. [id number]/[facility] [place] #: [id number] NALINI
[2018-06-24 00:23] LABS: ABS Basophils 0 10^3/ul (0-0.2); ABS Eosinophils 0.1 10^3/ul (0-0.6); ABS Lymphocytes 2.4 10^3/ul (1.0-4.8); ABS Monocytes 0.7 10^3/ul (0-0.8); ABS Nucleated RBC 0 10^3/ul; Eosinophil % 0.9 % (0-6); Hematocrit 26 % (35-47); Hemoglobin 8.5 g/dl (12.0-16.0); Lymphocyte % 33.1 % (25-47); Mean Corpuscular HGB Conc 32 g/dl (31-36); Mean Corpuscular Hemoglobin 27 pg (27-31); Mean Corpuscular Volume 84 fL (80-97); Mean Platelet Volume 10.6 um3 (7.4-10.4); Nucleated Red Blood Cells % 0.1; Platelet Count 209 10^3/ul (150-450); Red Blood Count 3.12 10^6/ul (4.00-5.40); Red Cell Distribution Width 17 % (10.5-15); White Blood Count 7.2 10^3/ul (3.5-10.8)
--- NOTE | 2018-06-24 01:48 | PN ---
Progress Note - Progress Note Date of Service: 06/24/18 Note: H/H checked 30 minutes after completion of 1 unit of PRBCs. Slight increase in H/H. No further bleeding episodes. Will hold off further transfusion at this time.
[2018-06-24 05:53] LABS: Hematocrit 26 % (35-47); Hemoglobin 8.6 g/dl (12.0-16.0); Mean Corpuscular HGB Conc 33 g/dl (31-36); Mean Corpuscular Hemoglobin 28 pg (27-31); Mean Corpuscular Volume 84 fL (80-97); Mean Platelet Volume 10.9 um3 (7.4-10.4); Platelet Count 214 10^3/ul (150-450); Red Blood Count 3.13 10^6/ul (4.00-5.40); Red Cell Distribution Width 16 % (10.5-15); White Blood Count 6.5 10^3/ul (3.5-10.8)
[2018-06-24 06:07] LABS: EGFR Non-African American 46.9 (>60)
[2018-06-24] MEDS: Insulin LISPRO* 1 UNITS UNIT SUBCUT SCH ×3 (08:18→18:00)
[2018-06-24] MEDS: levETIRAcetam TAB* 500 MG PO SCH ×2 (08:27→21:44)
[2018-06-24] MEDS: Atorvastatin* 20 MG TAB PO SCH (08:27)
[2018-06-24] MEDS: Docusate CAP* 100 MG PO SCH ×2 (08:30→21:45)
[2018-06-24] MEDS: NIFEdipine ER TAB* 30 MG PO SCH (08:31)
[2018-06-24] MEDS: predniSONE TAB* 5 MG PO SCH (08:32)
[2018-06-24] MEDS ORDERED: Omeprazole CAP* 20 MG PO SCH (09:00)
[2018-06-24 09:54] LABS: INR 1.29 (0.77-1.02)
--- NOTE | 2018-06-24 10:42 | PN ---
Progress Note - Progress Note Date of Service: 06/24/18 SOAP: Subjective: Pt seen and chart reviewed. Case d/w hospitalist. extensive DVT, PE, now with GI bleed Objective: a and o x3 s/p craniotomy Groin: palp pulses CT A/P reviewed, IVC nl caliber and anatomy INR 1.29 Assessment: dvt, PE, GI bleed Plan: Insertion of inferior vena cava filter R/B/A discussed with pt, and plan to d/w pt's brother.
[2018-06-24] MEDS ORDERED: Lidocaine 1% INJ* 10 MG/ML 30 ML SDV ONE (12:28)
[2018-06-24] MEDS ORDERED: Heparin 2 UNITS/ML IVPREMIX* 1,000 ML IV ONE (12:31)
[2018-06-24] MEDS ORDERED: Iohexol 180 (CONTRAST) 10 ML SDV IV ONE (13:00)
[2018-06-24] MEDS ORDERED: fentaNYL* 50 MCG/ML 2 ML VIAL (100 MCG VIAL) ONE (13:31)
[2018-06-24] MEDS ORDERED: Propofol* 10 MG/ML 20 ML BTL IV PUSH ONE (13:51)
--- NOTE | 2018-06-24 14:10 | BRIEFOPN ---
Brief Operative Note - Surgery Procedures: Procedures Pre-OP Diagnoses: DVT, PE, gi bleed Post-op Diagnosis: same Procedure: insertion of IVCF Surgeon: [place] Asst: none Anethesia: local MAC EBL: minimal IVF: crystalloid Specimen: none Drains: none
[2018-06-24] MEDS ORDERED: fentaNYL* 50 MCG/ML 2 ML VIAL (100 MCG VIAL) IV PRN (14:15)
[2018-06-24] MEDS ORDERED: Naloxone* 0.4 MG/ML 1 ML VIAL IV PRN (14:15)
--- NOTE | 2018-06-24 14:50 | RAD ---
INDICATION: IVC filter insertion, fluoroscopic guidance. COMPARISON: Correlation is made with a prior venous duplex sonogram from June 23, 2018. TECHNIQUE: 2 minutes and 25 seconds of intermittent fluoroscopic guidance were provided and 5 spot films of the pelvis and lower lumbar spine were obtained in the operating room. In addition 2 cine clips were obtained. FINDINGS: The films demonstrate placement of a filter over a guidewire within the inferior vena cava. IMPRESSION: INTRAOPERATIVE CONTROL FILMS. CPT II Codes: G9500
[2018-06-24 16:42] LABS: ABS Basophils 0.1 10^3/ul (0-0.2); ABS Eosinophils 0 10^3/ul (0-0.6); ABS Lymphocytes 1.7 10^3/ul (1.0-4.8); ABS Monocytes 0.5 10^3/ul (0-0.8); ABS Neutrophils 4.2 10^3/ul (1.5-7.7); ABS Nucleated RBC 0 10^3/ul; Eosinophil % 0.4 % (0-6); Hematocrit 30 % (35-47); Hemoglobin 9.8 g/dl (12.0-16.0); Mean Corpuscular HGB Conc 32 g/dl (31-36); Mean Corpuscular Hemoglobin 27 pg (27-31); Mean Corpuscular Volume 85 fL (80-97); Mean Platelet Volume 10.3 um3 (7.4-10.4); Nucleated Red Blood Cells % 0.1; Platelet Count 206 10^3/ul (150-450); Red Blood Count 3.58 10^6/ul (4.00-5.40); Red Cell Distribution Width 17 % (10.5-15); White Blood Count 6.5 10^3/ul (3.5-10.8)
--- NOTE | 2018-06-24 19:47 | PN ---
Subjective Date of Service: 06/24/18 Interval History: Pt seen and examined. Meds and labs reviewed. Saw pt this AM and appreciate Dr. Meyer help. Spoke with Juliana about the procedure today and clarified that the surgery that was done today is really more of a procedure for placement of IVC filter. CC: Melenic stools ROS: Denied GRAY/dizziness, F/C, N/V, CP, SOB, increased cough, sputum production , abd pain, diarrhea, constipation, dysuria, myalgias, arthralgias, throat pain , and new skin lesions. The rest of the 14 point ROS are unremarkable. PHYSICAL EXAM: GEN APPEARANCE: Awake, not in acute distress HEENT: NC/AT, PERRLA, moist oral mucosa, (-) throat erythema NECK: Soft, supple, (-) cervical LAD, (-)JVD HEART: S1S2 WNL, RRR, No MRG CHEST: CTA, BL, GAE, No W/R/R ABD: Soft, ND/NT, NABS 4x Q EXT: No C/C/LLE 2+ edema SKIN: Warm to touch PSYCH: No active psychosis, hallucinations, depression, SI/HI Objective Active Medications: Al Hydrox/Mg Hydrox/Simethicone (Maalox Plus*) 30 ml PO Q6H PRN PRN Reason: INDIGESTION Albuterol (Ventolin 2.5 Mg/3 Ml Neb.Norma*) 2.5 mg INH [id number] AWAKE PRN PRN Reason: sob/wheezing Atorvastatin Calcium (Lipitor*) 20 mg PO DAILY [facility] Last Admin: 06/24/18 08:27 Dose: 20 mg Dextrose (D50w Syringe 50 Ml*) 12.5 gm IV PUSH .FOR FS < 60 - SS PRN PRN Reason: FS < 60 Docusate Sodium (Colace Cap*) 200 mg PO BID [facility] Last Admin: 06/24/18 08:30 Dose: 200 mg Lactated Ringer's (Lactated Ringers 1000 Ml Bag*) 1,000 mls @ 125 mls/hr IV PER RATE [facility] Insulin Human Lispro (Humalog*) 0 units SUBCUT ACHS [facility]; Protocol Last Admin: 06/24/18 18:00 Dose: Not Given Levetiracetam (Keppra Tab*) 500 mg PO BID [facility] Last Admin: 06/24/18 08:27 Dose: 500 mg Lorazepam (Ativan Inj*) 1 mg IV PUSH Q6H PRN PRN Reason: ANXIETY Magnesium Hydroxide (Milk Of Magnesia Liq*) 30 ml PO Q4H PRN PRN Reason: CONSTIPATION Meclizine HCl (Antivert Tab*) 12.5 mg PO Q12HR PRN PRN Reason: DIZZINESS Nifedipine (Procardia Xl Tab*) 90 mg PO DAILY [facility] Last Admin: 06/24/18 08:31 Dose: 90 mg Omeprazole (Prilosec Cap*) 40 mg PO DAILY [facility] Last Admin: 06/24/18 08:29 Dose: 40 mg Ondansetron HCl (Zofran Inj*) 4 mg IV Q4H PRN PRN Reason: NAUSEA/VOMITING Oxycodone/Acetaminophen (Percocet 5/325 Tab*) 1 tab PO Q4H PRN PRN Reason: Pain Prednisone (Deltasone Tab*) 5 mg PO DAILY [facility] Last Admin: 06/24/18 08:32 Dose: 5 mg Vital Signs - 8 hr 06/24/18 06/24/18 06/24/18 14:15 14:20 14:30 Temperature 97.0 F Pulse Rate 68 65 62 Respiratory 18 18 18 Rate Blood Pressure 148/73 142/74 148/64 (mmHg) O2 Sat by Pulse 98 99 99 Oximetry 06/24/18 06/24/18 06/24/18 14:47 15:10 16:09 Temperature 97.1 F 97.7 F Pulse Rate 53 96 57 Respiratory 18 16 18 Rate Blood Pressure 152/63 156/59 124/80 (mmHg) O2 Sat by Pulse 97 99 99 Oximetry Oxygen Devices in Use Now: Nasal Cannula Result Diagrams: 06/24/18 16:04 06/24/18 05:11 Microbiology and Other Data: Microbiology 06/18/18 21:10 Urine Culture - Final Urine 06/18/18 15:05 Nasal Screen MRSA (PCR) - Final Nasal Mrsa Not Detected Assess/Plan/Problems-Billing Assessment: - Patient Problems (1) GI bleed Current Visit: Yes Status: Acute Code(s): K92.2 - GASTROINTESTINAL HEMORRHAGE, UNSPECIFIED SNOMED Code(s): 31360054 Comment: -No significant elevation of BUN for the last 3 days and has history of CKD; elevation initially was thought to be due to acute on chronic renal failure thought to be exacerbated by her recent seizures and diagnosis of PEpossibly LGIB vs slow UGIB -Possibly LGIB---discussed case with Dr. Schaffer and given multiple comorbidities, unlikely to be recommended either/both EGD and/or Colonoscopy; appreciate help and advise -Repeat H&H stable (2) Pulmonary embolism Current Visit: Yes Status: Acute Code(s): I26.99 - OTHER PULMONARY EMBOLISM WITHOUT ACUTE COR PULMONALE SNOMED Code(s): 57188915 Comment: #w/LLE DVT -S/P Lillie filter placement today -V/Q scan shows high probability PE -No anticoagulation given above -Discussed risks and benefits of no anticoagulation with Juliana and clarified that the filter will only protect her from getting any new PE from her LLE known to have extensive DVT. However, any thrombus that have reached her lung has a possibility to increase in size. Juliana understands the balance of risk and benefits that need to be struck. She is aware of very limited options if her current PE grow bigger in size (3) Shaking Current Visit: Yes Status: Acute Code(s): R25.1 - TREMOR, UNSPECIFIED SNOMED Code(s): 89055690 Comment: -Likely due to complex partial seizure with secondary generalization due to recent debulking-resection, with evacuation of post-procedural hematoma -Radiological W/U does not suggest increased ICP in comparison to previous -D/W Dr. Olson: EEG ordered and Keppra orderedF/U with Dr. Roman in 4-6 weeks in outpt -EEG: No epileptiform changes, however, is abnormal due to presence of ocassional, intermittent paroxysms of right frontal slowing and rare diffuse slowing of background (4) Chest pain Current Visit: Yes Status: Acute Code(s): R07.9 - CHEST PAIN, UNSPECIFIED SNOMED Code(s): 75304656 Comment: -Resolved -Likely due to PE, hence, with mildly elevated troponins (5) HTN (hypertension) Current Visit: No Status: Chronic Code(s): I10 - ESSENTIAL (PRIMARY) HYPERTENSION SNOMED Code(s): 19842401 Comment: -Continue Losartan (6) Diabetes Current Visit: No Status: Chronic Code(s): E11.9 - TYPE 2 DIABETES MELLITUS WITHOUT COMPLICATIONS SNOMED Code(s): 38238483 Comment: -Continue FS and Insulin SS (7) DVT prophylaxis Current Visit: No Status: Acute Code(s): JRR7741 - SNOMED Code(s): 829616962 Comment: -Please see above discussion Status and Disposition: -Possible D/C to rehab in 1-2 days if hemodynamically stable with no more S/S of GIB
[2018-06-24] MEDS: Omeprazole CAP* 20 MG PO SCH (21:45)
[2018-06-25] MEDS: Insulin LISPRO* 1 UNITS UNIT SUBCUT SCH ×5 (01:54→21:42)
[2018-06-25 05:22] LABS: ABS Basophils 0.1 10^3/ul (0-0.2); ABS Eosinophils 0.1 10^3/ul (0-0.6); ABS Lymphocytes 1.6 10^3/ul (1.0-4.8); ABS Monocytes 0.6 10^3/ul (0-0.8); ABS Neutrophils 4.5 10^3/ul (1.5-7.7); ABS Nucleated RBC 0 10^3/ul; Eosinophil % 1.4 % (0-6); Hematocrit 27 % (35-47); Hemoglobin 8.8 g/dl (12.0-16.0); Lymphocyte % 23.2 % (25-47); Mean Corpuscular HGB Conc 33 g/dl (31-36); Mean Corpuscular Hemoglobin 27 pg (27-31); Mean Corpuscular Volume 83 fL (80-97); Mean Platelet Volume 10.5 um3 (7.4-10.4); Nucleated Red Blood Cells % 0; Platelet Count 209 10^3/ul (150-450); Red Blood Count 3.22 10^6/ul (4.00-5.40); Red Cell Distribution Width 16 % (10.5-15); White Blood Count 6.9 10^3/ul (3.5-10.8)
[2018-06-25 05:39] LABS: EGFR Non-African American 51.2 (>60)
--- NOTE | 2018-06-25 05:55 | OP ---
AMENDED REPORT NOW INCLUDES DATE OF OPERATION - ESIGNED BEFORE ADJUSTMENTS * CC: [facility]; Dr. Landon Shin * DATE OF OPERATION: 06/24/18 - ROOM #[id number] DATE OF : 33 SURGEON: Ricky Be MD. PRE-OP DIAGNOSES: 1. Deep vein thrombosis. 2. Pulmonary embolism. 3. Gastrointestinal bleed. POST-OP DIAGNOSES: 1. Deep vein thrombosis. 2. Pulmonary embolism. 3. Gastrointestinal bleed. OPERATIVE PROCEDURE: Insertion of an IVC filter femoral delivery and Option Elite retrievable vena cava filter made by [employer] via the right common femoral vein. DESCRIPTION OF PROCEDURE: The patient was identified in the preoperative area. I discussed the case with her and discuss with her niece, healthcare proxy. Went over the risks, benefits, and alternatives of the IV filter including, but not limited to bleeding, infection, need for retrieval, migration of the catheter and failure to prevent PE. The patient was marked, consent signed. She was taken to the operating room, placed on the operating room table in supine position. Gentle sedation was given. The patient's bilateral groins were prepped and draped in the standard surgical fashion. Time out was performed. The left common femoral vein was accessed. The wire inserted under fluoroscopy and it showed to be in the appropriate positioning. The vein was then dilated and the wire removed to be replaced by a longer guidewire without a hook. Once this was inserted and under fluoroscopy noted to be in the appropriate position , we then placed the Option Elite retrievable vena cava filter catheter with its dilator in to the common femoral vein right up to the inferior vena cava. We checked positioning looking throughout the lumbar spine and made our plan for position of the catheter. The dilator was then removed and the catheter placed in the appropriate planned femoral position. The dilator was then utilized for a pusher of the filter through the initial catheter. Once this was pushed up into the appropriate position, we backed out the catheter over the pusher and the IVC filter deployed in the appropriate fashion. It seated well without any angulation. We were then able to take out the wire and pusher and the catheter all in the appropriate fashion, not disrupting the IVC filter placement. Pressure was held at the groin area. Bleeding was negligible. We then placed a Band-Aid at this site. The patient tolerated the procedure well, was transferred to the PACU in stable condition. This catheter is retrievable and should be retrieved at the earliest recognition that it is no longer necessary. This would be if the patient resolves her DVT clots as well as the PE. This could be monitored as an outpatient by her primary physician with followup Duplex. Additionally, Interventional Radiology would be more than happy to follow this patient as an outpatient as they would do the procedure of removal. [id number]/CPS #: [id number] NALINI
[2018-06-25] MEDS: Docusate CAP* 100 MG PO SCH ×2 (08:11→21:41)
[2018-06-25] MEDS: NIFEdipine ER TAB* 30 MG PO SCH (08:20)
[2018-06-25] MEDS: Atorvastatin* 20 MG TAB PO SCH (08:20)
[2018-06-25] MEDS: predniSONE TAB* 5 MG PO SCH (08:21)
[2018-06-25] MEDS: Omeprazole CAP* 20 MG PO SCH ×2 (08:21→21:41)
[2018-06-25] MEDS: levETIRAcetam TAB* 500 MG PO SCH ×2 (08:21→21:41)
--- NOTE | 2018-06-25 11:02 | PN ---
Progress Note - Progress Note Date of Service: 06/25/18 Note: Surgery Progress: S: no c/o re: right groin O: Vital Signs - 8 hr 06/25/18 06/25/18 06/25/18 04:09 04:33 07:30 Temperature 98.3 F 99.0 F Pulse Rate 63 73 Respiratory 22 18 Rate Blood Pressure 148/47 133/67 (mmHg) O2 Sat by Pulse 97 99 100 Oximetry 06/25/18 08:00 Temperature Pulse Rate Respiratory 18 Rate Blood Pressure (mmHg) O2 Sat by Pulse Oximetry Right groin: small spot of bloody drainage on bandaid; soft, nontender; no hematoma; both LEs warm; no sig edema A/P: s/p IVC filter placement w/o complications; further GI w/u and/or future anticoagulation per medicine; surgical f/u prn
--- NOTE | 2018-06-25 18:26 | PN ---
Subjective Date of Service: 06/25/18 Interval History: Patient has no complaints, sates she feels good. No abnormal movements, shortness of breath, chest pain, F/C, abdominal pain, reflux, N/V, dizziness, or other pain. Patient continues to have black stools but with decreasing frequency per the patient. Family History: Unchanged from Admission Social History: Unchanged from Admission Past Medical History: Unchanged from Admission Objective Active Medications: Al Hydrox/Mg Hydrox/Simethicone (Maalox Plus*) 30 ml PO Q6H PRN PRN Reason: INDIGESTION Albuterol (Ventolin 2.5 Mg/3 Ml Neb.Norma*) 2.5 mg INH [id number] AWAKE PRN PRN Reason: sob/wheezing Atorvastatin Calcium (Lipitor*) 20 mg PO DAILY [facility] Last Admin: 06/25/18 08:20 Dose: 20 mg Dextrose (D50w Syringe 50 Ml*) 12.5 gm IV PUSH .FOR FS < 60 - SS PRN PRN Reason: FS < 60 Docusate Sodium (Colace Cap*) 200 mg PO BID [facility] Last Admin: 06/25/18 08:11 Dose: Not Given Lactated Ringer's (Lactated Ringers 1000 Ml Bag*) 1,000 mls @ 125 mls/hr IV PER RATE [facility] Insulin Human Lispro (Humalog*) 0 units SUBCUT ACHS [facility]; Protocol Last Admin: 06/25/18 16:18 Dose: Not Given Levetiracetam (Keppra Tab*) 500 mg PO BID [facility] Last Admin: 06/25/18 08:21 Dose: 500 mg Magnesium Hydroxide (Milk Of Magnquoc Liq*) 30 ml PO Q4H PRN PRN Reason: CONSTIPATION Meclizine HCl (Antivert Tab*) 12.5 mg PO Q12HR PRN PRN Reason: DIZZINESS Nifedipine (Procardia Xl Tab*) 90 mg PO DAILY [facility] Last Admin: 06/25/18 08:20 Dose: 90 mg Omeprazole (Prilosec Cap*) 40 mg PO BID [facility] Last Admin: 06/25/18 08:21 Dose: 40 mg Ondansetron HCl (Zofran Inj*) 4 mg IV Q4H PRN PRN Reason: NAUSEA/VOMITING Last Admin: 06/25/18 12:05 Dose: 4 mg Prednisone (Deltasone Tab*) 5 mg PO DAILY [facility] Last Admin: 06/25/18 08:21 Dose: 5 mg Vital Signs - 8 hr 06/25/18 06/25/18 11:22 15:36 Temperature 98.6 F 98.8 F Pulse Rate 64 74 Respiratory 18 16 Rate Blood Pressure 145/48 137/50 (mmHg) O2 Sat by Pulse 98 95 Oximetry Oxygen Devices in Use Now: Nasal Cannula Appearance: Patient is an 82yo female who appears older than stated age and is sitting in the bed in NAD. Eyes: No Scleral Icterus, PERRLA Ears/Nose/Mouth/Throat: NL Teeth, Lips, Gums, Clear Oropharnyx, Mucous Membranes Moist Neck: NL Appearance and Movements; NL JVP Respiratory: Symmetrical Chest Expansion and Respiratory Effort, Clear to Auscultation Cardiovascular: NL Sounds; No Murmurs; No JVD, RRR, No Edema Abdominal: NL Sounds; No Tenderness; No Distention, No Hepatosplenomegaly Lymphatic: No Cervical Adenopathy Extremities: No Edema, No Clubbing, Cyanosis Skin: No Nodules or Sclerosis, - - Scar on right side of head from previous surgery. Neurological: Alert and Oriented x 3, NL Sensation, NL Muscle Strength and Tone , - - CN II-XII intact. Result Diagrams: 06/25/18 05:07 06/25/18 05:07 Microbiology and Other Data: Microbiology 06/18/18 21:10 Urine Culture - Final Urine 06/18/18 15:05 Nasal Screen MRSA (PCR) - Final Nasal Mrsa Not Detected Assess/Plan/Problems-Billing Assessment: Patient is an 82yo female with a PMH for glioblastoma s/p resection who is in the hospital for sequentially a seizure, Diagnosed PE and GI bleed with insertion of IVC filter and minor decrease in hemoglobin with no symptoms of anemia. - Patient Problems (1) GI bleed Current Visit: Yes Status: Acute Code(s): K92.2 - GASTROINTESTINAL HEMORRHAGE, UNSPECIFIED SNOMED Code(s): 82378863 Comment: Possibly LGIB, discussed case with Dr. Irizarry and given multiple comorbidities , unlikely to be recommended either/both EGD and/or Colonoscopy; appreciate help and advise H/H slightly decreased. Continued melena. Continue to monitor. (2) Chest pain Current Visit: Yes Status: Acute Code(s): R07.9 - CHEST PAIN, UNSPECIFIED SNOMED Code(s): 09743441 Comment: Resolved Likely due to PE (3) Pulmonary embolism Current Visit: Yes Status: Acute Code(s): I26.99 - OTHER PULMONARY EMBOLISM WITHOUT ACUTE COR PULMONALE SNOMED Code(s): 91760502 Comment: W/ LLE DVT S/P Lillie filter placement today V/Q scan shows high probability PE No anticoagulation given above Discussed risks and benefits of no anticoagulation with Juliana and clarified that the filter will only protect her from getting any new PE from her LLE known to have extensive DVT. No increased SOB or tachy. (4) Shaking Current Visit: Yes Status: Acute Code(s): R25.1 - TREMOR, UNSPECIFIED SNOMED Code(s): 30444133 Comment: Likely due to complex partial seizure with secondary generalization due to recent debulking-resection, with evacuation of post-procedural hematoma Radiological W/U does not suggest increased ICP in comparison to previous D/W Dr. Oslon: EEG ordered and Keppra orderedF/U with Dr. Roman in 4-6 weeks in outpt EEG: No epileptiform changes, however, is abnormal due to presence of ocassional , intermittent paroxysms of right frontal slowing and rare diffuse slowing of background (5) Anemia Current Visit: No Status: Acute Code(s): D64.9 - ANEMIA, UNSPECIFIED SNOMED Code(s): 405327078 Comment: Slightly decreased from baseline. Monitor given GI bleed. (6) Brain mass Current Visit: No Status: Acute Code(s): G93.9 - DISORDER OF BRAIN, UNSPECIFIED SNOMED Code(s): 742312097 Comment: s/p crani (05/14) and revision d/t ICH (05/18) Stable, continue low dose steroids. Continue outpatient follow up. Hopeful discharge back to [place] for PT/OT. (7) CKD (chronic kidney disease) Current Visit: No Status: Chronic Code(s): N18.9 - CHRONIC KIDNEY DISEASE, UNSPECIFIED SNOMED Code(s): 581410005 Comment: Stage 3, appears to be around baseline (8) Diabetes Current Visit: No Status: Chronic Code(s): E11.9 - TYPE 2 DIABETES MELLITUS WITHOUT COMPLICATIONS SNOMED Code(s): 71412568 Comment: Continue FS and Insulin SS (9) HTN (hypertension) Current Visit: No Status: Chronic Code(s): I10 - ESSENTIAL (PRIMARY) HYPERTENSION SNOMED Code(s): 48853515 Comment: Continue Losartan (10) Hyperlipidemia Current Visit: No Status: Chronic Code(s): E78.5 - HYPERLIPIDEMIA, UNSPECIFIED SNOMED Code(s): 47251739 Comment: Continue atorvastatin. (11) DVT prophylaxis Current Visit: No Status: Acute Code(s): AYJ0005 - SNOMED Code(s): 956802729 Comment: Please see above discussion Status and Disposition: Possible D/C to rehab in 1-2 days if hemodynamically stable with no more S/S of GIB
[2018-06-26 05:58] LABS: ABS Basophils 0.1 10^3/ul (0-0.2); ABS Eosinophils 0.2 10^3/ul (0-0.6); ABS Lymphocytes 2.1 10^3/ul (1.0-4.8); ABS Monocytes 0.8 10^3/ul (0-0.8); ABS Neutrophils 4.1 10^3/ul (1.5-7.7); ABS Nucleated RBC 0 10^3/ul; Eosinophil % 2.2 % (0-6); Hematocrit 27 % (35-47); Hemoglobin 8.8 g/dl (12.0-16.0); Lymphocyte % 29.1 % (25-47); Mean Corpuscular HGB Conc 33 g/dl (31-36); Mean Corpuscular Hemoglobin 27 pg (27-31); Mean Corpuscular Volume 84 fL (80-97); Mean Platelet Volume 10.3 um3 (7.4-10.4); Nucleated Red Blood Cells % 0; Platelet Count 208 10^3/ul (150-450); Red Blood Count 3.22 10^6/ul (4.00-5.40); Red Cell Distribution Width 17 % (10.5-15); White Blood Count 7.3 10^3/ul (3.5-10.8)
[2018-06-26 06:14] LABS: EGFR Non-African American 41.7 (>60)
[2018-06-26] MEDS: Insulin LISPRO* 1 UNITS UNIT SUBCUT SCH ×4 (07:34→21:15)
[2018-06-26] MEDS: predniSONE TAB* 5 MG PO SCH (09:16)
[2018-06-26] MEDS: NIFEdipine ER TAB* 30 MG PO SCH (09:16)
[2018-06-26] MEDS: levETIRAcetam TAB* 500 MG PO SCH ×2 (09:16→20:40)
[2018-06-26] MEDS: Atorvastatin* 20 MG TAB PO SCH (09:16)
[2018-06-26] MEDS: Omeprazole CAP* 20 MG PO SCH ×2 (09:16→20:40)
[2018-06-26] MEDS: Docusate CAP* 100 MG PO SCH ×2 (10:07→20:39)
--- NOTE | 2018-06-26 17:03 | PN ---
Subjective Date of Service: 06/26/18 Interval History: Patient continues to feel well. Is having continued melena. Denies CP, SOB, N/V , abdominal pain, F/C, dysuria, dizziness, weakness, shaking, hallucinations, or other pain. In good spirits. Family History: Unchanged from Admission Social History: Unchanged from Admission Past Medical History: Unchanged from Admission Objective Active Medications: Al Hydrox/Mg Hydrox/Simethicone (Maalox Plus*) 30 ml PO Q6H PRN PRN Reason: INDIGESTION Albuterol (Ventolin 2.5 Mg/3 Ml Neb.Norma*) 2.5 mg INH [id number] AWAKE PRN PRN Reason: sob/wheezing Atorvastatin Calcium (Lipitor*) 20 mg PO DAILY [facility] Last Admin: 06/26/18 09:16 Dose: 20 mg Dextrose (D50w Syringe 50 Ml*) 12.5 gm IV PUSH .FOR FS < 60 - SS PRN PRN Reason: FS < 60 Docusate Sodium (Colace Cap*) 200 mg PO BID [facility] Last Admin: 06/26/18 10:07 Dose: Not Given Lactated Ringer's (Lactated Ringers 1000 Ml Bag*) 1,000 mls @ 125 mls/hr IV PER RATE [facility] Insulin Human Lispro (Humalog*) 0 units SUBCUT [facility]; Protocol Last Admin: 06/26/18 12:14 Dose: 2 units Levetiracetam (Keppra Tab*) 500 mg PO BID [facility] Last Admin: 06/26/18 09:16 Dose: 500 mg Magnesium Hydroxide (Milk Of Magnesia Liq*) 30 ml PO Q4H PRN PRN Reason: CONSTIPATION Meclizine HCl (Antivert Tab*) 12.5 mg PO Q12HR PRN PRN Reason: DIZZINESS Nifedipine (Procardia Xl Tab*) 90 mg PO DAILY [facility] Last Admin: 06/26/18 09:16 Dose: 90 mg Omeprazole (Prilosec Cap*) 40 mg PO BID [facility] Last Admin: 06/26/18 09:16 Dose: 40 mg Ondansetron HCl (Zofran Inj*) 4 mg IV Q4H PRN PRN Reason: NAUSEA/VOMITING Last Admin: 06/25/18 12:05 Dose: 4 mg Prednisone (Deltasone Tab*) 5 mg PO DAILY [facility] Last Admin: 06/26/18 09:16 Dose: 5 mg Vital Signs - 8 hr 06/26/18 06/26/18 11:28 15:04 Temperature 97.2 F Pulse Rate 58 79 Respiratory 20 16 Rate Blood Pressure 126/43 129/61 (mmHg) O2 Sat by Pulse 97 99 Oximetry Oxygen Devices in Use Now: Nasal Cannula Appearance: Patient is an 82yo female who appears older than stated age and is sitting in the bed in NAD. Eyes: No Scleral Icterus, PERRLA Ears/Nose/Mouth/Throat: NL Teeth, Lips, Gums, Clear Oropharnyx, Mucous Membranes Moist Neck: NL Appearance and Movements; NL JVP, Trachea Midline Respiratory: Symmetrical Chest Expansion and Respiratory Effort, Clear to Auscultation Cardiovascular: NL Sounds; No Murmurs; No JVD, RRR, No Edema Abdominal: NL Sounds; No Tenderness; No Distention, No Hepatosplenomegaly Lymphatic: No Cervical Adenopathy Extremities: No Edema, No Clubbing, Cyanosis Skin: No Nodules or Sclerosis, - - Right sided craniotomy scar. Neurological: Alert and Oriented x 3, NL Sensation, NL Muscle Strength and Tone , - - CN II-XII intact. Result Diagrams: 06/26/18 05:45 06/26/18 05:45 Microbiology and Other Data: Microbiology 06/18/18 21:10 Urine Culture - Final Urine 06/18/18 15:05 Nasal Screen MRSA (PCR) - Final Nasal Mrsa Not Detected Assess/Plan/Problems-Billing Assessment: Patient is an 82yo female with a PMH for glioblastoma s/p resection who is in the hospital for sequentially a seizure, Diagnosed PE and GI bleed with insertion of IVC filter and minor decrease in hemoglobin with no symptoms of anemia. - Patient Problems (1) GI bleed Current Visit: Yes Status: Acute Code(s): K92.2 - GASTROINTESTINAL HEMORRHAGE, UNSPECIFIED SNOMED Code(s): 19634532 Comment: Possibly LGIB, discussed case with Dr. Irizarry and given multiple comorbidities , unlikely to be recommended either/both EGD and/or Colonoscopy; appreciate help and advise H/H stable today. Continued melena. Continue to monitor. (2) Chest pain Current Visit: Yes Status: Acute Code(s): R07.9 - CHEST PAIN, UNSPECIFIED SNOMED Code(s): 00135900 Comment: Resolved Likely due to PE (3) Pulmonary embolism Current Visit: Yes Status: Acute Code(s): I26.99 - OTHER PULMONARY EMBOLISM WITHOUT ACUTE COR PULMONALE SNOMED Code(s): 61748957 Comment: W/ LLE DVT S/P Lillie filter placement today V/Q scan shows high probability PE No anticoagulation given above Discussed risks and benefits of no anticoagulation with Juliana and clarified that the filter will only protect her from getting any new PE from her LLE known to have extensive DVT. No increased SOB or tachy. (4) Shaking Current Visit: Yes Status: Acute Code(s): R25.1 - TREMOR, UNSPECIFIED SNOMED Code(s): 15934284 Comment: Likely due to complex partial seizure with secondary generalization due to recent debulking-resection, with evacuation of post-procedural hematoma Radiological W/U does not suggest increased ICP in comparison to previous D/W Dr. Olson: EEG ordered and Keppra orderedF/U with Dr. Roman in 4-6 weeks in outpt EEG: No epileptiform changes, however, is abnormal due to presence of ocassional , intermittent paroxysms of right frontal slowing and rare diffuse slowing of background (5) Anemia Current Visit: No Status: Acute Code(s): D64.9 - ANEMIA, UNSPECIFIED SNOMED Code(s): 284380149 Comment: Slightly decreased from baseline. Monitor given GI bleed. (6) Brain mass Current Visit: No Status: Acute Code(s): G93.9 - DISORDER OF BRAIN, UNSPECIFIED SNOMED Code(s): 533197734 Comment: s/p crani (05/14) and revision d/t ICH (05/18) Stable, continue low dose steroids. Continue outpatient follow up. Hopeful discharge back to [facility] for PT/OT. (7) CKD (chronic kidney disease) Current Visit: No Status: Chronic Code(s): N18.9 - CHRONIC KIDNEY DISEASE, UNSPECIFIED SNOMED Code(s): 411738807 Comment: Stage 3, appears to be around baseline (8) Diabetes Current Visit: No Status: Chronic Code(s): E11.9 - TYPE 2 DIABETES MELLITUS WITHOUT COMPLICATIONS SNOMED Code(s): 76102814 Comment: Continue FS and Insulin SS Well controlled (9) HTN (hypertension) Current Visit: No Status: Chronic Code(s): I10 - ESSENTIAL (PRIMARY) HYPERTENSION SNOMED Code(s): 11631929 Comment: Continue Losartan Normotensive (10) Hyperlipidemia Current Visit: No Status: Chronic Code(s): E78.5 - HYPERLIPIDEMIA, UNSPECIFIED SNOMED Code(s): 98581080 Comment: Continue atorvastatin. (11) DVT prophylaxis Current Visit: No Status: Acute Code(s): RYD3982 - SNOMED Code(s): 988190866 Comment: Please see above discussion Status and Disposition: D/C to rehab when no continued signs of GI bleed.
[2018-06-27 06:02] LABS: ABS Basophils 0.1 10^3/ul (0-0.2); ABS Eosinophils 0.2 10^3/ul (0-0.6); ABS Lymphocytes 1.9 10^3/ul (1.0-4.8); ABS Monocytes 0.7 10^3/ul (0-0.8); ABS Neutrophils 4.5 10^3/ul (1.5-7.7); ABS Nucleated RBC 0 10^3/ul; Eosinophil % 2.1 % (0-6); Hematocrit 27 % (35-47); Hemoglobin 8.9 g/dl (12.0-16.0); Lymphocyte % 26.2 % (25-47); Mean Corpuscular HGB Conc 33 g/dl (31-36); Mean Corpuscular Hemoglobin 27 pg (27-31); Mean Corpuscular Volume 83 fL (80-97); Mean Platelet Volume 10.6 um3 (7.4-10.4); Nucleated Red Blood Cells % 0.1; Platelet Count 209 10^3/ul (150-450); Red Blood Count 3.29 10^6/ul (4.00-5.40); Red Cell Distribution Width 17 % (10.5-15); White Blood Count 7.4 10^3/ul (3.5-10.8)
[2018-06-27 06:23] LABS: EGFR Non-African American 38.1 (>60)
[2018-06-27] MEDS: Docusate CAP* 100 MG PO SCH (08:17)
[2018-06-27] MEDS: predniSONE TAB* 5 MG PO SCH (08:30)
[2018-06-27] MEDS: levETIRAcetam TAB* 500 MG PO SCH (08:30)
[2018-06-27] MEDS: Omeprazole CAP* 20 MG PO SCH (08:30)
[2018-06-27] MEDS: Atorvastatin* 20 MG TAB PO SCH (08:30)
[2018-06-27] MEDS: NIFEdipine ER TAB* 30 MG PO SCH (08:30)
[2018-06-27] MEDS: Insulin LISPRO* 1 UNITS UNIT SUBCUT SCH ×3 (08:37→12:11)
[2018-06-27 12:52] VITALS: BP 123/34
--- NOTE | 2018-06-30 04:22 | DS ---
CC: Dr. Landon Shin; [facility]; Dr. Nadine Maynard; Dr. Joaquin Marion; Dr. Montserrat Dudley; Dr. Dong Roman of Neurology.* DISCHARGE SUMMARY: DATE OF ADMISSION: 06/18/18 DATE OF DISCHARGE: 06/27/18 PRIMARY CARE PROVIDER: Dr. Landon Shin. PRIMARY NEUROSURGEON: Dr. Nadine Maynard. OUTPATIENT ONCOLOGIST: Dr. Joaquin Marion. MY ATTENDING PHYSICIAN: While in the hospital is Dr. Montserrat Dudley.* ( DICTATED BY RADHA SUTTON) PRIMARY DISCHARGE DIAGNOSES: 1. Complex partial seizure with secondary generalization. 2. Glioblastoma, status post debulking. 3. Pulmonary embolism. 4. Left lower extremity deep venous thrombosis. 5. Presumed upper GI bleed. SECONDARY DISCHARGE DIAGNOSES: 1. Type 2 diabetes mellitus. 2. Hypertension. 3. Hyperlipidemia. 4. Chronic kidney disease. 5. Anemia. 6. Restless leg syndrome. 7. History of small bowel obstruction. 8. History of diverticulitis. 9. History of colon resection. 10. History of ventral hernia repair. 11. Bilateral total knee arthroplasty. STUDIES DONE WHILE IN THE HOSPITAL: Electrocardiogram from 06/18/18 shows normal sinus rhythm, PVCs, T-wave inversions diffusely anteriorly, new since previous examination, rate of 99, QTC of 393, normal axis, S1Q3T3 present. No other abnormalities. Repeat EKG on 06/19/18 shows improvement in T-wave inversions in V5 and V6. No other significant changes. Brain CT from 06/18/18 read as no evidence for acute finding. Right posterior temporal lobe lesion with resolving hemorrhage and edema and less mass effect than present in prior study. Tiny right subdural hematoma unchanged. Chest x-ray from 06/18/18 read as no evidence for acute disease. Transthoracic echocardiogram from 06/18/18 read as mild concentric left ventricular hypertrophy, normal left ventricular systolic function, estimated ejection fraction of 55% to 60% but normal left ventricular diastolic function is observed. Right ventricular global systolic function is mild to moderately reduced. There is mitral regurgitation. Mild tricuspid regurgitation. There is evidence of pulmonary hypertension at 16 mmHg compared to prior echo of 05/09 LVEF without significant change. Right ventricular hypokinesis is new. Aortic insufficiency no longer noted. MR not significantly changed, TR new, and elevated PA pressure newly appreciated. Chest x-ray from 06/20/18 read as potential chronic obstructive pulmonary artery disease. Cardiomegaly without evidence of pulmonary edema. Electroencephalogram from 06/20/18 read as abnormal awake EEG due to the presence of occasional, intermittent paroxysms of right frontal slowing and rare diffuse slowing in the background, these findings are suggestive of underlying mild nonspecific, diffuse encephalopathy with superimposed focal neurologic dysfunction in the right frontal region which can correlate to the patient's structural abnormality from recent tumor resection. There are no epileptiform discharges or electrographic seizures. Nuclear medicine lung scan from 06/20/18 shows high probability for acute pulmonary embolus. Venous Doppler study from 06/23/18 read as extensive deep vein venous thrombosis throughout the left lower extremity in the common femoral vein with involvement of the femoral profunda, femoral popliteal, posterior tibial, and peroneal veins. MEDICATIONS AT DISCHARGE: 1. Simvastatin 40 mg p.o. daily. 2. Tylenol 650 mg p.o. q.4 hours as needed. 3. Docusate 200 mg p.o. b.i.d. 4. Meclizine 12.5 mg p.o. q.12 hours as needed. 5. Nifedipine 90 mg p.o. daily. 6. Zofran ODT 4 mg p.o. q.6 hours as needed. 7. Prednisone 5 mg p.o. daily. 8. Insulin Lispro sliding scale. 9. Albuterol 2.5 mg q.4 hours as needed. 10. Keppra 500 mg p.o. b.i.d. 11. Magnesium hydroxide 30 mL p.o. q.4 hours as needed. 12. Omeprazole 40 mg p.o. b.i.d. New Medications on discharge: 1. Albuterol. 2. Keppra. 3. Magnesium. 4. Omeprazole. Medications Discontinued on Discharge: None. HOSPITAL COURSE: This is a brief summary of the patient's presentation. For more details, please see history and physical from RADHA Covington from . In brief, the patient is an 82-year-old female with past medical history significant for the above, who was recently admitted to this institution in mid April for craniotomy with debulking and had a postoperative intracranial hemorrhage that required revision with almost a month-long hospital stay. The patient was discharged to [facility] for subacute rehab on 05/29/18. She had been doing well when on the day of admission she sat up on the edge of the bed and did have shaking in both hands that lasted for approximately 2 minutes on 2 separate occasions. The patient also had hallucinations of people running up and down arches around [facility] and these made her very afraid. The patient was admitted to the hospital for concern for seizure activity. The patient was seen in consultation by Dr. Paz Olson of Neurology two days after her admission, on 06/20/18. The patient had no evidence of increased intracranial pressure. The patient had several episodes of brief chest pain over the course of the two days preceding her admission. Patient was seen in consultation by Dr. Paz Olson as above who believe these represented complex partial seizures with secondary generalization. The patient with her episodes of handshaking also had 2 minutes of staring and tremor in her bilateral upper extremities. On waking up became nauseated and dizzy. The patient had been having hallucinations for approximately 2 weeks before her admission. The patient was started on Keppra 500 mg p.o. b.i.d. and had no further episodes of shaking throughout her hospitalization. The patient had nuclear medicine lung scan which showed high probability for acute PE. The patient was cleared for full anticoagulation by her neurosurgeon, Dr. Fucsh. The patient was started on Lovenox subcu 1 mg/ kg b.i.d. and was started on Coumadin. The patient was continued on Lovenox and heparin. The patient's INR increased slowly. The patient had no other complications until on 06/22/18. On 06/23/18, the patient began to have melenic stools. The patient was seen in consultation by Dr. Kane Irizarry of GI who did not recommend endoscopy at this time due to complex medical condition. The patient was started on omeprazole 40 mg b.i.d. The patient's Lovenox and heparin were stopped. The patient was given vitamin K to reverse her INR for her anticoagulation. The patient's hemoglobin stayed relatively stable throughout her hospitalization trending down to the low of 8.1 on increasing to 8.6 on 06/24/18 after 1 unit of packed red blood cells. Due to large DVT and risk for continued embolization, the patient was evaluated and a candidate for an IVC filter, which was placed on 06/24/[address] Ricky Be of Surgery with no complications after the procedure. The patient continued to have black stools for several days after this on 06/24/18, 06/25/18, 06/26/18, 06/27/18, but stopped having bowel movements on 06/27/18 and had increased brown material and form to her bowel movements. On 06/26/18, the patient's hemoglobin stayed stable at approximately 8.8 and increased to 8.9 on 06/27/18. The patient initially on her presentation had an elevated troponin of 0.19, which was trended down. The patient had negative urine culture. The patient had positive stool occult blood. The patient initially had an elevated white blood cell count, which decreased and stayed normal throughout her hospitalization. The patient had an increased creatinine at 1.66 on admission, which decreased to one point to low of 1.03 and stayed relatively stable around that range which is approximately her baseline. The patient had no other complications or complaints and was stable for discharge back to [facility] on for continued physical therapy and occupational therapy. PHYSICAL EXAMINATION ON THE DAY OF DISCHARGE: General: The patient is an 82- year- old female who appears stated age, has a large craniotomy scar on the right side of her head. Vital Signs: At the time of evaluation, temperature 97.9, pulse rate 65, respiratory rate 20, oxygen saturation 99% on 2 liters, blood pressure 137/50. HEENT: Head normocephalic and atraumatic. Sclerae anicteric. No conjunctival injection. Nasal mucosa moist. Oral mucosa moist. No pharyngeal erythema, discharge, or exudate. Neck: Supple and nontender. No lymphadenopathy. No carotid bruits auscultated. No JVD. Cardiac: Regular, rate, and rhythm. No clicks, murmurs, gallops, or rubs. Pulses are 2+ in the bilateral dorsalis pedis, posterior tibialis, and radial areas. Respiratory: Clear to auscultation bilaterally. No wheezes, rales, or rhonchi. Good air exchange bilaterally. Abdomen: Soft, nontender, and nondistended, obese. Bowel sounds present, normoactive in all 4 quadrants. No hepatosplenomegaly. No abdominal bruits auscultated. No hepatojugular reflux. Genitourinary: No suprapubic or CVA tenderness. Skin: Craniotomy scars as above. No signs of infection. No other rash. Neuro: Cranial nerves II through XII intact. No focal deficits. Alert and oriented x3. Psychiatric: Pleasant and cooperative. LABORATORY DATA ON THE DAY OF DISCHARGE: White blood cell count of 7.1, hemoglobin 8.9, platelet count 209. Sodium 145, potassium 3.5, chloride 109, carbon-dioxide 30, anion gap 6, BUN 21, creatinine 1.33, glucose 88, calcium 8.9. DISCHARGE PLAN: The patient will be discharged to [facility]. The patient will need close following including with a repeat CBC on 05/12 to ensure no decrease in hemoglobin related GI bleed. The patient will not be on anticoagulation at discharge. The patient will have her IVC filter kept in place for the time being. The patient should follow up with her parcel carrier/oncologist, Dr. Joaquin Marion for ongoing management of her DVT as well as glioblastoma and for appropriate timing of the removal of her IVC filter. The patient should follow up with Dr. Dong Roman of Neurology in approximately 4 weeks from discharge for monitoring of her Keppra and for any further seizure disorder. The patient to followup for routine postoperative care for her cranial and debulking surgery with Dr. Nadine Maynard. The patient should be continued on treatment as above for chronic medical conditions. Considerations should be made for radiation and chemotherapy as per Hematology/Oncology. The patient will be continued on oxygen. The patient is being discharged on 2 liters. The patient should continue physical therapy and occupational therapy with a goal of returning to more independent functional status. The patient should return to the hospital for alarming symptoms such as new syncope, evidence of new GI bleeding, chest pain, severe shortness of breath, or other alarming symptoms. The patient should have a pureed, heart health diet. TIME SPENT: Approximately 75 minutes was spent on this discharge 30 of which was spent [id number] with the patient obtaining physical and discussing treatment plan. RADHA SUTTON [id number]/[facility] #: [id number] NALINI
== END 2018-06-27 16:35 | DRG 40 ==
LOC: ED 08:30 → MEDTELE 12:20 → OBSVTOIN 06-20 11:00
PROVIDERS: ADMIT Hospitalist; ATTEND Internal Medicine
PROC: 4A00X4Z Measurement of Central Nervous Electrical Activity, External Approach (ICD-10-PCS; principal; 2018-06-20)
PROC: 30233N1 Transfusion of Nonautologous Red Blood Cells into Peripheral Vein, Percutaneous Approach (ICD-10-PCS; 2018-06-23)
PROC: 06H03DZ Insertion of Intraluminal Device into Inferior Vena Cava, Percutaneous Approach (ICD-10-PCS; 2018-06-26)
DX: G40.209 Localization-related (focal) (partial) symptomatic epilepsy and epileptic syndromes with complex partial seizures, not intractable, without status epilepticus (principal); I26.99 Other pulmonary embolism without acute cor pulmonale; G93.40 Encephalopathy, unspecified; I82.402 Acute embolism and thrombosis of unspecified deep veins of left lower extremity; K92.1 Melena; E78.00 Pure hypercholesterolemia, unspecified; K57.90 Diverticulosis of intestine, part unspecified, without perforation or abscess without bleeding; M19.042 Primary osteoarthritis, left hand; R62.50 Unspecified lack of expected normal physiological development in childhood; D64.9 Anemia, unspecified; Z96.651 Presence of right artificial knee joint; E86.0 Dehydration; N18.3 Chronic kidney disease, stage 3 (moderate); I27.20 Pulmonary hypertension, unspecified; I08.1 Rheumatic disorders of both mitral and tricuspid valves; K45.8 Other specified abdominal hernia without obstruction or gangrene; E66.9 Obesity, unspecified; E11.22 Type 2 diabetes mellitus with diabetic chronic kidney disease; I12.9 Hypertensive chronic kidney disease with stage 1 through stage 4 chronic kidney disease, or unspecified chronic kidney disease; G25.81 Restless legs syndrome; Z86.73 Personal history of transient ischemic attack (TIA), and cerebral infarction without residual deficits; Z82.49 Family history of ischemic heart disease and other diseases of the circulatory system; Z84.1 Family history of disorders of kidney and ureter; Z68.32 Body mass index [BMI] 32.0-32.9, adult
CPT/HCPCS: 36415; 70450; 71045; 76001; 77300; 77301; 77338; 78582; 80048; 80053; 81003; 81015; 82272; 83605; 83735; 84100; 84443; 84484; 85025; 85027; 85610; 86850; 86900; 86901; 86922; 87086; 87641; 93005; 93306; 95816; 99285; A9270-GY; A9540; A9558; C1880; G8978-GP-CK; G8979-GP-CI; J1644; J1650; J2270; J2405; J2704; J3010; J3475; J7512; P9040

== ENCOUNTER 2018-07-15 11:00 | Inpatient (IN) | payer MEDICARE, MEDICAID ==
--- NOTE | 2018-07-15 12:13 | ED ---
Abdominal Pain/Female - HPI Summary HPI Summary: This patient is an 82 year old F presenting to [facility] with a chief complaint of intermittent abd pain. Since 07/14/18. She denies nausea, a BM today. She endorses BM yesterday, endorses normal urination today. PMHx hernia, SHx hernia repair. Pt receives radiation every day for PMHx glioblastoma, PMHx DM, COPD. She endorses temporal fever of 100.7 F at arrival. - History of Current Complaint Chief Complaint: EDAltMentalStatus Stated Complaint: BLOODWORK NEEDED Time Seen by Provider: 07/15/18 11:26 Hx Obtained From: Patient Onset/Duration: Still Present Timing: Intermittent Episode Lasting Severity Initially: Mild Severity Currently: Mild Pain Intensity: 0 Pain Scale Used: 0-10 Numeric Location: Diffuse - upper Radiates: No Aggravating Factor(s): Nothing Alleviating Factor(s): Nothing Associated Signs and Symptoms: Positive: Fever. Negative: Constipation, Urinary Symptoms, Nausea Allergies/Adverse Reactions: Allergies Allergy/AdvReac Type Severity Reaction Status Date / Time No Known Allergies Allergy Verified 05/08/18 16:22 Home Medications: Home Medications Albuterol 2.5MG/3ML (0.083%)* [Ventolin 2.5 MG/3 ML NEB.DANNY*] 2.5 mg INH Q4HR PRN 07/15/18 [History Confirmed 07/15/18] Insulin GLARGINE(*) [Lantus(*)] 10 units SUBCUT BEDTIME 07/15/18 [History Confirmed 07/15/18] Omeprazole CAP* [Prilosec CAP* 20 MG] 40 mg PO 0900,2100 07/15/18 [History Confirmed 07/15/18] Ondansetron ODT TAB* [Zofran 4 MG Odt TAB*] 4 mg PO Q6H PRN 07/15/18 [History Confirmed 07/15/18] Simvastatin (NF) [Zocor (NF)] 40 mg PO DAILY 07/15/18 [History Confirmed ] levETIRAcetam TAB* [Keppra TAB*] 500 mg PO 0900,2100 07/15/18 [History Confirmed 07/15/18] PMH/Surg Hx/FS Hx/Imm Hx Endocrine/Hematology History: Reports: Hx Anticoagulant Therapy, Hx Diabetes, Hx Anemia Denies: Hx Thyroid Disease, Hx Unexplained Bleeding Cardiovascular History: Reports: Hx Angina, Hx Hypercholesterolemia, Hx Hypertension Denies: Hx Aneurysm, Hx Angioplasty, Hx Auto Implanted Cardiovert Defib, Hx Cardiac Arrest, Hx Cardiomegaly, Hx Congenital Heart Disease, Hx Congestive Heart Failure, Hx Coronary Artery Disease, Hx Deep Vein Thrombosis, Hx Hypotension, Hx Pacemaker/ICD, Hx Peripheral Vascular Disease, Hx Rheumatic Fever, Hx Syncope, Hx Valvular Heart Disease, Other Cardiovascular Problems/ Disorders Respiratory History: Denies: Hx Asthma, Hx Chronic Bronchitis, Hx Chronic Obstructive Pulmonary Disease (COPD), Hx Cystic Fibrosis GI History: Reports: Hx Diverticulosis, Other GI Disorders - ventral hernia, bowel ostruction History: Reports: Hx Kidney Stones - LEFT Denies: Hx Renal Disease Musculoskeletal History: Reports: Hx Arthritis - L hand, Other Musculoskeletal History - right knee replacement Sensory History: Reports: Hx Contacts or Glasses Denies: Hx Cataracts, Hx Eye Injury, Hx Eye Prosthesis, Hx Glaucoma, Hx Macular Degeneration, Hx Vision Problem, Hx Deafness, Hx Hearing Aid, Hx Hearing Problem, Other Sensory Impairments Opthamlomology History: Reports: Hx Contacts or Glasses Denies: Hx Cataracts, Hx Eye Injury, Hx Eye Prosthesis, Hx Glaucoma, Hx Macular Degeneration, Hx Vision Problem, Other Sensory Impairments Neurological History: Reports: Hx CVA, Hx Developmental Delay, Hx Headaches, Hx Seizures, Other Neuro Impairments/Disorders - brain tumor 2017 Denies: Hx Dementia, Hx Migraine, Hx Spinal Cord Injury, Hx Transient Ischemic Attacks (TIA) Psychiatric History: Denies: Hx Anxiety, Hx Attention Deficit Hyperactivity Disorder, Hx Panic Disorder, Hx Bipolar Disorder, Hx Substance Abuse - Cancer History Cancer Type, Location and Year: brain tumor, 2018 Hx Chemotherapy: No Hx Radiation Therapy: No - Surgical History Surgery Procedure, Year, and Place: ABD HERNIA REPAIR. RIGHT KNEE REPLACEMENT, 2014, [facility]. BRAIN TUMOR REMOVED 05/14/2018 WITH REVISIONS (EXTERNAL HUMA ARE REMOVED) Hx Anesthesia Reactions: No - Immunization History Date of Tetanus Vaccine: unknown Infectious Disease History: No Infectious Disease History: Denies: Hx Clostridium Difficile, Hx Hepatitis, Hx Human Immunodeficiency Virus (HIV), Hx Shingles, Hx Tuberculosis, Traveled Outside the [place] in Last 30 Days - Family History Known Family History: Positive: Cardiac Disease - father Hx [place], Renal Disease - mother - Social History Occupation: Retired Alcohol Use: None Substance Use Type: Reports: None Hx Tobacco Use: No Smoking Status (MU): Never Smoked Tobacco Review of Systems Positive: Fever Positive: Abdominal Pain. Negative: Nausea Positive: no symptoms reported All Other Systems Reviewed And Are Negative: Yes Physical Exam - Summary Physical Exam Summary: Appearance: The patient is well-nourished in no acute distress and in no acute pain. Skin: The skin is warm and dry and skin color reflects adequate perfusion. HEENT: The head is normocephalic and atraumatic. The pupils are equal and reactive. The conjunctivae are clear and without drainage. Nares are patent and without drainage. Mouth reveals moist mucous membranes and the throat is without erythema and exudate. The external ears are intact. The ear canals are patent and without drainage. The tympanic membranes are intact. Mucous membranes dry. Neck: The neck is supple with full range of motion and non-tender. There are no carotid bruits. There is no neck vein distension. Respiratory: Chest is non-tender. Lungs are clear to auscultation and breath sounds are symmetrical and equal. Cardiovascular: Heart is regular rate and rhythm. There is no murmur or rub auscultated. There is no peripheral edema and pulses are symmetrical and equal. Abdomen: The abdomen is soft and seems to be tender diffusely in the upper abd. There are normal bowel sounds heard in all four quadrants and there is no organomegaly palpated. Abd wall hernia that is easily reducible. Musculoskeletal: There is no back tenderness noted. Extremities are non-tender with full range of motion. There is good capillary refill. There is no peripheral edema or calf tenderness elicited. Neurological: Patient is alert and oriented to person, place and time, but a little confused. The patient has symmetrical motor strength in all four extremities. Cranial nerves are grossly intact. Deep tendon reflexes are symmetrical and equal in all four extremities. Psychiatric: The patient has an appropriate affect and does not exhibit any anxiety or depression. Triage Information Reviewed: Yes Vital Signs On Initial Exam: Initial Vitals Temp Pulse Resp BP Pulse Ox 100.7 F 103 20 155/76 98 07/15/18 11:14 07/15/18 11:14 07/15/18 11:14 07/15/18 11:14 07/15/18 11:14 Vital Signs Reviewed: Yes Diagnostics - Vital Signs Vital Signs Temp Pulse Resp BP Pulse Ox 07/15/18 11:14 100.7 F 103 20 155/76 98 - Laboratory Result Diagrams: 07/15/18 12:03 07/15/18 12:03 Lab Statement: Any lab studies that have been ordered have been reviewed, and results considered in the medical decision making process. - Radiology CXR Xray Interpretation: No Acute Changes Radiology Interpretation Completed By: Radiologist - No active cardiopulmonary disease. Dr. Patton has reviewed this report. - CT A/P CT Interpretation: Positive (See Comments) CT Interpretation Completed By: Radiologist - 1. STABLE CYSTIC LESIONS OF THE LIVER. 2. THE GALLBLADDER IS HYDROPIC WITHOUT PERICHOLECYSTIC INFLAMMATORY CHANGE. 3. THERE IS DILATATION OF THE COMMON DUCT STENT INTO THE LEVEL OF THE AMPULLA WITH A DIVERTICULUM OF THE SECOND STAGE OF THE DUODENUM. 4. DIVERTICULOSIS. 5. ATHEROSCLEROSIS. 6. MULTIPLE VENTRAL HERNIAS CONTAINING LOOPS OF BOWEL WITHOUT OBSTRUCTION. Dr. Patton has reviewed this report. CTA Chest/thorax CT Interpretation: Positive (See Comments) CT Interpretation Completed By: Radiologist - Filling defect in the left main pulmonary artery, left upper lobe pulmonary artery as well as the right lower lobe pulmonary artery and right upper lobe pulmonary artery consistent with multiple pulmonary embolus. Dr. Patton has reviewed this report. CTA C/A/P CT Interpretation Completed By: Radiologist - EKG 1523 Cardiac Rate: NL - 82 EKG Rhythm: Sinus Rhythm ST Segment: Normal Ectopy: None EKG Comparison: No Significant Change - from 06/19/18 Abdominal Pain Fem Course/Dx - Course Course Of Treatment: His old medicines hospitalist glioblastoma is how she has a GI type: well because of significant anticoagulate her Ms. Mayer was sent over from [facility] with a concern for a fever and altered mental status. She has a known glioblastoma and has suffered from DVTs and PEs and recently had a Mobile filter placed. When I saw her she was complaining only of abdominal pain but could not give a clear history. She had a low-grade fever of 100.7 and was tachycardic on arrival. She was given IV fluids which resolved her tachycardia and she was found to have no leukocytosis. I spoke with the hospitalist who requested a CTA and she was found to have worsening PE' s. The hospitalist spoke with the family as this was a difficult situation. She has an incurable tumor and is incompetent to make medical decisions. She is failing her IVC filter but has a huge risk for anticoagulation for GI bleed. The decision was made to admit her for comfort care. - Diagnoses Provider Diagnoses: Confusion, Pulmonary embolism - Provider Notifications Discussed Care Of Patient With: Ren Rodriguez Time Discussed With Above Provider: 15:10 Instructed by Provider To: Other - will see pt in ED, recommends CTA chest/A/P. Discharge - Sign-Out/Discharge Documenting (check all that apply): Patient Departure - admit - Discharge Plan Condition: Fair Disposition: ADMITTED TO [facility] Referrals: Landon Shin MD [Primary Care Provider] - - Billing Disposition and Condition Condition: FAIR Disposition: Admitted to [facility] - Attestation Statements Document Initiated by Carmina: Yes Documenting Scribe: Armando Medellin Provider For Whom Scribe is Documenting (Include Credential): Dr. Bhargav Ptaton MD Scribe Attestation: Armando Thorpe scribed for Dr. Bhargav Patton MD on 07/15/18 at 1847. Scribe Documentation Reviewed: Yes Provider Attestation: The documentation as recorded by the Armando corona accurately reflects the service I personally performed and the decisions made by me, Dr. Bhargav Patton MD Consult Consult: [id number] Dr. Rodriguez: pending word from pt's brother (permission given [id number]), will admit pt to [facility] for palliative care.
[2018-07-15 12:15] LABS: ABS Basophils 0.1 10^3/ul (0-0.2); ABS Eosinophils 0 10^3/ul (0-0.6); ABS Lymphocytes 0.5 10^3/ul (1.0-4.8); ABS Monocytes 0.8 10^3/ul (0-0.8); ABS Neutrophils 9.1 10^3/ul (1.5-7.7); ABS Nucleated RBC 0 10^3/ul; Eosinophil % 0.1 % (0-6); Hematocrit 30 % (35-47); Hemoglobin 9.8 g/dl (12.0-16.0); Lymphocyte % 4.6 % (25-47); Mean Corpuscular HGB Conc 33 g/dl (31-36); Mean Corpuscular Hemoglobin 28 pg (27-31); Mean Corpuscular Volume 84 fL (80-97); Mean Platelet Volume 11.4 um3 (7.4-10.4); Nucleated Red Blood Cells % 0; Platelet Count 141 10^3/ul (150-450); Red Blood Count 3.55 10^6/ul (4.00-5.40); Red Cell Distribution Width 17 % (10.5-15); White Blood Count 10.5 10^3/ul (3.5-10.8)
[2018-07-15 12:22] LABS: Urine Appearance Cloudy; Urine Blood Negative (Negative); Urine Color Yellow; Urine Ketones Negative (Negative); Urine Protein 1+(30 mg/dL) (Negative); Urine Red Blood Cell Absent (Absent); Urine Specific Gravity 1.013 (1.010-1.030); Urine Urobilinogen Negative (Negative); Urine White Blood Cell Trace(0-5/hpf) (Absent)
[2018-07-15 12:24] LABS: INR 1.13 (0.77-1.02)
[2018-07-15 12:34] LABS: EGFR Non-African American 42.1 (>60)
--- NOTE | 2018-07-15 12:35 | RAD ---
HISTORY: sepsis COMPARISONS: June 18, 2018 VIEWS: 1: frontal portable view of the chest at 12 5:00 PM FINDINGS: LINES AND TUBES: None. CARDIOMEDIASTINAL SILHOUETTE: The cardiomediastinal silhouette is normal for portable technique. PLEURA: The costophrenic angles are sharp. No pleural abnormalities are noted. LUNG PARENCHYMA: The lungs are clear. ABDOMEN: The upper abdomen is clear. There is no subphrenic gas. BONES AND SOFT TISSUES: No bone or soft tissue abnormalities are noted. IMPRESSION: NO ACTIVE CARDIOPULMONARY DISEASE.
[2018-07-15] MEDS ORDERED: NS 0.9% 1000 ML* 1,000 ML IV ONE (12:56)
--- NOTE | 2018-07-15 13:55 | RAD ---
CLINICAL HISTORY: diffuse pain COMPARISON: May 09, 2018 TECHNIQUE: Multiple contiguous axial CT scans were obtained of the abdomen and pelvis, without intravenous contrast enhancement. Coronal and sagittal multiplanar reformations are submitted for review. Oral contrast was not administered. FINDINGS: The study is limited by the lack of intravenous contrast. This limits evaluation of the solid organs and vasculature. LUNG BASES: The lung bases are clear. LIVER: There is low-attenuation lesion of the right lobe of liver superiorly with coarse calcification. There is low-attenuation lesion of the inferior margin of the right lobe of liver consistent with a hepatic cyst. These are stable from the May 09, 2013 examination. BILE DUCTS: The common duct is dilated measuring 2.3 cm in diameter. This extends to the level of the duodenum. There is a 1 cm diverticulum of the second stage of the duodenum. GALLBLADDER: The gallbladder is markedly distended, without pericholecystic inflammatory change. PANCREAS: There is fatty atrophy of the head of the pancreas. SPLEEN: Normal in size and appearance. UPPER GI TRACT: Evaluation of the gastrointestinal tract is limited by incomplete gastric distention. The upper GI tract is unremarkable. SMALL BOWEL AND MESENTERY: The small bowel is normal in contour, course, and caliber. There is no obstruction or dilatation. COLON: There is postsurgical change to the rectum. There is diverticulosis of the colon. ADRENALS: There is mild thickening of the lateral limb of the left adrenal gland, similar to previous examinations. KIDNEYS: There is a simple cyst of the lower pole the left kidney. There is renal cortical parenchymal thinning. There is no hydronephrosis. Vascular calcifications are noted. BLADDER: The bladder is collapsed around a Patel catheter. PELVIC ORGANS: The uterus and adnexa are grossly normal for technique. AORTA: There is calcific atherosclerotic disease of the abdominal aorta and its branches, without aneurysmal dilatation IVC: IVC filter is noted. LYMPH NODES: There is no lymphadenopathy by size criteria. ABDOMINAL WALL: There are multiple ventral hernias containing loops of small bowel and large bowel without obstruction. These are stable from the previous examination. BONES AND SOFT TISSUES: There is diffuse osteopenia. Degenerative changes are noted. OTHER: None IMPRESSION: 1. STABLE CYSTIC LESIONS OF THE LIVER. 2. THE GALLBLADDER IS HYDROPIC WITHOUT PERICHOLECYSTIC INFLAMMATORY CHANGE. 3. THERE IS DILATATION OF THE COMMON DUCT STENT INTO THE LEVEL OF THE AMPULLA WITH A DIVERTICULUM OF THE SECOND STAGE OF THE DUODENUM. 4. DIVERTICULOSIS. 5. ATHEROSCLEROSIS. 6. MULTIPLE VENTRAL HERNIAS CONTAINING LOOPS OF BOWEL WITHOUT OBSTRUCTION
[2018-07-15] MEDS ORDERED: Iodixanol* (CONTRAST) 320 MG/ML 100 ML SDV IV ONE (15:41)
--- NOTE | 2018-07-15 16:30 | RAD ---
Indication: Fever. Administered 84.0 ml of VISAPAQUE 320 mg/ml CTA of the chest performed after IV contrast administration. Coronal and sagittal reconstructed images were obtained. The pulmonary arterial tree is well opacified. Large defect is noted in the left main pulmonary artery extending to the left upper lobe branches and left lower lobe branch of the left pulmonary artery. There may be some clot in the subsegmental arteries of the left lower lobe. There is filling defect in the right lower lobe branch of the pulmonary arteries extending into the segmental arteries. There is also a filling defect in the right upper lobe branch of the right pulmonary artery. Findings are consistent with pulmonary embolus. The aorta demonstrates no evidence of aortic dissection. Atherosclerotic aorta is noted. Heart is of normal size without evidence of pericardial effusion. Trachea and major bronchi appear patent. Atelectasis is noted in the lingula. No pleural fluid is identified. Inferior vena cava filter is in place. IMPRESSION: Filling defect in the left main pulmonary artery, left upper lobe pulmonary artery as well as the right lower lobe pulmonary artery and right upper lobe pulmonary artery consistent with multiple pulmonary embolus.
[2018-07-15] MEDS ORDERED: Ondansetron INJ* 2 MG/ML VIAL IV PRN (18:11)
[2018-07-15] MEDS ORDERED: Dextrose 50% Syringe 50 ML* 25 GM/50 ML SYRINGE IV PUSH PRN (18:11)
[2018-07-15] MEDS ORDERED: Acetaminophen TAB* 325 MG PO PRN (18:11)
[2018-07-15] MEDS ORDERED: Albuterol 2.5 MG/3 ML NEB.SOL* (0.083%) INH PRN (18:14)
--- NOTE | 2018-07-15 20:39 | HP ---
CC: Jarrod; Dr. Marion * HISTORY AND PHYSICAL: DATE OF ADMISSION: 07/15/18 PRIMARY CARE PROVIDER: Jarrod. ATTENDING PHYSICIAN WHILE IN HOSPITAL: Dr. Ren Rodriguez * (report dictated by Charly Blas NP). CHIEF COMPLAINT: 1. Fever. 2. Altered mental status. HISTORY OF PRESENT ILLNESS: Moreno is an 82-year-old female patient, who has a quite extensive history. She recently was here about a month ago and was discharged to [facility], [place]. She was diagnosed with pulmonary embolism. She was started on Lovenox. One day after starting the Lovenox, she developed a significant GI bleed, required endoscopy. She has a history of seizures, glioblastoma, history of DVT as well, history of diabetes, hypertension, hyperlipidemia, CKD, anemia, restless legs syndrome, SBO, and a history of diverticulitis. She has been residing at [facility] [place] and today it was noted by staff that she had a fever of 101, she was acting confused, she was not acting herself. They were concerned that she may be having infection. They touched base with the SOCIAL WORK PROGRAM COORDINATOR there and they decided to send her into the hospital. Initial workup for infection was negative. There was no obvious source. The CTA was pursued and ultimately found that there was a worsening PE. The patient is denying having any chest pain. She is denying having any shortness of breath. She denies any abdominal pain. She denies any nausea. She did state that she vomited yesterday twice. She is denying having any abdominal discomfort. She states that otherwise she is feeling well, but at times she is confused on my exam. Because of the extension of the PEs, we were asked to evaluate for admission. PAST MEDICAL HISTORY: Significant for: 1. PE. 2. History of GI bleed in the setting of Lovenox. 3. Complex seizure. 4. Glioblastoma. 5. DVT. 6. Diabetes. 7. Hypertension. 8. Hyperlipidemia. 9. CKD. 10. Anemia. 11. Restless legs syndrome. 12. SBO. 13. Diverticulitis. PAST SURGICAL HISTORY: The patient has had: 1. Colon resection. 2. Ventral hernia repair. 3. Bilateral total knee replacement. 4. Craniotomy with tumor resection. MEDICATIONS: Home meds include: 1. Keppra 500 mg p.o. twice a day. 2. Zofran 4 mg every 6 hours as needed. 3. Meclizine 12.5 mg p.o. every 12 hours as needed. 4. Milk of mag 30 cc p.o. every 4 hours as needed. 5. Ventolin 2.5 mg inhaled every 4 hours as needed. 6. Tylenol liquid 650 mg p.o. every 4 hours as needed. 7. Lantus 10 units subcu at bedtime. 8. Prednisone 5 mg daily. 9. Nifedipine 90 mg p.o. daily. 10. Colace 200 mg p.o. b.i.d. 11. Zocor 40 mg p.o. daily. 12. Omeprazole 40 mg p.o. b.i.d. ALLERGIES TO MEDICATIONS: No known drug allergies. FAMILY HISTORY: Mother had a history of CKD. Father had a history of NM. SOCIAL HISTORY: She does not smoke. She resides at [facility] [place]. Surrogate decision maker is the patient's family member, Juliana Naylor, and there is a healthcare proxy in the computer also. REVIEW OF SYSTEMS: Again, there is documented fever. She denied having any significant weight change. There is no double vision. She denied having any ear discharge. There was no rhinorrhea. There is no sore throat. No thyroid enlargement. She denied having any chest pain. There is no orthopnea. There was no nocturnal dyspnea. There was no abdominal pain. There was 1 episode of vomiting. No dysuria, no frequency. No seizure, no loss of consciousness. No pruritus and no skin ulcerations. Review of 14 systems was completed, all others negative. PHYSICAL EXAMINATION GENERAL: At this time, Ms. Mayer is an 82-year-old female patient. She appears to be chronically ill-appearing. She is sitting in the ED stretcher. She does not appear to be in any acute distress. VITAL SIGNS: Blood pressure 136/48, pulse 73, respirations were 20, O2 sat 100 % but she was on 2 L, and temperature was 99.4. HEENT: Head: Atraumatic and normocephalic. Eyes: EOMs intact. Sclerae anicteric and not pale. Throat: Oral mucosa appears to be moist. No oropharyngeal erythema. NECK: Supple. LUNGS: Clear to auscultation. No wheezes, rales, or rhonchi. HEART: Sounds S1, S2. Regular rate and rhythm. No murmurs, rubs, or gallops. ABDOMEN: Soft. It was flat, it was nontender. Bowel sounds present. EXTREMITIES: Pulses were 2+ throughout. NEUROLOGICAL: She is awake. She knows she is in the hospital. She knows her name. I asked her what I was concerned about and she said that she knew that I was concerned about blood clots in her chest. She is confused to the month. She thinks it is February. Her speech is clear. Tongue is midline. She had no focal deficits. SKIN: Intact. DIAGNOSTIC STUDIES/LAB DATA: Her labs today revealed a WBC of 10.5, RBC of 3.55, hemoglobin 9.8, hematocrit of 30, platelet count of 141. INR 1.13. Sodium 146, potassium was 3.6, chloride 112, bicarb 29, BUN 25, creatinine 1.22 , glucose 139, lactate 1, calcium 8.9. Total bili 0.6, AST 15, ALT 10, alk phos 54. Troponin 0.05. CRP 106. Albumin of 2.2. Urine showed 1+ protein, trace leukocyte esterase, 1+ bacteria. She had multiple imaging in the ED starting out with CTA chest, impression: Filling defect in the left main pulmonary artery, left upper lobe pulmonary artery as well as the right lower lobe pulmonary artery and the right upper lobe pulmonary artery consistent with multiple pulmonary embolisms. There also appears to be a filling defect in the superior vena cava, which appears to be extending from the right internal jugular vein. She had an abdominal and pelvis CT obtained today, which showed stable cystic lesions of the liver. Gallbladder is hydropic without pericholecystic inflammatory change, dilatation of the common duct, stent into the level of the ampulla with diverticula of the second stage of the duodenum, diverticulosis, atherosclerosis, multiple ventral hernias containing loops of bowel without obstruction. She had a chest x-ray obtained today. No active cardiopulmonary disease. EKG today shows a normal sinus rhythm with rate of 82. No ST elevations or T- wave inversions. Old medical records were reviewed. ASSESSMENT AND PLAN: Ms. Mayer is an 82-year-old female patient coming into the ED today with complaints of fever, altered mental status. On evaluation, she was found to have worsening pulmonary embolisms. We were asked to evaluate for admission. She will be admitted under observation status for: 1. Pulmonary embolisms. Again, she had a V/Q scan done on 06/20/18 that showed perfusion defects in the right basilar area in addition to the smaller subsegmental areas of ventilation/perfusion mismatch. The patient today had fever and worsening altered mental status. I suspect she probably was mildly hypoxic and this was contributing to this confusion along with the fever. Concern here is she cannot undergo anticoagulation. She clearly documented before that she had a significant amount of bleeding requiring endoscopy and requiring stoppage of the blood thinners and despite an IVC filter, she has had recurrence of clots and extension of clots. I discussed at length with the family the treatment options and given her overall state of health, I think her prognosis is poor. The family at this point felt that they would not want to pursue direct thrombectomy or direct thrombin tPA. They would want to pursue hospice and comfort measures given the poor prognosis. I did also touch base with the patient's primary stamp presser/oncologist, Dr. Marion, and he felt this was appropriate. So, I have placed a consult to Palliative Care and hospice to help set up hospice in the outpatient setting. 2. History of gastrointestinal bleed. She is not currently actively bleeding. 3. History of seizure. Continue her Keppra. 4. History of glioblastoma. Because of the altered mental status, I am repeating a CT of the brain. Unfortunately, I will have to wait until the CT contrast load, have to wait 8 hours to get a better image, so I will do that. 5. Diabetes. We will put her on lispro sliding scale. 6. Hypertension. Continue meds as prescribed. 7. Hyperlipidemia. Continue meds as prescribed. 8. Chronic kidney disease. Creatinine is stable. She is getting acetylcysteine that was ordered by my previous attending, Dr. Rodriguez, to protect the kidneys. 9. Anemia. Her H and H are stable. Follow. 10. Restless legs syndrome. Continue meds as prescribed. 11. DVT prophylaxis. She is high risk. I will place her on SCDs and heparin subcu monitoring the H and H closely for any bleeding, but she is at risk for further clots. 12. Code status. She is a DNR/DNI. 13. Fluids, electrolytes, and nutrition. She can have a consistent carb diet. TIME SPENT: On the admission was 90 minutes, greater than half the time was spent [id number] with the patient, the other half time was spent going over the plan of care with the patient's family discussing her poor prognosis and also consulting consultants on the case. I did discuss this with my attending and they are in agreement. CHARLY BLAS, [facility] [id number]/[facility] #: [id number] NALINI
[2018-07-15] MEDS: levETIRAcetam TAB* 500 MG PO SCH (21:28)
[2018-07-15] MEDS: Heparin VIAL(*) 5000 UNITS/ML VIAL (FIVE THOUSAND) SUBCUT SCH (21:30)
[2018-07-15] MEDS: Insulin GLARGINE(*) 1 UNITS UNIT SUBCUT SCH (21:30)
[2018-07-15] MEDS: Omeprazole CAP* 20 MG PO SCH (21:53)
[2018-07-15] MEDS: Docusate CAP* 100 MG PO SCH (21:54)
[2018-07-15] MEDS: Acetylcysteine CAP (RENAL)* 600 MG PO SCH (23:57)
--- NOTE | 2018-07-16 00:59 | PN ---
Progress Note - Progress Note Date of Service: 07/16/18 Note: aerobic & anaerobic blood CXs positive for G- bacilli. Start piperacillin/ tazobactam.
[2018-07-16] MEDS: Piperacillin/Tazobac ADVAN(*) 3.375 GM in NS 0.9% 100 ML* 100 ML IVPB SCH ×3 (01:35→17:39)
[2018-07-16 04:37] LABS: ABS Basophils 0.1 10^3/ul (0-0.2); ABS Eosinophils 0 10^3/ul (0-0.6); ABS Lymphocytes 1.4 10^3/ul (1.0-4.8); ABS Monocytes 1.6 10^3/ul (0-0.8); ABS Nucleated RBC 0 10^3/ul; Hematocrit 28 % (35-47); Hemoglobin 8.9 g/dl (12.0-16.0); Mean Corpuscular HGB Conc 32 g/dl (31-36); Mean Corpuscular Hemoglobin 27 pg (27-31); Mean Corpuscular Volume 84 fL (80-97); Mean Platelet Volume 11.8 um3 (7.4-10.4); Platelet Count 111 10^3/ul (150-450); Red Cell Distribution Width 17 % (10.5-15); White Blood Count 14.2 10^3/ul (3.5-10.8)
[2018-07-16 04:41] LABS: INR 1.29 (0.77-1.02)
[2018-07-16 04:46] LABS: EGFR Non-African American 42.9 (>60)
[2018-07-16 04:58] LABS: ABS Basophils 0.1 10^3/ul (0-0.2); ABS Neutrophils 10.9 10^3/ul (1.5-7.7); Monocytes % 5 % (0-7)
[2018-07-16] MEDS: Heparin VIAL(*) 5000 UNITS/ML VIAL (FIVE THOUSAND) SUBCUT SCH ×3 (05:13→21:21)
--- NOTE | 2018-07-16 08:21 | PN ---
Subjective Date of Service: 07/16/18 Interval History: Pt laying in bed with eyes closed - she awakes easily to voice. She reports she was just seen by Dr. Marion and was able to tell me the details of their conversation which she was able to relay accurately per my conversation with the oncologist. The pt currently denies any pain or SOB. Denies fever/chills. Reports that she is "comfortable". Reports poor appetite this morning. No N/V/D or abdominal pain. Objective Active Medications: Acetaminophen (Tylenol Tab*) 650 mg PO Q4H PRN PRN Reason: FEVER/PAIN Acetylcysteine (Acetylcysteine Cap (Renal)*) 1,200 mg PO BID [facility] Stop: 07/17/18 09:01 Last Admin: 07/15/18 23:57 Dose: 1,200 mg Albuterol (Ventolin 2.5 Mg/3 Ml Neb.Norma*) 2.5 mg INH Q4HR PRN PRN Reason: SHORTNESS OF BREATH Atorvastatin Calcium (Lipitor*) 20 mg PO DAILY [facility] Dextrose (D50w Syringe 50 Ml*) 12.5 gm IV PUSH .FOR FS < 60 - SS PRN PRN Reason: FS < 60 Docusate Sodium (Colace Cap*) 200 mg PO BID [facility] Last Admin: 07/15/18 21:54 Dose: Not Given Heparin Sodium (Porcine) (Heparin Vial(*)) 5,000 units SUBCUT Q8HR [facility] Last Admin: 07/16/18 05:13 Dose: 5,000 units Piperacillin Sod/Tazobactam (Sod 3.375 gm/ Sodium Chloride) 100 mls @ 25 mls/ hr IVPB Q8H [facility] Last Admin: 07/16/18 01:35 Dose: 25 mls/hr Insulin Glargine (Lantus(*)) 10 units SUBCUT BEDTIME [facility] Last Admin: 07/15/18 21:30 Dose: 10 units Insulin Human Lispro (Humalog*) 0 units SUBCUT AC [facility]; Protocol Levetiracetam (Keppra Tab*) 500 mg PO 0900,2100 [facility] Last Admin: 07/15/18 21:28 Dose: 500 mg Nifedipine (Procardia Xl Tab*) 90 mg PO DAILY [facility] Omeprazole (Prilosec Cap*) 40 mg PO BID@0730,1630 [facility] Last Admin: 07/15/18 21:53 Dose: Not Given Ondansetron HCl (Zofran Inj*) 4 mg IV Q6H PRN PRN Reason: NAUSEA Prednisone (Deltasone Tab*) 5 mg PO DAILY [facility] Vital Signs - 8 hr 07/16/18 07/16/18 03:24 03:40 Temperature 97.6 F Pulse Rate 75 Respiratory 20 Rate Blood Pressure 125/50 (mmHg) O2 Sat by Pulse 98 97 Oximetry Oxygen Devices in Use Now: Nasal Cannula Appearance: 82 yo female laying in bed alert and oriented in NAD Eyes: No Scleral Icterus, PERRLA Ears/Nose/Mouth/Throat: NL Teeth, Lips, Gums, Mucous Membranes Moist Neck: NL Appearance and Movements; NL JVP Respiratory: Symmetrical Chest Expansion and Respiratory Effort, Clear to Auscultation Cardiovascular: NL Sounds; No Murmurs; No JVD, RRR, No Edema Abdominal: NL Sounds; No Tenderness; No Distention Extremities: No Edema, No Clubbing, Cyanosis Skin: No Rash or Ulcers, No Nodules or Sclerosis Neurological: Alert and Oriented x 3, NL Sensation, NL Muscle Strength and Tone Lines/Tubes/Other Access: Clean, Dry and Intact Peripheral IV Nutrition: Taking PO's Result Diagrams: 07/16/18 04:15 07/16/18 04:16 Microbiology and Other Data: Microbiology 07/15/18 12:44 Aerobic Blood Culture - Preliminary Blood Venous Anaerobic Blood Culture - Preliminary 07/15/18 12:03 Aerobic Blood Culture - Preliminary Blood Venous Anaerobic Blood Culture - Preliminary Assess/Plan/Problems-Billing Assessment: 82 yo female with complex PMH including recent dx of glioblastoma s/ p resection with multiple recent hospitalizations, dx of PE started on anticoagulation with subsequent GI bleed, IVC filter placed who was sent to [facility] for rehab now returning with fever and AMS found to have bacteremia and worsening PE's. Family has opted for Comfort Care measures. - Patient Problems (1) Fever Comment: - low grad temps noted - Klebsiella pneumoniae positive bacteremia - blood cx + - urinalysis is abnormal - cx pending - continue zosyn - ID to consult tomorrow (2) Bacteremia Comment: - see above (3) Pulmonary embolism Comment: CTA showing multiple PEs which could be increased from prior however prior testing was a VQ scan so may not be a good comparision. Pt is stable and asymptomatic. S/P Lillie filter placement 06/25 No anticoagulation given recent GI appreicate onc/heme input - no recommendation for furthe rtreatment at this point family has opted for comfort care measures and supportive treatment (4) Glioblastoma multiforme Comment: - Right temporal tumor, WHO Grade IV - S/P right temporal craniotomy 05/16 - currently undergoing radiation - appreciate Dr. Parks consult - pt will be set up to finish her last 3-4 radiation treatments. (5) Elevated troponin Comment: - suspect demand ischemia (6) CKD (chronic kidney disease) Comment: Stage 3, appears to be around baseline (7) DVT prophylaxis Comment: HSQ Status and Disposition: OBV. Plan for hospice
[2018-07-16] MEDS: Insulin LISPRO* 1 UNITS UNIT SUBCUT SCH ×3 (08:58→17:39)
[2018-07-16] MEDS: NIFEdipine ER TAB* 30 MG PO SCH (09:25)
[2018-07-16] MEDS: levETIRAcetam TAB* 500 MG PO SCH ×2 (09:26→20:30)
[2018-07-16] MEDS: Omeprazole CAP* 20 MG PO SCH ×2 (09:26→17:39)
[2018-07-16] MEDS: predniSONE TAB* 5 MG PO SCH (09:26)
[2018-07-16] MEDS: Atorvastatin* 20 MG TAB PO SCH (09:26)
[2018-07-16] MEDS: Acetylcysteine CAP (RENAL)* 600 MG PO SCH ×2 (09:26→20:30)
[2018-07-16] MEDS: Docusate CAP* 100 MG PO SCH ×2 (09:27→20:30)
--- NOTE | 2018-07-16 10:03 | RAD ---
HISTORY: ams COMPARISONS: June 18, 2018, MRI dated June 04, 2018 TECHNIQUE: Multiple contiguous axial CT scans were obtained of the head without intravenous contrast. FINDINGS: HEMORRHAGE/INFARCT: There is no hemorrhage or acute infarct. MASSES/SHIFT: There is no mass or shift. EXTRA-AXIAL SPACES: There are no extra-axial fluid collections. SULCI AND VENTRICLES: The sulci and ventricles are normal in size and position for the patient's stated age. CEREBRUM: There is right posterior temporal encephalomalacia consistent with the surgical resection noted on the previous MRI. There is dystrophic calcification at the site of resection. BRAINSTEM: There are no focal parenchymal abnormalities. CEREBELLUM: There are no focal parenchymal abnormalities. VESSELS: The vessels are grossly normal. PARANASAL SINUSES: The paranasal sinuses are clear. ORBITS: The orbits are unremarkable. BONES AND SOFT TISSUE: There is postsurgical change to the skull. OTHER: None IMPRESSION: POST SURGICAL CHANGE TO THE RIGHT TEMPORAL LOBE. NO ACUTE INTRACRANIAL PATHOLOGY.
[2018-07-16] MEDS: Insulin GLARGINE(*) 1 UNITS UNIT SUBCUT SCH (21:21)
--- NOTE | 2018-07-16 21:52 | RADMED ---
RADIATION ONCOLOGY INPATIENT FOLLOWUP NOTE: DATE OF SERVICE: 07/16/18 - ROOM #449 HISTORY: Lizbeth Mayer is an 82-year-old woman with glioblastoma involving the right temporal lobe, status post surgery. She has been receiving a course of hypofractionated adjuvant radiation therapy. She had received 10 out of 15 planned treatments. She is readmitted to the hospital, found to have Klebsiella bacteremia and also demonstration of substantial pulmonary embolism. This was previously identified on a V/Q scan, unclear whether it is truly progressive or subacute as far as I could see. I discussed with her the overall situation and multiple complications and her prognosis with regard to glioblastoma. I reviewed with her the option of continuing radiation therapy as planned and from her initial diagnosis, less aggressive management has been an option for her. She has consistently indicated that she would like to proceed with treatment as appropriate and after discussion today could relay to me her understanding that radiation therapy is for treatment of her brain tumor as well as her desire to continue with radiation therapy. This was also reviewed with Dr. Marion and Lesa Mcdaniel, [facility]. She has planned for her 11th of 15 fractions today and will continue with daily radiation treatment as long as she is medically stable and inclined to continue treatment. She can complete radiation on an inpatient or outpatient basis as appropriate. ADDENDUM 07/18/2018: Patient has decided to discontinue radiation in favor of hospice. [id number]/[facility] #: [id number] [facility]
[2018-07-17] MEDS: Piperacillin/Tazobac ADVAN(*) 3.375 GM in NS 0.9% 100 ML* 100 ML IVPB SCH ×2 (00:11→09:34)
[2018-07-17] MEDS: Heparin VIAL(*) 5000 UNITS/ML VIAL (FIVE THOUSAND) SUBCUT SCH ×3 (05:41→21:03)
[2018-07-17 09:16] LABS: ABS Basophils 0.1 10^3/ul (0-0.2); ABS Eosinophils 0.2 10^3/ul (0-0.6); ABS Lymphocytes 1.5 10^3/ul (1.0-4.8); ABS Monocytes 0.8 10^3/ul (0-0.8); ABS Neutrophils 6.6 10^3/ul (1.5-7.7); ABS Nucleated RBC 0 10^3/ul; Eosinophil % 2.5 % (0-6); Hematocrit 29 % (35-47); Hemoglobin 9.3 g/dl (12.0-16.0); Lymphocyte % 16.4 % (25-47); Mean Corpuscular HGB Conc 32 g/dl (31-36); Mean Corpuscular Hemoglobin 27 pg (27-31); Mean Corpuscular Volume 83 fL (80-97); Mean Platelet Volume 11.4 um3 (7.4-10.4); Nucleated Red Blood Cells % 0; Platelet Count 116 10^3/ul (150-450); Red Blood Count 3.45 10^6/ul (4.00-5.40); Red Cell Distribution Width 17 % (10.5-15); White Blood Count 9.2 10^3/ul (3.5-10.8)
[2018-07-17] MEDS: Insulin LISPRO* 1 UNITS UNIT SUBCUT SCH ×3 (09:22→17:08)
[2018-07-17 09:34] LABS: EGFR Non-African American 41.3 (>60)
[2018-07-17] MEDS: Omeprazole CAP* 20 MG PO SCH ×2 (09:35→17:09)
[2018-07-17] MEDS: Docusate CAP* 100 MG PO SCH ×2 (09:37→21:02)
[2018-07-17] MEDS: Atorvastatin* 20 MG TAB PO SCH (09:38)
[2018-07-17] MEDS: NIFEdipine ER TAB* 30 MG PO SCH (09:38)
[2018-07-17] MEDS: predniSONE TAB* 5 MG PO SCH (09:38)
[2018-07-17] MEDS: levETIRAcetam TAB* 500 MG PO SCH ×2 (09:38→21:03)
[2018-07-17] MEDS: Acetylcysteine CAP (RENAL)* 600 MG PO SCH (09:38)
--- NOTE | 2018-07-17 10:53 | PN ---
Subjective Date of Service: 07/17/18 Interval History: Pt reports she "feels fine" she offers no complaints. She reports good appetite. Denies any abdominal pain. She is able to tell me where she is but doesnt remember why she is here. Objective Active Medications: Acetaminophen (Tylenol Tab*) 650 mg PO Q4H PRN PRN Reason: FEVER/PAIN Albuterol (Ventolin 2.5 Mg/3 Ml Neb.Norma*) 2.5 mg INH Q4HR PRN PRN Reason: SHORTNESS OF BREATH Atorvastatin Calcium (Lipitor*) 20 mg PO DAILY [facility] Last Admin: 07/17/18 09:38 Dose: 20 mg Dextrose (D50w Syringe 50 Ml*) 12.5 gm IV PUSH .FOR FS < 60 - SS PRN PRN Reason: FS < 60 Docusate Sodium (Colace Cap*) 200 mg PO BID [facility] Last Admin: 07/17/18 09:37 Dose: 200 mg Heparin Sodium (Porcine) (Heparin Vial(*)) 5,000 units SUBCUT Q8HR [facility] Last Admin: 07/17/18 05:41 Dose: 5,000 units Piperacillin Sod/Tazobactam (Sod 3.375 gm/ Sodium Chloride) 100 mls @ 25 mls/ hr IVPB Q8H [facility] Last Admin: 07/17/18 09:34 Dose: 25 mls/hr Insulin Glargine (Lantus(*)) 10 units SUBCUT BEDTIME [facility] Last Admin: 07/16/18 21:21 Dose: 10 units Insulin Human Lispro (Humalog*) 0 units SUBCUT AC [facility]; Protocol Last Admin: 07/17/18 09:22 Dose: Not Given Levetiracetam (Keppra Tab*) 500 mg PO 0900,2100 [facility] Last Admin: 07/17/18 09:38 Dose: 500 mg Nifedipine (Procardia Xl Tab*) 90 mg PO DAILY [facility] Last Admin: 07/17/18 09:38 Dose: 90 mg Omeprazole (Prilosec Cap*) 40 mg PO BID@0730,1630 [facility] Last Admin: 07/17/18 09:35 Dose: Not Given Ondansetron HCl (Zofran Inj*) 4 mg IV Q6H PRN PRN Reason: NAUSEA Prednisone (Deltasone Tab*) 5 mg PO DAILY [facility] Last Admin: 07/17/18 09:38 Dose: 5 mg Vital Signs - 8 hr 07/17/18 04:09 Temperature 97.2 F Pulse Rate 68 Respiratory 20 Rate Blood Pressure 127/55 (mmHg) O2 Sat by Pulse 98 Oximetry Oxygen Devices in Use Now: Nasal Cannula Appearance: 82 yo female laying in bed in NAD, A+O Eyes: No Scleral Icterus, PERRLA Ears/Nose/Mouth/Throat: NL Teeth, Lips, Gums, Clear Oropharnyx, Mucous Membranes Moist Neck: NL Appearance and Movements; NL JVP Respiratory: Symmetrical Chest Expansion and Respiratory Effort, Clear to Auscultation Cardiovascular: NL Sounds; No Murmurs; No JVD, RRR, No Edema Abdominal: NL Sounds; No Tenderness; No Distention, - - obese Extremities: No Edema, No Clubbing, Cyanosis Skin: No Rash or Ulcers, No Nodules or Sclerosis Neurological: NL Sensation, NL Muscle Strength and Tone, - - alert & oriented Lines/Tubes/Other Access: Clean, Dry and Intact Peripheral IV Nutrition: Taking PO's Result Diagrams: 07/17/18 09:07 07/17/18 09:07 Microbiology and Other Data: Microbiology 07/15/18 12:44 Aerobic Blood Culture - Preliminary Blood Venous Anaerobic Blood Culture - Preliminary 07/15/18 12:03 Aerobic Blood Culture - Preliminary Blood Venous Anaerobic Blood Culture - Preliminary Assess/Plan/Problems-Billing Assessment: 82 yo female with complex PMH including recent dx of glioblastoma s/ p resection with multiple recent hospitalizations, dx of PE started on anticoagulation with subsequent GI bleed, IVC filter placed who was sent to [facility] for rehab now returning with fever and AMS found to have bacteremia and worsening PE's. Family has opted for Comfort Care measures. - Patient Problems (1) Fever Comment: - afebrile - Klebsiella pneumoniae positive bacteremia - blood cx + - urine cx negative. - CT abdomen showing a dilated GB measuring 2.3 cm?? Plan to obtain GB U/S - ID consult today - recommends Ancef (2) Bacteremia Comment: - see above (3) Pulmonary embolism Comment: CTA showing multiple PEs which could be increased from prior however prior testing was a VQ scan so may not be a good comparision - but is showing increased clot burden in different areas than VQ. Pt is stable and asymptomatic. S/P [place] filter placement 06/25 No anticoagulation given recent GI appreicate onc/heme input - no recommendation for further treatment at this point family has opted for non agressive/comfort measures (4) Glioblastoma multiforme Comment: - Right temporal tumor, WHO Grade IV - S/P right temporal craniotomy 05/16 - currently undergoing radiation - appreciate Dr. Parks and Dr. Nguyen input - pt will be set up to finish her last 3-4 radiation treatments. (5) Elevated troponin Comment: - suspect demand ischemia (6) CKD (chronic kidney disease) Comment: Stage 3, appears to be around baseline (7) DVT prophylaxis Comment: HSQ Status and Disposition: inpatient with bacteremia. Hospice consult pending
--- NOTE | 2018-07-17 16:16 | RAD ---
INDICATION: Distended gallbladder COMPARISON: CTA 2017; CT December 19, 2014. TECHNIQUE: Longitudinal and transverse scans of the right upper quadrant were obtained. Doppler interrogation of the hepatic and portal venous system was performed. FINDINGS: Liver: The liver is mildly enlarged. There is a cystic focus in the inferior right hepatic lobe measuring 2.1 x 2.2 x 2.0 cm. There is a solid lesion in the inferior right hepatic lobe with associated calcifications. This measures 3.5 x 2.6 x 3.8 cm. This represents an indeterminate finding. The liver measures 19 cm in cephalocaudal dimension. Vessels: There is normal hepatic and portal venous flow. Bile ducts: There is intra and extra hepatic ductal dilatation. The common duct measures 1.9 cm. Gallbladder: The gallbladder is distended and there is echogenic material within the gallbladder but there is no flow on Doppler interrogation. This is likely sludge. Pancreas: There is a small cyst in the body/tail the pancreas measuring 2.1 x 1.2 x 1.8 cm. Right kidney: The right kidney is normal in size and echogenicity. There are no masses or calculi. There is no evidence of hydronephrosis. The right kidney measures 10.5 x 5.3 x 5.1 cm. IVC and aorta: The aorta and superior vena cava appear normal. Fluid: There is no ascites. Other: None. IMPRESSION: Mild hepatomegaly. Indeterminate solid lesion in the inferior right hepatic lobe with associated calcification. However, this was also evident on the earlier CT examinations. Distended gallbladder and distended ducts. Suspect sludge/debris within both regions. Probable cyst pancreatic body/tail.
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
[2018-07-17] MEDS: ceFAZolin 1 GM VIAL(*) 1 GM in NS 0.9% 50 ML* 50 ML IVPB SCH (18:11)
--- NOTE | 2018-07-17 18:51 | CONS ---
CONSULTATION REPORT: DATE OF CONSULT: 07/17/18. REQUESTING PROVIDER: Emelyn Mcdaniel NP. CONSULTING SERVICE: Infectious Disease. REASON FOR CONSULTATION: Klebsiella bacteremia. IMPRESSION: 1. Admitted with encephalopathy due to infection, which is improving and was present on admission. 2. Klebsiella pneumoniae in 4/4 blood culture bottles sensitive to everything other than ampicillin. Her fever is improving. Her urine culture was negative while on Zosyn. Urinalysis showed trace leukocyte esterase, but no blood. No white or red cells, so the urinary source seems less likely. She has no focal pain. She has a prosthetic knee which is asymptomatic and it would be unusual to have Gram negative infection there. She was found to have on CT of the abdomen and pelvis a dilated common bile duct about 2 cm with a distended gallbladder without inflammatory changes, however. She does not have a right upper quadrant tenderness, however, Klebsiella does inhabit the biliary tree and so at this point that would be my leading source for the infection. 3. Glioblastoma multiforme, status post craniotomy. 4. Status post right knee arthroplasty. 5. Obesity. 6. Pulmonary embolus at one point an IVC filter, which I am not clear if it is still present. RECOMMENDATIONS: Stop Zosyn, and we will start Ancef 1 g IV every 8 hours and recheck the blood cultures. We will check the right upper quadrant ultrasound to further evaluate biliary tree. HISTORY OF PRESENT ILLNESS: An 82-year-old woman, currently undergoing radiation treatment for a glioblastoma, which was resected in April. She has recently been at [facility] [place] and had diagnosis this spring of pulmonary embolus. She had an IVC filter placed at one point in the setting of postoperative bleeding. She was brought from [facility] [place] with change in mental status and found to be febrile here. Blood cultures taken 02/26 growing Klebsiella pneumoniae. Her urine culture at that time was negative. It does not look like she got the antibiotics at that point. Her urinalysis was as described above. Her LFTs were normal. Today, she says her fevers are gone. She is feeling better. She feels like she does not feel confused. She has no pain. No spine or no joint pain. PAST MEDICAL HISTORY: 1. Pulmonary embolus, treated by IVC filter, May 2018. 2. History of postoperative bleeding while on anticoagulant. 3. Complex seizure. 4. Glioblastoma, treated with resection and radiation. 5. DVT. 6. Type 2 diabetes. 7. Hypertension. 8. Hyperlipidemia. 9. Chronic kidney disease. 10. Anemia. 11. Restless legs syndrome. 12. Small bowel obstruction. 13. Diverticulitis. 14. Status post colectomy. 15. Status post ventral hernia repair. 16. Status post right knee arthroplasty. ALLERGIES: No known drug allergies. MEDICATIONS: 1. Albuterol inhaler. 2. Lipitor. 3. Heparin subcutaneous injection. 4. Glargine. 5. Zosyn 3.375 g every 8 hours. 6. Prednisone 5 mg a day. SOCIAL HISTORY: She lives at [facility] [place]. She is from [place]. She has no travel or sick contacts. FAMILY HISTORY: Mother had chronic kidney disease. Father had OK. REVIEW OF SYSTEMS: All negative except as noted above to 14-point review. PHYSICAL EXAM: Vital Signs: Temperature 36, heart rate 70, respiratory rate 20 , blood pressure 130/55, oxygen saturation 98% on room air. In general, she is awake and not in distress. Neurologic: She is alert, oriented x3. Follows all commands, answers all questions, and moves all her extremities. HEENT: There is no conjunctival hemorrhage. Oropharynx without lesions. Neck: Supple without mass. Lymph Nodes: There is no cervical, supraclavicular, inguinal, axillary or epitrochlear lymphadenopathy. Heart: Regular rate and rhythm without murmurs, rubs or gallops. Lungs: Clear to auscultation bilaterally. Abdomen: Soft, nontender, nondistended. There are bowel sounds present. Skin: There is no rash or splinter hemorrhage. Musculoskeletal: No spine tenderness to palpation or joint synovitis. DIAGNOSTIC STUDIES/LAB DATA: Creatinine 1.2, white blood cell count 9, hemoglobin 9, platelets 116. Please see impression and recommendations as outlined above, which I have discussed with Emelyn Mcdaniel NP. Thank you for asking me to see Ms. Mayer in consultation. [id number]/[facility] #: [id number] NALINI
[2018-07-17] MEDS: Insulin GLARGINE(*) 1 UNITS UNIT SUBCUT SCH (21:03)
[2018-07-18] MEDS: ceFAZolin 1 GM VIAL(*) 1 GM in NS 0.9% 50 ML* 50 ML IVPB SCH ×3 (00:30→18:13)
[2018-07-18] MEDS: Heparin VIAL(*) 5000 UNITS/ML VIAL (FIVE THOUSAND) SUBCUT SCH ×3 (05:04→21:26)
[2018-07-18 06:24] LABS: ABS Basophils 0.1 10^3/ul (0-0.2); ABS Eosinophils 0.2 10^3/ul (0-0.6); ABS Lymphocytes 1.4 10^3/ul (1.0-4.8); ABS Monocytes 0.7 10^3/ul (0-0.8); ABS Nucleated RBC 0 10^3/ul; Eosinophil % 2.5 % (0-6); Hematocrit 27 % (35-47); Hemoglobin 8.9 g/dl (12.0-16.0); Lymphocyte % 18.5 % (25-47); Mean Corpuscular HGB Conc 33 g/dl (31-36); Mean Corpuscular Hemoglobin 27 pg (27-31); Mean Corpuscular Volume 83 fL (80-97); Mean Platelet Volume 12.4 um3 (7.4-10.4); Nucleated Red Blood Cells % 0.1; Platelet Count 114 10^3/ul (150-450); Red Blood Count 3.28 10^6/ul (4.00-5.40); Red Cell Distribution Width 17 % (10.5-15); White Blood Count 7.4 10^3/ul (3.5-10.8)
[2018-07-18 06:40] LABS: EGFR Non-African American 42.5 (>60)
[2018-07-18] MEDS: Insulin LISPRO* 1 UNITS UNIT SUBCUT SCH ×3 (07:59→17:35)
[2018-07-18] MEDS ORDERED: KCL 20 MEQ/100 ML IVPREMIX* 20 MEQ/100 ML BAG IV ONE (10:06)
[2018-07-18] MEDS ORDERED: Potassium Chlor TAB* 20 MEQ TAB.ER PO ONE ×2 (10:06→16:00)
--- NOTE | 2018-07-18 11:39 | RAD ---
Indication: Bacteremia, dilated gallbladder. Image Sequences: Axial T2 fat sat, coronal T2, MRCP images of the biliary system were obtained. Correlation is made with previous sonogram dated July 17, [address] dated July 15, 2018. The gallbladder is dilated. No definite filling defect is noted to suggest gallstones. No pericholecystic fluid or wall thickening is noted. The common bile duct is dilated measuring up to 1.9 cm. There is filling defect in the common duct which is triangular shape and may represent tumefactive sludge. The common duct appears to taper in the pancreatic head. Additional filling defect is noted close to the common hepatic duct measuring 5 mm. A calculus is not excluded. Pancreatic duct is within normal limits. IMPRESSION: No evidence of gallstones are noted. The common duct is dilated measuring up to 2.0 cm with likely tumefactive sludge and choledocholithiasis, although the common duct tapers at the pancreatic head.
[2018-07-18] MEDS: NIFEdipine ER TAB* 30 MG PO SCH (11:56)
[2018-07-18] MEDS: predniSONE TAB* 5 MG PO SCH (11:56)
[2018-07-18] MEDS: levETIRAcetam TAB* 500 MG PO SCH ×2 (11:56→21:26)
[2018-07-18] MEDS: Atorvastatin* 20 MG TAB PO SCH (11:57)
[2018-07-18] MEDS: Omeprazole CAP* 20 MG PO SCH ×2 (11:58→18:23)
[2018-07-18] MEDS: Docusate CAP* 100 MG PO SCH ×2 (11:58→21:25)
--- NOTE | 2018-07-18 12:00 | PN ---
Subjective Date of Service: 07/18/18 Interval History: Ms. Mayer reports feeling well this morning. She is in good spirits and has family at bedside. She reports wanting to continue her last 3 radiation treatments. She reports decreased appetite. States she does not want to return to [facility], but is interested in hospice. She would like to stay in the hospital until she passes. Family History: Unchanged from Admission Social History: Unchanged from Admission Past Medical History: Unchanged from Admission Objective Active Medications: Acetaminophen (Tylenol Tab*) 650 mg PO Q4H PRN Albuterol (Ventolin 2.5 Mg/3 Ml Neb.Norma*) 2.5 mg INH Q4HR PRN Atorvastatin Calcium (Lipitor*) 20 mg PO DAILY LING Dextrose (D50w Syringe 50 Ml*) 12.5 gm IV PUSH .FOR FS < 60 - SS PRN Docusate Sodium (Colace Cap*) 200 mg PO BID LING Heparin Sodium (Porcine) (Heparin Vial(*)) 5,000 units SUBCUT Q8HR LING Cefazolin Sodium 1 gm/ Sodium (Chloride) 50 mls @ 200 mls/hr IVPB Q8H LING Potassium Chloride (Potassium Chloride 20 Meq/100 Ml Ivpremix*) 20 meq in 100 mls @ 50 mls/hr IV ONCE ONE Insulin Glargine (Lantus(*)) 10 units SUBCUT BEDTIME LING Insulin Human Lispro (Humalog*) 0 units SUBCUT AC LING; Protocol Levetiracetam (Keppra Tab*) 500 mg PO 0900,2100 LING Nifedipine (Procardia Xl Tab*) 90 mg PO DAILY LING Omeprazole (Prilosec Cap*) 40 mg PO BID@0730,1630 LING Ondansetron HCl (Zofran Inj*) 4 mg IV Q6H PRN Potassium Chloride (Klor Con Er Tab*) 40 meq PO ONCE ONE Prednisone (Deltasone Tab*) 5 mg PO DAILY LING Vital Signs - 8 hr 07/18/18 07/18/18 04:04 07:37 Temperature 97.8 F 98.0 F Pulse Rate 68 69 Respiratory 16 20 Rate Blood Pressure 147/66 133/61 (mmHg) O2 Sat by Pulse 98 96 Oximetry Oxygen Devices in Use Now: None Appearance: Elderly female laying in bed in NAD. Eyes: No Scleral Icterus, PERRLA Ears/Nose/Mouth/Throat: Mucous Membranes Moist Neck: NL Appearance and Movements; NL JVP, Trachea Midline Respiratory: Symmetrical Chest Expansion and Respiratory Effort, - - Fine crackles in the L base, otherwise clear throughout Cardiovascular: NL Sounds; No Murmurs; No JVD, RRR, No Edema Abdominal: NL Sounds; No Tenderness; No Distention Lymphatic: No Cervical Adenopathy Extremities: No Edema Skin: - - Dry and flaking skin on scalp Neurological: Alert and Oriented x 3 Lines/Tubes/Other Access: Clean, Dry and Intact Peripheral IV Nutrition: Taking PO's Result Diagrams: 07/18/18 05:50 07/18/18 05:49 Assess/Plan/Problems-Billing Assessment: 82 yo female with complex PMH including recent dx of glioblastoma s/ p resection with multiple recent hospitalizations, dx of PE started on anticoagulation with subsequent GI bleed, IVC filter placed who was sent to [facility] for rehab now returning with fever and AMS found to have bacteremia and worsening PEs. - Patient Problems (1) Bacteremia Current Visit: Yes Status: Acute Code(s): R78.81 - BACTEREMIA SNOMED Code( s): 5719490 Comment: - Klebsiella pneumoniae positive bacteremia, 02/26 blood cx + - CT abdomen showing a dilated GB measuring 2.3 - Possible low grade choleangitis - Continue Ancef per ID consult (2) Gallbladder dilatation Current Visit: Yes Status: Acute Code(s): K82.8 - OTHER SPECIFIED DISEASES OF GALLBLADDER SNOMED Code(s): 378758236 Comment: - MRCP today showing dilated common bile duct with sludge and choledocholithiasis - Per ID, this is likely cause for bacteremia (3) Pulmonary embolism Current Visit: Yes Status: Acute Code(s): I26.99 - OTHER PULMONARY EMBOLISM WITHOUT ACUTE COR PULMONALE SNOMED Code(s): 24126918 Comment: - CTA showing multiple PEs which could be increased from prior (prior testing was a VQ scan so may not be a good comparision) but is showing increased clot burden in different areas than VQ - Stable and asymptomatic. 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 Parks and Dr. Nguyen input - 3 more days of radiation, pt agreeable to finishing (6) CKD (chronic kidney disease) Current Visit: Yes Status: Chronic Code(s): N18.9 - CHRONIC KIDNEY DISEASE, UNSPECIFIED SNOMED Code(s): 067044669 Comment: - Stage 3, appears to be around baseline (7) DNR (do not resuscitate) Current Visit: Yes Status: Acute (8) DVT prophylaxis Current Visit: Yes Status: Acute Code(s): BHV5760 - SNOMED Code(s): 424606272 Comment: - Heparin SQ Status and Disposition: Inpatient with bacteremia. Likely d/c back to [facility] at d/c and sign on with hospice when medically stable.
[2018-07-18] MEDS: Insulin GLARGINE(*) 1 UNITS UNIT SUBCUT SCH (21:26)
[2018-07-19] MEDS: ceFAZolin 1 GM VIAL(*) 1 GM in NS 0.9% 50 ML* 50 ML IVPB SCH ×4 (00:43→23:22)
--- NOTE | 2018-07-19 02:00 | CONS ---
MEDICAL ONCOLOGY CONSULTATION NOTE: DATE OF CONSULT: 07/16/18 REASON FOR CONSULT: Glioblastoma multiforme. HISTORY OF PRESENT ILLNESS: Lizbeth Mayer is an 82-year-old female well known to my service and also to Radiation Oncology. She was diagnosed with glioblastoma multiforme involving the right temporal lobe. She underwent surgery on 05/15/18 at which point, a glioblastoma was resected and then was taken back to the operating room 3 days later when she had right temporal intracranial hemorrhage with epidural hematoma. She had a fairly protracted initial hospital course, although subsequently has recovered quite well in terms of significantly improved neurologic function. She was hospitalized until 05/31/18 and then had a brief repeat hospitalization from 06/14/18 to 02/09. Multiple conversations were held initially with both her and with her 2 brothers and decision was also made at that time not to do concurrent Temodar with a question of potential sequential Temodar. She has been residing at [facility] and has, as noted above, recovered reasonably well. She has been receiving a course of radiation therapy with 15 doses planned for a total of 2000 cGy. She received her first 10 doses at that time and then witnessed the first 2 doses of this week. She gives unclear story as to why in any event was found at the time of admission to have high fever and change in mental status associated with this. Temperature was 101 at the [facility]. She was acting more confused and brought to the hospital. During the previous hospitalization in May, she was found to have a significant GI bleed in the setting of Lovenox, which she was on for previous pulmonary embolus. Pulmonary embolus had been diagnosed via V/Q scan showed significant abnormality of the right but no significant findings on the left. During this hospitalization, a CTA was performed, which revealed very extensive pulmonary embolism on the left including involvement of the left main pulmonary artery along with upper lobe branches and lower lobe branches. There was also affecting the right lower lobe. Given her previous significant GI bleed while on anticoagulation, it is not felt safe to be anticoagulated, she does have a filter in place, which has been placed by Dr. Be on 06/24/18. In addition, she has been found to have positive blood cultures with Klebsiella pneumoniae in 4/4 bottles. He was on appropriate antibiotics. At the time of initial admission on 07/15/18, there was a question whether she should just go immediately to palliative care/hospice services. As she became more awake and alert, she elected that she wanted to have any treatment done that would be reasonable, although she did agree to a DNR status. Accordingly, Dr. Orantes of Radiation was consulted and radiation was resumed. She is continued to be treated with antibiotics. 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 Small bowel obstruction, diverticulitis, restless leg syndrome. Status post colon resection for benign lesions, ventral hernia repair, bilateral total knee replacement. MEDICATIONS: At the time of admission was documented in the accompanied history and physical. ALLERGIES: None. FAMILY HISTORY: No malignancies. No clotting or bleeding disorders. SOCIAL HISTORY: She has not been a drinker or smoker. She resides at [facility]. REVIEW OF SYSTEMS: Negative except as discussed above. Denies any significant chest pain or shortness of breath. Denies any frequent abdominal pain. Denies any frequent change in bowel or bladder habits. In general, she reports that she feels quite well. PHYSICAL EXAM: An 82-year-old female in no acute distress. Vital Signs: Stable. Afebrile. HEENT: PERRL. EOMI. No erythema or exudates. No palpable cervical, supraclavicular, or axillary adenopathy. Lungs: Clear. Heart: Regular rate and rhythm without murmurs, rubs, or gallops. Abdomen: Soft, nondistended without masses or organomegaly. Extremities: No clubbing, cyanosis, or edema. Back: No CVA or spinal tenderness. Neurologic Exam: The patient is alert and oriented to hospitalization, name, recognizes me but could not tell me my name. She notes that I help in her medical care. Recognizes why she is in the hospital. She is not oriented to time, year and months. IMPRESSION: An 82-year-old female with glioblastoma multiforme and therefore limited life expectancy at her age and the short course of radiation therapy without likely Temodar, likely 6 months or less. She had 2 other major medical problems at the present time, pulmonary emboli, which were only present on the V/Q scan on the right and now has marked pulmonary emboli on the left recurring in spite of a vena cava filter. 1. Pulmonary emboli includes the left main stem bronchus as well as upper and lower lobe bronchi. Given her poor prognosis and she is not really a candidate for thrombectomy and would certainly not be a candidate for thrombolytic therapy given her recent GI bleed, it was explained to the patient and her family that she may survive with pulmonary emboli, but she also could have worsening pulmonary emboli at any point and to come to cardiopulmonary arrest. 2. History of GI bleeding, not currently bleeding. 3. Extensive Klebsiella, she has been treated with appropriate antibiotics and likely will continue to improve. 4. Glioblastoma, as noted above with ongoing therapy. It is reasonable for her to complete her radiation therapy at least continue to receive it while in the hospital. I am not sure complete it after that. In this situation, she would likely receive a total of 12 or 13 minimum out of the 15 planned radiation treatment, which should be adequate for prophylaxis in the future. If she will elect not to go on hospice service and would survive another month, repeat MRI of the brain would be reasonable. At that time, one could decide whether or not to put her on Temodar. If she and her family were to elect to have hospice services, then would not recommend Temodar and will not repeat an MRI in the future. [id number]/[facility] #: [id number] NALINI
[2018-07-19] MEDS: Heparin VIAL(*) 5000 UNITS/ML VIAL (FIVE THOUSAND) SUBCUT SCH ×3 (05:48→21:58)
[2018-07-19 06:15] LABS: ABS Basophils 0.1 10^3/ul (0-0.2); ABS Eosinophils 0.2 10^3/ul (0-0.6); ABS Lymphocytes 1.9 10^3/ul (1.0-4.8); ABS Monocytes 0.8 10^3/ul (0-0.8); ABS Neutrophils 3.7 10^3/ul (1.5-7.7); ABS Nucleated RBC 0 10^3/ul; Eosinophil % 3.1 % (0-6); Hematocrit 27 % (35-47); Hemoglobin 8.9 g/dl (12.0-16.0); Lymphocyte % 28.3 % (25-47); Mean Corpuscular HGB Conc 32 g/dl (31-36); Mean Corpuscular Hemoglobin 27 pg (27-31); Mean Corpuscular Volume 83 fL (80-97); Mean Platelet Volume 12.3 um3 (7.4-10.4); Nucleated Red Blood Cells % 0.1; Platelet Count 128 10^3/ul (150-450); Red Blood Count 3.31 10^6/ul (4.00-5.40); Red Cell Distribution Width 17 % (10.5-15); White Blood Count 6.7 10^3/ul (3.5-10.8)
[2018-07-19 06:35] LABS: EGFR Non-African American 52.3 (>60)
[2018-07-19] MEDS: Insulin LISPRO* 1 UNITS UNIT SUBCUT SCH ×3 (07:24→17:01)
--- NOTE | 2018-07-19 08:53 | PN ---
Subjective Date of Service: 07/19/18 Interval History: Ms. Mayer reports feeling good this morning. She is up sitting in a chair and in good spirits. She offers no complaints. She is agreeable to returning to [facility] at discharge, but states she is not interested in hospice at this time. Her brother is at bedside and offers that he feels as though she may not understand what exactly hospice can offer her. Family History: Unchanged from Admission Social History: Unchanged from Admission Past Medical History: Unchanged from Admission Objective Active Medications: Acetaminophen (Tylenol Tab*) 650 mg PO Q4H PRN Albuterol (Ventolin 2.5 Mg/3 Ml Neb.Norma*) 2.5 mg INH Q4HR PRN Atorvastatin Calcium (Lipitor*) 20 mg PO DAILY LING Dextrose (D50w Syringe 50 Ml*) 12.5 gm IV PUSH .FOR FS < 60 - SS PRN Docusate Sodium (Colace Cap*) 200 mg PO BID LING Heparin Sodium (Porcine) (Heparin Vial(*)) 5,000 units SUBCUT Q8HR LING Cefazolin Sodium 1 gm/ Sodium (Chloride) 50 mls @ 200 mls/hr IVPB Q8H LING Insulin Glargine (Lantus(*)) 10 units SUBCUT BEDTIME LING Insulin Human Lispro (Humalog*) 0 units SUBCUT AC LING; Protocol Levetiracetam (Keppra Tab*) 500 mg PO 0900,2100 LING Nifedipine (Procardia Xl Tab*) 90 mg PO DAILY LING Omeprazole (Prilosec Cap*) 40 mg PO BID@0730,1630 LING Ondansetron HCl (Zofran Inj*) 4 mg IV Q6H PRN Prednisone (Deltasone Tab*) 5 mg PO DAILY LING Vital Signs - 8 hr 07/19/18 07/19/18 07/19/18 04:08 07:44 07:45 Temperature 98.3 F 98.4 F Pulse Rate 75 70 Respiratory 20 20 18 Rate Blood Pressure 153/62 142/49 (mmHg) O2 Sat by Pulse 98 96 98 Oximetry Oxygen Devices in Use Now: None Appearance: Elderly female sitting in chair in NAD Eyes: No Scleral Icterus, PERRLA Ears/Nose/Mouth/Throat: Mucous Membranes Moist Neck: NL Appearance and Movements; NL JVP, Trachea Midline Respiratory: Symmetrical Chest Expansion and Respiratory Effort, Clear to Auscultation Cardiovascular: NL Sounds; No Murmurs; No JVD, RRR, No Edema Abdominal: NL Sounds; No Tenderness; No Distention Extremities: No Edema Skin: - - Dry, flaking skin on scalp Neurological: Alert and Oriented x 3, NL Sensation Lines/Tubes/Other Access: Clean, Dry and Intact Peripheral IV Nutrition: Taking PO's Result Diagrams: 07/19/18 05:39 07/19/18 05:39 Assess/Plan/Problems-Billing Assessment: 82 yo female with complex PMH including recent dx of glioblastoma s/ p resection with multiple recent hospitalizations, dx of PE started on anticoagulation with subsequent GI bleed, IVC filter placed who was sent to [facility] for rehab now returning with fever and AMS found to have bacteremia and worsening PEs. - Patient Problems (1) Bacteremia Current Visit: Yes Status: Acute Priority: High Code(s): R78.81 - BACTEREMIA SNOMED Code(s): 7169037 Comment: - Klebsiella pneumoniae positive bacteremia, 4/4 blood cx + - Possible low grade choleangitis - Continue Ancef per ID consult (2) Gallbladder dilatation Current Visit: Yes Status: Acute Priority: High Code(s): K82.8 - OTHER SPECIFIED DISEASES OF GALLBLADDER SNOMED Code(s): 740400766 Comment: - CT abdomen showing a dilated GB - MRCP shows dilated common bile duct with sludge and choledocholithiasis - Per ID, likely cause of bacteremia (3) Pulmonary embolism Current Visit: Yes Status: Acute Priority: High Code(s): I26.99 - OTHER PULMONARY EMBOLISM WITHOUT ACUTE COR PULMONALE SNOMED Code(s): 71754238 Comment: - CTA showing multiple PEs which could be increased from prior (prior testing was a VQ scan so may not be a good comparision) but is showing increased clot burden in different areas than VQ - Stable and asymptomatic - Lillie filter placement 06/25/18 - No anticoagulation given recent GI bleed after starting anticoags - Appreicate onc/heme input - no recommendation for further treatment at this point - Pt and family opted for non agressive/comfort measures (4) Elevated troponin Current Visit: Yes Status: Acute Priority: High Code(s): R74.8 - ABNORMAL LEVELS OF OTHER SERUM ENZYMES SNOMED Code(s): 260911161 Comment: - Likely demand ischemia (5) Glioblastoma multiforme Current Visit: Yes Status: Chronic Priority: High Code(s): C71.9 - MALIGNANT NEOPLASM OF BRAIN, UNSPECIFIED SNOMED Code(s): 292674958 Comment: - Right temporal tumor, WHO Grade IV - S/p right temporal craniotomy 05/16 - Currently undergoing radiation - appreciate Dr. Parks and Dr. Nguyen input - Pt agreeable to finishing radiation (6) CKD (chronic kidney disease) Current Visit: Yes Status: Chronic Code(s): N18.9 - CHRONIC KIDNEY DISEASE, UNSPECIFIED SNOMED Code(s): 607991662 Comment: - Stage 3, appears to be around baseline (7) DNR (do not resuscitate) Current Visit: Yes Status: Chronic (8) DVT prophylaxis Current Visit: Yes Status: Acute Code(s): CTO9805 - SNOMED Code(s): 052671421 Comment: - Heparin SQ Status and Disposition: Inpatient with bacteremia. Discharge back to [facility] at d/c with hospice consult. Attending: Willy Lopez
[2018-07-19] MEDS: levETIRAcetam TAB* 500 MG PO SCH ×2 (09:11→21:59)
[2018-07-19] MEDS: Atorvastatin* 20 MG TAB PO SCH (09:11)
[2018-07-19] MEDS: Omeprazole CAP* 20 MG PO SCH ×2 (09:11→17:33)
[2018-07-19] MEDS: NIFEdipine ER TAB* 30 MG PO SCH (09:12)
[2018-07-19] MEDS: predniSONE TAB* 5 MG PO SCH (09:12)
[2018-07-19] MEDS: Docusate CAP* 100 MG PO SCH ×2 (09:12→21:59)
[2018-07-19] MEDS ORDERED: Magnesium Sulfate IV* 3 GM in NS 0.9% 100 ML* 100 ML IVPB ONE (10:30)
[2018-07-19] MEDS ORDERED: Potassium Chloride LIQUID* 20 MEQ PACKET PO ONE (13:14)
[2018-07-19] MEDS ORDERED: D5W 1/2 NS 40 Meq KCL 1000 ML* 1,000 ML IV SCH (17:00)
[2018-07-19] MEDS: Insulin GLARGINE(*) 1 UNITS UNIT SUBCUT SCH (21:58)
[2018-07-20] MEDS: ceFAZolin 1 GM VIAL(*) 1 GM in NS 0.9% 50 ML* 50 ML IVPB SCH ×3 (00:58→18:18)
[2018-07-20] MEDS: Heparin VIAL(*) 5000 UNITS/ML VIAL (FIVE THOUSAND) SUBCUT SCH ×4 (05:55→21:19)
[2018-07-20 07:12] LABS: EGFR Non-African American 54.2 (>60)
--- NOTE | 2018-07-20 08:25 | PN ---
Subjective Date of Service: 07/20/18 Interval History: Ms. Mayer denies complaint today and states, "I feel fine." She specifically denies chest pain, SOB, nausea or abdominal pain. She is tolerating oral intake well. She is hopeful to return home after completing rehab at [facility]. Family History: Unchanged from Admission Social History: Unchanged from Admission Past Medical History: Unchanged from Admission Objective Active Medications: Acetaminophen (Tylenol Tab*) 650 mg PO Q4H PRN Albuterol (Ventolin 2.5 Mg/3 Ml Neb.Norma*) 2.5 mg INH Q4HR PRN Atorvastatin Calcium (Lipitor*) 20 mg PO DAILY LING Dextrose (D50w Syringe 50 Ml*) 12.5 gm IV PUSH .FOR FS < 60 - SS PRN Docusate Sodium (Colace Cap*) 200 mg PO BID LING Heparin Sodium (Porcine) (Heparin Vial(*)) 5,000 units SUBCUT Q8HR LING Cefazolin Sodium 1 gm/ Sodium (Chloride) 50 mls @ 200 mls/hr IVPB Q8H LING Insulin Glargine (Lantus(*)) 10 units SUBCUT BEDTIME LING Insulin Human Lispro (Humalog*) 0 units SUBCUT AC LING; Protocol Levetiracetam (Keppra Tab*) 500 mg PO 0900,2100 LING Nifedipine (Procardia Xl Tab*) 90 mg PO DAILY LING Omeprazole (Prilosec Cap*) 40 mg PO BID@0730,1630 LING Ondansetron HCl (Zofran Inj*) 4 mg IV Q6H PRN Prednisone (Deltasone Tab*) 5 mg PO DAILY [facility] Vital Signs: Temp Pulse Resp BP Pulse Ox 98.3 F 67 20 157/58 95 07/20/18 03:57 07/20/18 03:57 07/20/18 03:57 07/20/18 03:57 07/20/18 03:57 Oxygen Devices in Use Now: None Appearance: Female lying in bed in NAD Eyes: No Scleral Icterus Ears/Nose/Mouth/Throat: Mucous Membranes Moist Neck: Trachea Midline Respiratory: Symmetrical Chest Expansion and Respiratory Effort, Clear to Auscultation Cardiovascular: NL Sounds; No Murmurs; No JVD, No Edema Abdominal: NL Sounds; No Tenderness; No Distention Lymphatic: No Cervical Adenopathy Extremities: No Edema Skin: No Rash or Ulcers Neurological: Alert and Oriented x 3, NL Muscle Strength and Tone Nutrition: Taking PO's Result Diagrams: 07/19/18 05:39 07/20/18 06:23 Assess/Plan/Problems-Billing Assessment: Ms. Mayer is an 82 yo female with complex PMH including recent dx of glioblastoma s/p resection with multiple recent hospitalizations, dx of PE started on anticoagulation with subsequent GI bleed, IVC filter placed who was sent to [facility] for rehab now returning with fever and AMS found to have bacteremia and worsening PEs. - Patient Problems (1) Pulmonary embolism Comment: - Stable and asymptomatic - CTA showing multiple PEs which could be increased from prior (prior testing was a VQ scan so may not be a good comparision) but is showing increased clot burden in different areas than VQ - No anticoagulation given recent GI bleed after starting anticoags. [place] filter placement 06/25/18. - Appreicate hem/onc input - no recommendation for further treatment at this point - Pt and family opted for non agressive measures. (2) Bacteremia Comment: - Klebsiella pneumoniae positive bacteremia, 4/4 blood cx + - Possibly related to low grade cholangitis - Continue Ancef per ID consult, will review plan for course of treatment with ID in AM. (3) Gallbladder dilatation Comment: - CT abdomen showing a dilated GB - MRCP shows dilated common bile duct with sludge and choledocholithiasis - Per ID, likely cause of bacteremia (4) Glioblastoma multiforme Comment: - Right temporal tumor, WHO Grade IV - S/p right temporal craniotomy 05/16 - Patient has completed radition. (5) Diabetes Comment: - BGs well controlled throughout hospitalization. - Stop BG monitoring and lispro SSI coverage with meals. - Continue lantus qPM per routine. (6) CKD (chronic kidney disease) Comment: - Stage 3, at baseline (7) HTN (hypertension) Comment: - BP well controlled. - Continue nifedipine. (8) Hyperlipidemia Comment: - Continue atorvastatin. (9) Anemia Comment: - At baseline. (10) Seizure Comment: - Hx of related to glioblastoma and surgical resection. - Continue keppra. (11) DVT prophylaxis Comment: - Heparin SQ (12) DNR (do not resuscitate) Comment: Status and Disposition: Inpatient. Anticipate discharge back to [facility] when medically stable with hospice consult.
[2018-07-20] MEDS: Insulin LISPRO* 1 UNITS UNIT SUBCUT SCH (08:30)
[2018-07-20] MEDS ORDERED: Potassium Chloride LIQUID* 20 MEQ PACKET PO SCH (09:00)
[2018-07-20] MEDS: Atorvastatin* 20 MG TAB PO SCH (11:03)
[2018-07-20] MEDS: Docusate CAP* 100 MG PO SCH ×2 (11:03→21:19)
[2018-07-20] MEDS: predniSONE TAB* 5 MG PO SCH (11:04)
[2018-07-20] MEDS: Omeprazole CAP* 20 MG PO SCH ×2 (11:04→18:18)
[2018-07-20] MEDS: levETIRAcetam TAB* 500 MG PO SCH ×2 (11:04→21:19)
[2018-07-20] MEDS: NIFEdipine ER TAB* 30 MG PO SCH (11:04)
[2018-07-20] MEDS: Insulin GLARGINE(*) 1 UNITS UNIT SUBCUT SCH (21:18)
[2018-07-21] MEDS: ceFAZolin 1 GM VIAL(*) 1 GM in NS 0.9% 50 ML* 50 ML IVPB SCH ×2 (00:25→08:13)
[2018-07-21] MEDS: Heparin VIAL(*) 5000 UNITS/ML VIAL (FIVE THOUSAND) SUBCUT SCH (05:13)
--- NOTE | 2018-07-21 07:28 | PN ---
Subjective Date of Service: 07/21/18 Interval History: Ms. Mayer denies complaint and is ready for discharge to [facility]. She is confused at times in conversation though she is generally able to understand the plan. Today, she states that she would not want to go to Hospice. Family History: Unchanged from Admission Social History: Unchanged from Admission Past Medical History: Unchanged from Admission Objective Active Medications: Acetaminophen (Tylenol Tab*) 650 mg PO Q4H PRN Albuterol (Ventolin 2.5 Mg/3 Ml Neb.Norma*) 2.5 mg INH Q4HR PRN Atorvastatin Calcium (Lipitor*) 20 mg PO DAILY LING Docusate Sodium (Colace Cap*) 200 mg PO BID LING Heparin Sodium (Porcine) (Heparin Vial(*)) 5,000 units SUBCUT Q8HR LING Cefazolin Sodium 1 gm/ Sodium (Chloride) 50 mls @ 200 mls/hr IVPB Q8H LING Insulin Glargine (Lantus(*)) 10 units SUBCUT BEDTIME LING Levetiracetam (Keppra Tab*) 500 mg PO 0900,2100 LING Nifedipine (Procardia Xl Tab*) 90 mg PO DAILY LING Omeprazole (Prilosec Cap*) 40 mg PO BID@0730,1630 LING Ondansetron HCl (Zofran Inj*) 4 mg IV Q6H PRN Prednisone (Deltasone Tab*) 5 mg PO DAILY LING Vital Signs: Temp Pulse Resp BP Pulse Ox 98.4 F 67 20 151/64 98 07/21/18 03:27 07/21/18 03:27 07/21/18 03:27 07/21/18 03:27 07/21/18 03:27 Oxygen Devices in Use Now: None Appearance: Elderly female lying in bed in NAD Eyes: No Scleral Icterus Ears/Nose/Mouth/Throat: Mucous Membranes Moist Neck: Trachea Midline Respiratory: Symmetrical Chest Expansion and Respiratory Effort, Clear to Auscultation Cardiovascular: NL Sounds; No Murmurs; No JVD, No Edema Abdominal: NL Sounds; No Tenderness; No Distention Lymphatic: No Cervical Adenopathy Extremities: No Edema Skin: No Rash or Ulcers Neurological: Alert and Oriented x 3, NL Muscle Strength and Tone, - - Some confusion noted in conversation Nutrition: Taking PO's Result Diagrams: 07/19/18 05:39 07/20/18 06:23 Assess/Plan/Problems-Billing Assessment: Ms. Mayer is an 82 yo female with complex PMH including recent dx of glioblastoma s/p resection with multiple recent hospitalizations, dx of PE started on anticoagulation with subsequent GI bleed, IVC filter placed who was sent to [facility] for rehab now returning with fever and AMS found to have bacteremia and worsening PEs. - Patient Problems (1) Pulmonary embolism Comment: - Stable and asymptomatic - CTA showing multiple PEs which could be increased from prior (prior testing was a VQ scan so may not be a good comparision) but is showing increased clot burden in different areas than VQ - No anticoagulation given recent GI bleed after starting anticoags. Lillie filter placement 06/25/18. - Appreicate hem/onc input - no recommendation for further treatment at this point - Pt and family opted for non agressive measures. (2) Bacteremia Comment: - Klebsiella pneumoniae positive bacteremia, / blood cx + - Possibly related to low grade cholangitis - Switch to kelfex x 7 days to complete abx treatment per ID. (3) Gallbladder dilatation Comment: - CT abdomen showing a dilated GB - MRCP shows dilated common bile duct with sludge and choledocholithiasis - Per ID, likely cause of bacteremia (4) Glioblastoma multiforme Comment: - Right temporal tumor, WHO Grade IV - S/p right temporal craniotomy 05/16 - Patient has completed radition. (5) Diabetes Comment: - BGs well controlled throughout hospitalization. - Stop BG monitoring and lispro SSI coverage with meals. - Continue lantus qPM per routine. (6) CKD (chronic kidney disease) Comment: - Stage 3, at baseline (7) HTN (hypertension) Comment: - BP well controlled. - Continue nifedipine. (8) Hyperlipidemia Comment: - Continue atorvastatin. (9) Anemia Comment: - At baseline. (10) Seizure Comment: - Hx of related to glioblastoma and surgical resection. - Continue keppra. (11) DVT prophylaxis Comment: - Heparin SQ (12) DNR (do not resuscitate) Comment: Status and Disposition: Inpatient. Discharge to [facility].
[2018-07-21] MEDS: Omeprazole CAP* 20 MG PO SCH (07:32)
[2018-07-21] MEDS: levETIRAcetam TAB* 500 MG PO SCH (08:13)
[2018-07-21] MEDS: predniSONE TAB* 5 MG PO SCH (08:13)
[2018-07-21] MEDS: Docusate CAP* 100 MG PO SCH (08:13)
[2018-07-21] MEDS: NIFEdipine ER TAB* 30 MG PO SCH (08:13)
[2018-07-21] MEDS: Atorvastatin* 20 MG TAB PO SCH (08:13)
[2018-07-21 10:20] VITALS: BP 146/59
--- NOTE | 2018-07-21 11:21 | DS ---
CC: Dr. Shin.* [facility] MEDICINE DISCHARGE SUMMARY: DATE OF ADMISSION: 07/15/18 DATE OF DISCHARGE: 07/21/18 PRIMARY CARE PROVIDER: Dr. Shin. ATTENDING PHYSICIAN: Dr. Ren Rodriguez (dictation provided by Laverne Santana NP). PRIMARY DIAGNOSES: 1. Extension of pulmonary emboli. 2. Klebsiella pneumonia bacteremia secondary to suspected gallbladder source. SECONDARY DIAGNOSES: 1. History of pulmonary embolism with inferior vena cava filter. 2. History of gastrointestinal bleed in the setting of use of Lovenox for pulmonary embolism. 3. Complex seizure. 4. Glioblastoma, status post resection. 5. Deep vein thrombosis. 6. Diabetes. 7. Hypertension. 8. Hyperlipidemia. 9. Chronic kidney disease. 10. Anemia. 11. Restless leg syndrome. 12. Small bowel obstruction. 13. Diverticulitis. PAST SURGICAL HISTORY: 1. Colon resection. 2. Ventral hernia repair. 3. Bilateral total knee replacements. 4. Craniotomy with tumor resection. MEDICATIONS AT THE TIME OF DISCHARGE: 1. Keppra 500 mg p.o. b.i.d. 2. Ondansetron 4 mg p.o. q.6 hours p.r.n. 3. Meclizine 12.5 mg p.o. q.12 hours p.r.n. 4. Magnesium hydroxide liquid 30 mL p.o. q.4 hours p.r.n. 5. Albuterol nebulizer p.r.n. 6. Acetaminophen 650 mg q.4 hours p.r.n. 7. Lantus 10 units substantially at bedtime. 8. Prednisone 5 mg p.o. daily. 9. Nifedipine ER 90 mg p.o. daily. 10. Docusate 200 mg p.o. b.i.d. 11. Simvastatin 40 mg p.o. daily. 12. Omeprazole 40 mg p.o. b.i.d. 13. Keflex 500 mg p.o. q.i.d. x7 days. HOSPITAL COURSE: Ms. Mayer is an 82-year-old with past medical history of glioblastoma, status post resection and subsequent development of pulmonary emboli with GI bleed and placement of an IVC filter, who presented to the hospital on 07/15/18 with concern for fever and altered mental status. Please see the dictated H and P from Charly Blas NP for complete details. In brief , the patient had been residing at [facility] when she was noted to have a fever of 101 and acting confused. The patient was unable to provide reliable information in the ED. In the emergency room, the patient had labs, which showed no leukocytosis. She had her chronic anemia at baseline. Her BUN and creatinine were at baseline. She had a mildly elevated troponin to 0.05, her CRP was 106.38, she had an elevated sodium to 146. Her workup included a chest x-ray, which showed no active cardiopulmonary disease. She had an abdomen and pelvis CT which showed "stable" cystic lesions of the liver, the gallbladder is hydropic without pericholecystic inflammatory change. There is dilatation of the common bile stent at the level of the ampulla with a diverticulum of the second stage of the duodenum, diverticulosis, atherosclerosis and multiple ventral areas containing with bowel without obstruction. She had an EKG which showed a sinus rhythm with no evidence of ischemia and then she went on for a chest thorax CTA. This showed, "filling defect in the left main pulmonary artery, left upper lobe pulmonary artery, as well as the right lower lobe pulmonary artery and right upper lobe pulmonary consistent with multiple pulmonary emboli and the patient also had a brain CT, which showed post surgical change at the right temporal lobe. No acute intracranial pathology. In reviewing the chest thorax CTA and comparing it to previous study that had demonstrated her pulmonary embolism, it was noted that the study had been a V/Q scan and we were not able to compare directly, however based on the distribution of the PEs, it appeared that she had had extension of the pulmonary emboli burden. The patient was not a candidate for anticoagulation given her recent GI bleed. This was discussed at length with the patient and her family. She was seen in consultation by Dr. Marion from the hematology/ oncology service who agreed that no further intervention for the PEs were possible. In addition to the extension of the pulmonary emboli, the patient had positive blood cultures with Klebsiella pneumoniae x4. We suspected that this was likely from a gallbladder source. A consultation was obtained from Dr. Culp and the patient underwent a gallbladder ultrasound, which showed "mild hepatomegaly indeterminate solid lesion in the inferior right hepatic lobe with associated calcifications; however, this was also evident on the earlier CT examinations, distended gallbladder and distended ducts, suspect sludge debris within both regions probable cyst in the pancreatic body/tail." She also had an MRCP which is read as follows, "no evidence of gallstones is noted, the common duct is dilated measuring up to 2 cm with likely tumefactive sludge and choledocholithiasis although the common duct tapers at the pancreatic head." It was our continued suspicion that this was the source of her Klebsiella pneumoniae infection. Dr. Culp recommended treatment with cefazolin, which has been undertaken while she was here in the hospital. He is now recommending 7 days of Keflex to complete a course of antibiotics. In terms of treatment for glioblastoma, Dr. Marion continued to recommend radiation therapy, which the patient has completed while here. He noted that the patient did not elect to go on hospice service and would survive another month that he would recommend an MRI of the brain and at that point it could be decided whether or not she should be placed on Temodar. Ms. Mayer today states that she does not want hospice services, she is oriented x3, but shows some confusion and inability to understand fully her situation. She does have a brother Arsenio who intermittently involved in her care and is following along with her at [facility]. Continued discussions and decisions around hospice services can be made after discharge. DISPOSITION: To [facility]. DIET: Regular, low salt, low carb. ACTIVITY: As tolerated. FOLLOWUP: 1. Please follow up with the providers at [facility] regarding this acute hospitalization. 2. Please consider follow up with Dr. Marion as indicated. TIME SPENT: Approximately 60 minutes was spent on the discharge of this patient , more than half the time was spent with the patient at the bedside reviewing the events leading up to this hospitalization, and during this hospitalization performing the physical examination, and reviewing of plan and care. LAVERNE SANTANA, [place] [id number]/[facility] #: [id number] NALINI
== END 2018-07-21 11:30 | DRG 177 ==
LOC: ED 11:00 → MEDTELE 18:18 → OBSVTOIN 07-16 14:24
PROVIDERS: ADMIT Internal Medicine; ATTEND Student in an Organized Health Care Education/Training Program
PROC: D0001ZZ Beam Radiation of Brain using Photons 1 - 10 MeV (ICD-10-PCS; principal; 2018-07-17)
DX: J15.0 Pneumonia due to Klebsiella pneumoniae (principal); I26.99 Other pulmonary embolism without acute cor pulmonale; G93.40 Encephalopathy, unspecified; G40.209 Localization-related (focal) (partial) symptomatic epilepsy and epileptic syndromes with complex partial seizures, not intractable, without status epilepticus; C71.2 Malignant neoplasm of temporal lobe; E11.22 Type 2 diabetes mellitus with diabetic chronic kidney disease; I12.9 Hypertensive chronic kidney disease with stage 1 through stage 4 chronic kidney disease, or unspecified chronic kidney disease; N18.9 Chronic kidney disease, unspecified; E78.5 Hyperlipidemia, unspecified; D64.9 Anemia, unspecified; G25.81 Restless legs syndrome; Z96.653 Presence of artificial knee joint, bilateral; K80.50 Calculus of bile duct without cholangitis or cholecystitis without obstruction; Z86.711 Personal history of pulmonary embolism; Z86.718 Personal history of other venous thrombosis and embolism; Z79.1 Long term (current) use of non-steroidal anti-inflammatories (NSAID); Z79.4 Long term (current) use of insulin; Z79.52 Long term (current) use of systemic steroids; Z79.899 Other long term (current) drug therapy; Z82.49 Family history of ischemic heart disease and other diseases of the circulatory system; Z66 Do not resuscitate; Z96.89 Presence of other specified functional implants; R74.8 Abnormal levels of other serum enzymes; E66.9 Obesity, unspecified; Z68.33 Body mass index [BMI] 33.0-33.9, adult; Z84.1 Family history of disorders of kidney and ureter
CPT/HCPCS: 36415; 70450; 71045; 71275; 74176; 74181; 76376; 76705; 77336; 77386; 80048; 80053; 80177; 81003; 81015; 83605; 83735; 84132; 84484; 85025; 85060; 85610; 86140; 87040; 87077; 87086; 87186; 87205; 93005; 99283; A9270-GY; G0378; J0690; J1644; J2543; J3475; J3480; J7512; Q9967

== ENCOUNTER → 2018-07-24 09:27 | Emergency (ER) | payer MEDICARE, MEDICAID ==
[~2018-07-24 09:27] MED LIST: NS 0.9% 1000 ML* 1,000 ML IV SCH; NS 0.9% 500 ML* 500 ML IV ONE; Naloxone* 0.4 MG/ML 1 ML VIAL IV PUSH ONE; Ondansetron INJ* 2 MG/ML VIAL IV ONE; Ondansetron INJ* 2 MG/ML VIAL ONE; fentaNYL* 50 MCG/ML 2 ML VIAL (100 MCG VIAL) IV SLOW PU ONE; fentaNYL* 50 MCG/ML 2 ML VIAL (100 MCG VIAL) ONE
--- NOTE | 2018-07-24 09:37 | ED ---
Neurological HPI - HPI Summary HPI Summary: 82 y/o female BIBA s/p syncopal episode with temporary LOC minutes FOOT TENDER this morning. Pt found on bathroom floor by EMS. Last known well 08:52 this morning. Pt lives at [facility]. EMS noticed slurred speech. Pt c/o nausea. PMHx brain cancer, just graduated from radiation. Denies GRAY. Pt c/o bilateral leg pain and weakness. Pt states her legs "won't move". Code kitty called minutes FOOT TENDER, at 09:23. - History of Current Complaint Stated Complaint: MARYURI VYAS Hx Obtained From: Patient - Additional Pertinent History Primary Care Physician: [id number] - Allergy/Home Medications Allergies/Adverse Reactions: Allergies Allergy/AdvReac Type Severity Reaction Status Date / Time No Known Allergies Allergy Verified 05/08/18 16:22 PMH/Surg Hx/FS Hx/Imm Hx Previously Healthy: No Endocrine/Hematology History: Reports: Hx Anticoagulant Therapy, Hx Diabetes, Hx Anemia Denies: Hx Thyroid Disease, Hx Unexplained Bleeding Cardiovascular History: Reports: Hx Angina, Hx Hypercholesterolemia, Hx Hypertension Denies: Hx Aneurysm, Hx Angioplasty, Hx Auto Implanted Cardiovert Defib, Hx Cardiac Arrest, Hx Cardiomegaly, Hx Congenital Heart Disease, Hx Congestive Heart Failure, Hx Coronary Artery Disease, Hx Deep Vein Thrombosis, Hx Hypotension, Hx Pacemaker/ICD, Hx Peripheral Vascular Disease, Hx Rheumatic Fever, Hx Syncope, Hx Valvular Heart Disease, Other Cardiovascular Problems/ Disorders Respiratory History: Denies: Hx Asthma, Hx Chronic Bronchitis, Hx Chronic Obstructive Pulmonary Disease (COPD), Hx Cystic Fibrosis GI History: Reports: Hx Diverticulosis, Other GI Disorders - ventral hernia, bowel ostruction History: Reports: Hx Kidney Stones - LEFT Denies: Hx Renal Disease Musculoskeletal History: Reports: Hx Arthritis - L hand, Other Musculoskeletal History - right knee replacement Sensory History: Denies: Hx Cataracts, Hx Contacts or Glasses, Hx Eye Injury, Hx Eye Prosthesis, Hx Glaucoma, Hx Macular Degeneration, Hx Vision Problem, Hx Deafness , Hx Hearing Aid, Hx Hearing Problem, Other Sensory Impairments Opthamlomology History: Denies: Hx Cataracts, Hx Contacts or Glasses, Hx Eye Injury, Hx Eye Prosthesis, Hx Glaucoma, Hx Macular Degeneration, Hx Vision Problem, Other Sensory Impairments Neurological History: Reports: Hx CVA, Hx Developmental Delay, Hx Headaches, Hx Seizures, Other Neuro Impairments/Disorders - brain tumor 2017 Denies: Hx Dementia, Hx Migraine, Hx Spinal Cord Injury, Hx Transient Ischemic Attacks (TIA) Psychiatric History: Denies: Hx Anxiety, Hx Attention Deficit Hyperactivity Disorder, Hx Panic Disorder, Hx Bipolar Disorder, Hx Substance Abuse - Cancer History Cancer Type, Location and Year: brain tumor, 2017 Hx Chemotherapy: No Hx Radiation Therapy: No - Surgical History Surgery Procedure, Year, and Place: ABD HERNIA REPAIR. RIGHT KNEE REPLACEMENT, 2014, [facility]. BRAIN TUMOR REMOVED 05/14/2018 WITH REVISIONS (EXTERNAL HUMA ARE REMOVED) Hx Anesthesia Reactions: No - Immunization History Date of Tetanus Vaccine: unknown Infectious Disease History: Denies: Hx Clostridium Difficile, Hx Hepatitis, Hx Human Immunodeficiency Virus (HIV), Hx Shingles, Hx Tuberculosis - Family History Known Family History: Positive: Cardiac Disease - father Hx [place], Renal Disease - mother - Social History Alcohol Use: None Substance Use Type: Reports: None Hx Tobacco Use: No Smoking Status (MU): Never Smoked Tobacco Review of Systems Constitutional: Negative Eyes: Negative ENT: Negative Cardiovascular: Negative Respiratory: Negative Gastrointestinal: Negative Genitourinary: Negative Musculoskeletal: Negative Skin: Negative Positive: Weakness - and pain @ bilateral LE, Syncope. Negative: Headache Psychological: Normal All Other Systems Reviewed And Are Negative: No Physical Exam - Summary Physical Exam Summary: Appearance: Alert, conversive, nontoxic appearing. Pt is lying in the L lateral position. Skin: Warm, dry, no mottling, no rashes, no contusions HEENT: EOMI, PERRL, dry mucous membranes. Pt has no hair. Neck: No masses on the neck, supple Respiratory: Clear to auscultation, breath sounds slightly diminished, no rales , no rhonchi, no wheezes Cardiovascular: RRR, pulses are symmetrical in both lower and upper extremities Abdomen: Soft pannus, non-tender. No flank tenderness. Bowel Sounds: Present Musculoskeletal: No CVA tenderness, no obvious deformity, moving all extremities in a grossly normal manner Neurological: A&Ox3, CN II-XII Intact, moving all extremities symmetrically. Generalized weakness in LE's. Psychiatric: Normal affect and mood GCS: 15 Triage Information Reviewed: Yes Vital Signs Reviewed: Yes Diagnostics - Laboratory Result Diagrams: 07/24/18 09:50 07/24/18 09:50 Lab Statement: Any lab studies that have been ordered have been reviewed, and results considered in the medical decision making process. - Radiology CXR Xray Interpretation: No Acute Changes Radiology Interpretation Completed By: Radiologist - ED Physician reviews and agrees - CT Brain CT CT Interpretation Completed By: Radiologist - #. Negative for intracranial hemorrhage. #. No compelling CT stigmata of ischemic stroke. #. Negative for intra or extra-axial hemorrhage. Increased magnitude of vasogenic edema at the RIGHT temporal and parietal lobes including extension to the posterior limb of the RIGHT internal capsule with unchanged effacement of the overlying cerebral sulci. Negative for subfalcine or downward herniation. #. Postsurgical change of RIGHT fronto temporal parietal craniotomy. #. Results discussed with Dr. Hooper 07/24/2018 9:51 AM EDT - EKG 1 EKG Interpretation: ST @ 100 BPM. Normal QRS, QTc, axis, ST T wave. Course/Dx - Course Assessment/Plan: 82 y/o female BIBA s/p syncopal episode this morning at around 09:00. Pt c/o bilateral LE pain and weakness. Denies GRAY. PMHx brain cancer. Code vyas called at 09:23. Spoke with radiologist, who indicates increased vasogenic edema @ tumor site, and no acute bleed or ischemic stroke on Brain CT. CXR NAD. EKG normal. Chart review reveals that the pt had surgery and radiation on 07/16. Per pt's radiation oncologist, Theo Orantes, the pt decided to discontinue radiation in favor of hospice. SPoke with Juliana Leiva ) the pt's niece and healthcare proxy. Ms. Leiva states pt wants no interventions, abx ok. Ms. Leiva reports pt has not been walking x 1 week, @ [employer] [employer] x 2 days. Last admission - multiple blood clots. BP decreased, LOC x3 sec this a.m. per [facility] staff. Charge nurse will contact [facility] and try to upgrade pt to fdc portion of [facility]. If no upgrade, pt will be admitted for further workup/management. At 11:00, pt will be given 50 fentanyl. Pt reports improved comfort. BP decreased. Pt was given IV fluids and the pt can say her own name. At 11:12 - 0.1 mg Narcan given, and pt's BP improved to 85 systolic. Pt's initial BP was 104 systolic. Pt is comfortable and has no respiratory issues, therefore we will hold on reversal of narcan. Bloodwork shows Creatinine of 1.73, worse than baseline. Mild leukocytosis - elevated WBC count at 12,000. No left shift. I think this is more of a stress response. Spoke with Ed, the pts great grandson, who was the pts healthcare proxy. Ed has spoken to Juliana and both are on the same page. He has made home arrangements ([place]) for the inevitable. He is comfortable with her going back to [facility] after full evaluation. The pt's BP is still persistently low; I do not believe this is related to fentanyl administration. The pt is alert, turning in bed herself and answering simple questions. At this point, we will hang a 2nd liter and call the pts healthcare proxy. At 12:35, I spoke with Juliana (proxy) about the pts condition. She said that we can give fluids, turn off the monitor, and administer comfort care. Juliana reiterated that our priority at this point should be to make the pt comfortable. I discussed the fact that if the pt's BP is persistently this low that she may in the ED. Juliana is aware of this situation. I will also call Ed to make him aware, and I will talk to him when I see him in the ED as well. Spoke with Juliana who spoke with her other brother. He, Ed and Juliana report that the pt clearly wants to take her natural course, continue meds but not to take any extensive measures. Juliana does not want hospice, but wants "nature to take its course". At this point Juliaan spoke with 2 different people at [facility], who agreed to take the pt back to their nursing unit. I then spoke with elementary school social worker Tammi, who read elementary school social worker Nicole's note stating that the pt can go back to [facility]. Pt will be d/c back to the nursing unit at [facility]. On review of medications during time of transfer back to [facility], I noted that the pt is not on any anticoagulants for the pt's significant and multiple PE's. I called Juliana (proxy), who stated that the pt was previously started but hemorrhaged from her anus so they opted to not treat. I discussed the extensiveness of the pt's PE's and informed Juliana the risk of if left untreated. Proxy and pt understand the risks and remain in their positions not to start anti-coagulants. - Diagnoses Provider Diagnoses: Weakness, Dehydration - Critical Care Time Critical Care Time: 75-104 min - 75 min Discharge - Sign-Out/Discharge Documenting (check all that apply): Patient Departure - Discharge Plan Condition: Stable Disposition: HOME Patient Education Materials: Dehydration (ED), Weakness (ED) Referrals: Landon Shin MD [Primary Care Provider] - Additional Instructions: Please followup with your doctor tomorrow. return if worse or any new symptoms. Continue to take all medications as previously instructed. - Attestation Statements Document Initiated by Scribe: Yes Documenting Scribe: Adrian Castillo Provider For Whom Scribe is Documenting (Include Credential): Lu Hooper MD Scribe Attestation: Adrian Thorpe, scribed for Lu Hooper MD on 07/24/18 at 1659.
--- NOTE | 2018-07-24 09:56 | RAD ---
Indication: Syncopal episode with loss of consciousness. History of brain cancer. Slurred speech. LEFT side supervisor cigar making hand weakness. Comparison: July 16, 2018 CT. Technique: Noncontrast CT vertex of skull through foramen magnum. Report: Negative for intra or extra-axial hemorrhage. Increased magnitude of vasogenic edema at the RIGHT temporal and parietal lobes including extension to the posterior limb of the RIGHT internal capsule with unchanged effacement of the overlying cerebral sulci. Negative for significant mass effect on the RIGHT lateral ventricle or midline shift. The basal cisterns remain patent. RIGHT temporal frontal parietal craniotomy noted. No suspicious osseous lesion or scalp hematoma. Clear visualized paranasal sinuses. Partial opacification of the bilateral mastoid air spaces without significant change. IMPRESSION: #. Negative for intracranial hemorrhage. #. No compelling CT stigmata of ischemic stroke. #. Negative for intra or extra-axial hemorrhage. Increased magnitude of vasogenic edema at the RIGHT temporal and parietal lobes including extension to the posterior limb of the RIGHT internal capsule with unchanged effacement of the overlying cerebral sulci. Negative for subfalcine or downward herniation. #. Postsurgical change of RIGHT fronto temporal parietal craniotomy. #. Results discussed with Dr. Hooper 07/24/2018 9:51 AM EDT
--- NOTE | 2018-07-24 10:04 | RAD ---
INDICATION: CVA COMPARISON: July 15, 2018 TECHNIQUE: An AP portable view obtained at 0952 hours is submitted. FINDINGS: Bones/Soft Tissues: There are no acute bony findings. Cardiomediastinal: The cardiomediastinal silhouette is normal. Lungs: There are no infiltrates. Pleura: There are no pleural effusions. Other: None IMPRESSION: NO ACTIVE DISEASE.
[2018-07-24 10:06] LABS: Hematocrit 31 % (35-47); Hemoglobin 9.4 g/dl (12.0-16.0); Mean Corpuscular HGB Conc 30 g/dl (31-36); Mean Corpuscular Hemoglobin 26 pg (27-31); Mean Corpuscular Volume 87 fL (80-97); Mean Platelet Volume 12.4 um3 (7.4-10.4); Platelet Count 246 10^3/ul (150-450); Red Blood Count 3.55 10^6/ul (4.00-5.40); Red Cell Distribution Width 18 % (10.5-15); White Blood Count 12.3 10^3/ul (3.5-10.8)
[2018-07-24 10:23] LABS: EGFR Non-African American 28.1 (>60)
[2018-07-24 11:05] LABS: ABS Basophils 0.1 10^3/ul (0-0.2); ABS Eosinophils 0.5 10^3/ul (0-0.6); ABS Monocytes 0.7 10^3/ul (0-0.8); ABS Nucleated RBC 0 10^3/ul; Eosinophil % 3.8 % (0-6); Lymphocyte % 40.9 % (25-47); Nucleated Red Blood Cells % 0.1
[2018-07-24 17:29] VITALS: BP 94/40
== END | disposition home or self-care (01) ==
LOC: ED 09:27
DX: R53.1 Weakness (principal); E86.0 Dehydration; F90.9 Attention-deficit hyperactivity disorder, unspecified type; R62.50 Unspecified lack of expected normal physiological development in childhood; Z85.841 Personal history of malignant neoplasm of brain; Z86.73 Personal history of transient ischemic attack (TIA), and cerebral infarction without residual deficits
CPT/HCPCS: 36415; 70450; 71045; 80053; 83735; 84443; 85025; 85060; 85610; 85730; 86850; 86900; 86901; 93005; 96361; 96374; 96375; 99285; J2310; J2405; J3010